=== PATIENT | female | born 1950 | race Caucasian/White ===

== ENCOUNTER 2020-06-09 10:42 | Outpatient (REF) | payer MEDICARE, SELFPAY | END 2020-06-09 10:43 | disposition home or self-care (01) | LOC: HO.HMGCLDS 10:42 | PROVIDERS: PCP Internal Medicine; Visit Provider Internal Medicine | DX: Z20.828 Contact with and (suspected) exposure to other viral communicable diseases (principal) | CPT/HCPCS: C9803; U0003 ==

== ENCOUNTER → 2020-06-14 08:58 | Outpatient (BNVA) | payer MEDICARE, SELFPAY | PROVIDERS: PCP Internal Medicine; Referring Provider Internal Medicine; Visit Provider Internal Medicine Endocrinology, Diabetes & Metabolism | DX: Z13.89 Encounter for screening for other disorder (principal) | CPT/HCPCS: Q3014 ==

== ENCOUNTER 2020-06-29 08:26 | Outpatient (REF) | payer MEDICARE, SELFPAY ==
[2020-06-29 10:37] LABS: Estimated Average Glucose 169 mg/dL; Hemoglobin A1c % 7.5 %
[2020-06-29 11:13] LABS: Alanine Aminotransferase 114 U/L (0-31); Alkaline Phosphatase 127 U/L (39-117); Anion Gap 14 (12-20); Aspartate Amino Transferase 146 U/L (5-31); Bilirubin Total 0.5 mg/dL (0.0-1.0); Blood Urea Nitrogen 18 mg/dL (9-16); Calcium 8.3 mg/dL (8.4-10.2); Carbon Dioxide 23 mmol/L (22-29); Chloride 112 mmol/L (96-108); Cholesterol 130 mg/dL; Estimated Glomerular Filt Rate 49; Free T4 (Free Thyroxine) 0.83 ng/dL (0.71-1.85); Glucose Fasting 73 mg/dL (60-99); HDL Cholesterol 48 mg/dL; LDL Cholesterol Calculated 58 mg/dl; Potassium 3.7 mmol/l (3.3-5.1); Sodium 145 mmol/L (135-145); Thyroid Stimulating Hormone 8.22 uIU/mL (0.32-4.0); Triglycerides 124 mg/dL
[2020-06-29 11:31] LABS: Vitamin B12 593 pg/mL (200-900)
[2020-06-29 11:39] LABS: Creatinine Urine 232.16 mg/dL; Microalbum/Creatinine Ratio Ur 94.7 ug/mg cr
[2020-06-30 13:47] LABS: LDL Cholesterol Direct 59 mg/dL (<100)
== END 2020-06-29 08:27 | disposition home or self-care (01) ==
LOC: HO.10HDL 08:26
PROVIDERS: Visit Provider Internal Medicine Endocrinology, Diabetes & Metabolism
DX: E11.641 Type 2 diabetes mellitus with hypoglycemia with coma (principal)
CPT/HCPCS: 80053; 80061; 82043; 82607; 83036; 83721; 84439; 84443

== ENCOUNTER 2020-07-09 08:44 | Outpatient (REF) | payer MEDICARE, SELFPAY ==
[2020-07-09 11:03] LABS: Alanine Aminotransferase 91 U/L (0-31); Albumin Level 3.9 g/dL (3.5-5.0); Alkaline Phosphatase 117 U/L (39-117); Anion Gap 12 (12-20); Aspartate Amino Transferase 126 U/L (5-31); Bilirubin Total 0.6 mg/dL (0.0-1.0); Blood Urea Nitrogen 16 mg/dL (9-16); Calcium 8.5 mg/dL (8.4-10.2); Carbon Dioxide 27 mmol/L (22-29); Chloride 107 mmol/L (96-108); Estimated Glomerular Filt Rate 45; Glucose Fasting 118 mg/dL (60-99); Potassium 4.6 mmol/l (3.3-5.1); Sodium 141 mmol/L (135-145); Total Protein 7.1 g/dL (6.5-8.0)
[2020-07-09 11:25] LABS: Free T4 (Free Thyroxine) 0.94 ng/dL (0.71-1.85); Vitamin D 25-OH Total 14.5 ng/mL (>30)
[2020-07-12 19:02] LABS: Calcium (PTHI) 8.7 mg/dL (8.6-10.4); PTHI 82 pg/mL (14-64)
== END 2020-07-09 08:45 | disposition home or self-care (01) ==
LOC: HO.10HDL 08:44
PROVIDERS: Visit Provider Internal Medicine Endocrinology, Diabetes & Metabolism
DX: E11.641 Type 2 diabetes mellitus with hypoglycemia with coma (principal); E03.8 Other specified hypothyroidism; E06.3 Autoimmune thyroiditis
CPT/HCPCS: 80053; 82306; 83970; 84439; 84443

== ENCOUNTER 2020-08-04 09:22 | Outpatient (REF) | payer MEDICARE, SELFPAY ==
--- NOTE | 2020-08-04 09:26 | MM_ITS ---
EXAMINATION: BONE DENSITOMETRY CLINICAL INDICATION: Other specified hypothyroidism. COMPARISON: Previous BD dated 07/18/2012 and baseline BD dated 09/21/2006. TECHNIQUE: Using a [employer] DXA System (software version: 13.1) manufactured by [employer], dual-energy x-ray absorptiometry was performed of the lumbar spine and left hip. The images are of good technical quality. Summary results are attached. FINDINGS: AP SPINE L1-L4: Current: BMD 1.386 g/cm2, Z-score 2.9, T-score 1.7, normal, 1.5% increase from previous, 12.3% increase from baseline (<5% change is not significant). Prior: BMD 1.365 g/cm2. Baseline: BMD 1.234 g/cm2. LEFT FEMUR, NECK: Current: BMD 1.068 g/cm2, Z-score 1.5, T-score 0.2, normal. Prior: BMD 1.098 g/cm2. Baseline: BMD 1.158 g/cm2. LEFT FEMUR, TOTAL: Current: BMD 1.219 g/cm2, Z-score 2.7, T-score 1.7, normal, 0.2% decrease from previous, 4.2% decrease from baseline (<5% change is not significant). Prior: BMD 1.221 g/cm2. Baseline: BMD 1.272 g/cm2. IDENTIFIED RISK FACTORS: Rheumatoid arthritis, recurrent falls, secondary osteoporosis, menopause. HISTORY OF FRACTURE: None listed. MEDICATIONS: Calcium supplements or multivitamin, vitamin D. MM/XR DEXA axial skeleton IMPRESSION: 1. DIAGNOSIS: Normal bone density based on the lowest T-score value of 0.2 in the femoral neck applying World Health Organization criteria. 2. 10-YEAR FRACTURE RISK PREDICTION, FRAX: Major osteoporotic fracture (clinical spine, forearm, hip or shoulder) 3.5%. Hip fracture 0.1%. 3. Treatment Recommendations: NOF guidelines recommend consideration for treatment in postmenopausal women and men age 50 and older presenting with the following: -A hip or vertebral (clinical or morphometric) fracture. -T-score less than or equal to -2.5 at the femoral neck or spine after appropriate evaluation to exclude secondary causes. -Low bone mass at the hip or spine and a 10-year fracture probability by FRAX of greater than or equal to 3% for hip fracture or greater than or equal to 20% for major osteoporotic fracture based on the [place] adapted WHO algorithm. 4. Other Recommendations: All treatment decisions require clinical judgment and consideration of individual patient factors, including patient preferences, comorbidities, previous drug use, risk factors not captured in the FRAX model (e.g. frailty, falls, vitamin D deficiency, increased bone turnover, interval significant decline in bone density) and possible under or overestimation of fracture risk by FRAX. FUTURE SCAN RECOMMENDATION: People with diagnosed cases of osteoporosis or at high risk for fracture should have regular bone mineral density tests. For patients eligible for Medicare, routine testing is allowed once every 2 years. The testing frequency can be increased to one year for patients who have rapidly progressing disease, those who are receiving or discontinuing medical therapy to restore bone mass, or have additional risk factors.
== END 2020-08-04 09:23 | disposition home or self-care (01) ==
LOC: HO.MAMMO 09:22
PROVIDERS: Visit Provider Internal Medicine
DX: Z13.820 Encounter for screening for osteoporosis (principal); Z78.0 Asymptomatic menopausal state; E06.3 Autoimmune thyroiditis; E03.8 Other specified hypothyroidism; M06.9 Rheumatoid arthritis, unspecified; R29.6 Repeated falls
CPT/HCPCS: 77080

== ENCOUNTER 2020-08-21 09:57 | Outpatient (REF) | payer MEDICARE, SELFPAY ==
[2020-08-21 11:21] LABS: Free T4 (Free Thyroxine) 1.02 ng/dL (0.71-1.85); Thyroid Stimulating Hormone 8.01 uIU/mL (0.32-4.0)
[2020-08-21 11:29] LABS: Alanine Aminotransferase 112 U/L (0-31); Albumin Level 4.1 g/dL (3.5-5.0); Alkaline Phosphatase 160 U/L (39-117); Aspartate Amino Transferase 180 U/L (5-31); Bilirubin Direct 0.2 mg/dL (0.0-0.5); Bilirubin Total 0.6 mg/dL (0.0-1.0); Total Protein 7.5 g/dL (6.5-8.0)
== END 2020-08-21 09:58 | disposition home or self-care (01) ==
LOC: HO.LAB 09:57
PROVIDERS: Absent Provider Internal Medicine; PCP Internal Medicine; Visit Provider Internal Medicine Endocrinology, Diabetes & Metabolism
DX: E03.8 Other specified hypothyroidism (principal); E06.3 Autoimmune thyroiditis
CPT/HCPCS: 36415; 80076; 84439; 84443

== ENCOUNTER → 2020-09-15 14:07 | Outpatient (BNVA) | payer MEDICARE, SELFPAY | PROVIDERS: PCP Internal Medicine; Visit Provider Internal Medicine ==

== ENCOUNTER → 2020-09-28 08:18 | Outpatient (BNVA) | payer MEDICARE, SELFPAY | PROVIDERS: PCP Internal Medicine; Visit Provider Psychiatry & Neurology Neurology | DX: Z13.89 Encounter for screening for other disorder (principal) | CPT/HCPCS: Q3014 ==

== ENCOUNTER → 2020-10-01 09:43 | Outpatient (BNVA) | payer MEDICARE, SELFPAY | PROVIDERS: PCP Internal Medicine; Visit Provider Internal Medicine Endocrinology, Diabetes & Metabolism | DX: E11.641 Type 2 diabetes mellitus with hypoglycemia with coma (principal); E11.21 Type 2 diabetes mellitus with diabetic nephropathy; Z79.4 Long term (current) use of insulin; E03.8 Other specified hypothyroidism; E06.3 Autoimmune thyroiditis; E78.5 Hyperlipidemia, unspecified; I10 Essential (primary) hypertension; E66.9 Obesity, unspecified | CPT/HCPCS: 82947; 99212 ==

== ENCOUNTER 2020-10-01 10:46 | Outpatient (REF) | payer MEDICARE, SELFPAY ==
[2020-10-01 14:43] LABS: Alanine Aminotransferase 58 U/L (0-31); Albumin Level 3.8 g/dL (3.5-5.0); Alkaline Phosphatase 133 U/L (39-117); Anion Gap 10 (12-20); Aspartate Amino Transferase 80 U/L (5-31); Bilirubin Total 0.5 mg/dL (0.0-1.0); Blood Urea Nitrogen 21 mg/dL (9-16); Calcium 8.7 mg/dL (8.4-10.2); Carbon Dioxide 28 mmol/L (22-29); Chloride 107 mmol/L (96-108); Estimated Glomerular Filt Rate 48; Glucose Fasting 150 mg/dL (60-99); Sodium 141 mmol/L (135-145); Total Protein 7.2 g/dL (6.5-8.0)
[2020-10-01 14:48] LABS: Vitamin B12 697 pg/mL (200-900)
[2020-10-01 15:12] LABS: Free T4 (Free Thyroxine) 0.86 ng/dL (0.71-1.85)
[2020-10-01 15:14] LABS: Thyroid Stimulating Hormone 7.71 uIU/mL (0.32-4.0)
[2020-10-02 06:12] LABS: LDL Cholesterol Direct 127 mg/dL (<100)
== END 2020-10-01 10:47 | disposition home or self-care (01) ==
LOC: HO.10HDL 10:46
PROVIDERS: Absent Provider Internal Medicine; Visit Provider Internal Medicine Endocrinology, Diabetes & Metabolism
DX: E11.641 Type 2 diabetes mellitus with hypoglycemia with coma (principal); E03.8 Other specified hypothyroidism; E06.3 Autoimmune thyroiditis
CPT/HCPCS: 36415; 80053; 82607; 83721; 84439; 84443

== ENCOUNTER 2020-10-04 08:57 | Outpatient (REF) | payer MEDICARE, SELFPAY ==
[2020-10-04 10:40] LABS: MANUAL DIFF FLAG NO
[2020-10-04 10:57] LABS: Basophils Absolute Auto 0.1 X10*3/uL (0.0-0.2); Basophils Percent Auto 0.8 % (0-2); Eosinophils Absolute Auto 0.1 X10*3/uL (0.0-0.4); Hematocrit 35.4 % (37-47); Hemoglobin 11.4 g/dl (12.0-16.0); Imm Gran Abs Auto 0.01 X10*3/uL (0.00-0.03); Imm Gran Pct Auto 0.2 % (0.0-0.4); Lymphocytes Absolute Auto 1.3 X10*3/uL (1.2-4.9); Mean Corpuscular HGB Conc 32.2 g/dl (31.0-35.0); Mean Corpuscular Hemoglobin 30.8 pg (27.0-33.0); Mean Corpuscular Volume 95.7 fL (80-98); Mean Platelet Volume 11.9 fL (9.4-12.3); Monocytes Absolute Auto 0.5 X10*3/uL (0.1-1.2); Monocytes Percent Auto 7.9 % (2-11); Neutrophils Absolute Auto 4.6 X10*3/uL (2.0-8.3); Neutrophils Percent Auto 69.1 % (45-73); Platelet Count 162 X10*3/uL (160-400); Red Cell Distribution Width 13.8 % (11.0-16.0); White Blood Count 6.6 X10*3/uL (4.8-10.8)
[2020-10-04 11:21] LABS: Creatinine Urine 200.38 mg/dL; Microalbum/Creatinine Ratio Ur 122.2 ug/mg cr
[2020-10-04 12:04] LABS: HBS Num1 1.41 mIU/mL (0-7.99); HBc Num1 0.04 S/CO (0.00-0.79); Hepatitis B Core Antibody Nonreactive (Nonreactive); ~Hepatitis B Surface Antibody NONREACTIVE (Nonreactive)
[2020-10-04 12:05] LABS: HBsAGNum1 0.12 S/CO (0.00-0.99); Hepatitis B Surface Antigen Negative (Negative); ~Hepatitis C Antibody Nonreactive (Nonreactive)
[2020-10-05 13:32] LABS: Mitochondrial Antibodies NEGATIVE (NEGATIVE)
[2020-10-05 14:17] LABS: Anti Nuclear Antibody Screen NEGATIVE (NEGATIVE)
[2020-10-06 07:27] LABS: Hepatitis A Antibody IgM 0.31 Index (0-0.79); ~Hepatitis A Antibody IgM Nonreactive (Nonreactive)
[2020-10-11 14:12] LABS: Smooth Muscle Antibody <20 U (<20)
== END 2020-10-04 08:58 | disposition home or self-care (01) ==
LOC: HO.LAB 08:57
PROVIDERS: Internal Medicine Endocrinology, Diabetes & Metabolism; PCP Internal Medicine; Visit Provider Physician Assistant
DX: R74.01 Elevation of levels of liver transaminase levels (principal); R94.5 Abnormal results of liver function studies; E11.641 Type 2 diabetes mellitus with hypoglycemia with coma; R74.8 Abnormal levels of other serum enzymes
CPT/HCPCS: 36415; 82043; 85025; 86038; 86039; 86255; 86256; 86704; 86706; 86709; 86803; 87340; Q3014

== ENCOUNTER → 2020-10-19 09:12 | Outpatient (BNVA) | payer MEDICARE, SELFPAY | PROVIDERS: PCP Internal Medicine; Visit Provider Internal Medicine Endocrinology, Diabetes & Metabolism | DX: E11.641 Type 2 diabetes mellitus with hypoglycemia with coma (principal); E11.21 Type 2 diabetes mellitus with diabetic nephropathy; Z79.4 Long term (current) use of insulin; E03.8 Other specified hypothyroidism; E06.3 Autoimmune thyroiditis; E78.5 Hyperlipidemia, unspecified; I10 Essential (primary) hypertension; E66.9 Obesity, unspecified | CPT/HCPCS: 82947; 99212 ==

== ENCOUNTER → 2020-10-20 08:48 | Outpatient (BNVA) | payer MEDICARE, SELFPAY | PROVIDERS: PCP Internal Medicine; Visit Provider Physician Assistant | DX: Z13.89 Encounter for screening for other disorder (principal) | CPT/HCPCS: Q3014 ==

== ENCOUNTER → 2020-11-01 19:36 | Outpatient (REF) | payer MEDICARE, SELFPAY | LOC: HO.SL 19:36 | PROVIDERS: PCP Internal Medicine; Visit Provider Psychiatry & Neurology Neurology | DX: G47.33 Obstructive sleep apnea (adult) (pediatric) (principal); E66.9 Obesity, unspecified | CPT/HCPCS: 95811 ==

== ENCOUNTER 2020-11-02 07:36 | Outpatient (REF) | payer MEDICARE, SELFPAY | END 2020-11-02 07:37 | disposition home or self-care (01) | LOC: HO.HOSX 07:36 | PROVIDERS: Visit Provider Orthopaedic Surgery | DX: Z13.89 Encounter for screening for other disorder (principal) ==

== ENCOUNTER → 2020-11-18 11:20 | Outpatient (BNVA) | payer MEDICARE, SELFPAY | PROVIDERS: Visit Provider Physician Assistant | DX: Z13.89 Encounter for screening for other disorder (principal) | CPT/HCPCS: Q3014 ==

== ENCOUNTER 2020-12-14 09:56 | Outpatient (REF) | payer MEDICARE, SELFPAY ==
--- NOTE | ~2020-12-14 | MM_ITS ---
EXAMINATION: MM SCREENING DIGITAL BREAST TOMOSYNTHESIS, BILATERAL CLINICAL INFORMATION: Screening. Asymptomatic. Patient notes bilateral nipple removal related to infections, surgery performed decades ago. The lifetime risk of breast cancer based on the Tyrer-Cuzick Model is 3%. COMPARISON: Mammography: 09/10/2019, 09/04/2018, 08/22/2017 TECHNIQUE: Digital breast tomosynthesis is performed in both the craniocaudal and mediolateral oblique views along with computer-aided detection (CAD). Synthesized 2D images are generated from the tomosynthesis. FINDINGS: There are scattered areas of fibroglandular density (ACR BI-RADS breast composition Category b). There are no significant masses, abnormal calcifications, or other abnormalities. There is dermal lesion again suggested overlying lower right breast similar to prior studies. MM/MM tomosynthesis screening BI IMPRESSION: No mammographic evidence of malignancy. ASSESSMENT: BI-RADS 2: Benign RECOMMENDATION: Routine annual mammography screening. This patient's information was entered into a reminder system with a target due date for their next mammogram.
== END 2020-12-14 09:57 | disposition home or self-care (01) ==
LOC: HO.MAMMO 09:56
PROVIDERS: Visit Provider Internal Medicine
DX: Z12.31 Encounter for screening mammogram for malignant neoplasm of breast (principal)
CPT/HCPCS: 77063; 77067

== ENCOUNTER → 2020-12-21 10:55 | Outpatient (BNVA) | payer MEDICARE, SELFPAY | PROVIDERS: PCP Internal Medicine; Visit Provider Psychiatry & Neurology Neurology | DX: G47.33 Obstructive sleep apnea (adult) (pediatric) (principal); E66.9 Obesity, unspecified | CPT/HCPCS: 99212 ==

== ENCOUNTER → 2020-12-28 11:00 | Outpatient (BNVA) | payer MEDICARE, SELFPAY | PROVIDERS: PCP Internal Medicine; Visit Provider Internal Medicine Gastroenterology | DX: R94.5 Abnormal results of liver function studies (principal) | CPT/HCPCS: Q3014 ==

== ENCOUNTER 2021-01-05 10:40 | Outpatient (REF) | payer MEDICARE, SELFPAY ==
[2021-01-05 13:01] LABS: Alanine Aminotransferase 37 U/L (0-31); Albumin Level 4.1 g/dL (3.5-5.0); Alkaline Phosphatase 140 U/L (39-117); Anion Gap 10 (12-20); Aspartate Amino Transferase 45 U/L (5-31); Bilirubin Total 0.5 mg/dL (0.0-1.0); Blood Urea Nitrogen 16 mg/dL (9-16); Calcium 9.3 mg/dL (8.4-10.2); Carbon Dioxide 27 mmol/L (22-29); Chloride 108 mmol/L (96-108); Cholesterol 234 mg/dL; Estimated Glomerular Filt Rate 53; Glucose Random 136 mg/dL (60-115); HDL Cholesterol 58 mg/dL; LDL Cholesterol Calculated 130 mg/dl; Potassium 3.3 mmol/L (3.3-5.1); Sodium 142 mmol/L (135-145); Total Protein 7.4 g/dL (6.5-8.0); Triglycerides 233 mg/dL
[2021-01-05 13:17] LABS: Free T4 (Free Thyroxine) 1.08 ng/dL (0.71-1.85)
[2021-01-05 13:24] LABS: Thyroid Stimulating Hormone 1.14 uIU/mL (0.32-4.0)
[2021-01-06 17:12] LABS: LDL Cholesterol Direct 133 mg/dL (<100)
== END 2021-01-05 10:41 | disposition home or self-care (01) ==
LOC: HO.LAB 10:40
PROVIDERS: PCP Internal Medicine; Visit Provider Internal Medicine Endocrinology, Diabetes & Metabolism
DX: E11.641 Type 2 diabetes mellitus with hypoglycemia with coma (principal); E11.21 Type 2 diabetes mellitus with diabetic nephropathy; E11.40 Type 2 diabetes mellitus with diabetic neuropathy, unspecified; E21.1 Secondary hyperparathyroidism, not elsewhere classified; E55.9 Vitamin D deficiency, unspecified; E03.8 Other specified hypothyroidism; E06.3 Autoimmune thyroiditis; E78.5 Hyperlipidemia, unspecified; I10 Essential (primary) hypertension; E66.9 Obesity, unspecified; Z68.32 Body mass index [BMI] 32.0-32.9, adult; Z79.4 Long term (current) use of insulin; Z79.899 Other long term (current) drug therapy
CPT/HCPCS: 36415; 80053; 80061; 82947; 83721; 84439; 84443; 99212

== ENCOUNTER 2021-01-06 09:50 | Outpatient (REF) | payer MEDICARE, SELFPAY ==
--- NOTE | ~2021-01-06 | US_ITS ---
EXAMINATION: US COMPLETE ABDOMEN WITH LIVER ELASTOGRAPHY CLINICAL INFORMATION: Normal liver function tests. COMPARISON: CT abdomen and pelvis 09/18/2016 TECHNIQUE: Real-time imaging of the abdominal viscera. Noninvasive ultrasound liver fibrosis assessment is performed using Armida ElastPQ point quantification shear wave elastography (pSWE) with a C5-2 MHz transducer. Multiple elastography samples are obtained. FINDINGS: PANCREAS: Normal. The visualized pancreatic head and body are normal in appearance. The remainder of the pancreas is obscured from visualization by the overlying bowel gas. ABDOMINAL AORTA: The proximal, middle, and distal aortic segments are normal in caliber. INFERIOR VENA CAVA: Visualized portions are normal. LIVER: Normal. The liver demonstrates normal size, contour and echogenicity. No focal lesion or intrahepatic biliary duct dilatation. The right lobe measures 15.1 cm in length. The left lobe measures 12.8 cm in length. Portal flow is hepatopedal. Shear wave liver elastography median stiffness is 2.18 m/s (reference: normal median stiffness is 1.3 m/s or less). IQR/median stiffness to assess sampling precision is 0.56 (reference: good quality data set is IQR/median stiffness of 0.15 or less). GALLBLADDER: Normal. The gallbladder is physiologically distended without evidence of stones, sludge, polyps, wall thickening or pericholecystic fluid. COMMON BILE DUCT: Normal in caliber measuring 0.8 cm in diameter. RIGHT KIDNEY: Normal. No hydronephrosis. No renal calculi or focal parenchymal lesions. The kidney measures 11.2 cm in maximum dimension. LEFT KIDNEY: Normal. No hydronephrosis. No renal calculi or focal parenchymal lesions. The kidney measures 11.4 cm in maximum dimension. SPLEEN: Normal. The spleen measures 10.2 cm in maximum dimension. FREE FLUID: None. US/US abdomen comp w elastography IMPRESSION: 1. Mild hepatic steatosis without focal lesion. 2. The rest of the abdominal ultrasound is unremarkable. 3. Liver elastography: Median stiffness 2.18, however, there is suboptimal sampling performed. The findings are suspicious for clinically significant portal hypertension. REFERENCE: Society of Radiologists in Ultrasound Liver Stiffness Thresholds (2020): LIVER STIFFNESS THRESHOLDS: *Liver Stiffness equal or less than 1.3 m/s: High probability of being normal. *Liver Stiffness less than 1.7 m/s: In the absence of other known clinical signs, rules out compensated advanced chronic liver disease. *Liver Stiffness 1.7-2.1 m/s: Suggestive of compensated advanced chronic liver disease but need further test for confirmation. *Liver Stiffness over 2.1 m/s: Rules in compensated advanced chronic liver disease. *Liver Stiffness over 2.4 m/s: Suggestive of clinically significant portal hypertension. QUALITY OF DATA SET: *IQR/Median value equal or less than 0.15 implies a quality data set. *IQR/Median value over 0.15 implies a poor quality data set. SIGNIFICANT CHANGE FROM PRIOR EXAM: Significant change if liver stiffness measurement is 10% or greater from prior exam. OTHER CONSIDERATIONS: The stage of liver fibrosis may be overestimated in the setting of acute hepatitis, liver inflammation, elevated liver function tests, hepatic vascular congestion, obstructive cholestasis, non-fasting state, and infiltrative diseases such as amyloidosis and lymphoma. In some patients with NAFLD, the liver stiffness thresholds for compensated advanced chronic liver disease may be lower. In causes other than viral hepatitis and NAFLD, liver stiffness thresholds are not well established.
== END 2021-01-06 09:51 | disposition home or self-care (01) ==
LOC: HO.US 09:50
PROVIDERS: Visit Provider Physician Assistant
DX: R94.5 Abnormal results of liver function studies (principal)
CPT/HCPCS: 76705; 76981

== ENCOUNTER → 2021-01-14 10:44 | Outpatient (BNVA) | payer MEDICARE, SELFPAY | PROVIDERS: PCP Internal Medicine; Visit Provider Nurse Practitioner Gerontology | DX: E11.65 Type 2 diabetes mellitus with hyperglycemia (principal); E78.5 Hyperlipidemia, unspecified; I10 Essential (primary) hypertension; E66.9 Obesity, unspecified; Z79.4 Long term (current) use of insulin | CPT/HCPCS: 82947; 99212 ==

== ENCOUNTER → 2021-04-07 12:41 | Outpatient (BNVA) | payer MEDICARE, SELFPAY | PROVIDERS: PCP Internal Medicine; Visit Provider Nurse Practitioner Gerontology | DX: E11.65 Type 2 diabetes mellitus with hyperglycemia (principal); E78.5 Hyperlipidemia, unspecified; E66.9 Obesity, unspecified; I10 Essential (primary) hypertension; Z79.4 Long term (current) use of insulin | CPT/HCPCS: 82947; 83036; 99212 ==

== ENCOUNTER → 2021-05-17 13:27 | Outpatient (BNVA) | payer MEDICARE, SELFPAY | PROVIDERS: PCP Internal Medicine; Visit Provider Internal Medicine Gastroenterology ==

== ENCOUNTER → 2021-07-05 09:51 | Outpatient (BNVA) | payer MEDICARE, SELFPAY | PROVIDERS: PCP Internal Medicine; Visit Provider Registered Nurse Diabetes Educator | DX: E11.21 Type 2 diabetes mellitus with diabetic nephropathy (principal) | CPT/HCPCS: 99211 ==

== ENCOUNTER → 2021-10-06 09:33 | Outpatient (BNVA) | payer MEDICARE, SELFPAY | PROVIDERS: PCP Internal Medicine; Visit Provider Registered Nurse Diabetes Educator | DX: E11.65 Type 2 diabetes mellitus with hyperglycemia (principal); Z79.4 Long term (current) use of insulin; Z96.41 Presence of insulin pump (external) (internal) | CPT/HCPCS: 99211 ==

== ENCOUNTER → 2021-10-07 15:28 | Outpatient (BNVA) | payer MEDICARE, SELFPAY | PROVIDERS: PCP Internal Medicine; Visit Provider Registered Nurse Diabetes Educator | DX: E11.65 Type 2 diabetes mellitus with hyperglycemia (principal) | CPT/HCPCS: 99211 ==

== ENCOUNTER → 2021-10-24 15:03 | Outpatient (BNVA) | payer OTHER, SELFPAY | PROVIDERS: PCP Internal Medicine; Visit Provider Registered Nurse Diabetes Educator | DX: E11.42 Type 2 diabetes mellitus with diabetic polyneuropathy (principal); E11.21 Type 2 diabetes mellitus with diabetic nephropathy; Z79.4 Long term (current) use of insulin | CPT/HCPCS: 99211 ==

== ENCOUNTER → 2021-10-26 08:26 | Outpatient (BNVA) | payer OTHER, SELFPAY | PROVIDERS: PCP Internal Medicine; Visit Provider Nurse Practitioner Gerontology | DX: E11.65 Type 2 diabetes mellitus with hyperglycemia (principal); E11.42 Type 2 diabetes mellitus with diabetic polyneuropathy; E66.9 Obesity, unspecified; E78.5 Hyperlipidemia, unspecified; I10 Essential (primary) hypertension; Z79.4 Long term (current) use of insulin; Z71.3 Dietary counseling and surveillance | CPT/HCPCS: 82947; 99212 ==

== ENCOUNTER 2021-12-20 08:44 | Outpatient (REF) | payer OTHER, SELFPAY ==
--- NOTE | ~2021-12-20 | MM_ITS ---
EXAMINATION: MM SCREENING DIGITAL BREAST TOMOSYNTHESIS, BILATERAL CLINICAL INFORMATION: Screening. Asymptomatic. The lifetime risk of breast cancer based on the Tyrer-Cuzick Model is 3%. COMPARISON: Mammography: 12/14/2020, 09/10/2019, 09/04/2018 TECHNIQUE: Digital breast tomosynthesis is performed in both the craniocaudal and mediolateral oblique views along with computer-aided detection (CAD). Synthesized 2D images are generated from the tomosynthesis. FINDINGS: There are scattered areas of fibroglandular density (ACR BI-RADS breast composition Category b). There are no significant masses, abnormal calcifications, or other abnormalities. There are dermal lesions again seen overlying the posterior medial breasts and inferior right breast. The axilla are unremarkable. No significant changes. MM/MM tomosynthesis screening BI IMPRESSION: No mammographic evidence of malignancy. ASSESSMENT: BI-RADS 2: Benign RECOMMENDATION: Routine annual mammography screening. This patient's information was entered into a reminder system with a target due date for their next mammogram.
== END 2021-12-20 08:45 | disposition home or self-care (01) ==
LOC: HO.MAMMO 08:44
PROVIDERS: PCP Internal Medicine; Visit Provider Internal Medicine
DX: Z12.31 Encounter for screening mammogram for malignant neoplasm of breast (principal); E11.42 Type 2 diabetes mellitus with diabetic polyneuropathy
CPT/HCPCS: 77063; 77067; 99211

== ENCOUNTER → 2021-12-28 09:38 | Outpatient (BNVA) | payer OTHER, SELFPAY | PROVIDERS: PCP Internal Medicine; Visit Provider Registered Nurse Diabetes Educator | DX: Z46.81 Encounter for fitting and adjustment of insulin pump (principal); E11.65 Type 2 diabetes mellitus with hyperglycemia | CPT/HCPCS: 99211 ==

== ENCOUNTER 2022-01-23 09:33 | Outpatient (REF) | payer OTHER, SELFPAY ==
[2022-01-23 09:51] LABS: MANUAL DIFF FLAG NO
[2022-01-23 11:07] LABS: Basophils Percent Auto 0.6 % (0-2); Eosinophils Absolute Auto 0.1 X10*3/uL (0.0-0.4); Eosinophils Percent Auto 1.4 % (0-4); Hematocrit 35.5 % (37.0-47.0); Hemoglobin 11.6 g/dl (12.0-16.0); Imm Gran Abs Auto 0.02 X10*3/uL (0.00-0.03); Imm Gran Pct Auto 0.3 % (0.0-0.4); Immature Retic Fraction 15.1 % (3.0-15.9); Lymphocytes Absolute Auto 1.3 X10*3/uL (1.2-4.9); Mean Corpuscular HGB Conc 32.7 g/dl (31.0-35.0); Mean Corpuscular Hemoglobin 30.1 pg (27.0-33.0); Mean Platelet Volume 11.1 fL (9.4-12.3); Monocytes Absolute Auto 0.5 X10*3/uL (0.1-1.2); Monocytes Percent Auto 7.3 % (2-11); Neutrophils Absolute Auto 4.5 x10*3/uL (2.0-8.3); Neutrophils Percent Auto 70.4 % (45-73); Platelet Count 180 X10*3/uL (160-400); Red Blood Count 3.86 X10*6/uL (4.20-5.50); Red Cell Distribution Width 13.4 % (11.0-16.0); Retic HGB Equivalent 34.9 pg (30.0-35.0); Reticulocytes Absolute 0.078 X10*6/uL (0.026-0.095); White Blood Count 6.3 X10*3/uL (4.8-10.8)
[2022-01-23 11:46] LABS: Appearance Urine CLEAR; Color Urine YELLOW; Glucose Urine UA NEG (NEG); Leukocyte Esterase Urine NEG (NEG); Nitrite Urine NEG (NEG); Specific Gravity - Urine 1.025 (1.005-1.025); Urine Blood NEG (NEG); Urine Ketones 5 MG/DL (NEG); Urine Protein 2+ MG/DL (NEG-TRACE)
[2022-01-23 12:03] LABS: Folate 19.4 ng/mL (> or = 4.0); Vitamin B12 363 pg/mL (200-900)
[2022-01-23 12:04] LABS: RBC Urine 0 /HPF (0); Squamous Epithelial Cell Urine 2+ /LPF
[2022-01-23 12:07] LABS: Alanine Aminotransferase 25 U/L (0-31); Albumin Level 4.1 g/dL (3.5-5.0); Alkaline Phosphatase 127 U/L (39-117); Anion Gap 14 (12-20); Aspartate Amino Transferase 30 U/L (5-31); Bilirubin Direct 0.2 mg/dL (0.0-0.5); Bilirubin Total 0.5 mg/dL (0.0-1.0); Blood Urea Nitrogen 17 mg/dL (9-16); Calcium 9.1 mg/dL (8.4-10.2); Carbon Dioxide 25 mmol/L (22-29); Chloride 108 mmol/L (96-108); Estimated Glomerular Filt Rate 47; Ferritin 25 ng/mL (10-250); Free T4 (Free Thyroxine) 0.91 ng/dL (0.71-1.85); Glucose Random 145 mg/dL (60-115); Iron 69 mcg/dL (30-160); Percent Iron Saturation 17 % (15-50); Potassium 4.1 mmol/L (3.3-5.1); Sodium 143 mmol/L (135-145); Thyroid Stimulating Hormone 1.82 uIU/mL (0.32-4.0); Total Iron Binding Capacity 397 mcg/dL (228-428); Total Protein 7.5 g/dL (6.5-8.0); Unsaturated Iron Binding 328 ug/dL
[2022-01-23 12:46] LABS: Vitamin D 25-OH Total 15.7 ng/mL (>30)
[2022-01-23 13:13] LABS: Creatinine Urine 205.96 mg/dL
== END 2022-01-23 09:34 | disposition home or self-care (01) ==
LOC: HO.LAB 09:33
PROVIDERS: PCP Internal Medicine; Visit Provider Internal Medicine
DX: E03.8 Other specified hypothyroidism (principal); E06.3 Autoimmune thyroiditis; E11.65 Type 2 diabetes mellitus with hyperglycemia; E78.5 Hyperlipidemia, unspecified; R79.89 Other specified abnormal findings of blood chemistry; I10 Essential (primary) hypertension; I25.10 Atherosclerotic heart disease of native coronary artery without angina pectoris
CPT/HCPCS: 36415; 80053; 81001; 82043; 82248; 82306; 82607; 82728; 82746; 83540; 84439; 84443; 85025; 85045

== ENCOUNTER → 2022-01-25 09:49 | Outpatient (BNVA) | payer OTHER, SELFPAY | PROVIDERS: PCP Internal Medicine; Visit Provider Nurse Practitioner Gerontology | DX: E11.65 Type 2 diabetes mellitus with hyperglycemia (principal); E55.9 Vitamin D deficiency, unspecified; E11.42 Type 2 diabetes mellitus with diabetic polyneuropathy; E78.5 Hyperlipidemia, unspecified; I10 Essential (primary) hypertension; E66.9 Obesity, unspecified; Z79.4 Long term (current) use of insulin; Z68.31 Body mass index [BMI] 31.0-31.9, adult | CPT/HCPCS: 82947; 99212 ==

== ENCOUNTER → 2022-02-09 10:58 | Outpatient (BNVA) | payer OTHER, SELFPAY | PROVIDERS: PCP Internal Medicine; Visit Provider Registered Nurse Diabetes Educator | DX: E11.42 Type 2 diabetes mellitus with diabetic polyneuropathy (principal); Z79.4 Long term (current) use of insulin | CPT/HCPCS: 99211 ==

== ENCOUNTER 2022-03-23 10:18 | Outpatient (REF) | payer OTHER, SELFPAY ==
[2022-03-23 10:49] LABS: MANUAL DIFF FLAG NO
[2022-03-23 11:31] LABS: Basophils Percent Auto 0.6 % (0-2); Eosinophils Absolute Auto 0.1 X10*3/uL (0.0-0.4); Eosinophils Percent Auto 1.4 % (0-4); Hematocrit 32.8 % (37.0-47.0); Hemoglobin 10.8 g/dl (12.0-16.0); Imm Gran Abs Auto 0.04 X10*3/uL (0.00-0.03); Imm Gran Pct Auto 0.6 % (0.0-0.4); Lymphocytes Absolute Auto 1.5 X10*3/uL (1.2-4.9); Lymphocytes Percent Auto 20.5 % (20-40); Mean Corpuscular HGB Conc 32.9 g/dl (31.0-35.0); Mean Corpuscular Hemoglobin 30.6 pg (27.0-33.0); Mean Corpuscular Volume 92.9 fL (80.0-98.0); Monocytes Absolute Auto 0.5 X10*3/uL (0.1-1.2); Monocytes Percent Auto 6.2 % (2-11); Neutrophils Absolute Auto 5.2 x10*3/uL (2.0-8.3); Neutrophils Percent Auto 70.7 % (45-73); Platelet Count 197 X10*3/uL (160-400); Red Blood Count 3.53 X10*6/uL (4.20-5.50); Red Cell Distribution Width 12.8 % (11.0-16.0); White Blood Count 7.3 X10*3/uL (4.8-10.8)
[2022-03-23 12:08] LABS: Alanine Aminotransferase 18 U/L (0-31); Albumin Level 3.9 g/dL (3.5-5.0); Alkaline Phosphatase 106 U/L (39-117); Anion Gap 13 (12-20); Aspartate Amino Transferase 26 U/L (5-31); Bilirubin Total 0.5 mg/dL (0.0-1.0); Blood Urea Nitrogen 21 mg/dL (9-16); Calcium 9.1 mg/dL (8.4-10.2); Carbon Dioxide 24 mmol/L (22-29); Chloride 107 mmol/L (96-108); Cholesterol 252 mg/dL; Estimated Glomerular Filt Rate 48; Glucose Random 122 mg/dL (60-115); HDL Cholesterol 54 mg/dL; LDL Cholesterol Calculated 144 mg/dl; Potassium 4.4 mmol/L (3.3-5.1); Sodium 140 mmol/L (135-145); Total Protein 7.2 g/dL (6.5-8.0); Triglycerides 272 mg/dL
[2022-03-23 12:18] LABS: Free T4 (Free Thyroxine) 1.17 ng/dL (0.71-1.85); Thyroid Stimulating Hormone 2.05 uIU/mL (0.32-4.0); Vitamin D 25-OH Total 26.6 ng/mL (>30)
[2022-03-23 12:24] LABS: Folate 18.3 ng/mL (> or = 4.0); Vitamin B12 331 pg/mL (200-900)
[2022-03-23 12:26] LABS: Creatinine Urine 221.37 mg/dL; Microalbum/Creatinine Ratio Ur 93.5 ug/mg cr
== END 2022-03-23 10:19 | disposition home or self-care (01) ==
LOC: HO.LAB 10:18
PROVIDERS: PCP Internal Medicine; Visit Provider Internal Medicine
DX: E11.65 Type 2 diabetes mellitus with hyperglycemia (principal); E78.00 Pure hypercholesterolemia, unspecified
CPT/HCPCS: 36415; 80053; 80061; 82043; 82306; 82607; 82746; 84439; 84443; 85025

== ENCOUNTER → 2022-04-10 09:02 | Outpatient (BNVA) | payer OTHER, SELFPAY | PROVIDERS: PCP Internal Medicine; Visit Provider Registered Nurse Diabetes Educator | DX: E11.42 Type 2 diabetes mellitus with diabetic polyneuropathy (principal); Z96.41 Presence of insulin pump (external) (internal) | CPT/HCPCS: 99211 ==

== ENCOUNTER 2022-04-22 12:58 | Emergency (ER) | payer OTHER, SELFPAY ==
[2022-04-22 13:41] VITALS: BP 192/70; PULSE 100; RESP 18; TEMP 36.1; O2SAT 98; BMI 31.1
--- NOTE | 2022-04-22 14:32 | ED_ITS ---
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 She reports her pain is across her lower back, worse on the left side and radiates down the back of her left leg. It is worse with movement, walking. She has seen her doctor for this several times who keeps telling her it is just arthritis. She has been taking Tylenol with minimal improvement in her pain. She denies any urinary incontinence, bowel incontinence, saddle paresthesias, lower extremity weakness, numbness or tingling. MD elicited complaint: back pain Pertinent past history: prior back pain Onset (ago): month(s) (6) Timing: constant and progressively worsening Severity: severe Similar Symptoms Previously: Yes Quality: sharp and aching Location: right lower back and left lower back Radiation: buttocks and left upper leg Exacerbating factors: movement and walking Relieving factors: none Context: unknown Associated symptoms: denies other symptoms Treatments prior to arrival: acetaminophen Work related injury: No Related Data Home Medications Medication Instructions Recorded Confirmed bupropion HCl 100 mg tablet,12 hr 100 mg PO QAM 06/14/20 03/23/22 sustained-release cyclobenzaprine 10 mg tablet 10 mg PO Q8H PRN muscle spasm 06/14/20 03/23/22 isosorbide mononitrate 120 mg 120 mg PO QAM 06/14/20 03/23/22 tablet,extended release 24 hr trazodone 50 mg tablet 50 mg PO BEDTIME PRN insomnia 06/14/20 03/23/22 buspirone 7.5 mg tablet 7.5 mg PO BID 09/28/20 03/23/22 sertraline 100 mg tablet 100 mg PO DAILY 10/01/20 03/23/22 nitroglycerin 0.4 mg sublingual 0.4 mg sublingual Q5M PRN 11/18/20 03/23/22 tablet melatonin 1 mg tablet 1 mg PO BEDTIME 05/17/21 03/23/22 Previous Rx's Medication Instructions Recorded oxycodone 5 mg capsule 5 mg PO DAILY PRN pain #14 caps 10/18/20 pentoxifylline 400 mg 400 mg PO TID #90 tabs 12/28/20 tablet,extended release BD Insulin Syringe Ultra-Fine 0.3 #100 ea 01/05/21 mL 31 gauge x 5/16 (insulin syringe-needle U-100) levothyroxine 125 mcg tablet 125 mcg PO DAILY #90 tabs 06/16/21 metoprolol succinate 200 mg 200 mg PO DAILY #90 caps 10/05/21 tablet,extended release 24 hr omeprazole 20 mg capsule,delayed 20 mg PO DAILY #90 caps 10/05/21 release blood-glucose meter (FreeStyle #1 ea 10/06/21 Lite Meter kit) lancets 28 gauge (FreeStyle 28 gauge topical QID 90 days #400 10/06/21 Lancets) ea dulaglutide 3 mg/0.5 mL 3 mg (0.5 mL) subcut QWEEK 84 days 10/26/21 subcutaneous pen injector #6 mL (Trulicity) CPAP #1 ea 12/07/21 alirocumab 75 mg/mL subcutaneous 75 mg subcut Q2W 30 days #3 mL 12/07/21 pen injector (Praluent Pen) meloxicam 7.5 mg tablet 7.5 mg PO DAILY 30 days #30 tabs 01/03/22 cholecalciferol (vitamin D3) 125 125 mcg PO DAILY 30 days #30 caps 01/25/22 mcg (5,000 unit) capsule lisinopril 30 mg tablet 30 mg PO DAILY #90 tabs 01/31/22 V-GO 30 (sub-q insulin device, 30 #30 ea 02/09/22 unit) Fiasp U-100 Insulin 100 unit/mL 100 unit subcut DAILY 30 days #30 02/23/22 subcutaneous solution (insulin mL aspart (niacinamide)) FreeStyle Lite Strips (blood sugar 1 strip miscellaneous QID for 04/04/22 diagnostic) diabetes mellitus 90 days #400 ea cefuroxime axetil 250 mg tablet 250 mg PO BID 7 days #14 tabs 04/22/22 cyclobenzaprine 5 mg tablet 5 mg PO TID PRN muscle spasm #14 04/22/22 tabs lidocaine 5 % topical patch 1 patch topical DAILY #15 ea 04/22/22 Allergies Allergy/AdvReac Type Severity Reaction Status Date / Time ibuprofen [From MOTRIN] Allergy Mild STOMACH Verified 03/23/22 09:23 UPSET, gastritis Review of Systems Review of Systems: Constitutional: No Fever, No Chills Cardiovascular: No Chest Pain, No SOB, No Orthopnea, No Edema Respiratory: No Cough, No Sputum, No Wheezing, No dyspnea Gastrointestinal: No Nausea, No Vomiting, No Diarrhea, No abdominal Pain Genitourinary: No Dysuria, No Urinary Frequency, No Hematuria, No urinary incontinence Musculoskeletal: No joint pain, No Myalgias Skin: No Skin Lesions, No rash Neuro: No Weakness, No Numbness, No Dizziness, No Headache Psych: + Anxiety/Panic, No Depression Heme/Lymph: No Bruising, No Lymphadenopathy Endocrine: No Polyuria, No Polydipsia [facility], [facility] Past Medical History Medical History (Updated 04/22/22 @ 15:38 by ERINN Bowen) Abnormal liver function test Anemia Carpal tunnel syndrome Coronary artery disease Diabetes type 2, uncontrolled Diabetic nephropathy associated with type 2 diabetes mellitus Dyslipidemia GERD (gastroesophageal reflux disease) Hypertension Hypothyroidism Knee osteoarthritis custodial (current) use of insulin Lumbar degenerative disc disease Obesity (BMI 30-39.9) Obstructive sleep apnea Ovarian cyst Tear of meniscus of left knee Type 2 diabetes mellitus with diabetic polyneuropathy Surgical History History of esophagogastroduodenoscopy (EGD) History of surgical removal of nipple Hx of cholecystectomy Hx of colonoscopy Hx of right coronary artery stent placement Hx of tubal ligation Family History Family History Father Diabetes mellitus Mother Diabetes mellitus Maternal Uncle Colon cancer Gastric cancer Daughter Diabetes mellitus Social History Social History Household Members: None Housing: Apartment Alcohol intake: never Patient Tobacco Use Status: Former Tobacco user e-Cigarette/Vaping Use: Never Used Second Hand Smoke Exposure: No Advance Directives: No Advance Directives Information Provided: No service: No Current occupational status: disabled Current occupational exposures/hazards: No Cognitive needs: No Hearing needs: No Vision needs: Yes Physical Exam Vital Signs: Vital Signs: Last Vital Signs Temp 97 F 04/22/22 13:41 Pulse 100 04/22/22 13:41 Resp 18 04/22/22 13:41 BP 192/70 H 04/22/22 13:41 Pulse Ox 98 04/22/22 13:41 O2 Del Method 04/22/22 13:41 BMI result Body Mass Index 31.1 Appearance: Alert. Oriented X3. No acute distress. Eyes: Pupils equal, round and reactive to light. ENT: Pharynx normal. Neck: Normal inspection. Neck supple. CVS: Normal heart rate and rhythm. Pulses normal. Respiratory: No respiratory distress. Breath sounds normal. Abdomen: Soft and nontender. +BS x4 Back: Tenderness of the soft tissues of the left lower lumbar area, tenderness of the left SI joint. Positive straight leg raise test. Limited range of motion of the spine due to pain. No midline tenderness. Skin: Skin warm and dry. Normal skin color. Normal skin turgor. No rashes. Extremities: No lower extremity edema. Neuro: Oriented X 3. No motor deficit. Normal DTRs. No sensory deficit. Ambulates with steady gait. Course Course Course Narrative: 8-year-old female with history of DM, HTN, CAD, GERD, lumbar degenerative disc disease with chronic back pain who presents to the ER for acute on chronic low back pain that radiates down her left lower extremity. There is no recent trauma or injury. No red flag symptoms of LBP. She only has been taking Tylenol. Her clinical presentation is consistent with sciatica. Will medicate and reassess her pain. Will also check urinalysis Reevaluation(s) Reevaluation #1: Urinalysis consistent with possible urinary tract infection. Will empirically treat. Her pain is slightly improved with the medications. Will send her home with Lidoderm patches and Flexeril. Will send her home with referral for pain management. She will follow-up with Dr. Beckham. She is stable for discharge home. She is steady on her feet. staff scientist used to discuss plan and recommendations. MDM - Back Pain/Injury Lab Data Labs: Lab Results 04/22/22 Range/Units 14:40 Urine Color Yellow Urine Appearance Clear Urine pH 5.5 (5.0-9.0) Ur Specific [place] 1.025 (1.005-1.025) Urine Protein 100 (2+) H (Neg-Trace) mg/dL Urine Glucose (UA) 100 H (Negative) mg/dL Urine Ketones Trace (Negative) mg/dL Urine Blood Negative (Negative) Urine Nitrite Negative (Negative) Ur Leukocyte Esterase Moderate (2+) H (Negative) Urine RBC 0-2 (0-2) /HPF Urine WBC 11-20 (0-5) /HPF Ur Squamous Epith Cells 6-10 (0-2) /HPF Urine Bacteria 1+ (None Seen) Hyaline Casts 3-5 (0-2) /LPF Discharge Plan Discharge Clinical Impression: Sciatica, Acute UTI Patient Disposition: Home, Self-Care Instructions: Sciatica (ED), Urinary Tract Infection in Older Adults (ED) Additional Instructions: Take the prescribed antibiotic for urinary tract infection, complete the entire course. Make sure drinking plenty of water. Take the prescribed muscle relaxer as needed for back pain. Also recommend continuing Tylenol 975 mg every 6 hours as needed for pain. Recommend following with her primary care doctor as well as the pain management doctor, name and number listed below. If you develop new or worsening symptoms call 911 or come back to the ER for further evaluation. [place] el antibi?derek recetado para la infecci?n del tracto urinario, complete todo el curso. Aseg?rate de beber lyly agua. [place] el relajante muscular recetado seg?n sea necesario para el dolor de espalda. Tambi?n recomiende continuar con Tylenol 975 mg cada 6 horas seg?n sea necesario para el dolor. Recomendar seguir con wells m?dico de atenci?n primaria, as? hanh el m?dico de control del dolor, nombre y n?tyson que figuran a continuaci?n. Si desarrolla s?ntomas nuevos o que empeoran, llame al 911 o regrese a la edin de emergencias para stacy evaluaci?n adicional. Prescriptions: New cefuroxime axetil 250 mg tablet 250 mg PO BID 7 Days Qty: 14 0RF lidocaine 5 % adhesive patch,medicated 1 patch topical DAILY Qty: 15 0RF Rx Instructions: leave on most painful area for up to 12 hrs cyclobenzaprine 5 mg tablet 5 mg PO TID PRN (Reason: muscle spasm) Qty: 14 0RF No Action levothyroxine 125 mcg tablet 125 mcg PO DAILY Qty: 90 2RF metoprolol succinate 200 mg tablet extended release 24 hr 200 mg PO DAILY Qty: 90 2RF omeprazole 20 mg capsule,delayed release(DR/EC) 20 mg PO DAILY Qty: 90 2RF lancets [FreeStyle Lancets] 28 gauge misc 28 gauge topical QID 90 Days Qty: 400 4RF (DME) blood-glucose meter [FreeStyle Lite Meter] Kit See Rx Instructions .ROUTE .MEDSUPPLY Qty: 1 0RF Rx Instructions: As directed 4x/day meloxicam 7.5 mg tablet 7.5 mg PO DAILY 30 Days Qty: 30 2RF lisinopril 30 mg tablet 30 mg PO DAILY Qty: 90 1RF (DME) V-GO 30 Device See Rx Instructions .ROUTE .MEDSUPPLY Qty: 30 6RF Rx Instructions: Once a day Fiasp U-100 Insulin 100 unit/mL solution 100 unit subcut DAILY 30 Days Qty: 30 6RF FreeStyle Lite Strips Strip 1 strip miscellaneous QID 90 Days Qty: 400 1RF oxycodone 5 mg capsule 5 mg PO DAILY PRN (Reason: pain) Qty: 14 0RF (DME) CPAP See Rx Instructions .Route .MEDSUPPLY Qty: 1 0RF Rx Instructions: As directed Praluent Pen 75 mg/mL pen injector 75 mg subcut Q2W 30 Days Qty: 3 11RF Rx Instructions: inject into abdomen, thigh, or upper arm (deltoid muscle); rotate sites isosorbide mononitrate 120 mg tablet extended release 24 hr 120 mg PO QAM bupropion HCl 100 mg tablet sustained-release 12 hr 100 mg PO QAM cyclobenzaprine 10 mg tablet 10 mg PO Q8H PRN (Reason: muscle spasm) trazodone 50 mg tablet 50 mg PO BEDTIME PRN (Reason: insomnia) sertraline 100 mg tablet 100 mg PO DAILY (DME) insulin syringe-needle U-100 [BD Insulin Syringe Ultra-Fine] 0.3 mL 31 gauge x 5/16 syringe See Rx Instructions .ROUTE .MEDSUPPLY Qty: 100 4RF Rx Instructions: 4 times a day nitroglycerin 0.4 mg tablet, sublingual 0.4 mg sublingual Q5M PRN Rx Instructions: do not exceed 3 doses per episode pentoxifylline 400 mg tablet extended release 400 mg PO TID Qty: 90 3RF Rx Instructions: must administer with a meal/food Trulicity 3 mg/0.5 mL pen injector 3 mg subcut QWEEK 84 Days Qty: 6 2RF buspirone 7.5 mg tablet 7.5 mg PO BID melatonin 1 mg tablet 1 mg PO BEDTIME cholecalciferol (vitamin D3) 125 mcg (5,000 unit) capsule 125 mcg PO DAILY 30 Days Qty: 30 11RF Referrals: [facility] [place] [facility] [Provider Group] (acute on chronic low back pain) Po,Georgina Willis MD [Primary Care Provider] - (acute on chronic low back pain, ?PT referral, ?pain management) Interventions: ED Discharge Assessment Last Done: 04/22/22 15:51 Discharge Date/Time: 04/22/22 15:52
[2022-04-22 14:47] LABS: Appearance Urine Clear; Color Urine Yellow; Glucose Urine UA 100 mg/dL (Negative); Leukocyte Esterase Urine Moderate (2+) (Negative); Nitrite Urine Negative (Negative); PH 5.5 (5.0-9.0); Specific Gravity - Urine 1.025 (1.005-1.025); UMIC TRIGGER UACC YES; Urine Blood Negative (Negative); Urine Ketones Trace mg/dL (Negative); Urine Protein 100 (2+) mg/dL (Neg-Trace)
[2022-04-22 15:01] LABS: Bacteria Urine 1+ (None Seen); RBC Urine 0-2 /HPF (0-2); UACC Culture Trigger YES
[2022-04-22] MEDS: Ketorolac Tromethamine 30 MG/ML VIAL IM (15:04)
[2022-04-22] MEDS: oxyCODONE HCl Immed Release 5 MG TABLET PO (15:06)
[2022-04-22] MEDS: Lidocaine 4 % Patch ADH..PATCH 1 PATCH TRANSDERMA (15:08)
== END 2022-04-22 15:52 | disposition home or self-care (01) ==
PROVIDERS: Physician Assistant; Emergency Provider Emergency Medicine; PCP Internal Medicine
DX: M54.42 Lumbago with sciatica, left side (principal); N39.0 Urinary tract infection, site not specified; M51.36 Other intervertebral disc degeneration, lumbar region; E11.9 Type 2 diabetes mellitus without complications; I10 Essential (primary) hypertension; Z79.899 Other long term (current) drug therapy
CPT/HCPCS: 81001; 87086; 96372; 99283; 99284; J1885

== ENCOUNTER → 2022-04-27 09:41 | Outpatient (BNVA) | payer OTHER, SELFPAY | PROVIDERS: PCP Internal Medicine; Visit Provider Internal Medicine Endocrinology, Diabetes & Metabolism | DX: E11.65 Type 2 diabetes mellitus with hyperglycemia (principal); E78.5 Hyperlipidemia, unspecified | CPT/HCPCS: 82947; 99212 ==

== ENCOUNTER 2022-05-03 08:30 | Outpatient (REF) | payer OTHER, SELFPAY ==
[2022-05-03 09:32] LABS: Anion Gap 16 (12-20); Blood Urea Nitrogen 21 mg/dL (9-16); Calcium 8.9 mg/dL (8.4-10.2); Carbon Dioxide 19 mmol/L (22-29); Chloride 110 mmol/L (96-108); Cholesterol 223 mg/dL; Estimated Glomerular Filt Rate 43; Glucose Random 135 mg/dL (60-115); HDL Cholesterol 47 mg/dL; LDL Cholesterol Calculated 116 mg/dl; Potassium 4.3 mmol/L (3.3-5.1); Sodium 141 mmol/L (135-145); Triglycerides 303 mg/dL
== END 2022-05-03 08:31 | disposition home or self-care (01) ==
LOC: HO.LAB 08:30
PROVIDERS: PCP Internal Medicine; Visit Provider Internal Medicine Endocrinology, Diabetes & Metabolism
DX: E78.5 Hyperlipidemia, unspecified (principal); E11.65 Type 2 diabetes mellitus with hyperglycemia
CPT/HCPCS: 36415; 80048; 80061

== ENCOUNTER → 2022-05-31 11:58 | Outpatient (BNVA) | payer OTHER, SELFPAY | PROVIDERS: PCP Internal Medicine; Visit Provider Registered Nurse Diabetes Educator | DX: E11.42 Type 2 diabetes mellitus with diabetic polyneuropathy (principal); Z96.41 Presence of insulin pump (external) (internal); Z79.4 Long term (current) use of insulin | CPT/HCPCS: 99211 ==

== ENCOUNTER → 2022-07-28 09:14 | Outpatient (BNVA) | payer OTHER, SELFPAY | PROVIDERS: PCP Internal Medicine; Visit Provider Internal Medicine Endocrinology, Diabetes & Metabolism | DX: E11.65 Type 2 diabetes mellitus with hyperglycemia (principal); E78.5 Hyperlipidemia, unspecified; Z96.41 Presence of insulin pump (external) (internal); Z79.4 Long term (current) use of insulin | CPT/HCPCS: 82947; 83036; 99212 ==

== ENCOUNTER 2022-08-03 12:31 | Emergency (ER) | payer OTHER, SELFPAY ==
[2022-08-03 15:04] VITALS: BP 156/42; PULSE 82; RESP 18; TEMP 36.1; O2SAT 99; BMI 31.2
--- NOTE | 2022-08-03 15:05 | ED.GENADULT ---
HPI - General Adult General Stated complaint: lower abd around to back pain Related Data Home Medications Medication Instructions Recorded Confirmed bupropion HCl 100 mg tablet,12 hr 100 mg PO QAM 06/14/20 07/28/22 sustained-release isosorbide mononitrate 120 mg 120 mg PO QAM 06/14/20 07/28/22 tablet,extended release 24 hr trazodone 50 mg tablet 50 mg PO BEDTIME PRN insomnia 06/14/20 07/28/22 buspirone 7.5 mg tablet 7.5 mg PO BID 09/28/20 07/28/22 sertraline 100 mg tablet 100 mg PO DAILY 10/01/20 07/28/22 nitroglycerin 0.4 mg sublingual 0.4 mg sublingual Q5M PRN 11/18/20 07/28/22 tablet melatonin 1 mg tablet 1 mg PO BEDTIME 05/17/21 07/28/22 pentoxifylline 400 mg 400 mg PO TID 04/27/22 07/28/22 tablet,extended release insulin pump cart,cont inf,BT #5 ea 07/28/22 07/28/22 (Omnipod Dash Pods (Gen 4) subcutaneous cartridge) Previous Rx's Medication Instructions Recorded oxycodone 5 mg capsule 5 mg PO DAILY PRN pain #14 caps 10/18/20 BD Insulin Syringe Ultra-Fine 0.3 #100 ea 01/05/21 mL 31 gauge x 5/16 (insulin syringe-needle U-100) blood-glucose meter (FreeStyle #1 ea 10/06/21 Lite Meter kit) lancets 28 gauge (FreeStyle 28 gauge topical QID 90 days #400 10/06/21 Lancets) ea CPAP #1 ea 12/07/21 cholecalciferol (vitamin D3) 125 125 mcg PO DAILY 30 days #30 caps 01/25/22 mcg (5,000 unit) capsule V-GO 30 (sub-q insulin device, 30 #30 ea 02/09/22 unit) Fiasp U-100 Insulin 100 unit/mL 100 unit subcut DAILY 30 days #30 02/23/22 subcutaneous solution (insulin mL aspart (niacinamide)) FreeStyle Lite Strips (blood sugar 1 strip miscellaneous QID for 04/04/22 diagnostic) diabetes mellitus 90 days #400 ea cefuroxime axetil 250 mg tablet 250 mg PO BID 7 days #14 tabs 04/22/22 lidocaine 5 % topical patch 1 patch topical DAILY #15 ea 04/22/22 dapagliflozin 5 mg tablet (Farxiga) 5 mg PO DAILY #30 tabs 04/27/22 levothyroxine 125 mcg tablet 125 mcg PO DAILY #90 tabs 05/31/22 cyclobenzaprine 5 mg tablet 5 mg PO TID PRN muscle spasm #14 06/09/22 tabs metoprolol succinate 200 mg 200 mg PO DAILY #90 caps 07/01/22 tablet,extended release 24 hr omeprazole 20 mg capsule,delayed 20 mg PO DAILY #90 caps 07/01/22 release alirocumab 150 mg/mL subcutaneous 150 mg subcut Q14D #2 mL 07/28/22 pen injector (Praluent Pen) dulaglutide 3 mg/0.5 mL 3 mg (0.5 mL) subcut QWEEK 84 days 07/28/22 subcutaneous pen injector #6 mL (Trulicity) lisinopril 30 mg tablet 30 mg PO DAILY #90 tabs 07/28/22 meloxicam 7.5 mg tablet 7.5 mg PO DAILY 30 days #30 tabs 08/01/22 Allergies Allergy/AdvReac Type Severity Reaction Status Date / Time ibuprofen [From MOTRIN] Allergy Mild STOMACH Verified 06/09/22 12:58 UPSET, gastritis PMFSH Past Medical History Medical History (Updated 06/09/22 @ 13:08 by Georgina Fish MD) Abnormal liver function test Anemia Carpal tunnel syndrome Coronary artery disease Diabetes type 2, uncontrolled Diabetic nephropathy associated with type 2 diabetes mellitus Dyslipidemia GERD (gastroesophageal reflux disease) Hypertension Hypothyroidism Knee osteoarthritis [employer] (current) use of insulin Lumbar degenerative disc disease Obesity (BMI 30-39.9) Obstructive sleep apnea Ovarian cyst Tear of meniscus of left knee Type 2 diabetes mellitus with diabetic polyneuropathy Surgical History History of esophagogastroduodenoscopy (EGD) History of surgical removal of nipple Hx of cholecystectomy Hx of colonoscopy Hx of right coronary artery stent placement Hx of tubal ligation Family History Family History Father Diabetes mellitus Mother Diabetes mellitus Maternal Uncle Colon cancer Gastric cancer Daughter Diabetes mellitus Social History Social History Household Members: None Housing: Apartment Alcohol intake: never Patient Tobacco Use Status: Former Tobacco user e-Cigarette/Vaping Use: Never Used Second Hand Smoke Exposure: No service: No Current occupational status: disabled Current occupational exposures/hazards: No Cognitive needs: No Hearing needs: No Vision needs: Yes Course Course Course Narrative: RME: [age] old female with past medical history of CAD, type 2 diabetes, lumbar degenerative disc disease, GERD, POLLO, obesity, hypertension, dyslipidemia, GERD is here today for complaining of left lower quadrant pain radiating to her left flank. Patient reports that this started about 3 move weeks ago and is getting worse. Patient also reports that she is having trouble urinating. Patient reports that she has incomplete urination. When she pees she does not feel like she finishes. Patient reports that she had constipation couple days ago. However now she feels like she is moving her bowels better. Patient denies any nausea or vomiting. Denies any melena, hematochezia, unintentional weight loss or ribbon like stools. Patient has a history of colonoscopy in 2006 no colonoscopy sense. Discharge Plan Discharge Prescriptions: No Action lancets [FreeStyle Lancets] 28 gauge misc 28 gauge topical QID 90 Days Qty: 400 4RF (DME) blood-glucose meter [FreeStyle Lite Meter] Kit See Rx Instructions .ROUTE .MEDSUPPLY Qty: 1 0RF Rx Instructions: As directed 4x/day (DME) V-GO 30 Device See Rx Instructions .ROUTE .MEDSUPPLY Qty: 30 6RF Rx Instructions: Once a day Fiasp U-100 Insulin 100 unit/mL solution 100 unit subcut DAILY 30 Days Qty: 30 6RF FreeStyle Lite Strips Strip 1 strip miscellaneous QID 90 Days Qty: 400 1RF levothyroxine 125 mcg tablet 125 mcg PO DAILY Qty: 90 2RF metoprolol succinate 200 mg tablet extended release 24 hr 200 mg PO DAILY Qty: 90 2RF omeprazole 20 mg capsule,delayed release(DR/EC) 20 mg PO DAILY Qty: 90 2RF lisinopril 30 mg tablet 30 mg PO DAILY Qty: 90 1RF meloxicam 7.5 mg tablet 7.5 mg PO DAILY 30 Days Qty: 30 1RF cefuroxime axetil 250 mg tablet 250 mg PO BID 7 Days Qty: 14 0RF lidocaine 5 % adhesive patch,medicated 1 patch topical DAILY Qty: 15 0RF Rx Instructions: leave on most painful area for up to 12 hrs oxycodone 5 mg capsule 5 mg PO DAILY PRN (Reason: pain) Qty: 14 0RF (DME) CPAP See Rx Instructions .Route .MEDSUPPLY Qty: 1 0RF Rx Instructions: As directed cyclobenzaprine 5 mg tablet 5 mg PO TID PRN (Reason: muscle spasm) Qty: 14 0RF isosorbide mononitrate 120 mg tablet extended release 24 hr 120 mg PO QAM bupropion HCl 100 mg tablet sustained-release 12 hr 100 mg PO QAM trazodone 50 mg tablet 50 mg PO BEDTIME PRN (Reason: insomnia) sertraline 100 mg tablet 100 mg PO DAILY (DME) insulin syringe-needle U-100 [BD Insulin Syringe Ultra-Fine] 0.3 mL 31 gauge x 5/16 syringe See Rx Instructions .ROUTE .MEDSUPPLY Qty: 100 4RF Rx Instructions: 4 times a day nitroglycerin 0.4 mg tablet, sublingual 0.4 mg sublingual Q5M PRN Rx Instructions: do not exceed 3 doses per episode buspirone 7.5 mg tablet 7.5 mg PO BID melatonin 1 mg tablet 1 mg PO BEDTIME cholecalciferol (vitamin D3) 125 mcg (5,000 unit) capsule 125 mcg PO DAILY 30 Days Qty: 30 11RF pentoxifylline 400 mg tablet extended release 400 mg PO TID Rx Instructions: must administer with a meal/food Farxiga 5 mg tablet 5 mg PO DAILY Qty: 30 5RF (DME) Omnipod Dash Pods (Gen 4) Cartridge See Rx Instructions subcut .MEDSUPPLY Qty: 5 Rx Instructions: As directed Praluent Pen 150 mg/mL pen injector 150 mg subcut Q14D Qty: 2 5RF Trulicity 3 mg/0.5 mL pen injector 3 mg subcut QWEEK 84 Days Qty: 6 2RF
--- NOTE | 2022-08-03 17:15 | ED_ITS ---
HPI - Abdominal Pain General Chief Complaint: Abdominal Pain Stated Complaint: lower abd around to back pain Time Seen by Provider: 08/03/22 17:06 Source: patient Mode of arrival: ambulatory Limitations: no limitations History of Present Illness HPI narrative: Patient comes to the emergency room complaining of left-sided flank pain and left lower quadrant pain. Patient states that the discomfort has been constant there for several weeks, almost a month. But over the last 3 weeks, gradually the pain has been becoming more severe. Patient denies hematuria or dysuria. However, patient states that she has been having urinary frequency and low quantity. Patient denies fever chills. Related Data Home Medications Medication Instructions Recorded Confirmed bupropion HCl 100 mg tablet,12 hr 100 mg PO QAM 06/14/20 07/28/22 sustained-release isosorbide mononitrate 120 mg 120 mg PO QAM 06/14/20 07/28/22 tablet,extended release 24 hr trazodone 50 mg tablet 50 mg PO BEDTIME PRN insomnia 06/14/20 07/28/22 buspirone 7.5 mg tablet 7.5 mg PO BID 09/28/20 07/28/22 sertraline 100 mg tablet 100 mg PO DAILY 10/01/20 07/28/22 nitroglycerin 0.4 mg sublingual 0.4 mg sublingual Q5M PRN 11/18/20 07/28/22 tablet melatonin 1 mg tablet 1 mg PO BEDTIME 05/17/21 07/28/22 pentoxifylline 400 mg 400 mg PO TID 04/27/22 07/28/22 tablet,extended release insulin pump cart,cont inf,BT #5 ea 07/28/22 07/28/22 (Omnipod Dash Pods (Gen 4) subcutaneous cartridge) Previous Rx's Medication Instructions Recorded oxycodone 5 mg capsule 5 mg PO DAILY PRN pain #14 caps 10/18/20 BD Insulin Syringe Ultra-Fine 0.3 #100 ea 01/05/21 mL 31 gauge x 5/16 (insulin syringe-needle U-100) blood-glucose meter (FreeStyle #1 ea 10/06/21 Lite Meter kit) lancets 28 gauge (FreeStyle 28 gauge topical QID 90 days #400 10/06/21 Lancets) ea CPAP #1 ea 12/07/21 cholecalciferol (vitamin D3) 125 125 mcg PO DAILY 30 days #30 caps 01/25/22 mcg (5,000 unit) capsule V-GO 30 (sub-q insulin device, 30 #30 ea 02/09/22 unit) Fiasp U-100 Insulin 100 unit/mL 100 unit subcut DAILY 30 days #30 02/23/22 subcutaneous solution (insulin mL aspart (niacinamide)) FreeStyle Lite Strips (blood sugar 1 strip miscellaneous QID for 04/04/22 diagnostic) diabetes mellitus 90 days #400 ea cefuroxime axetil 250 mg tablet 250 mg PO BID 7 days #14 tabs 04/22/22 lidocaine 5 % topical patch 1 patch topical DAILY #15 ea 04/22/22 dapagliflozin 5 mg tablet (Farxiga) 5 mg PO DAILY #30 tabs 04/27/22 levothyroxine 125 mcg tablet 125 mcg PO DAILY #90 tabs 05/31/22 cyclobenzaprine 5 mg tablet 5 mg PO TID PRN muscle spasm #14 06/09/22 tabs metoprolol succinate 200 mg 200 mg PO DAILY #90 caps 07/01/22 tablet,extended release 24 hr omeprazole 20 mg capsule,delayed 20 mg PO DAILY #90 caps 07/01/22 release alirocumab 150 mg/mL subcutaneous 150 mg subcut Q14D #2 mL 07/28/22 pen injector (Praluent Pen) dulaglutide 3 mg/0.5 mL 3 mg (0.5 mL) subcut QWEEK 84 days 07/28/22 subcutaneous pen injector #6 mL (Trulicity) lisinopril 30 mg tablet 30 mg PO DAILY #90 tabs 07/28/22 meloxicam 7.5 mg tablet 7.5 mg PO DAILY 30 days #30 tabs 08/01/22 levofloxacin 500 mg tablet 500 mg PO DAILY #6 tabs 08/03/22 tramadol 50 mg tablet 50 mg PO BID PRN pain #7 tabs 08/03/22 Allergies Allergy/AdvReac Type Severity Reaction Status Date / Time ibuprofen [From MOTRIN] Allergy Mild STOMACH Verified 06/09/22 12:58 UPSET, gastritis Review of Systems Review of Systems Constitutional : No Weight loss, No Fever, No Chills, No Night Sweats, No Fatigue, No Malaise ENT/Mouth : No Hearing loss, No Ear Pain, No Nasal Congestion, No Sinus Pain, No Hoarseness, No sore throat, No Rhinorrhea, No Swallowing Difficulty Eyes: No Eye Pain, No Swelling, No Redness, No Foreign Body, No Discharge, No Vision Changes Cardiovascular : No Chest Pain, No SOB, No Dyspnea on Exertion, No Orthopnea, No Edema, No Palpitations Respiratory : No Cough, No Sputum, No Wheezing, No Smoke Exposure, No Dyspnea Gastrointestinal : No Nausea, No Vomiting, No Diarrhea, No Constipation, No abdominal Pain, No Hematochezia, No Melena Genitourinary : no irregular bleeding, No Dysuria, complaining of Urinary Frequency, No Hematuria, No Urinary Incontinence, No Urgency, complaining of left-sided Flank Pain, No Urinary Flow Changes, No Hesitancy Musculoskeletal : No joint pain, No Myalgias, No Joint Swelling Skin : No Skin Lesions, No rash Neuro : No Weakness, No Numbness, No Paresthesias, No Loss of Consciousness, No Dizziness, No Headache Psych : No Anxiety/Panic, No Depression, No SI/HI/AH/VH, No Social Issues, Heme/Lymph: No Bruising, No Bleeding,No Lymphadenopathy Endocrine : No Polyuria, No Polydipsia, No Temperature Intolerance PMFSH Past Medical History Medical History Abnormal liver function test Anemia Carpal tunnel syndrome Coronary artery disease Diabetes type 2, uncontrolled Diabetic nephropathy associated with type 2 diabetes mellitus Dyslipidemia GERD (gastroesophageal reflux disease) Hypertension Hypothyroidism Knee osteoarthritis alf (current) use of insulin Lumbar degenerative disc disease Obesity (BMI 30-39.9) Obstructive sleep apnea Ovarian cyst Tear of meniscus of left knee Type 2 diabetes mellitus with diabetic polyneuropathy Surgical History History of esophagogastroduodenoscopy (EGD) History of surgical removal of nipple Hx of cholecystectomy Hx of colonoscopy Hx of right coronary artery stent placement Hx of tubal ligation Family History Family History Father Diabetes mellitus Mother Diabetes mellitus Maternal Uncle Colon cancer Gastric cancer Daughter Diabetes mellitus Social History Social History Household Members: None Housing: Apartment Alcohol intake: never Patient Tobacco Use Status: Former Tobacco user e-Cigarette/Vaping Use: Never Used Second Hand Smoke Exposure: No Advance Directives: No Advance Directives Information Provided: No service: No Current occupational status: disabled Current occupational exposures/hazards: No Cognitive needs: No Hearing needs: No Vision needs: Yes Physical Exam ED Vital Signs: Vital Signs - 24 hr 08/03/22 15:04 Temperature 97.0 F Pulse Rate 82 Respiratory Rate 18 Blood Pressure 156/42 H Pulse Oximetry 99 Oxygen Delivery Method Room Air BMI result Body Mass Index 31.2 Const Other: Appearance: Alert. Oriented X3. No acute distress. Eyes: Pupils equal, round and reactive to light. ENT: Pharynx normal. Neck: Normal inspection. Neck supple. No lymph nodes noted. No crepitus CVS: Normal heart rate and rhythm. Pulses normal. Normal S1 and S2 Respiratory: No respiratory distress. Breath sounds normal. No Wheezing. No rales Abdomen: Soft and nontender. No rigidity. No distention. Mild left-sided flank pain, mild left lower quadrant pain Skin: Skin warm and dry. Normal skin color. Normal skin turgor. Extremities: No lower extremity edema. No Lacerations. No Rash Neuro: Oriented X 3. No motor deficit. No sensory deficit. Moving all extremities. No slurred speech. CN 2 through 12 grossly intact Psych: calm, cooperative, normal affect Course Course Course Narrative: I discussed with the patient she has a UTI. Medical Decision Making Medical Decision Making [facility] Narrative: Patient does have UTI, white blood cell count at baseline, no blood in the urine. Discomfort is constant rather than intermittent. Kidney stone is not suspected, imaging not recommended at this time. Clinically, patient has pyelonephritis. Patient does not have a fever, normal blood pressure. Patient will be treated with antibiotics, sepsis not suspected. Patient can be discharged home with clear instructions when to return to the emergency room. Discussed with patient. Differential Diagnosis Differential Diagnoses: The differential diagnosis associated with the presentation includes (UTI, pyelonephritis) Lab Data [facility] Lab Attestation statement: I reviewed the patient's lab results. 08/03/22 18:00 08/03/22 18:00 Labs: Lab Results 08/03/22 08/03/22 08/03/22 Range/Units 18:00 18:00 18:00 WBC 4.7 L (4.8-10.8) X10*3/uL RBC 3.88 L (4.20-5.50) X10*6/uL Hgb 11.4 L (12.0-16.0) g/dl Hct 34.8 L (37.0-47.0) % MCV 89.7 (80.0-98.0) fL MCH 29.4 (27.0-33.0) pg MCHC 32.8 (31.0-35.0) g/dl RDW 12.8 (11.0-16.0) % Plt Count 171 (160-400) X10*3/uL MPV 10.7 (9.4-12.3) fL Immature Gran % (Auto) 0.2 (0.0-0.4) % Neut % (Auto) 48.0 (45-73) % Lymph % (Auto) 39.8 (20-40) % [place] % (Auto) 9.5 (2-11) % Eos % (Auto) 1.9 (0-4) % Baso % (Auto) 0.6 (0-2) % Lymph # (Auto) 1.9 (1.2-4.9) X10*3/uL [place] # (Auto) 0.5 (0.1-1.2) X10*3/uL Eos # (Auto) 0.1 (0.0-0.4) X10*3/uL Baso # (Auto) 0.0 (0.0-0.2) X10*3/uL Abs Immat Gran (auto) 0.01 (0.00-0.03) X10*3/uL Absolute Neuts (auto) 2.3 (2.0-8.3) x10*3/uL Absolute Nucleated RBC 0.000 (0.0-0.012) X10*3/uL Nucleated RBC % (auto) 0.0 (0.0-0.2) /100WBC Sodium 145 (135-145) mmol/L Potassium 3.6 (3.3-5.1) mmol/L Chloride 111 H (96-108) mmol/L Carbon Dioxide 23 (22-29) mmol/L Anion Gap 15 (12-20) BUN 13 (9-16) mg/dL Creatinine 0.96 (0.5-1.4) mg/dL Estim Creat Clear Calc 52.5 Estimated GFR 57 Random Glucose 92 (60-115) mg/dL Lactic Acid 1.0 (0.5-2.0) mmol/L Calcium 9.5 D (8.4-10.2) mg/dL Total Bilirubin 0.4 (0.0-1.0) mg/dL Direct Bilirubin < 0.2 (0.0-0.5) mg/dL AST 22 (5-31) U/L ALT 16 (0-31) U/L Alkaline Phosphatase 110 (39-117) U/L Total Protein 7.6 (6.5-8.0) g/dL Albumin 4.1 (3.5-5.0) g/dL Urine Color Urine Appearance Urine pH (5.0-9.0) Ur Specific [place] (1.005-1.025) Urine Protein (Neg-Trace) mg/dL Urine Glucose (UA) (Negative) mg/dL Urine Ketones (Negative) mg/dL Urine Blood (Negative) Urine Nitrite (Negative) Ur Leukocyte Esterase (Negative) Urine RBC (0-2) /HPF Urine WBC (0-5) /HPF Ur Squamous Epith Cells (0-2) /HPF Urine Bacteria (None Seen) Hyaline Casts (0-2) /LPF 08/03/22 Range/Units 18:00 WBC (4.8-10.8) X10*3/uL RBC (4.20-5.50) X10*6/uL Hgb (12.0-16.0) g/dl Hct (37.0-47.0) % MCV (80.0-98.0) fL MCH (27.0-33.0) pg MCHC (31.0-35.0) g/dl RDW (11.0-16.0) % Plt Count (160-400) X10*3/uL MPV (9.4-12.3) fL Immature Gran % (Auto) (0.0-0.4) % Neut % (Auto) (45-73) % Lymph % (Auto) (20-40) % [place] % (Auto) (2-11) % Eos % (Auto) (0-4) % Baso % (Auto) (0-2) % Lymph # (Auto) (1.2-4.9) X10*3/uL [place] # (Auto) (0.1-1.2) X10*3/uL Eos # (Auto) (0.0-0.4) X10*3/uL Baso # (Auto) (0.0-0.2) X10*3/uL Abs Immat Gran (auto) (0.00-0.03) X10*3/uL Absolute Neuts (auto) (2.0-8.3) x10*3/uL Absolute Nucleated RBC (0.0-0.012) X10*3/uL Nucleated RBC % (auto) (0.0-0.2) /100WBC Sodium (135-145) mmol/L Potassium (3.3-5.1) mmol/L Chloride (96-108) mmol/L Carbon Dioxide (22-29) mmol/L Anion Gap (12-20) BUN (9-16) mg/dL Creatinine (0.5-1.4) mg/dL Estim Creat Clear Calc Estimated GFR Random Glucose (60-115) mg/dL Lactic Acid (0.5-2.0) mmol/L Calcium (8.4-10.2) mg/dL Total Bilirubin (0.0-1.0) mg/dL Direct Bilirubin (0.0-0.5) mg/dL AST (5-31) U/L ALT (0-31) U/L Alkaline Phosphatase (39-117) U/L Total Protein (6.5-8.0) g/dL Albumin (3.5-5.0) g/dL Urine Color Yellow Urine Appearance Clear Urine pH 5.5 (5.0-9.0) Ur Specific [place] 1.025 (1.005-1.025) Urine Protein 100 (2+) H (Neg-Trace) mg/dL Urine Glucose (UA) Negative (Negative) mg/dL Urine Ketones Trace (Negative) mg/dL Urine Blood Negative (Negative) Urine Nitrite Negative (Negative) Ur Leukocyte Esterase Small (1+) H (Negative) Urine RBC 0-2 (0-2) /HPF Urine WBC 11-20 H (0-5) /HPF Ur Squamous Epith Cells 3-5 (0-2) /HPF Urine Bacteria None Seen (None Seen) Hyaline Casts 0-2 (0-2) /LPF Tests considered The following testing was considered but not selected: CT scan was considered. However, patient has no blood in the urine. The pattern of pain is constant rather than intermittent. This has been going on for approximately 3 weeks, unlikely to be a kidney stone. Prescription Management I considered prescription management with: Pain Medication (Toradol was considered. However, patient has history of gastritis. Per patient, Acetaminophen does not help much for the pain. Patient will be given narcotics) Discharge Plan Discharge Clinical Impression: Acute pyelonephritis Patient Disposition: Home, Self-Care Instructions: Kidney Infection (ED) Additional Instructions: Please follow-up with your primary care physician tomorrow. If you have any worsening or new symptoms, please return to the emergency room or call 911 Prescriptions: New levofloxacin 500 mg tablet 500 mg PO DAILY Qty: 6 0RF tramadol 50 mg tablet 50 mg PO BID PRN (Reason: pain) Qty: 7 0RF No Action lancets [FreeStyle Lancets] 28 gauge misc 28 gauge topical QID 90 Days Qty: 400 4RF (DME) blood-glucose meter [FreeStyle Lite Meter] Kit See Rx Instructions .ROUTE .MEDSUPPLY Qty: 1 0RF Rx Instructions: As directed 4x/day (DME) V-GO 30 Device See Rx Instructions .ROUTE .MEDSUPPLY Qty: 30 6RF Rx Instructions: Once a day Fiasp U-100 Insulin 100 unit/mL solution 100 unit subcut DAILY 30 Days Qty: 30 6RF FreeStyle Lite Strips Strip 1 strip miscellaneous QID 90 Days Qty: 400 1RF levothyroxine 125 mcg tablet 125 mcg PO DAILY Qty: 90 2RF metoprolol succinate 200 mg tablet extended release 24 hr 200 mg PO DAILY Qty: 90 2RF omeprazole 20 mg capsule,delayed release(DR/EC) 20 mg PO DAILY Qty: 90 2RF lisinopril 30 mg tablet 30 mg PO DAILY Qty: 90 1RF meloxicam 7.5 mg tablet 7.5 mg PO DAILY 30 Days Qty: 30 1RF cefuroxime axetil 250 mg tablet 250 mg PO BID 7 Days Qty: 14 0RF lidocaine 5 % adhesive patch,medicated 1 patch topical DAILY Qty: 15 0RF Rx Instructions: leave on most painful area for up to 12 hrs oxycodone 5 mg capsule 5 mg PO DAILY PRN (Reason: pain) Qty: 14 0RF (DME) CPAP See Rx Instructions .Route .MEDSUPPLY Qty: 1 0RF Rx Instructions: As directed cyclobenzaprine 5 mg tablet 5 mg PO TID PRN (Reason: muscle spasm) Qty: 14 0RF isosorbide mononitrate 120 mg tablet extended release 24 hr 120 mg PO QAM bupropion HCl 100 mg tablet sustained-release 12 hr 100 mg PO QAM trazodone 50 mg tablet 50 mg PO BEDTIME PRN (Reason: insomnia) sertraline 100 mg tablet 100 mg PO DAILY (DME) insulin syringe-needle U-100 [BD Insulin Syringe Ultra-Fine] 0.3 mL 31 gauge x 5/16 syringe See Rx Instructions .ROUTE .MEDSUPPLY Qty: 100 4RF Rx Instructions: 4 times a day nitroglycerin 0.4 mg tablet, sublingual 0.4 mg sublingual Q5M PRN Rx Instructions: do not exceed 3 doses per episode buspirone 7.5 mg tablet 7.5 mg PO BID melatonin 1 mg tablet 1 mg PO BEDTIME cholecalciferol (vitamin D3) 125 mcg (5,000 unit) capsule 125 mcg PO DAILY 30 Days Qty: 30 11RF pentoxifylline 400 mg tablet extended release 400 mg PO TID Rx Instructions: must administer with a meal/food Farxiga 5 mg tablet 5 mg PO DAILY Qty: 30 5RF (DME) Omnipod Dash Pods (Gen 4) Cartridge See Rx Instructions subcut .MEDSUPPLY Qty: 5 Rx Instructions: As directed Praluent Pen 150 mg/mL pen injector 150 mg subcut Q14D Qty: 2 5RF Trulicity 3 mg/0.5 mL pen injector 3 mg subcut QWEEK 84 Days Qty: 6 2RF
[2022-08-03 18:06] LABS: MANUAL DIFF FLAG NO
[2022-08-03 18:08] LABS: Basophils Percent Auto 0.6 % (0-2); Eosinophils Absolute Auto 0.1 X10*3/uL (0.0-0.4); Eosinophils Percent Auto 1.9 % (0-4); Hematocrit 34.8 % (37.0-47.0); Hemoglobin 11.4 g/dl (12.0-16.0); Imm Gran Abs Auto 0.01 X10*3/uL (0.00-0.03); Imm Gran Pct Auto 0.2 % (0.0-0.4); Lymphocytes Absolute Auto 1.9 X10*3/uL (1.2-4.9); Lymphocytes Percent Auto 39.8 % (20-40); Mean Corpuscular HGB Conc 32.8 g/dl (31.0-35.0); Mean Corpuscular Hemoglobin 29.4 pg (27.0-33.0); Mean Corpuscular Volume 89.7 fL (80.0-98.0); Mean Platelet Volume 10.7 fL (9.4-12.3); Monocytes Absolute Auto 0.5 X10*3/uL (0.1-1.2); Monocytes Percent Auto 9.5 % (2-11); Neutrophils Absolute Auto 2.3 x10*3/uL (2.0-8.3); Platelet Count 171 X10*3/uL (160-400); Red Blood Count 3.88 X10*6/uL (4.20-5.50); Red Cell Distribution Width 12.8 % (11.0-16.0); White Blood Count 4.7 X10*3/uL (4.8-10.8)
[2022-08-03 18:09] LABS: Appearance Urine Clear; Color Urine Yellow; Glucose Urine UA Negative (Negative); Leukocyte Esterase Urine Small (1+) (Negative); Nitrite Urine Negative (Negative); PH 5.5 (5.0-9.0); Specific Gravity - Urine 1.025 (1.005-1.025); UMIC TRIGGER UACC YES; Urine Blood Negative (Negative); Urine Ketones Trace mg/dL (Negative); Urine Protein 100 (2+) mg/dL (Neg-Trace)
[2022-08-03 18:14] LABS: Bacteria Urine None Seen (None Seen); Hyaline Casts Urine 0-2 /LPF (0-2); RBC Urine 0-2 /HPF (0-2); UACC Culture Trigger YES
[2022-08-03 18:25] LABS: Alanine Aminotransferase 16 U/L (0-31); Albumin Level 4.1 g/dL (3.5-5.0); Alkaline Phosphatase 110 U/L (39-117); Anion Gap 15 (12-20); Aspartate Amino Transferase 22 U/L (5-31); Bilirubin Direct < 0.2 mg/dL (0.0-0.5); Bilirubin Total 0.4 mg/dL (0.0-1.0); Blood Urea Nitrogen 13 mg/dL (9-16); Calcium 9.5 mg/dL (8.4-10.2); Carbon Dioxide 23 mmol/L (22-29); Chloride 111 mmol/L (96-108); Creatinine Clr Calc Pharmacy 52.5; Estimated Glomerular Filt Rate 57; Glucose Random 92 mg/dL (60-115); Potassium 3.6 mmol/L (3.3-5.1); Sodium 145 mmol/L (135-145); Total Protein 7.6 g/dL (6.5-8.0)
[2022-08-03] MEDS: traMADoL HCL 50 MG TABLET PO (19:22)
[2022-08-03] MEDS: levoFLOXacin 500 MG TABLET PO (19:22)
== END 2022-08-03 19:27 | disposition home or self-care (01) ==
PROVIDERS: Emergency Provider Emergency Medicine; PCP Internal Medicine
DX: N12 Tubulo-interstitial nephritis, not specified as acute or chronic (principal); R10.32 Left lower quadrant pain; Z79.899 Other long term (current) drug therapy; Z87.891 Personal history of nicotine dependence
CPT/HCPCS: 36415; 80048; 80076; 81001; 83605; 85025; 87040; 87086; 99283

== ENCOUNTER → 2022-08-11 08:35 | Outpatient (BNVA) | payer OTHER, SELFPAY | PROVIDERS: PCP Internal Medicine; Visit Provider Registered Nurse Diabetes Educator | DX: E11.42 Type 2 diabetes mellitus with diabetic polyneuropathy (principal) | CPT/HCPCS: 99211 ==

== ENCOUNTER 2022-10-11 08:48 | Outpatient (REF) | payer OTHER, SELFPAY ==
[2022-10-11 09:50] LABS: Estimated Average Glucose 180 mg/dL; Hemoglobin A1c % 7.9 %
[2022-10-11 10:20] LABS: Alanine Aminotransferase 16 U/L (0-31); Albumin Level 4.2 g/dL (3.5-5.0); Alkaline Phosphatase 123 U/L (39-117); Anion Gap 13 (12-20); Aspartate Amino Transferase 23 U/L (5-31); Bilirubin Total 0.6 mg/dL (0.0-1.0); Blood Urea Nitrogen 15 mg/dL (9-16); Calcium 9.4 mg/dL (8.4-10.2); Carbon Dioxide 25 mmol/L (22-29); Chloride 110 mmol/L (96-108); Cholesterol 291 mg/dL; Estimated Glomerular Filt Rate 59; Glucose Random 121 mg/dL (60-115); HDL Cholesterol 45 mg/dL; LDL Cholesterol Calculated 192 mg/dl; Sodium 144 mmol/L (135-145); Total Protein 7.7 g/dL (6.5-8.0); Triglycerides 271 mg/dL
[2022-10-11 10:23] LABS: Cholesterol 287 mg/dL; HDL Cholesterol 45 mg/dL; LDL Cholesterol Calculated 189 mg/dl; Triglycerides 268 mg/dL
== END 2022-10-11 08:49 | disposition home or self-care (01) ==
LOC: HO.LAB 08:48
PROVIDERS: Internal Medicine Endocrinology, Diabetes & Metabolism; Absent Provider Internal Medicine; PCP Internal Medicine; Visit Provider Nurse Practitioner Family
DX: E78.5 Hyperlipidemia, unspecified (principal); E78.00 Pure hypercholesterolemia, unspecified; E11.65 Type 2 diabetes mellitus with hyperglycemia; Z13.1 Encounter for screening for diabetes mellitus
CPT/HCPCS: 36415; 80053; 80061; 83036

== ENCOUNTER 2022-10-13 16:15 | Emergency (ER) | payer OTHER, SELFPAY ==
--- NOTE | ~2022-10-13 | CT_ITS ---
EXAMINATION: CT ABDOMEN AND PELVIS WITHOUT CONTRAST CLINICAL INFORMATION: Flank pain COMPARISON: CT abdomen 09/18/2016 TECHNIQUE: Multidetector volumetric imaging was performed from the superior aspect of the liver through the pubic symphysis. Sagittal and coronal reformatted images were obtained on the technologist's workstation. This CT examination was performed using dose optimization techniques as appropriate, variously including the following: *Automated exposure control *Adjustment of mA and/or kV according to patient size (this includes techniques or standardized protocols for targeted exams where dose is matched to indication/reason for exam; i.e. extremities or head) *Use of iterative reconstruction technique DLP: 583 mGy-cm FINDINGS: Respiratory motion artifact limiting evaluation. LUNG BASES: Linear left basilar atelectasis. Small pericardial effusion. Coronary artery calcification. LIVER, GALLBLADDER, AND BILIARY TREE: No focal liver lesion. No intrahepatic biliary duct dilatation. Density along the lateral aspect of the lower margin of the right lobe of the liver, suspected to be related to motion artifact. Status postcholecystectomy. No dilated CBD seen. PANCREAS: Unremarkable. SPLEEN: Unremarkable. ADRENAL GLANDS: Unremarkable. KIDNEYS AND URETERS: Respiratory motion artifact limits evaluation. Bilateral perinephric stranding. No definite renal calculi seen. No suspicious renal lesion seen. No ureteral calculi or hydronephrosis. BLADDER: Minimally distended, limiting evaluation. No radiodense calculi are seen within the bladder. GASTROINTESTINAL TRACT: Stomach is partially distended, limiting evaluation. No dilated small bowel loops. Nonobstructive bowel gas pattern. Small-moderate stool in the large colon. The large colon is nondistended. No acute colonic inflammatory changes seen. No free air. No significant free fluid. Appendix appears unremarkable. ABDOMINAL WALL: No significant hernia is appreciated. LYMPH NODES: No pathologically enlarged lymph nodes are seen. VASCULAR: No aortic aneurysmal dilatation. Extensive atherosclerotic vascular calcification. PELVIC VISCERA: Left adnexal cyst measures 3.5 cm, decreased from the previous measurement of 5 cm. This is suboptimally evaluated by CT . Prior ultrasound 12/07/2016 demonstrated complex cystic mass in the left ovary. Small calcification in the region of the left adnexa, stable. OSSEOUS STRUCTURES: Multilevel degenerative changes in the spine. Severe L4-5, L5-S1 disc degeneration. CT/CT abdomen pelvis wo IV con IMPRESSION: *Prominent bilateral perinephric stranding. No renal or ureteral calculi. No hydronephrosis is seen. This could represent (in the appropriate clinical circumstance. Clinically correlate, Correlate with urinalysis. *Left adnexal cyst measuring 2.5 cm. Previous ultrasound 12/07/2016 demonstrated a complex cystic mass. The adnexa are suboptimally evaluated on CT. Further characterization with pelvic ultrasound can be considered. *: Additional findings and details as above.
[2022-10-13 16:47] VITALS: BP 177/69; PULSE 84; RESP 16; TEMP 36.1; O2SAT 96; BMI 31.2
--- NOTE | 2022-10-13 16:48 | ED.GENADULT ---
HPI - General Adult General Chief complaint: Abdominal Pain <ERINN Ambrose - Last Filed: 10/13/22 16:51> Stated complaint: Lower back pain <ERINN Ambrose - Last Filed: 10/13/22 16:51> Time Seen by Provider: 10/13/22 18:13 <ERINN Ambrose - Last Filed: 10/13/22 16:51> Source: patient, RN notes reviewed and staff interpreter <Harshil Varela - Last Filed: 10/13/22 19:10> Mode of arrival: ambulatory <Harshil Varela - Last Filed: 10/13/22 19:10> Limitations: language barrier <Harshil Varela - Last Filed: 10/13/22 19:10> History of Present Illness HPI narrative: 71-year-old female with past medical history significant for type 2 diabetes, history of diverticulitis, GERD, obesity, obstructive sleep apnea, hypertension, hyperlipidemia, hypothyroidism who presents for evaluation of abdominal pain. Patient reports that she has had left-sided abdominal pain and she indicates her left flank to her left groin for several months now She reports that she has been constipated for the last month but feels that that is not related to her discomfort Patient states her pain is currently 8 in 10, stabbing. She denies any nausea, vomiting, diarrhea your next denies any burning with urination, urinary frequency or blood in the urine Denies any fevers or chills She was seen here in July of this year was diagnosed with pyelonephritis. She reports taking her antibiotics. <Harshil Varela - Last Filed: 10/13/22 19:10> Related Data Home medications: Home Medications Medication Instructions Recorded Confirmed bupropion HCl 100 mg tablet,12 hr 100 mg PO QAM 06/14/20 08/24/22 sustained-release isosorbide mononitrate 120 mg 120 mg PO QAM 06/14/20 08/24/22 tablet,extended release 24 hr trazodone 50 mg tablet 50 mg PO BEDTIME PRN insomnia 06/14/20 08/24/22 buspirone 7.5 mg tablet 7.5 mg PO BID 09/28/20 08/24/22 sertraline 100 mg tablet 100 mg PO DAILY 10/01/20 08/24/22 nitroglycerin 0.4 mg sublingual 0.4 mg sublingual Q5M PRN 11/18/20 08/24/22 tablet melatonin 1 mg tablet 1 mg PO BEDTIME 05/17/21 08/24/22 pentoxifylline 400 mg 400 mg PO TID 04/27/22 08/24/22 tablet,extended release insulin pump cart,cont inf,BT #5 ea 07/28/22 08/24/22 (Omnipod Dash Pods (Gen 4) subcutaneous cartridge) Previous Rx's Medication Instructions Recorded oxycodone 5 mg capsule 5 mg PO DAILY PRN pain #14 caps 10/18/20 BD Insulin Syringe Ultra-Fine 0.3 #100 ea 01/05/21 mL 31 gauge x 5/16 (insulin syringe-needle U-100) blood-glucose meter (FreeStyle #1 ea 10/06/21 Lite Meter kit) lancets 28 gauge (FreeStyle 28 gauge topical QID 90 days #400 10/06/21 Lancets) ea CPAP #1 ea 12/07/21 cholecalciferol (vitamin D3) 125 125 mcg PO DAILY 30 days #30 caps 01/25/22 mcg (5,000 unit) capsule V-GO 30 (sub-q insulin device, 30 #30 ea 02/09/22 unit) cefuroxime axetil 250 mg tablet 250 mg PO BID 7 days #14 tabs 04/22/22 lidocaine 5 % topical patch 1 patch topical DAILY #15 ea 04/22/22 dapagliflozin 5 mg tablet (Farxiga) 5 mg PO DAILY #30 tabs 04/27/22 levothyroxine 125 mcg tablet 125 mcg PO DAILY #90 tabs 05/31/22 cyclobenzaprine 5 mg tablet 5 mg PO TID PRN muscle spasm #14 06/09/22 tabs metoprolol succinate 200 mg 200 mg PO DAILY #90 caps 07/01/22 tablet,extended release 24 hr omeprazole 20 mg capsule,delayed 20 mg PO DAILY #90 caps 07/01/22 release alirocumab 150 mg/mL subcutaneous 150 mg subcut Q14D #2 mL 07/28/22 pen injector (Praluent Pen) lisinopril 30 mg tablet 30 mg PO DAILY #90 tabs 07/28/22 levofloxacin 500 mg tablet 500 mg PO DAILY #6 tabs 08/03/22 tramadol 50 mg tablet 50 mg PO BID PRN pain #7 tabs 08/03/22 levofloxacin 750 mg tablet 750 mg PO DAILY 7 days #7 tabs 08/24/22 metronidazole 500 mg tablet 500 mg PO Q8H 7 days #21 tabs 08/24/22 Fiasp U-100 Insulin 100 unit/mL 100 unit subcut DAILY #30 mL 09/11/22 subcutaneous solution (insulin aspart (niacinamide)) dulaglutide 3 mg/0.5 mL 3 mg (0.5 mL) subcut QWEEK 84 days 09/13/22 subcutaneous pen injector #6 [facility] ([facility] meloxicam 7.5 mg tablet 7.5 mg PO DAILY 30 days #30 tabs 10/01/22 FreeStyle Lite Strips (blood sugar 1 strip miscellaneous QID for 10/11/22 diagnostic) diabetes mellitus 90 days #400 ea tramadol 50 mg tablet 50 mg PO TID PRN pain #10 tabs 10/13/22 <ERINN Ambrose - Last Filed: 10/13/22 16:51> Allergies/adverse reactions: Allergies Allergy/AdvReac Type Severity Reaction Status Date / Time ibuprofen [From MOTRIN] Allergy Mild STOMACH Verified 10/13/22 16:47 UPSET, gastritis <ERINN Ambrose - Last Filed: 10/13/22 16:51> Review of Systems Constitutional: Constitutional: Reports as per HPI, Denies chills, Denies fatigue, Denies fever(s) and Denies headache(s) <Harshil Varela - Last Filed: 10/13/22 19:10> ENT: Denies headache(s) <Harshil Varela - Last Filed: 10/13/22 19:10> Cardiovascular: Cardiovascular: Denies chest pain and Denies dyspnea <Harshil Varela - Last Filed: 10/13/22 19:10> Respiratory: Respiratory: Denies cough and Denies dyspnea <Harshil Varela - Last Filed: 10/13/22 19:10> Gastrointestinal: Gastrointestinal: Reports abdominal pain, Reports constipation, Denies nausea and Denies vomiting <Harshil Varela - Last Filed: 10/13/22 19:10> Genitourinary: Genitourinary: Denies dysuria <Harshil Varela - Last Filed: 10/13/22 19:10> Neurologic: Denies headache(s) and Denies focal weakness <Harshil Varela - Last Filed: 10/13/22 19:10> Endocrine: Endocrine: Denies fatigue <Harshil Varela - Last Filed: 10/13/22 19:10> ON LICENSE OF [facility] Past Medical History Medical History: Medical History Abnormal liver function test Anemia Carpal tunnel syndrome Coronary artery disease Diabetes type 2, uncontrolled Diabetic nephropathy associated with type 2 diabetes mellitus Dyslipidemia GERD (gastroesophageal reflux disease) Hypertension Hypothyroidism 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 osteoarthritis 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 Lumbar degenerative disc disease Obesity (BMI 30-39.9) Obstructive sleep apnea Ovarian cyst Tear of meniscus of left knee Type 2 diabetes mellitus with diabetic polyneuropathy <ERINN Ambrose - Last Filed: 10/13/22 16:51> Surgical History: Surgical History History of esophagogastroduodenoscopy (EGD) History of surgical removal of nipple Hx of cholecystectomy Hx of colonoscopy Hx of right coronary artery stent placement Hx of tubal ligation <ERINN Ambrose - Last Filed: 10/13/22 16:51> Family History Family History: Family History Father Diabetes mellitus Mother Diabetes mellitus Maternal Uncle Colon cancer Gastric cancer Daughter Diabetes mellitus <ERINN Ambrose - Last Filed: 10/13/22 16:51> Social History Social History: Social History Household Members: None Housing: Apartment Alcohol intake: unknown Patient Tobacco Use Status: Former Tobacco user Smoked in Last 30 Days: No e-Cigarette/Vaping Use: Never Used Second Hand Smoke Exposure: No Use of substances other than those prescribed or required for medical reasons: Unknown Advance Directives: No Advance Directives Information Provided: No service: No Current occupational status: disabled Current occupational exposures/hazards: No Cognitive needs: No Hearing needs: No Vision needs: Yes <ERINN Ambrose - Last Filed: 10/13/22 16:51> Physical Exam ED Vital Signs: Vital Signs - 24 hr 10/13/22 16:47 10/13/22 17:42 Temperature 97 F 98.2 F Pulse Rate 84 86 Respiratory Rate 16 16 Blood Pressure 177/69 H 154/67 H Pulse Oximetry 96 99 Oxygen Delivery Method Room Air Room Air BMI result Body Mass Index 31.2 <ERINN Ambrose - Last Filed: 10/13/22 16:51> Vital Signs - 24 hr 10/13/22 16:47 10/13/22 17:42 Temperature 97 F 98.2 F Pulse Rate 84 86 Respiratory Rate 16 16 Blood Pressure 177/69 H 154/67 H Pulse Oximetry 96 99 Oxygen Delivery Method Room Air Room Air BMI result Body Mass Index 31.2 <Harshil - Last Filed: 10/13/22 19:10> Const General: healthy appearing, comfortable, no acute distress, alert and awake <Harshil - Last Filed: 10/13/22 19:10> Nutritional Appearance: well nourished < - Last Filed: 10/13/22 19:10> Orientation/consciousness: patient oriented x3 <Harshil - Last Filed: 10/13/22 19:10> HENMT Head: Yes normocephalic and Yes atraumatic < - Last Filed: 10/13/22 19:10> Throat: Yes posterior oropharynx normal < - Last Filed: 10/13/22 19:10> Eyes Eyelids: Yes eyelids normal < - Last Filed: 10/13/22 19:10> Conjunctivae: conjunctivae normal < - Last Filed: 10/13/22 19:10> Sclerae: sclerae normal < - Last Filed: 10/13/22 19:10> Corneas: corneas normal < - Last Filed: 10/13/22 19:10> Pupils: Equal, round and reactive pupils present <Harshil - Last Filed: 10/13/22 19:10> EOM: EOMs intact bilaterally <Harshil Alba'Devang - Last Filed: 10/13/22 19:10> Neck Neck: Yes full ROM < Last Filed: 10/13/22 19:10> Resp Effort & Inspection: normal respiratory effort, able to speak in complete sentences, no audible wheezes and not labored < Last Filed: 10/13/22 19:10> Auscultation: clear to auscultation bilaterally < Last Filed: 10/13/22 19:10> Cardio Rate: regular rate < Last Filed: 10/13/22 19:10> Rhythm: regular rhythm < Last Filed: 10/13/22 19:10> GI Inspection: No distended and Yes obesity < Last Filed: 10/13/22 19:10> Palpation (GI): Soft to palpation, not firm, Tenderness to palpation present (GI) in the LLQ and suprapubicly, no guarding and not rigid < Last Filed: 10/13/22 19:10> Auscultation: normoactive bowel sounds < Last Filed: 10/13/22 19:10> Skin General skin exam: no rashes or lesions noted and elasticity normal < Last Filed: 10/13/22 19:10> Neuro General: patient oriented x3 < Last Filed: 10/13/22 19:10> Cranial nerves: Yes CN's II-XII intact bilaterally, Yes Equal, round and reactive pupils present and Yes Bilaterally intact EOM present < Last Filed: 10/13/22 19:10> Cognition (Neuro): normal cognition < Last Filed: 10/13/22 19:10> Extrem Other: Moving all extremities well without any obvious deformities < Last Filed: 10/13/22 19:10> Course Course Course Narrative: RME performed by Caprice Rocha PA-C. Patient is a 71 year old female presenting to the emergency department with low back pain. Patient states that the patient radiates into her abdomen. Labs and imaging ordered. Patient placed back in the waiting room pending results and room availability. <ERINN Ambrose - Last Filed: 10/13/22 16:51> Reevaluation(s) Reevaluation #1: Discussed patient's CT scan results with her. Though she has perinephric fat stranding, she has no symptoms of UTI currently, her urine does not appear to show infection. She does have a large ovarian cyst on the left. This is likely cause of her pain today. This was discussed with the patient using a staff interpreter. The she is requesting associate programmer analyst follow-up and she will be referred to Dr Manriquez <Harshil Varela - Last Filed: 10/13/22 19:10> Time: 19:07 <Harshil Varela - Last Filed: 10/13/22 19:10> Medications Administered Discontinued Medications Generic Name Dose Route Start Last Admin Trade Name Freq PRN Reason Stop Dose Admin Morphine Sulfate 4 mg 10/13/22 18:23 10/13/22 18:40 Morphine Sulfate 4 Mg/Ml Cartridge IVPUSH 10/13/22 18:24 4 mg ONCE ONE Administration Protocol Ondansetron HCl 4 mg 10/13/22 18:23 10/13/22 18:40 Ondansetron Hcl 4 Mg/2 Ml Vial IVPUSH 10/13/22 18:24 4 mg ONCE ONE Administration <ERINN Ambrose - Last Filed: 10/13/22 16:51> Medications Administered Discontinued Medications Generic Name Dose Route Start Last Admin Trade Name Freq PRN Reason Stop Dose Admin Morphine Sulfate 4 mg 10/13/22 18:23 10/13/22 18:40 Morphine Sulfate 4 Mg/Ml Cartridge IVPUSH 10/13/22 18:24 4 mg ONCE ONE Administration Protocol Ondansetron HCl 4 mg 10/13/22 18:23 10/13/22 18:40 Ondansetron Hcl 4 Mg/2 Ml Vial IVPUSH 10/13/22 18:24 4 mg ONCE ONE Administration <Harshil Varela - Last Filed: 10/13/22 19:10> Medical Decision Making Medical Decision Making MDM Narrative: Patient presents for evaluation of left lower abdominal pannus been going on for at least a few months. Patient's urine does not appear to show acute infection. Her CBC does not show any abnormalities whatsoever, she had no leukocytosis. Chemistries are significant for a slightly elevated blood glucose to 156 and the patient is a known diabetic. Otherwise no significant worrisome abnormalities. A CT scan of the abdomen pelvis is pending. At this time I feel the patient's most likely diagnosis constipation <Harshil Varela - Last Filed: 10/13/22 19:10> Differential Diagnosis Abdominal pain UTI Obstructive uropathy Pyelonephritis Diverticulitis Constipation <Harshil Varela - Last Filed: 10/13/22 19:10> Lab Data Result Diagrams: 10/13/22 17:04 10/13/22 17:04 <ERINN Ambrose - Last Filed: 10/13/22 16:51> Labs: Lab Results 10/13/22 10/13/22 10/13/22 Range/Units 17:03 17:04 17:04 WBC 7.4 (4.8-10.8) X10*3/uL RBC 4.36 (4.20-5.50) X10*6/uL Hgb 12.8 (12.0-16.0) g/dl Hct 38.4 (37.0-47.0) % MCV 88.1 (80.0-98.0) fL MCH 29.4 (27.0-33.0) pg MCHC 33.3 (31.0-35.0) g/dl RDW 12.5 (11.0-16.0) % Plt Count 218 D (160-400) X10*3/uL MPV 10.3 (9.4-12.3) fL Immature Gran % (Auto) 0.3 (0.0-0.4) % Neut % (Auto) 59.0 (45-73) % Lymph % (Auto) 31.5 (20-40) % [place] % (Auto) 7.1 (2-11) % Eos % (Auto) 1.6 (0-4) % Baso % (Auto) 0.5 (0-2) % Lymph # (Auto) 2.3 (1.2-4.9) X10*3/uL [place] # (Auto) 0.5 (0.1-1.2) X10*3/uL Eos # (Auto) 0.1 (0.0-0.4) X10*3/uL Baso # (Auto) 0.0 (0.0-0.2) X10*3/uL Abs Immat Gran (auto) 0.02 (0.00-0.03) X10*3/uL Absolute Neuts (auto) 4.4 (2.0-8.3) x10*3/uL Absolute Nucleated RBC 0.000 (0.0-0.012) X10*3/uL Nucleated RBC % (auto) 0.0 (0.0-0.2) /100WBC Sodium 139 (135-145) mmol/L Potassium 3.8 (3.3-5.1) mmol/L Chloride 103 (96-108) mmol/L Carbon Dioxide 25 (22-29) mmol/L Anion Gap 15 (12-20) BUN 13 (9-16) mg/dL Creatinine 0.99 (0.5-1.4) mg/dL Estim Creat Clear Calc 50.9 Estimated GFR 55 Random Glucose 156 H (60-115) mg/dL Calcium 9.9 (8.4-10.2) mg/dL Magnesium 2.2 (1.6-2.6) mg/dL Total Bilirubin 0.6 (0.0-1.0) mg/dL AST 16 (5-31) U/L ALT 15 (0-31) U/L Alkaline Phosphatase 132 H (39-117) U/L Total Protein 7.9 (6.5-8.0) g/dL Albumin 4.4 (3.5-5.0) g/dL Urine Color Yellow Urine Appearance Clear Urine pH 5.5 (5.0-9.0) Ur Specific Cameron 1.020 (1.005-1.025) Urine Protein 100 (2+) H (Neg-Trace) mg/dL Urine Glucose (UA) 250 H (Negative) mg/dL Urine Ketones Negative (Negative) mg/dL Urine Blood Negative (Negative) Urine Nitrite Negative (Negative) Ur Leukocyte Esterase Negative (Negative) Urine RBC 0-2 (0-2) /HPF Urine WBC 0-5 (0-5) /HPF Ur Squamous Epith Cells 0-2 (0-2) /HPF Urine Bacteria None Seen (None Seen) Hyaline Casts 0-2 (0-2) /LPF <ERINN Ambrose - Last Filed: 10/13/22 16:51> Lab Results 10/13/22 10/13/22 10/13/22 Range/Units 17:03 17:04 17:04 WBC 7.4 (4.8-10.8) X10*3/uL RBC 4.36 (4.20-5.50) X10*6/uL Hgb 12.8 (12.0-16.0) g/dl Hct 38.4 (37.0-47.0) % MCV 88.1 (80.0-98.0) fL MCH 29.4 (27.0-33.0) pg MCHC 33.3 (31.0-35.0) g/dl RDW 12.5 (11.0-16.0) % Plt Count 218 D (160-400) X10*3/uL MPV 10.3 (9.4-12.3) fL Immature Gran % (Auto) 0.3 (0.0-0.4) % Neut % (Auto) 59.0 (45-73) % Lymph % (Auto) 31.5 (20-40) % [place] % (Auto) 7.1 (2-11) % Eos % (Auto) 1.6 (0-4) % Baso % (Auto) 0.5 (0-2) % Lymph # (Auto) 2.3 (1.2-4.9) X10*3/uL [place] # (Auto) 0.5 (0.1-1.2) X10*3/uL Eos # (Auto) 0.1 (0.0-0.4) X10*3/uL Baso # (Auto) 0.0 (0.0-0.2) X10*3/uL Abs Immat Gran (auto) 0.02 (0.00-0.03) X10*3/uL Absolute Neuts (auto) 4.4 (2.0-8.3) x10*3/uL Absolute Nucleated RBC 0.000 (0.0-0.012) X10*3/uL Nucleated RBC % (auto) 0.0 (0.0-0.2) /100WBC Sodium 139 (135-145) mmol/L Potassium 3.8 (3.3-5.1) mmol/L Chloride 103 (96-108) mmol/L Carbon Dioxide 25 (22-29) mmol/L Anion Gap 15 (12-20) BUN 13 (9-16) mg/dL Creatinine 0.99 (0.5-1.4) mg/dL Estim Creat Clear Calc 50.9 Estimated GFR 55 Random Glucose 156 H (60-115) mg/dL Calcium 9.9 (8.4-10.2) mg/dL Magnesium 2.2 (1.6-2.6) mg/dL Total Bilirubin 0.6 (0.0-1.0) mg/dL AST 16 (5-31) U/L ALT 15 (0-31) U/L Alkaline Phosphatase 132 H (39-117) U/L Total Protein 7.9 (6.5-8.0) g/dL Albumin 4.4 (3.5-5.0) g/dL Urine Color Yellow Urine Appearance Clear Urine pH 5.5 (5.0-9.0) Ur Specific Cameron 1.020 (1.005-1.025) Urine Protein 100 (2+) H (Neg-Trace) mg/dL Urine Glucose (UA) 250 H (Negative) mg/dL Urine Ketones Negative (Negative) mg/dL Urine Blood Negative (Negative) Urine Nitrite Negative (Negative) Ur Leukocyte Esterase Negative (Negative) Urine RBC 0-2 (0-2) /HPF Urine WBC 0-5 (0-5) /HPF Ur Squamous Epith Cells 0-2 (0-2) /HPF Urine Bacteria None Seen (None Seen) Hyaline Casts 0-2 (0-2) /LPF <Harshil Varela - Last Filed: 10/13/22 19:10> Radiology Impression Discussion of test interpretation with radiology: I have reviewed the radiologist's reading. <Harshil Varela - Last Filed: 10/13/22 19:10> Radiologist Impression: Left ovarian cystic structure <Harshil Varela - Last Filed: 10/13/22 19:10> Discharge Plan Discharge Clinical Impression: Left ovarian cyst <ERINN Ambrose - Last Filed: 10/13/22 16:51> Patient Disposition: Home, Self-Care <ERINN Ambrose - Last Filed: 10/13/22 16:51> Instructions: Ovarian Cyst (ED) <ERINN Ambrose - Last Filed: 10/13/22 16:51> Additional Instructions: Take Tylenol for your pain. You may use tramadol for more severe, breakthrough pain. This may make you sleepy, did not drink alcohol or drive after taking it Follow-up with Dr. Manriquez, associate programmer analyst about your left ovarian cyst <ERINN Ambrose - Last Filed: 10/13/22 16:51> Prescriptions: New tramadol 50 mg tablet 50 mg PO TID PRN (Reason: pain) Qty: 10 0RF No Action lancets [FreeStyle Lancets] 28 gauge misc 28 gauge topical QID 90 Days Qty: 400 4RF (DME) blood-glucose meter [FreeStyle Lite Meter] Kit See Rx Instructions .ROUTE .MEDSUPPLY Qty: 1 0RF Rx Instructions: As directed 4x/day (DME) V-GO 30 Device See Rx Instructions .ROUTE .MEDSUPPLY Qty: 30 6RF Rx Instructions: Once a day levothyroxine 125 mcg tablet 125 mcg PO DAILY Qty: 90 2RF metoprolol succinate 200 mg tablet extended release 24 hr 200 mg PO DAILY Qty: 90 2RF omeprazole 20 mg capsule,delayed release(DR/EC) 20 mg PO DAILY Qty: 90 2RF lisinopril 30 mg tablet 30 mg PO DAILY Qty: 90 1RF Fiasp U-100 Insulin 100 unit/mL solution 100 unit subcut DAILY Qty: 30 6RF Trulicity 3 mg/0.5 mL pen injector 3 mg subcut QWEEK 84 Days Qty: 6 2RF meloxicam 7.5 mg tablet 7.5 mg PO DAILY 30 Days Qty: 30 1RF FreeStyle Lite Strips Strip 1 strip miscellaneous QID 90 Days Qty: 400 1RF cefuroxime axetil 250 mg tablet 250 mg PO BID 7 Days Qty: 14 0RF lidocaine 5 % adhesive patch,medicated 1 patch topical DAILY Qty: 15 0RF Rx Instructions: leave on most painful area for up to 12 hrs levofloxacin 500 mg tablet 500 mg PO DAILY Qty: 6 0RF tramadol 50 mg tablet 50 mg PO BID PRN (Reason: pain) Qty: 7 0RF oxycodone 5 mg capsule 5 mg PO DAILY PRN (Reason: pain) Qty: 14 0RF (DME) CPAP See Rx Instructions .Route .MEDSUPPLY Qty: 1 0RF Rx Instructions: As directed levofloxacin 750 mg tablet 750 mg PO DAILY 7 Days Qty: 7 0RF metronidazole 500 mg tablet 500 mg PO Q8H 7 Days Qty: 21 0RF cyclobenzaprine 5 mg tablet 5 mg PO TID PRN (Reason: muscle spasm) Qty: 14 0RF isosorbide mononitrate 120 mg tablet extended release 24 hr 120 mg PO QAM bupropion HCl 100 mg tablet sustained-release 12 hr 100 mg PO QAM trazodone 50 mg tablet 50 mg PO BEDTIME PRN (Reason: insomnia) sertraline 100 mg tablet 100 mg PO DAILY (DME) insulin syringe-needle U-100 [BD Insulin Syringe Ultra-Fine] 0.3 mL 31 gauge x 5/16 syringe See Rx Instructions .ROUTE .MEDSUPPLY Qty: 100 4RF Rx Instructions: 4 times a day nitroglycerin 0.4 mg tablet, sublingual 0.4 mg sublingual Q5M PRN Rx Instructions: do not exceed 3 doses per episode buspirone 7.5 mg tablet 7.5 mg PO BID melatonin 1 mg tablet 1 mg PO BEDTIME cholecalciferol (vitamin D3) 125 mcg (5,000 unit) capsule 125 mcg PO DAILY 30 Days Qty: 30 11RF pentoxifylline 400 mg tablet extended release 400 mg PO TID Rx Instructions: must administer with a meal/food Farxiga 5 mg tablet 5 mg PO DAILY Qty: 30 5RF (DME) Omnipod Dash Pods (Gen 4) Cartridge See Rx Instructions subcut .MEDSUPPLY Qty: 5 Rx Instructions: As directed Praluent Pen 150 mg/mL pen injector 150 mg subcut Q14D Qty: 2 5RF <ERINN Ambrose - Last Filed: 10/13/22 16:51>
[2022-10-13 17:12] LABS: MANUAL DIFF FLAG NO
[2022-10-13 17:14] LABS: Basophils Percent Auto 0.5 % (0-2); Eosinophils Absolute Auto 0.1 X10*3/uL (0.0-0.4); Eosinophils Percent Auto 1.6 % (0-4); Hematocrit 38.4 % (37.0-47.0); Hemoglobin 12.8 g/dl (12.0-16.0); Imm Gran Abs Auto 0.02 X10*3/uL (0.00-0.03); Imm Gran Pct Auto 0.3 % (0.0-0.4); Lymphocytes Absolute Auto 2.3 X10*3/uL (1.2-4.9); Lymphocytes Percent Auto 31.5 % (20-40); Mean Corpuscular HGB Conc 33.3 g/dl (31.0-35.0); Mean Corpuscular Hemoglobin 29.4 pg (27.0-33.0); Mean Corpuscular Volume 88.1 fL (80.0-98.0); Mean Platelet Volume 10.3 fL (9.4-12.3); Monocytes Absolute Auto 0.5 X10*3/uL (0.1-1.2); Monocytes Percent Auto 7.1 % (2-11); Neutrophils Absolute Auto 4.4 x10*3/uL (2.0-8.3); Platelet Count 218 X10*3/uL (160-400); Red Blood Count 4.36 X10*6/uL (4.20-5.50); Red Cell Distribution Width 12.5 % (11.0-16.0); White Blood Count 7.4 X10*3/uL (4.8-10.8)
[2022-10-13 17:16] LABS: Appearance Urine Clear; Color Urine Yellow; Glucose Urine UA 250 mg/dL (Negative); Leukocyte Esterase Urine Negative (Negative); Nitrite Urine Negative (Negative); PH 5.5 (5.0-9.0); UMIC TRIGGER UACC YES; Urine Blood Negative (Negative); Urine Ketones Negative (Negative); Urine Protein 100 (2+) mg/dL (Neg-Trace)
[2022-10-13 17:18] LABS: Bacteria Urine None Seen (None Seen); Hyaline Casts Urine 0-2 /LPF (0-2); RBC Urine 0-2 /HPF (0-2); Squamous Epithelial Cell Urine 0-2 /HPF (0-2); WBC Urine 0-5 /HPF (0-5)
--- NOTE | 2022-10-13 17:18 | PC.NURSE ---
Patient primarily Belarusian speaking reports back pain left side radiating to stomach no distress noted LALA with purpose will CTM
[2022-10-13 17:29] LABS: Alanine Aminotransferase 15 U/L (0-31); Albumin Level 4.4 g/dL (3.5-5.0); Alkaline Phosphatase 132 U/L (39-117); Anion Gap 15 (12-20); Aspartate Amino Transferase 16 U/L (5-31); Bilirubin Total 0.6 mg/dL (0.0-1.0); Blood Urea Nitrogen 13 mg/dL (9-16); Calcium 9.9 mg/dL (8.4-10.2); Carbon Dioxide 25 mmol/L (22-29); Chloride 103 mmol/L (96-108); Creatinine Clr Calc Pharmacy 50.9; Estimated Glomerular Filt Rate 55; Glucose Random 156 mg/dL (60-115); Magnesium 2.2 mg/dL (1.6-2.6); Potassium 3.8 mmol/L (3.3-5.1); Sodium 139 mmol/L (135-145); Total Protein 7.9 g/dL (6.5-8.0)
[2022-10-13 17:42] VITALS: BP 154/67; PULSE 86; RESP 16; TEMP 36.8; O2SAT 99
[2022-10-13] MEDS: Morphine Sulfate 4 MG/ML CARTRIDGE IVPUSH (18:40)
[2022-10-13] MEDS: ondansetron HCL 4 MG/2 ML VIAL IVPUSH (18:40)
== END 2022-10-13 19:31 | disposition home or self-care (01) ==
PROVIDERS: Physician Assistant Medical; Emergency Provider Emergency Medicine; PCP Internal Medicine
DX: N83.202 Unspecified ovarian cyst, left side (principal); E11.9 Type 2 diabetes mellitus without complications; R10.32 Left lower quadrant pain; Z79.4 Long term (current) use of insulin; Z79.899 Other long term (current) drug therapy
CPT/HCPCS: 36415; 74176; 80053; 81001; 83735; 85025; 96374; 96375; 99284; J2270; J2405

== ENCOUNTER → 2022-11-14 09:54 | Outpatient (BNVA) | payer OTHER, SELFPAY | PROVIDERS: PCP Internal Medicine; Visit Provider Internal Medicine Endocrinology, Diabetes & Metabolism | DX: E11.65 Type 2 diabetes mellitus with hyperglycemia (principal); E78.5 Hyperlipidemia, unspecified; Z79.85 Long-term (current) use of injectable non-insulin antidiabetic drugs; Z79.84 Long term (current) use of oral hypoglycemic drugs | CPT/HCPCS: 82947; 99212 ==

== ENCOUNTER 2022-11-21 14:04 | Outpatient (REF) | payer OTHER, SELFPAY ==
--- NOTE | ~2022-11-21 | US_ITS ---
EXAMINATION: US PELVIS CLINICAL INFORMATION: Complex cyst left ovary. COMPARISON: Ultrasound 12/07/2016. TECHNIQUE: Ultrasound of the pelvis is performed using both transabdominal and transvaginal transducers along with Doppler. Transvaginal imaging is performed due to inadequate visualization transabdominally. FINDINGS: Uterus: The uterus is anteverted, anteflexed and measures 7.6 x 2.8 x 4.4 cm. The double wall endometrial thickness is 0.4 cm with fluid. The uterus is smooth in contour and has normal myometrial echogenicity. There is a hypoechoic lesion in the lower uterine segment, likely fibroid, measuring 1.6 x 1.0 x 1.5 cm. Previously it measured 1.3 x 1.1 x 1.4 cm. Smaller nabothian cysts are seen in the cervix. In addition, there is endocervical fluid in the cervix. Adnexa: Both ovaries are visualized. There is normal color flow to the adnexa. There is no ovarian torsion. There is no pelvic ascites or fluid collection. Right ovary measures 2.6 x 2.0 x 1.6 cm and volume 4.1 mL. It appears unremarkable. Previously right ovary measured 2.8 2.8 x 1.6 x 2.0 cm. Left ovary measures 4.3 x 3.5 x 3 0.5 mL and volume 32.90. There is a complex lobulated cyst measuring 3.5 x 3.3 x 3.1 cm. There is normal arterial and venous flow. US/US pelvic and transvaginal IMPRESSION: Complex cyst left ovary. Unremarkable right ovary. Several nabothian cysts with endocervical fluid.
== END 2022-11-21 14:05 | disposition home or self-care (01) ==
LOC: HO.US 14:04
PROVIDERS: PCP Internal Medicine; Visit Provider Obstetrics & Gynecology
DX: R10.2 Pelvic and perineal pain (principal); R10.32 Left lower quadrant pain
CPT/HCPCS: 76830; 76856

== ENCOUNTER → 2022-12-12 09:48 | Outpatient (BNVA) | payer OTHER, SELFPAY | PROVIDERS: PCP Internal Medicine; Visit Provider Registered Nurse Diabetes Educator | DX: E11.65 Type 2 diabetes mellitus with hyperglycemia (principal); E11.21 Type 2 diabetes mellitus with diabetic nephropathy; E11.42 Type 2 diabetes mellitus with diabetic polyneuropathy; Z79.4 Long term (current) use of insulin; Z96.41 Presence of insulin pump (external) (internal); Z46.81 Encounter for fitting and adjustment of insulin pump | CPT/HCPCS: 99211 ==

== ENCOUNTER 2022-12-26 09:11 | Outpatient (REF) | payer OTHER, SELFPAY ==
[2022-12-28 10:09] LABS: CA-125 45 U/mL (<35)
== END 2022-12-26 09:12 | disposition home or self-care (01) ==
LOC: HO.LAB 09:11
PROVIDERS: PCP Internal Medicine; Visit Provider Obstetrics & Gynecology
DX: N83.202 Unspecified ovarian cyst, left side (principal); R97.0 Elevated carcinoembryonic antigen [CEA]; R97.1 Elevated cancer antigen 125 [CA 125]
CPT/HCPCS: 36415; 82378; 86304

== ENCOUNTER → 2023-01-01 13:53 | Outpatient (REF) | payer OTHER, SELFPAY | LOC: HO.SL 13:53 | PROVIDERS: PCP Internal Medicine; Visit Provider Internal Medicine | DX: G47.33 Obstructive sleep apnea (adult) (pediatric) (principal) | CPT/HCPCS: 95806 ==

== ENCOUNTER → 2023-01-26 07:37 | Outpatient (BNVA) | payer OTHER, SELFPAY | PROVIDERS: PCP Internal Medicine; Visit Provider Registered Nurse Diabetes Educator | DX: E11.65 Type 2 diabetes mellitus with hyperglycemia (principal); E11.21 Type 2 diabetes mellitus with diabetic nephropathy; E11.42 Type 2 diabetes mellitus with diabetic polyneuropathy; E03.9 Hypothyroidism, unspecified; Z79.4 Long term (current) use of insulin; Z46.81 Encounter for fitting and adjustment of insulin pump | CPT/HCPCS: 99211 ==

== ENCOUNTER 2023-02-27 09:07 | Outpatient (REF) | payer OTHER, SELFPAY ==
--- NOTE | ~2023-02-27 | MM_ITS ---
EXAMINATION: MM SCREENING DIGITAL BREAST TOMOSYNTHESIS, BILATERAL CLINICAL INFORMATION: Screening. Asymptomatic. The lifetime risk of breast cancer based on the Tyrer-Cuzick Model is 3%. COMPARISON: Mammography: This study is compared with prior exams dating back to 2019. TECHNIQUE: Digital breast tomosynthesis is performed in both the craniocaudal and mediolateral oblique views along with computer-aided detection (CAD). Synthesized 2D images are generated from the tomosynthesis. FINDINGS: There are scattered areas of fibroglandular density (ACR BI-RADS breast composition Category b). There are no significant masses, abnormal calcifications, or other abnormalities. MM/MM tomosynthesis screening BI IMPRESSION: No mammographic evidence of malignancy. ASSESSMENT: BI-RADS BI-RADS 1 - Negative RECOMMENDATION: Routine annual mammography screening. 1 year F/U This examination should not preclude the clinical evaluation of a suspicious palpable abnormality. This patient's information was entered into a reminder system with a target due date for their next mammogram.
== END 2023-02-27 09:08 | disposition home or self-care (01) ==
LOC: HO.MAMMO 09:07
PROVIDERS: PCP Internal Medicine; Visit Provider Internal Medicine
DX: Z12.31 Encounter for screening mammogram for malignant neoplasm of breast (principal)
CPT/HCPCS: 77063; 77067

== ENCOUNTER → 2023-02-27 09:45 | Outpatient (BNV) | payer OTHER, SELFPAY | PROVIDERS: PCP Internal Medicine; Visit Provider Radiology Diagnostic Radiology | DX: Z12.31 Encounter for screening mammogram for malignant neoplasm of breast (principal) | CPT/HCPCS: 77063; 77067 ==

== ENCOUNTER 2023-03-12 10:29 | Outpatient (AMB) | payer OTHER, SELFPAY ==
--- NOTE | 2023-03-12 10:38 | A.OFFPC_ITS ---
Vital Signs 03/12/23 11:01 Height 5 ft 2 in Weight 175 lb BMI 32.0 BP 130/68 Blood Pressure Location Rt brachial Position Sitting Pulse 69 Pulse Source Pulse Oximeter Temp Source Skin Pulse Oximetry (%) 96 Oxygen Delivery Method Room Air Intake Visit Reasons: F/U Scales Inspector Required: Yes Allergies ibuprofen [From MOTRIN] Allergy (Mild, Verified 03/12/23 11:06) STOMACH UPSET, gastritis Medication List - Last Reconciled 03/12/23 by Georgina Fish MD atorvastatin 40 mg PO DAILY BD Insulin Syringe Ultra-Fine (insulin syringe-needle U-100) 4 times a day NS blood-glucose meter (FreeStyle Lite Meter kit) As directed 4x/day bupropion HCl 100 mg PO QAM buspirone 7.5 mg PO BID cholecalciferol (vitamin D3) 125 mcg PO DAILY 30 days cyclobenzaprine 5 mg PO TID PRN dapagliflozin propanediol (Farxiga) 5 mg PO DAILY diclofenac sodium 1% (Voltaren Arthritis Pain) 4 grams topical QID dulaglutide (Trulicity) 3 mg (0.5 mL) subcut QWEEK 84 days Fiasp U-100 Insulin 100 unit/mL (insulin aspart (niacinamide)) 100 units subcut DAILY NS flash glucose sensor (FreeStyle Ron 2 Sensor kit) As directed change every 14 days FreeStyle Lite Strips (blood sugar diagnostic) USE 1 STRIP DIRECTED FOUR TIMES A DAY FOR DIABETES NS insulin pump cart,cont inf,BT (Omnipod Dash Pods (Gen 4) subcutaneous cartridge) As directed change every 48 hrs isosorbide mononitrate ER 120 mg PO QAM lancets (FreeStyle Lancets) 28 gauge topical QID 90 days levothyroxine 125 mcg PO DAILY lidocaine 5% 1 patch topical DAILY lisinopril 30 mg PO DAILY melatonin 1 mg PO BEDTIME metoprolol succinate ER 200 mg PO DAILY nitroglycerin 0.4 mg sublingual Q5M PRN omeprazole 20 mg PO DAILY oxycodone 5 mg PO DAILY PRN pentoxifylline ER 400 mg PO TID sertraline 100 mg PO DAILY tramadol 50 mg PO TID PRN trazodone 50 mg PO BEDTIME PRN Tobacco use date assessed: 03/12/23 Fall risk assessment: 1 Fall in past year Last assessed Fall Risk: 03/12/23 Dental Screening Dental Screen Date: 03/12/23 Did you have a dental visit in the last 12 months?: Yes Did you have a dental problem in the last 6 months where you did not have access to dental care?: No HPI F/U HPI Details 72-year-old obese female with diabetes mellitus coronary artery disease GERD hypertension hypercholesterolemia and hypothyroidism last seen in May 2022. Patient is here for follow-up. Review of the notes patient had fallopian tube and cell thing go for rectum E January 2023 and over ovary with cyst adeno fibroma under Dr. Hyman. Patient also follows up with endocrinology for the diabetes. Patient also follows up with Cardiology recent hospitalization and angiography added amlodipine 2.5 mg once a day advise sleep study testing CO SI RA to study. Sleep study done December 2022 showing very mild borderline sleep apnea. Patient has seen the nurse practitioner in October 2019 Real [id number] interpret. surgical scar negative. endo requested cholesterol. 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 Lumbar degenerative disc disease Obesity (BMI 30-39.9) Obstructive sleep apnea Ovarian cyst Tear of meniscus of left knee Type 2 diabetes mellitus with diabetic polyneuropathy Surgical History History of esophagogastroduodenoscopy (EGD) History of surgical removal of nipple Hx of cholecystectomy Hx of colonoscopy Hx of right coronary artery stent placement Hx of tubal ligation Family History Father Diabetes mellitus Mother Diabetes mellitus Maternal Uncle Colon cancer Gastric cancer Daughter Diabetes mellitus Social History Household Members: None Housing: Apartment Alcohol intake: unknown Patient Tobacco Use Status: Former Tobacco user Tobacco use type: Cigarette e-Cigarette/Vaping Use: Never Used Second Hand Smoke Exposure: No service: No Current occupational status: disabled Current occupational exposures/hazards: No Cognitive needs: No Hearing needs: No Vision needs: Yes Questionnaire Thrive Questionnaire Date Thrive assessed: 09/07/22 AUDIT C Alcohol Use Questionnaire (AUDIT-C) 1. How often do you have a drink containing alcohol?: Never 2. How many drinks containing alcohol do you have on a typical day when you are drinking?: 1 or 2 3. How often do you have six or more drinks on one occasion?: Never Total Score: 0 JASS-7 AMB Questionnaire JASS-7 Date JASS - 7 assessed: 09/07/22 Source: Developed by Drs. David Arroyo, Latha Luz, Buzz Cain and colleagues, with an educational gertrude from [employer]. Physical exam (Primary Care) Vital Signs: Last Vital Signs Pulse 69 03/12/23 11:01 BP 130/68 03/12/23 11:01 Pulse Ox 96 03/12/23 11:01 Oxygen Delivery Method Room Air 03/12/23 11:01 BMI result Body Mass Index 32.0 Tobacco/Smoking Status: Tobacco use Status Tobacco use date assessed 03/12/23 03/12/23 11:05 Patient Tobacco Use Status Former Tobacco user 03/12/23 10:38 Tobacco use type Cigarette 03/12/23 10:38 e-Cigarette/Vaping Use Never Used 03/12/23 10:38 Thrive Assessment: Date of Thrive Assessment Date Thrive assessed 09/07/22 03/12/23 10:38 Const General: alert; No acute distress Eyes Conjunctivae: conjunctivae normal Resp Auscultation: clear to auscultation bilaterally Cardio Rate: regular rate Rhythm: regular rhythm GI Inspection: Yes normal to inspection Extrem General: Yes normal to inspection and No edema Results AMB Hemoglobin A1c AMB Hemoglobin A1c 6.2 % Last Edit by REJI Au on 03/12/23 11:13 Results Reviewed Results Reviewed: Laboratory Last Values Hgb A1c (Clinic) 6.2 % (4.0-6.0) H 03/12/23 10:39 Assessment and Plan Assessment & Plan (1) Left ovarian cyst: Comment: January 2023 status post tubal and bilateral salpingo-oophorectomy Dr. Hyman Code(s): N83.202 - Unspecified ovarian cyst, left side Plan: Surgery biopsy negative (2) Colon cancer screening: Code(s): Z12.11 - Encounter for screening for malignant neoplasm of colon Plan: Reminded patient (3) Coronary artery disease: Comment: [place] September 2010 with stent placement restenoses November 2012 [facility] January 2017 catheterization done occluded distal RCA new catheterization May 2017 the same, catheterization September 2017 Code(s): I25.10 - Atherosclerotic heart disease of campo coronary artery without angina pectoris Plan: Control the cholesterol, weight, blood pressure, diabetes (4) Type 2 diabetes mellitus with hyperglycemia: Comment: [place] Code(s): E11.65 - Type 2 diabetes mellitus with hyperglycemia Plan: Decrease the amount of carbohydrate intake, pasta, bread, rice and potatoes are all sugar and that is aside from all the sweet stuff, remember that fruits are good but they are Sweet also. Hemoglobin A1c goal of less than 7.0 (5) GERD (gastroesophageal reflux disease): Code(s): K21.9 - Gastro-esophageal reflux disease without esophagitis Qualifiers: Esophagitis presence: without esophagitis Qualified Code(s): K21.9 - Gastro-esophageal reflux disease without esophagitis Plan: Avoid the foods that causes that usually spicy foods, tomato products, juices, coffee, soda and foods that your sensitive to. After eating do not lie down, allow 3-4 hours before in lie down. And keep the head of bed above 30 degrees to avoid the acid from going up. (6) Obesity (BMI 30-39.9): Code(s): E66.9 - Obesity, unspecified Plan: Diet and exercise (7) Hypertension: Code(s): I10 - Essential (primary) hypertension Qualifiers: Hypertension type: essential hypertension Qualified Code(s): I10 - Essential (primary) hypertension Plan: Continue with blood pressure medication. Decrease salt intake and exercise (8) Dyslipidemia: Code(s): E78.5 - Hyperlipidemia, unspecified Plan: Avoid fried foods, chicken skin, eggs, butter margarine, pastries and meat. 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 Qualified Code(s): E03.8 - Other specified hypothyroidism; E06.3 - Autoimmune thyroiditis Plan: Continue with thyroid medication (10) Bilateral hand numbness: Code(s): R20.0 - Anesthesia of skin Orders: Orders AMB Hemoglobin A1c Today E11.21 - Type 2 diabetes mellitus with diabetic nephropathy NE electromyogram (EMG) Today R20.0 - Anesthesia of skin NE nerve conduction velocity Today R20.0 - Anesthesia of skin Medications: New diclofenac sodium 1% (Voltaren Arthritis Pain) apply to single knee, ankle, foot; for foot includes sole/toes/top of foot 4 grams topical QID 100 grams 3RF Discontinued tramadol Discontinued Reason: Duplicate 50 mg PO BID PRN 7 tabs 0RF pain meloxicam Discontinued Reason: None 7.5 mg PO DAILY 30 days 90 tabs 1RF M51.36 - Other intervertebral disc degeneration, lumbar region [CPAP] Discontinued Reason: Doctor's Order As directed 1 ea 0RF G47.33 - Obstructive sleep apnea (adult) (pediatric) Coding Level of Care Code Est Pt Level 4 (43194) Diagnoses Left ovarian cyst N83.202 Colon cancer screening Z12.11 Coronary artery disease I25.10 Type 2 diabetes mellitus with hyperglycemia E11.65 GERD (gastroesophageal reflux disease) K21.9 Esophagitis presence: without esophagitis Obesity (BMI 30-39.9) E66.9 Hypertension I10 Hypertension type: essential hypertension Dyslipidemia E78.5 Hypothyroidism E03.8; E06.3 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
[2023-03-12 11:01] VITALS: BP 130/68; PULSE 69; O2SAT 96; BMI 32.0
== END 2023-03-12 12:02 | disposition home or self-care (01) ==
PROVIDERS: Visit Provider Internal Medicine
DX: E11.65 Type 2 diabetes mellitus with hyperglycemia (principal); K21.9 Gastro-esophageal reflux disease without esophagitis; I10 Essential (primary) hypertension; E11.21 Type 2 diabetes mellitus with diabetic nephropathy; E03.8 Other specified hypothyroidism; E06.3 Autoimmune thyroiditis; N83.202 Unspecified ovarian cyst, left side; Z12.11 Encounter for screening for malignant neoplasm of colon; I25.10 Atherosclerotic heart disease of native coronary artery without angina pectoris; E66.9 Obesity, unspecified; E78.5 Hyperlipidemia, unspecified; R20.0 Anesthesia of skin
CPT/HCPCS: 83036; 99214

== ENCOUNTER 2023-03-22 12:13 | Outpatient (REF) | payer OTHER, SELFPAY ==
--- NOTE | 2023-03-22 12:16 | EMG_ITS ---
Chief complaint: Right Carpal Tunnel Syndrome surgery 5 years ago, started having numbness on 1st and 2nd digits bilateral 3 months ago. History of diabetes. Reason for referral: Evaluate for Carpal Tunnel Syndrome Referred by: Dr. Fish Procedure done: Bilateral upper extremities NCS/EMG Precautions and/or limitations: None The limb temperature was monitored continuously and remained between 32-36 degrees C during the performance of the NCS. Nerve Conduction Studies Anti Sensory Summary Table ?Stim Site NR Onset (ms) Norm Onset (ms) Peak (ms) Norm Peak (ms) O-P Amp (?V) Norm O-P Amp Site1 Site2 Delta-0 (ms) Dist (cm) Rinku (m/s) Norm Rinku (m/s) Left Median Anti Sensory (2nd Digit) Wrist NR <3.6 >10 Wrist 2nd Digit 14.0 Right Median Anti Sensory (2nd Digit) Wrist ? 3.7 4.5 <3.6 4.3 >10 Wrist 2nd Digit 3.7 14.0 38 Left Radial Anti Sensory (Thumb) Forearm ? 3.2 3.1 <3.1 3.3 Forearm Thumb 3.2 0.0 Right Radial Anti Sensory (Thumb) Forearm ? 1.4 2.1 <3.1 5.4 Forearm Thumb 1.4 0.0 Left Ulnar Anti Sensory (5th Digit) Wrist ? 2.8 3.5 <3.7 0.6 >15.0 Wrist 5th Digit 2.8 14.0 50 Right Ulnar Anti Sensory (5th Digit) Wrist NR <3.7 >15.0 Wrist 5th Digit 14.0 Motor Summary Table ?Stim Site NR Onset (ms) Norm Onset (ms) O-P Amp (mV) Norm O-P Amp iAmp (mV) Amp (1st) (%) Site1 Site2 Delta-0 (ms) Dist (cm) Rinku (m/s) Norm Rinku (m/s) Left Median Motor (Abd Poll Brev) Wrist NR <3.9 >4.5 Elbow Wrist 0.0 >45 Elbow NR Right Median Motor (Abd Poll Brev) Wrist ? 4.6 <3.9 4.9 >4.5 6.5 100.0 Elbow Wrist 4.0 18.5 46 >45 Elbow ? 8.6 5.1 6.7 104.1 Left Ulnar Motor (Abd Dig Minimi) Wrist ? 2.7 <3.0 5.6 >5 6.9 100.0 B Elbow Wrist 3.3 16.5 50 >45 B Elbow ? 6.0 5.2 6.7 92.9 A Elbow B Elbow 1.7 10.0 59 >45 A Elbow ? 7.7 5.0 6.3 89.3 Right Ulnar Motor (Abd Dig Minimi) Wrist ? 3.2 <3.0 5.0 >5 5.8 100.0 B Elbow Wrist 2.8 18.0 64 >45 B Elbow ? 6.0 4.5 5.6 90.0 A Elbow B Elbow 2.3 10.0 43 >45 A Elbow ? 8.3 4.3 5.4 86.0 EMG ?Side Muscle Nerve Root Ins Act Fibs Psw Amp Dur Poly Recrt Int Pat Comment Left Abd Poll Brev Median C8-T1 Incr 1+ 1+ Nml Nml 0 Nml Complete Right 1stDorInt Ulnar C8-T1 Incr 1+ 1+ Nml Nml 0 Nml Complete Right Biceps Musculocut C5-6 Nml Nml Nml Nml Nml 0 Nml Complete Right FlexCarRad Median C6-7 Nml Nml Nml Nml Nml 0 Nml Complete Right Deltoid Axillary C5-6 Nml Nml Nml Nml Nml 0 Nml Complete Right Triceps Radial C6-7-8 Nml Nml Nml Nml Nml 0 Nml Complete Left FlexCarRad Median C6-7 Nml Nml Nml Nml Nml 0 Nml Complete Left Biceps Musculocut C5-6 Nml Nml Nml Nml Nml 0 Nml Complete Left Triceps Radial C6-7-8 Nml Nml Nml Nml Nml 0 Nml Complete Left Deltoid Axillary C5-6 Nml Nml Nml Nml Nml 0 Nml Complete Left 1stDorInt Ulnar C8-T1 Nml Nml Nml Nml Nml 0 Nml Complete Paraspinal EMG ?Side Muscle Nerve Root Ins Act Fibs Psw Comment Right Cervical Upper Rami Nml Nml Nml Right Cervical Mid Rami Nml Nml Nml Right Cervical Lower Rami Nml Nml Nml Left Cervical Upper Rami Nml Nml Nml Left Cervical Mid Rami Nml Nml Nml Left Cervical Lower Rami Nml Nml Nml FINDINGS: Right median motor nerve showed prolonged distal latency, normal amplitude and normal conduction velocity. Right ulnar motor nerve showed prolonged distal latency, normal amplitude and slow conduction velocity across the elbow. Left median motor nerve showed absent response. Right median sensory nerve showed prolonged peak latency. Right ulnar sensory nerve showed absent response. Left median sensory nerve showed absent response. Left ulnar sensory and bilateral radial sensory nerves showed normal peak latencies but small amplitudes.. All other nerves tested were within normal. Concentric needle EMG was performed in selected muscles of the bilateral upper extremities and cervical paraspinals. Study revealed Signs of electric abnormalities as shown in the table below. Right FDI showed increased insertional activity, fibrillations and PSWs. Left APB showed increased insertional activity, fibrillations and PSWs. IMPRESSION: 1. This is an abnormal study. 2. There is electrodiagnostic evidence for left severe and right moderate-severe median neuropathy at the wrist, consistent with carpal tunnel syndrome. 3. There is electrodiagnostic evidence for right ulnar neuropathy at elbow. 4. There is no electrodiagnostic evidence for brachial plexopathy, or cervical radiculopathy. CLINICAL COMMENT: Given small amplitudes on sensory nerves, possible polyneuropathy related to diabetes. Consider NCS/EMG bilateral lower extremity to make full diagnosis.. Further clinical correlation recommended. Thank you for your kind referral. Marlee Wagner MD, JAMES Board Certified, [place] Board of Physical Medicine and Rehabilitation (ABPMR) Board Certified, [place] Board of Electrodiagnostic Medicine (ABEM) [facility]
== END 2023-03-22 12:14 | disposition home or self-care (01) ==
LOC: HO.NEURO 12:13
PROVIDERS: PCP Internal Medicine; Visit Provider Internal Medicine
DX: R20.0 Anesthesia of skin (principal)
CPT/HCPCS: 95886; 95911

== ENCOUNTER 2023-03-28 09:46 | Outpatient (AMB) | payer OTHER, SELFPAY ==
--- NOTE | 2023-03-28 10:35 | MHC.AMDMED ---
Intake Intake Visit Reasons: dm/CONFIRM Risk Control Representative Required: Yes Risk Control Representative Language: Flexo Press Operator Name: Chelo [facility] [place] Information Interpreted: non-clinical & clinical Accompanied by: Self / Same As Patient Allergies ibuprofen [From MOTRIN] Allergy (Mild, Verified 03/12/23 11:06) STOMACH UPSET, gastritis HPI Comprehensive Diabetes Asmnt Most Recent Diabetes Results: No Data to Display [facility] Medical History (Updated 03/23/23 @ 16:55 by Georgina Fish MD) Abnormal liver function test Anemia Bilateral hand numbness Carpal tunnel syndrome Coronary artery disease Diabetes type 2, uncontrolled Diabetic nephropathy associated with type 2 diabetes mellitus Dyslipidemia GERD (gastroesophageal reflux disease) Hypertension Hypothyroidism Knee osteoarthritis Left ovarian cyst [facility] (current) use of insulin Lumbar degenerative disc disease Obesity (BMI 30-39.9) Obstructive sleep apnea Ovarian cyst Tear of meniscus of left knee Type 2 diabetes mellitus with diabetic polyneuropathy Surgical History History of esophagogastroduodenoscopy (EGD) History of surgical removal of nipple Hx of cholecystectomy Hx of colonoscopy Hx of right coronary artery stent placement Hx of tubal ligation Family History Father Diabetes mellitus Mother Diabetes mellitus Maternal Uncle Colon cancer Gastric cancer Daughter Diabetes mellitus Social History Household Members: None Housing: Apartment Alcohol intake: unknown Patient Tobacco Use Status: Former Tobacco user Tobacco use type: Cigarette e-Cigarette/Vaping Use: Never Used Second Hand Smoke Exposure: No service: No Current occupational status: disabled Current occupational exposures/hazards: No Cognitive needs: No Hearing needs: No Vision needs: Yes Assessment & Plan Assessment & Plan (1) Type 2 diabetes mellitus with diabetic polyneuropathy: Code(s): E11.42 - Type 2 diabetes mellitus with diabetic polyneuropathy Plan: Patient presents for pump training for Omnipod dash with freestyle Ron 2 The following topics were reviewed today: - When to change set or Pod - temporary basal rate - how to treat hypoglycemia - Sensor setting (if applicable) ? ? High Alert: 240 mg/dl ? ? Low Alert: 70 mg/dl Patient above target 34% Patient at target 66% Patient below target 0% Average glucose for the past 2 weeks 165 mg/dL Overall patient's glucose control is stable, reviewed how to treat episodes of hypoglycemia with rule of 15s Patient reports she treats hypoglycemia with orange juice Patient reports her last sensor was damaged, and she currently does not have any more sensors until she receives them from [employer]. Patient given sample Ron 2 sensor, sensor inserted on patient's upper right arm. Patient left visit with sensor in warmup Instructed patient that she should keep the box, and foil cap on sensors that she is using in case of sensor failure she can call [facility] for replacement sensor. Patient understands the basic concepts of pump therapy, how to give insulin for meals and snacks, how to troubleshoot for hyper and hypoglycemia. Setting verified by [facility]ES Basal rate(s) (units/hour) : ?12 AM to 12AM? 1.50 units / hr Bolus setting Fixed Meal Doses Breakfast: 7 units Lunch: 7 units ?Supper: 8 units Snacks: 3 units Correction Factor / Sensitivity Factor None Active Insulin Time:? 4 hrs Coding Level of Care Code Est Pt Level 1 (57872) Diagnoses Type 2 diabetes mellitus with diabetic polyneuropathy E11.42
== END 2023-03-28 10:40 | disposition home or self-care (01) ==
PROVIDERS: PCP Internal Medicine; Visit Provider Registered Nurse Diabetes Educator
DX: E11.42 Type 2 diabetes mellitus with diabetic polyneuropathy (principal)

== ENCOUNTER → 2023-03-28 09:46 | Outpatient (BNVA) | payer OTHER, SELFPAY | PROVIDERS: PCP Internal Medicine; Visit Provider Registered Nurse Diabetes Educator | DX: Z46.81 Encounter for fitting and adjustment of insulin pump (principal); E11.42 Type 2 diabetes mellitus with diabetic polyneuropathy | CPT/HCPCS: 99211 ==

== ENCOUNTER 2023-05-16 10:19 | Outpatient (AMB) | payer OTHER, SELFPAY ==
[2023-05-16 10:25] VITALS: BMI 32.0
--- NOTE | 2023-05-16 10:25 | A.OFFVIS_ITS ---
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 States left is worse than her right. Also is having pain and stiffness in pinky. She says that she is not able to make a full close fist. Denies locking or recent injury. EMG done. Allergies ibuprofen [From MOTRIN] Allergy (Mild, Verified 05/16/23 10:38) STOMACH UPSET, gastritis HPI TEST SKEIN WINDER- B/L hand CTS HPI Details Ellen is a 72 year old right hand dominant Occitan speaking woman who presents for a NCS review of her bilateral hand numbness. She complains of numbness in the median nerve distribution of her bilateral hands, L>R, which has been present for ~3 years. Her symptoms are constant in her left hand. She denies any left small finger numbness. She reports having a right carpal tunnel release more than 5 years ago. She says her sensation improved slightly following surgery but she continued to have numbness, which has not worsened in the last few years. Regarding the right small finger, she says she gets occasional numbness and tingling. She also complains of swelling & stiffness in her bilateral small finger, and says she struggles to make a fully closed fist She denies any falls or recent injury. [facility] Medical History (Updated 05/16/23 @ 10:40 by Jomar Dalton) Bilateral hand numbness Left ovarian cyst Type 2 diabetes mellitus with diabetic polyneuropathy Abnormal liver function test Tear of meniscus of left knee Lumbar degenerative disc disease Knee osteoarthritis GERD (gastroesophageal reflux disease) Ovarian cyst Carpal tunnel syndrome Obstructive sleep apnea Coronary artery disease Anemia Obesity (BMI 30-39.9) Hypertension Dyslipidemia Hypothyroidism Diabetic nephropathy associated with type 2 diabetes mellitus snf (current) use of insulin Diabetes type 2, uncontrolled Surgical History (Updated 05/16/23 @ 10:52 by Jomar Dalton) History of esophagogastroduodenoscopy (EGD) Hx of colonoscopy Hx of right coronary artery stent placement History of surgical removal of nipple Hx of tubal ligation Hx of cholecystectomy Family History Father Diabetes mellitus Mother Diabetes mellitus Maternal Uncle Colon cancer Gastric cancer Daughter Diabetes mellitus Social History Household Members: None Housing: Apartment Alcohol intake: unknown Patient Tobacco Use Status: Former Tobacco user Tobacco use type: Cigarette e-Cigarette/Vaping Use: Never Used Second Hand Smoke Exposure: No service: No Current occupational status: disabled Current occupational exposures/hazards: No Cognitive needs: No Hearing needs: No Vision needs: Yes Review of Systems Const All systems reviewed & are unremarkable except as noted in HPI and below Physical Exam Vital Signs: BMI result Body Mass Index 32.0 Const General: cooperative, healthy appearing and no acute distress Orientation/consciousness: patient oriented x3 HEENT Head: Yes normocephalic and Yes atraumatic Eyes EOM: EOMs intact bilaterally Resp Effort & Inspection: normal respiratory effort and able to speak in complete sentences Cardio Jugular venous distension: no JVD Skin General skin exam: turgor normal Rashes: no rashes Neuro General: patient oriented x3 Extrem Other: Evaluation of Bilateral Upper Extremity: The patient is alert, oriented, and in no acute distress Neuro: Dense numbness in the median nerve distribution of the right hand. Dense numbness in the median nerve distribution of the left hand. No numbness in the ulnar nerve distribution No thenar or intrinsic wasting Good APB muscle belly firing and good finger cross Vascular: Cap refill brisk ROM: She can make a fist and extend all her digits. Initially she held her small fingers in extension and was hesitant to make a fist, but she was able to before leaving clinic No locking or catching Skin: No lacerations or abrasions. General: No Ecchymosis. No Erythema or evidence of infection. Nerve Conduction study: IMPRESSION: 1. This is an abnormal study. 2. There is electrodiagnostic evidence for left severe and right moderate-severe median neuropathy at the wrist, consistent with carpal tunnel syndrome. 3. There is electrodiagnostic evidence for right ulnar neuropathy at elbow. 4. There is no electrodiagnostic evidence for brachial plexopathy, or cervical radiculopathy. CLINICAL COMMENT: Given small amplitudes on sensory nerves, possible polyneuropathy related to diabetes. Consider NCS/EMG bilateral lower extremity to make full diagnosis.. Further clinical correlation recommended. Thank you for your kind referral. Marlee Wagner MD, JAMES 03/22/23 Psych Appearance: grossly normal Affect: normal affect Attitude: cooperative Assessment & Plan Assessment & Plan (1) Severe carpal tunnel syndrome of both wrists: Code(s): G56.03 - Carpal tunnel syndrome, bilateral upper limbs (2) Cubital tunnel syndrome on right: Code(s): G56.21 - Lesion of ulnar nerve, right upper limb (3) Coronary artery disease: Comment: [place] September 2010 with stent placement restenoses November 2012 [facility] January 2017 catheterization done occluded distal RCA new catheterization May 2017 the same, catheterization September 2017 Code(s): I25.10 - Atherosclerotic heart disease of [place] coronary artery without angina pectoris (4) Type 2 diabetes mellitus with diabetic polyneuropathy: Code(s): E11.42 - Type 2 diabetes mellitus with diabetic polyneuropathy (5) History of carpal tunnel surgery of right wrist: Code(s): Z98.890 - Other specified postprocedural states Plan Assessment & Plan: 1. Left carpal tunnel syndrome, severe With dense numbness I educated her about this condition I discussed operative and non-operative treatment options The patient would like to proceed with surgery I explained that her sensation may not return to normal following surgery, but it is important to preserve muscle function and may improve over ~9 months following surgery The risks and benefits of operative treatment were discussed with the patient and the patient wishes to proceed with surgery. These risks include, but are not limited to risk of damage to blood vessels, nerves, tendons, infection, recurrence, incomplete relief of preoperative symptoms, persistent pain, possible need for further surgery and the risks associated with regional blocks and anesthesia. The plan is to take the patient to the operating room sometime in the next few weeks for the following procedures: 1. Left Carpal tunnel release, under local All of the preoperative paperwork including the consent was filled out today. All the patient's questions were answered. The patient understands that they will be contacted by our adjuster piano action soon to schedule this procedure She denies blood thinners, asthma, lung, kidney issues She is a Diabetic, her most recent HgA1c was 6.2% on 03/12/23 She is taking Pentoxifylline, which is a vasodilator, due to her CAD and PAD. She has a hx of a cardiac stent and multiple catheterizations. 2. Right cubital tunnel syndrome, based on NCS Symptoms are occasional right now I educated her about this. If this persists or worsens she may require surgery at a later date 3. Right Carpal tunnel syndrome, S/P release DOS: prior to 2018 With dense numbness following surgery, unchanged. She says this has stayed the same since surgery and has not worsened No treatment indicated at this time. Scribed for Charley Rooney MD by Jomar Dalton, medical management trainer, on 05/16/23 at 10:45 AM, EST. Coding Level of Care Code New Pt Level 4 (99447) Diagnoses Severe carpal tunnel syndrome of both wrists G56.03 Cubital tunnel syndrome on right G56.21 Coronary artery disease I25.10 Type 2 diabetes mellitus with diabetic polyneuropathy E11.42 History of carpal tunnel surgery of right wrist Z98.890
== END 2023-05-16 11:02 | disposition home or self-care (01) ==
PROVIDERS: PCP Internal Medicine; Visit Provider Orthopaedic Surgery
DX: G56.03 Carpal tunnel syndrome, bilateral upper limbs (principal); G56.21 Lesion of ulnar nerve, right upper limb
CPT/HCPCS: 99204

== ENCOUNTER → 2023-05-16 10:19 | Outpatient (BNVA) | payer OTHER, SELFPAY | PROVIDERS: PCP Internal Medicine; Visit Provider Orthopaedic Surgery ==

== ENCOUNTER 2023-06-05 09:23 | Outpatient (AMB) | payer OTHER, SELFPAY ==
--- NOTE | 2023-06-05 09:40 | A.OFFVIS_ITS ---
Intake Vital Signs 06/05/23 09:46 Height 5 ft 2 in Weight 220 lb BMI 40.2 BP 138/64 Blood Pressure Location Lt brachial Position Sitting Pulse 72 Pulse Source Pulse Oximeter Pulse Oximetry (%) 97 Oxygen Delivery Method Room Air Intake Visit Reasons: I-OPTICAL EFFECTS LAYOUT PERSON: POLLO - LVM Intake Note: NPV for Pollo Naturopathic Oncology Provider Required: Yes Naturopathic Oncology Provider Name: [place] daughter Allergies ibuprofen [From MOTRIN] Allergy (Mild, Verified 06/05/23 09:42) STOMACH UPSET, gastritis HPI HPI Comments History of Present Illness Details 72 y/o female patient with HTN, T2DM and hx of POLLO presents for new in- person visit to manage sleep apnea. Pt was diagnosed with POLLO more than 10 years ago, and treated with CPAP. However, Pt's CPAP was broken and has not replaced it. Pt states that she has difficulty sleeping without CPAP. She snores and gasping and having dyspnea, wakes up frequently. She reports non refreshing sleep with excessive daytime sleepiness. She had home sleep study but it was inconclusive. Sleep questionnaire: Have you ever been diagnosed with a sleep disorder? POLLO, more than 10 years ago. Have you ever had a sleep study in the past? Yes, home sleep study recently but it was inconclusive. Have you ever been treated for a sleep disorder? Yes, CPAP. Do you take medications for a sleep disorder? melatonin. Do you snore? Yes. Do you wake up gasping at night? Yes. Do you have episodes of apneas? Yes. If yes, are they witnessed? Yes. Do you have episodes of nocturnal chest pain or dyspnea? Yes. Do you have difficulty initiating sleep? Yes. Do you have difficulty maintaining sleep? Yes. Do you wake up tired? Yes. Do you have headaches upon awakening? Yes. Do you wake up with dry mouth or throat? Yes. Do you have GERD? No. Do you have nocturia? Yes. Do you have nocturnal leg cramps? Yes. Do you have symptoms of restless legs? Yes. Do you act out your dreams? No. Sleep hygiene questionnaire: What is your usual sleep routine? Usual bedtime is at 2-3 am; Usual wake up time is at 11am to 1pm. Do you take naps? Yes, every day. Is your sleep environment cool, dark, and quiet? Yes. Do you exercise? No. Do you take caffeine or other stimulants? Soda with meals. Do you use electronics in bed? Yes. What is your work schedule? N/A. Hypersomnolence questionnaire: Do you have daytime tiredness or fatigue? Yes. Do you easily fall asleep when inactive? Yes. Have you ever had episodes of sudden weakness? No. Have you ever had episodes of sudden weakness associated with strong emotions? No. 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 Diabetes type 2, uncontrolled Surgical History (Updated 05/16/23 @ 10:52 by Jomar Dalton) History of esophagogastroduodenoscopy (EGD) Hx of colonoscopy Hx of right coronary artery stent placement History of surgical removal of nipple Hx of tubal ligation Hx of cholecystectomy Family History Father Diabetes mellitus Mother Diabetes mellitus Maternal Uncle Colon cancer Gastric cancer Daughter Diabetes mellitus Social History (Updated 06/05/23 @ 09:46 by Cassandra Douglas [facility]) Household Members: None Housing: Apartment Alcohol intake: never Patient Tobacco Use Status: Former Tobacco user Tobacco use type: Cigarette e-Cigarette/Vaping Use: Never Used Second Hand Smoke Exposure: No service: No Current occupational status: disabled Current occupational exposures/hazards: No Cognitive needs: No Hearing needs: No Vision needs: Yes Review of Systems Const All systems reviewed & are unremarkable except as noted in HPI and below ENT Reports Normal hearing present Neuro Reports Normal hearing present Physical Exam Vital Signs: Last Vital Signs Pulse 72 06/05/23 09:46 BP 138/64 06/05/23 09:46 Pulse Ox 97 06/05/23 09:46 Oxygen Delivery Method Room Air 06/05/23 09:46 BMI result Body Mass Index 40.2 Const General: cooperative and tired appearing Nutritional Appearance: obese Orientation/consciousness: patient oriented x3 Limitations: language barrier Neck Neck: Yes full ROM and Yes supple Resp Effort & Inspection: normal respiratory effort and able to speak in complete sentences Neuro General: patient oriented x3 Cranial nerves: Yes Bilaterally intact EOM present, Yes Normal facial strength present, Yes Midline tongue present, Yes Symmetric palate elevation present, Yes Normal hearing present, Yes Ability to bilaterally rotate head present and Yes Ability to bilaterally elevate shoulders present Cognition (Neuro): normal cognition Gait exam (Neuro): Normal gait present Motor exam (neuro): 5/5 motor strength present throughout and Pronator motor function not present Psych Appearance: grossly normal Mental Status: mental status grossly normal Speech and movement: Normal speech and movement present Affect: normal affect Attitude: cooperative Assessment & Plan Assessment & Plan (1) Obesity, Class III, BMI 40-49.9 (morbid obesity): Code(s): E66.01 - Morbid (severe) obesity due to excess calories (2) Obstructive sleep apnea: Code(s): G47.33 - Obstructive sleep apnea (adult) (pediatric) Plan Pt is advised to undergo in lab sleep study to assess for sleep apnea. Will f/u with pt after study to discuss results and appropriate treatment options. Sleep hygiene education provided and wt reduction advised. Pt to call with any worsening concerns or questions. Orders: Orders RT PSG in-lab sleep study Today E11.42 - Type 2 diabetes mellitus with diabetic polyneuropathy, E66.01 - Morbid (severe) obesity due to excess calories, G47.33 - Obstructive sleep apnea (adult) (pediatric), I25.10 - Atherosclerotic heart disease of [place] coronary artery without angina pectoris, R40.0 - Somnolence Coding Level of Care Code New Pt Level 3 (44562) Diagnoses Obesity, Class III, BMI 40-49.9 (morbid obesity) E66.01 Obstructive sleep apnea G47.33
[2023-06-05 09:46] VITALS: BP 138/64; PULSE 72; O2SAT 97; BMI 40.2
== END 2023-06-05 10:16 | disposition home or self-care (01) ==
PROVIDERS: PCP Internal Medicine; Visit Provider Nurse Practitioner Family
DX: E66.01 Morbid (severe) obesity due to excess calories (principal); G47.33 Obstructive sleep apnea (adult) (pediatric)
CPT/HCPCS: 99203

== ENCOUNTER → 2023-06-05 09:23 | Outpatient (BNVA) | payer OTHER, SELFPAY | PROVIDERS: PCP Internal Medicine; Visit Provider Nurse Practitioner Family | DX: G47.33 Obstructive sleep apnea (adult) (pediatric) (principal); E66.01 Morbid (severe) obesity due to excess calories; Z68.41 Body mass index [BMI] 40.0-44.9, adult | CPT/HCPCS: 99202 ==

== ENCOUNTER 2023-07-10 09:32 | Outpatient (AMB) | payer OTHER, SELFPAY ==
--- NOTE | 2023-07-10 09:53 | MHC.AMDMED ---
Intake Intake Visit Reasons: T2DM Blade Bender Furnace Tender Required: Yes Blade Bender Furnace Tender Language: Death Claim Clerk Name: Oralia Allergies ibuprofen [From MOTRIN] Allergy (Mild, Verified 06/05/23 09:42) STOMACH UPSET, gastritis HPI Comprehensive Diabetes Asmnt Most Recent Diabetes Results: Microalb/Creat Ratio 93.5 ug/mg cr 03/23/22 Cholesterol 287 mg/dL 10/11/22 HDL Cholesterol 45 mg/dL 10/11/22 Triglycerides 268 mg/dL 10/11/22 Creatinine 0.99 mg/dL (0.5-1.4) 10/13/22 Blood Urea Nitrogen 13 mg/dL (9-16) 10/13/22 Sodium 139 mmol/L (135-145) 10/13/22 Potassium 3.8 mmol/L (3.3-5.1) 10/13/22 Chloride 103 mmol/L (96-108) 10/13/22 Carbon Dioxide 25 mmol/L (22-29) 10/13/22 Calcium 9.9 mg/dL (8.4-10.2) 10/13/22 AST 16 U/L (5-31) 10/13/22 ALT 15 U/L (0-31) 10/13/22 Total Protein 7.9 g/dL (6.5-8.0) 10/13/22 Albumin 4.4 g/dL (3.5-5.0) 10/13/22 [facility] Medical History (Updated 06/05/23 @ 10:03 by Sylvester El CNP) Bilateral hand numbness Left ovarian cyst Type 2 diabetes mellitus with diabetic polyneuropathy Abnormal liver function test Tear of meniscus of left knee Lumbar degenerative disc disease Knee osteoarthritis GERD (gastroesophageal reflux disease) Ovarian cyst Carpal tunnel syndrome Obstructive sleep apnea Coronary artery disease Anemia Obesity (BMI 30-39.9) Hypertension Dyslipidemia Hypothyroidism Diabetic 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 associated with type 2 diabetes 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 Diabetes type 2, uncontrolled Surgical History (Updated 05/16/23 @ 10:52 by Jomar Dalton) History of esophagogastroduodenoscopy (EGD) Hx of colonoscopy Hx of right coronary artery stent placement History of surgical removal of nipple Hx of tubal ligation Hx of cholecystectomy Family History Father Diabetes mellitus Mother Diabetes mellitus Maternal Uncle Colon cancer Gastric cancer Daughter Diabetes mellitus Social History (Updated 06/05/23 @ 09:46 by Cassandra Douglas [facility]) Household Members: None Housing: Apartment Alcohol intake: never Patient Tobacco Use Status: Former Tobacco user Tobacco use type: Cigarette e-Cigarette/Vaping Use: Never Used Second Hand Smoke Exposure: No service: No Current occupational status: disabled Current occupational exposures/hazards: No Cognitive needs: No Hearing needs: No Vision needs: Yes Assessment & Plan Assessment & Plan (1) Type 2 diabetes mellitus with hyperglycemia: Comment: [place] Code(s): E11.65 - Type 2 diabetes mellitus with hyperglycemia Plan: Patient presents for pump training for Omnipod dash with [employer] Ron 2 The following topics were reviewed today: - When to change set or Pod - temporary basal rate - how to treat hypoglycemia - Sensor setting (if applicable) ? ? High Alert: 240 mg/dl ? ? Low Alert: 70 mg/dl Patient does not have working sensor at this time, patient using freestyle Lite meter to test glucose level, patient is testing 2-3 times daily. in the past 2 weeks patient has to hypoglycemic events post meal reviewed with patient the importance of eating 30-45 gms carbohydrates before taking insulin through insulin pump. reviewed with patient how to treat hypoglycemia with rule of 15s instructed patient if hypoglycemia persists post meal to contact natural resources extension educator patient does not see Dr. Santizo until September 2023 Setting verified by [facility] Basal rate(s) (units/hour) : ?12 AM to 12AM? 1.50 units / hr Bolus setting Fixed Meal Doses Breakfast: 7 units Lunch: 7 units ?Supper: 8 units Snacks: 3 units Correction Factor / Sensitivity Factor None Active Insulin Time:? 4 hrs Patient Instructions: patient will follow-up with natural resources extension educator in 1 month Coding Level of Care Code Est Pt Level 1 (53308) Diagnoses Type 2 diabetes mellitus with hyperglycemia E11.65
== END 2023-07-10 10:13 | disposition home or self-care (01) ==
PROVIDERS: PCP Internal Medicine; Visit Provider Registered Nurse Diabetes Educator
DX: E11.65 Type 2 diabetes mellitus with hyperglycemia (principal)

== ENCOUNTER → 2023-07-10 09:32 | Outpatient (BNVA) | payer OTHER, SELFPAY | PROVIDERS: PCP Internal Medicine; Visit Provider Registered Nurse Diabetes Educator | DX: E11.65 Type 2 diabetes mellitus with hyperglycemia (principal) | CPT/HCPCS: 99211 ==

== ENCOUNTER 2023-07-24 20:04 | Emergency (ER) | payer OTHER, SELFPAY ==
--- NOTE | ~2023-07-24 | XR_ITS ---
EXAMINATION: XR CHEST CLINICAL INFORMATION: Chest pain. COMPARISON: 12/30/2019. TECHNIQUE: Frontal view of the chest was obtained. FINDINGS: No significant abnormality is noted involving the heart, lungs, mediastinum, bony thorax or soft tissues. XR/XR chest 1V IMPRESSION: Unremarkable examination.
--- NOTE | 2023-07-24 20:20 | ECG_ITS ---
Test Reason : CHEST PAIN Blood Pressure : / mmHG Vent. Rate : 069 BPM Atrial Rate : 069 BPM P-R Int : 160 ms QRS Dur : 078 ms QT Int : 384 ms P-R-T Axes : 041 035 -22 degrees QTc Int : 411 ms Normal sinus rhythm T wave abnormality, consider inferior ischemia Abnormal ECG When compared with ECG of 30-DEC-2019 10:22, No significant change was found Referred By: Generic ED Physician Electronically Signed By:YUE ERNST
[2023-07-24 20:31] LABS: MANUAL DIFF FLAG NO
[2023-07-24 20:34] LABS: Basophils Percent Auto 0.6 % (0-2); Eosinophils Absolute Auto 0.1 X10*3/uL (0.0-0.4); Eosinophils Percent Auto 2.2 % (0-4); Hemoglobin 12.4 g/dl (12.0-16.0); Imm Gran Abs Auto 0.02 X10*3/uL (0.00-0.03); Imm Gran Pct Auto 0.3 % (0.0-0.4); Lymphocytes Absolute Auto 1.7 X10*3/uL (1.2-4.9); Lymphocytes Percent Auto 26.3 % (20-40); Mean Corpuscular HGB Conc 33.5 g/dl (31.0-35.0); Mean Corpuscular Hemoglobin 30.5 pg (27.0-33.0); Mean Corpuscular Volume 90.9 fL (80.0-98.0); Mean Platelet Volume 10.7 fL (9.4-12.3); Monocytes Absolute Auto 0.5 X10*3/uL (0.1-1.2); Monocytes Percent Auto 7.7 % (2-11); Neutrophils Percent Auto 62.9 % (45-73); Platelet Count 166 X10*3/uL (160-400); Red Blood Count 4.07 X10*6/uL (4.20-5.50); White Blood Count 6.3 X10*3/uL (4.8-10.8)
[2023-07-24 20:35] VITALS: BP 147/74; PULSE 74; RESP 18; TEMP 36.4; O2SAT 97; BMI 32.3
--- NOTE | 2023-07-24 20:36 | ED.GENADULT ---
HPI - General Adult General Chief complaint: Chest Pain Stated complaint: chest pain Time Seen by Provider: 07/24/23 20:58 Source: patient and net developer consultant Mode of arrival: ambulatory Limitations: no limitations History of Present Illness HPI narrative: 72-year-old female speaking came in for evaluation of left-sided chest pain patient stated that the chest pain started 2 days ago in triage however patient is telling me that the chest pain started today at 17:00 while she was watching TV describes the pain as mid chest, pain has been constant since 17:00 o'clock pain is severe and constant, patient declined radiation of the chest pain patient took 1 nitro sublingual at home with temporally relieved the pain. patient is crying during the interview because of the severe chest pain nevertheless, when patient is distracted there is no chest pain or tenderness. No clear aggravating or relieving factors, no shortness of breath association no fever, no chills. Related Data Home Medications Medication Instructions Recorded Confirmed bupropion HCl 100 mg tablet,12 hr 100 mg PO QAM 06/14/20 03/12/23 sustained-release isosorbide mononitrate 120 mg 120 mg PO QAM 06/14/20 03/12/23 tablet,extended release 24 hr trazodone 50 mg tablet 50 mg PO BEDTIME PRN insomnia 06/14/20 03/12/23 buspirone 7.5 mg tablet 7.5 mg PO BID 09/28/20 03/12/23 sertraline 100 mg tablet 100 mg PO DAILY 10/01/20 03/12/23 nitroglycerin 0.4 mg sublingual 0.4 mg sublingual Q5M PRN 11/18/20 03/12/23 tablet melatonin 1 mg tablet 1 mg PO BEDTIME 05/17/21 03/12/23 pentoxifylline 400 mg 400 mg PO TID 04/27/22 03/12/23 tablet,extended release buspirone 15 mg tablet 15 mg PO BID 06/05/23 Previous Rx's Medication Instructions Recorded oxycodone 5 mg capsule 5 mg PO DAILY PRN pain #14 caps 10/18/20 BD Insulin Syringe Ultra-Fine 0.3 #100 ea 01/05/21 mL 31 gauge x 5/16 (insulin syringe-needle U-100) blood-glucose meter (FreeStyle #1 ea 10/06/21 Lite Meter kit) lancets 28 gauge (FreeStyle 28 gauge topical QID 90 days #400 10/06/21 Lancets) ea cholecalciferol (vitamin D3) 125 125 mcg PO DAILY 30 days #30 caps 01/25/22 mcg (5,000 unit) capsule lidocaine 5 % topical patch 1 patch topical DAILY #15 ea 04/22/22 cyclobenzaprine 5 mg tablet 5 mg PO TID PRN muscle spasm #14 06/09/22 tabs metoprolol succinate 200 mg 200 mg PO DAILY #90 caps 07/01/22 tablet,extended release 24 hr omeprazole 20 mg capsule,delayed 20 mg PO DAILY #90 caps 07/01/22 release Fiasp U-100 Insulin 100 unit/mL 100 unit subcut DAILY #30 mL 09/11/22 subcutaneous solution (insulin aspart (niacinamide)) dulaglutide 3 mg/0.5 mL 3 mg (0.5 mL) subcut QWEEK 84 days 09/13/22 subcutaneous [facility] injector #6 [facility] tramadol 50 mg tablet 50 mg PO TID PRN pain #10 tabs 10/13/22 FreeStyle Lite Strips (blood sugar ##400 10/16/22 diagnostic) dapagliflozin propanediol 5 mg 5 mg PO DAILY #30 tabs 11/14/22 tablet (Farxiga) insulin pump cart,cont inf,BT #10 ea 12/06/22 (Omnipod Dash Pods (Gen 4) subcutaneous cartridge) atorvastatin 40 mg tablet 40 mg PO DAILY #30 tabs 02/26/23 diclofenac sodium 1 % topical gel 4 g topical QID #100 grams 03/12/23 (Voltaren Arthritis Pain) levothyroxine 125 mcg tablet 125 mcg PO DAILY #90 tabs 03/30/23 alirocumab 150 mg/mL subcutaneous 150 mg subcut Q14D #2 mL 04/27/23 pen injector (Praluent Pen) flash glucose sensor (FreeStyle #2 ea 04/27/23 Ron 2 Sensor kit) lisinopril 30 mg tablet 30 mg PO DAILY #90 tabs 05/21/23 Allergies Allergy/AdvReac Type Severity Reaction Status Date / Time ibuprofen [From MOTRIN] Allergy Mild STOMACH Verified 06/05/23 09:42 UPSET, gastritis Review of Systems Review of Systems: All other systems are reviewed and are negative Constitutional: Reports as per HPI and Reports no additional constitutional complaints Eyes: Reports as per HPI and Reports no additional eye complaints Reports system reviewed and no additional complaints, except as documented Cardiovascular: Reports as per HPI and Reports no additional cardiovascular complaints Respiratory: Reports as per HPI and Reports no additional respiratory complaints Gastrointestinal: Reports as per HPI and Reports no additional gastrointestinal complaints Genitourinary: Reports no additional female genitourinary complaints Musculoskeletal: Reports no additional musculoskeletal complaints Skin/Breast: Reports system reviewed and no additional complaints, except as docu Psychiatric: Reports no additional psychiatric complaints Endocrine: Reports no additional endocrine complaints Hematologic/Lymphatic: Reports no additional hematologic/lymphatic complaints Allergic/Immunologic: Reports no additional allergic/immunologic complaints Reports system reviewed and no additional complaints, except as documented and Reports Abnormal speech present [facility] Past Medical History Medical History Bilateral hand numbness Left ovarian cyst Type 2 diabetes mellitus with diabetic polyneuropathy Abnormal liver function test Tear of meniscus of left knee Lumbar degenerative disc disease Knee osteoarthritis GERD (gastroesophageal reflux disease) Ovarian cyst Carpal tunnel syndrome Obstructive sleep apnea Coronary artery disease Anemia Obesity (BMI 30-39.9) Hypertension Dyslipidemia Hypothyroidism Diabetic nephropathy associated with type 2 diabetes mellitus [facility] (current) use of insulin Diabetes type 2, uncontrolled Surgical History History of esophagogastroduodenoscopy (EGD) Hx of colonoscopy Hx of right coronary artery stent placement History of surgical removal of nipple Hx of tubal ligation Hx of cholecystectomy Family History Family History Father Diabetes mellitus Mother Diabetes mellitus Maternal Uncle Colon cancer Gastric cancer Daughter Diabetes mellitus Social History Social History Household Members: None Housing: Apartment Alcohol intake: never Patient Tobacco Use Status: Former Tobacco user Tobacco use type: Cigarette Smoked in Last 30 Days: No e-Cigarette/Vaping Use: Never Used Second Hand Smoke Exposure: No Use of substances other than those prescribed or required for medical reasons: No Advance Directives: No Advance Directives Information Provided: No service: No Current occupational status: disabled Current occupational exposures/hazards: No Cognitive needs: No Hearing needs: No Vision needs: Yes Physical Exam ED Vital Signs: Vital Signs - 24 hr 07/24/23 20:35 07/24/23 22:00 07/24/23 22:33 Temperature 97.5 F 98.0 F 98.0 F Pulse Rate 74 72 73 Respiratory Rate 18 18 18 Blood Pressure 147/74 H 148/61 H 157/63 H Pulse Oximetry 97 96 99 Oxygen Delivery Method Room Air Room Air Room Air BMI result Body Mass Index 32.3 Vital signs have been reviewed and appear to be correct. Blood pressure elevated. Heart rate normal. Respiratory rate normal. Temperature normal. Oxygen saturation normal. Appearance: Alert. Oriented X3. No acute distress. Head: Normal external exam. Normocephalic. Atraumatic. No Varma signs noted. No raccoon eyes noted Eyes: PERRLA. EOMI. Conjunctiva and sclera normal. Eyelids normal. ENT: TM's Normal. Pharynx normal. Uvula midline. Moist mucous membranes. No trismus noted. No drooling noted. No muffled voice noted. Neck: Normal inspection. Neck supple. FROM. No adenopathy. Thyroid Normal. No meningeal signs. No neck mass noted. CVS: Normal heart rate and rhythm. Heart sound normal. No murmurs noted. Pulses normal throughout. Respiratory: No respiratory distress. Painless inspiration. Breath sounds normal. No wheezes/rales/rhonchi noted. reproducible tenderness over the midsternum with no step-off or deformity, No accessory muscle usage noted or decreased air movement noted. Abdomen: Soft and nontender. Bowel sounds normal in all 4 quadrants. No distention noted. No organomegaly noted. No visible injury noted. Back: No CVA tenderness. Full range of motion noted. Skin: Skin warm and dry. Normal skin color. Normal skin turgor. No rashes/lesions/lacerations noted. Extremities: No lower extremity edema. Extremities exhibit normal range of motion. Extremities nontender. Neuro: Oriented X 3. Cranial nerve exam: II-XII are grossly intact No motor deficit. No sensory deficit. Reflexes normal. Course Course Course Narrative: RME:?72 yo female hx 3 cardiac stents s/p CT 2 yrs ago, here w/ left sided chest pain radiating to left arm x2 days, worsening today. intermittent. +nausea, no vomiting. Took sublingual nitro at home which improved pain temporarily. 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 denies fever, sob, palpitations Plan for ekg, labs Full HPI, ROS and PE to be performed by the primary ED provider. Reevaluation(s) Reevaluation #1: 72-year-old female came in for evaluation of chest pain, physical exam revealed reproducible tenderness over the midsternum, patient had troponin negative x2, negative D-dimer as well. Time: 22:41 Medications Administered Discontinued Medications Generic Name Dose Route Start Last Admin Trade Name Freq PRN Reason Stop Dose Admin Oxycodone HCl 5 mg 07/24/23 21:34 07/24/23 21:58 Oxycodone Hcl Immed Release 5 Mg Tablet PO 07/24/23 21:35 5 mg ONCE ONE Administration Medical Decision Making Differential Diagnosis Differential Diagnoses: The differential diagnosis associated with the presentation includes ( ACS, pulmonary embolism, pleural effusion, pneumonia, electrolyte abnormality, severe anemia.) Admission/Observation Consideration of admission/observation: Escalation of care including admission/observation considered Lab Data MDM Lab Attestation statement: I reviewed the patient's lab results. 07/24/23 20:27 07/24/23 20:27 Labs: Lab Results 07/24/23 07/24/23 Range/Units 20:27 21:48 WBC 6.3 (4.8-10.8) X10*3/uL RBC 4.07 L (4.20-5.50) X10*6/uL Hgb 12.4 (12.0-16.0) g/dl Hct 37.0 (37.0-47.0) % MCV 90.9 (80.0-98.0) fL MCH 30.5 (27.0-33.0) pg MCHC 33.5 (31.0-35.0) g/dl RDW 13.0 (11.0-16.0) % Plt Count 166 (160-400) X10*3/uL MPV 10.7 (9.4-12.3) fL Immature Gran % (Auto) 0.3 (0.0-0.4) % Neut % (Auto) 62.9 (45-73) % Lymph % (Auto) 26.3 (20-40) % [place] % (Auto) 7.7 (2-11) % Eos % (Auto) 2.2 (0-4) % Baso % (Auto) 0.6 (0-2) % Lymph # (Auto) 1.7 (1.2-4.9) X10*3/uL [place] # (Auto) 0.5 (0.1-1.2) X10*3/uL Eos # (Auto) 0.1 (0.0-0.4) X10*3/uL Baso # (Auto) 0.0 (0.0-0.2) X10*3/uL Abs Immat Gran (auto) 0.02 (0.00-0.03) X10*3/uL Absolute Neuts (auto) 4.0 (2.0-8.3) x10*3/uL Absolute Nucleated RBC 0.000 (0.0-0.012) X10*3/uL Nucleated RBC % (auto) 0.0 (0.0-0.2) /100WBC D-Dimer High Sensitivty 202 NG/ML Sodium 144 (135-145) mmol/L Potassium 3.7 (3.3-5.1) mmol/L Chloride 112 H (96-108) mmol/L Carbon Dioxide 22 (22-29) mmol/L Anion Gap 14 (12-20) BUN 22 H (9-16) mg/dL Creatinine 1.05 (0.5-1.4) mg/dL Estim Creat Clear Calc 48.2 Estimated GFR 52 Random Glucose 144 H (60-115) mg/dL Calcium 9.3 D (8.4-10.2) mg/dL Total Bilirubin 0.3 (0.0-1.0) mg/dL AST 18 (5-31) U/L ALT 15 (0-31) U/L Alkaline Phosphatase 139 H (39-117) U/L Troponin I High Sens < 2.7 < 2.7 (<3.5-17.0) ng/L Total Protein 7.7 (6.5-8.0) g/dL Albumin 4.1 (3.5-5.0) g/dL Independent Interpretation I performed an independent interpretation of an: EKG ( Normal sinus rhythm at 69 beats per minute, T-wave inversion in leadIII, AVF. no change from previous EKG.) and Plain X-Ray ( Chest: No acute intrathoracic pathology.) Radiology Impression Discussion of test interpretation with radiology: I have reviewed the radiologist's reading. Chronic Conditions Patient?s care impacted by: Other ( CAD.) Discharge Plan Discharge Clinical Impression: Anterior chest wall pain Patient Disposition: Home, Self-Care Instructions: Chest Wall Pain (ED) Prescriptions: No Action lancets [FreeStyle Lancets] 28 gauge misc 28 gauge topical QID 90 Days Qty: 400 4RF (DME) blood-glucose meter [FreeStyle Lite Meter] Kit See Rx Instructions .ROUTE .MEDSUPPLY Qty: 1 0RF Rx Instructions: As directed 4x/day metoprolol succinate 200 mg tablet extended release 24 hr 200 mg PO DAILY Qty: 90 2RF omeprazole 20 mg capsule,delayed release(DR/EC) 20 mg PO DAILY Qty: 90 2RF Fiasp U-100 Insulin 100 unit/mL solution 100 unit subcut DAILY Qty: 30 6RF Trulicity 3 mg/0.5 mL pen injector 3 mg subcut QWEEK 84 Days Qty: 6 2RF (DME) FreeStyle Lite Strips Strip See Rx Instructions .ROUTE .COMPLEX Qty: 400 1RF Dose Instruction: USE 1 STRIP DIRECTED FOUR TIMES A DAY FOR DIABETES Rx Instructions: USE 1 STRIP DIRECTED FOUR TIMES A DAY FOR DIABETES (DME) Omnipod Dash Pods (Gen 4) Cartridge See Rx Instructions subcut .MEDSUPPLY Qty: 10 5RF Rx Instructions: As directed change every 48 hrs atorvastatin 40 mg tablet 40 mg PO DAILY Qty: 30 5RF levothyroxine 125 mcg tablet 125 mcg PO DAILY Qty: 90 2RF (DME) FreeStyle Ron 2 Sensor Kit See Rx Instructions .Route Qty: 2 6RF Rx Instructions: As directed change every 14 days Praluent Pen 150 mg/mL pen injector 150 mg subcut Q14D Qty: 2 5RF lisinopril 30 mg tablet 30 mg PO DAILY Qty: 90 1RF lidocaine 5 % adhesive patch,medicated 1 patch topical DAILY Qty: 15 0RF Rx Instructions: leave on most painful area for up to 12 hrs tramadol 50 mg tablet 50 mg PO TID PRN (Reason: pain) Qty: 10 0RF oxycodone 5 mg capsule 5 mg PO DAILY PRN (Reason: pain) Qty: 14 0RF cyclobenzaprine 5 mg tablet 5 mg PO TID PRN (Reason: muscle spasm) Qty: 14 0RF diclofenac sodium [Voltaren Arthritis Pain] 1 % gel 4 g topical QID Qty: 100 3RF Rx Instructions: apply to single knee, ankle, foot; for foot includes sole/toes/top of foot isosorbide mononitrate 120 mg tablet extended release 24 hr 120 mg PO QAM bupropion HCl 100 mg tablet sustained-release 12 hr 100 mg PO QAM trazodone 50 mg tablet 50 mg PO BEDTIME PRN (Reason: insomnia) sertraline 100 mg tablet 100 mg PO DAILY (DME) insulin syringe-needle U-100 [BD Insulin Syringe Ultra-Fine] 0.3 mL 31 gauge x 5/16 syringe See Rx Instructions .ROUTE .MEDSUPPLY Qty: 100 4RF Rx Instructions: 4 times a day nitroglycerin 0.4 mg tablet, sublingual 0.4 mg sublingual Q5M PRN Rx Instructions: do not exceed 3 doses per episode buspirone 7.5 mg tablet 7.5 mg PO BID melatonin 1 mg tablet 1 mg PO BEDTIME cholecalciferol (vitamin D3) 125 mcg (5,000 unit) capsule 125 mcg PO DAILY 30 Days Qty: 30 11RF pentoxifylline 400 mg tablet extended release 400 mg PO TID Rx Instructions: must administer with a meal/food Farxiga 5 mg tablet 5 mg PO DAILY Qty: 30 5RF buspirone 15 mg tablet 15 mg PO BID Referrals: Po,Georgina Willis MD [Primary Care Provider] -
[2023-07-24 20:50] LABS: Alanine Aminotransferase 15 U/L (0-31); Albumin Level 4.1 g/dL (3.5-5.0); Alkaline Phosphatase 139 U/L (39-117); Anion Gap 14 (12-20); Aspartate Amino Transferase 18 U/L (5-31); Bilirubin Total 0.3 mg/dL (0.0-1.0); Blood Urea Nitrogen 22 mg/dL (9-16); Calcium 9.3 mg/dL (8.4-10.2); Carbon Dioxide 22 mmol/L (22-29); Chloride 112 mmol/L (96-108); Creatinine Clr Calc Pharmacy 48.2; Estimated Glomerular Filt Rate 52; Glucose Random 144 mg/dL (60-115); Potassium 3.7 mmol/L (3.3-5.1); Sodium 144 mmol/L (135-145); Total Protein 7.7 g/dL (6.5-8.0)
[2023-07-24 20:59] LABS: Troponin-I High Sensitivity < 2.7 ng/L (<3.5-17.0)
[2023-07-24] MEDS: oxyCODONE HCl Immed Release 5 MG TABLET PO (21:58)
[2023-07-24 22:00] VITALS: BP 148/61; PULSE 72; RESP 18; TEMP 36.7; O2SAT 96
[2023-07-24 22:01] LABS: D Dimer High Sensitivity 202 NG/ML
[2023-07-24 22:14] LABS: Troponin-I High Sensitivity < 2.7 ng/L (<3.5-17.0)
[2023-07-24 22:33] VITALS: BP 157/63; PULSE 73; RESP 18; TEMP 36.7; O2SAT 99
--- NOTE | 2023-07-24 23:20 | PC.NURSE ---
pt experiencing reproducible chest pain. given oxycodone for pain. pain came down to 7/10. pt then crying and yelling out in pain later on. this RN showed her the diagnostic cardiac sonographer and told her her heart was okay, pt calmed down. aware. will given tylenol for pain
[2023-07-24] MEDS: Acetaminophen 325 MG TABLET 650 MG PO (23:26)
[2023-07-24 23:50] VITALS: BP 125/56; PULSE 73; RESP 14; TEMP 37.1; O2SAT 97
[2023-07-25 00:53] VITALS: BP 168/64; PULSE 70; RESP 13; TEMP 36.4; O2SAT 98
== END 2023-07-25 01:19 | disposition home or self-care (01) ==
PROVIDERS: Emergency Provider Emergency Medicine; PCP Internal Medicine
DX: R07.89 Other chest pain (principal); Z87.891 Personal history of nicotine dependence; Z79.899 Other long term (current) drug therapy
CPT/HCPCS: 36415; 71045; 80053; 84484; 85025; 85379; 93005; 99283; 99285

== ENCOUNTER → 2023-07-24 20:20 | Outpatient (BNV) | payer OTHER, SELFPAY | PROVIDERS: Emergency Provider Emergency Medicine; PCP Internal Medicine; Visit Provider Internal Medicine | DX: R07.9 Chest pain, unspecified (principal) | CPT/HCPCS: 93010 ==

== ENCOUNTER → 2023-07-31 19:30 | Outpatient (REF) | payer OTHER, SELFPAY | LOC: HO.SL 19:30 | PROVIDERS: PCP Internal Medicine; Visit Provider Nurse Practitioner Family | DX: G47.33 Obstructive sleep apnea (adult) (pediatric) (principal); I25.10 Atherosclerotic heart disease of native coronary artery without angina pectoris; E11.42 Type 2 diabetes mellitus with diabetic polyneuropathy | CPT/HCPCS: 95810 ==

== ENCOUNTER → 2023-07-31 23:29 | Outpatient (BNV) | payer OTHER, SELFPAY | PROVIDERS: PCP Internal Medicine; Visit Provider Psychiatry & Neurology Neurology | DX: G47.33 Obstructive sleep apnea (adult) (pediatric) (principal) | CPT/HCPCS: 95810 ==

== ENCOUNTER 2023-08-09 10:02 | Day surgery (SDC) | payer OTHER, SELFPAY ==
[2023-08-09 10:56] VITALS: BP 140/60; PULSE 80; RESP 16; TEMP 36.4; O2SAT 96
--- NOTE | 2023-08-09 12:00 | MHC.SHP ---
Pre-Procedural Eval Section A Date of Service: 08/09/23 The patient is an INPATIENT: No Changes since office visit: No Cold of Flu in the past 2 weeks, No New Medical Problems, No Changes in Medication and No Patient answered all questions The History & Physical has been completed within 30 days and I have reviewed it.: Yes Section B Chief Complaint: Carpal tunnel syndrome, left upper limb Allergies: Allergies Allergy/AdvReac Type Severity Reaction Status Date / Time ibuprofen [From MOTRIN] Allergy Mild STOMACH Verified 08/09/23 10:59 UPSET, gastritis Plan I have reviewed the history and physical and performed a pertinent physical examination on my patient. No changes have occurred unless specified. Time Spent With Patient Time: Total time managing care of this patient today ____ minutes.
--- NOTE | 2023-08-09 12:00 | W.PM.OPN ---
Operative Note Operative Note Date of Service: 08/09/23 Narrative: Preop diagnosis: 1. Left Carpal tunnel syndrome Postop diagnosis: same Procedure: 1. Left Carpal tunnel release Surgeon: Charley Rooney MD Anesthesia: local block using 1% lidocaine with epinephrine Findings: Thickened transverse carpal ligament. EBL: Less than 5 mL Specimens: None Complications: None Disposition: Brought to recovery room in stable condition Plan: Follow-up for 10-14 days for wound check and suture removal Indications: The patient is 72 years old, with left carpal tunnel syndrome that has been unresponsive to nonoperative management. The risks and benefits of operative treatment including but not limited to risk of damage to blood vessels, nerves, tendons, infection, persistent pain, persistent symptoms, or possible need for additional surgery were discussed with the patient and the patient wishes to proceed with surgery. Procedure: Once consent was obtained a local block was performed using a combination of 1% lidocaine with epinephrine. The patient was then brought back to the operating suite and placed on the operative table in supine position. The left upper extremity was prepped and draped in a standard surgical fashion. Once assured that we had a good block, a 2.0 cm longitudinal incision was made centered over the carpal tunnel. The incision was made through the skin to the subcutaneous tissues using a #15 blade. Dissection was made down to the level of the transverse carpal ligament with care being taken to protect the palmar cutaneous nerve. Once the transverse carpal ligament was clearly visualized, a longitudinal incision was made in the transverse carpal ligament 1st using a #15 blade, then using tenotomy scissors under direct visualization. Care was taken to look for and protect the motor branch of the median nerve when seen in this area. Once satisfied with our carpal tunnel release the wound was copiously irrigated with normal saline and hemostasis was obtained with a brief period of local pressure. The skin edges were reapproximated with some 5.0 nylon suture material and a sterile dressing was applied. The patient appears to have tolerated the procedure well and with no complications. All digits were well vascularized at the conclusion of the case.
[2023-08-09 13:50] VITALS: BMI 32.0
[2023-08-09 13:58] VITALS: BP 149/57; PULSE 76; RESP 16; O2SAT 99
== END 2023-08-09 14:00 | disposition home or self-care (01) ==
PROVIDERS: PCP Internal Medicine; Visit Provider Orthopaedic Surgery
PROC: (CPT 64721; principal; 2023-08-09 12:40)
DX: G56.02 Carpal tunnel syndrome, left upper limb (principal); R20.0 Anesthesia of skin; R20.2 Paresthesia of skin; I10 Essential (primary) hypertension; I25.10 Atherosclerotic heart disease of native coronary artery without angina pectoris; Z95.5 Presence of coronary angioplasty implant and graft; E78.5 Hyperlipidemia, unspecified; D64.9 Anemia, unspecified; E11.21 Type 2 diabetes mellitus with diabetic nephropathy; E11.42 Type 2 diabetes mellitus with diabetic polyneuropathy; Z79.4 Long term (current) use of insulin; Z79.899 Other long term (current) drug therapy; Z88.8 Allergy status to other drugs, medicaments and biological substances; Z90.49 Acquired absence of other specified parts of digestive tract; Z98.890 Other specified postprocedural states; Z87.891 Personal history of nicotine dependence
CPT/HCPCS: 64721; J0171

== ENCOUNTER → 2023-08-09 10:02 | Outpatient (BNV) | payer OTHER, SELFPAY | PROVIDERS: PCP Internal Medicine; Visit Provider Orthopaedic Surgery | DX: G56.02 Carpal tunnel syndrome, left upper limb (principal) | CPT/HCPCS: 64721 ==

== ENCOUNTER 2023-08-22 12:39 | Outpatient (AMB) | payer OTHER, SELFPAY ==
[2023-08-22 12:43] VITALS: BMI 32.0
--- NOTE | 2023-08-22 12:43 | A.OFFVIS_ITS ---
Intake Vital Signs 08/22/23 12:43 Height 5 ft 2 in Weight 175 lb BMI 32.0 Intake Visit Reasons: PO-Lt CTR 08/09/23 Intake Note: Ellen a 72 year old female presents today for a post operative left CTR on 08/09/23 [place]. Patient reports she had a little pus drainage a few days ago with little discomfort. Sutures are all intact. 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 Rooney. She reports she has mild pus drainage in her wrist a few days ago as well as mild discomfort. She also states she has improvement in her numbness and she denies any pain. She is doing well otherwise and has no other concerns today. 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 Diabetes type 2, uncontrolled Surgical History (Updated 08/09/23 @ 11:00 by Ronel Enriquez) H/O bilateral oophorectomy History of esophagogastroduodenoscopy (EGD) Hx of colonoscopy Hx of right coronary artery stent placement History of surgical removal of nipple Hx of tubal ligation Hx of cholecystectomy Family History Father Diabetes mellitus Mother Diabetes mellitus Maternal Uncle Colon cancer Gastric cancer Daughter Diabetes mellitus Social History Household Members: None Housing: Apartment Alcohol intake: never Comment: counts correct Patient Tobacco Use Status: Former Tobacco user Tobacco use type: Cigarette e-Cigarette/Vaping Use: Never Used Second Hand Smoke Exposure: No service: No Current occupational status: disabled Current occupational exposures/hazards: No Cognitive needs: No Hearing needs: No Vision needs: Yes Review of Systems Const All systems reviewed & are unremarkable except as noted in HPI and below Physical Exam Vital Signs: BMI result Body Mass Index 32.0 Extrem Other: Left wrist: Incision clean, dry and intact. No erythema or drainage. She has some scant numbness throughout the ring and middle finger which has been improved since the surgery. Assessment & Plan Assessment & Plan (1) Carpal tunnel syndrome on left: Code(s): G56.02 - Carpal tunnel syndrome, left upper limb Plan Sutures removed today, steri strips applied. 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 I did offer her occupational therapy which she deferred at this time. If symptoms persist or worsens, patient will contact the office, otherwise follow-up as needed. Patient Instructions: Scribed for Enoch Fan PA-C, by Skip Quiñonez director of medical education, on 08/22/2023 at 1:00 PM EST. Enoch Ontiveros PA-C, have personally reviewed and agree with the information entered by the scribe. Coding Level of Care Code Global (42725) Diagnoses Carpal tunnel syndrome on left G56.02
== END 2023-08-22 13:10 | disposition home or self-care (01) ==
PROVIDERS: PCP Internal Medicine; Visit Provider Physician Assistant
DX: G56.02 Carpal tunnel syndrome, left upper limb (principal)
CPT/HCPCS: 99024

== ENCOUNTER → 2023-08-22 12:39 | Outpatient (BNVA) | payer OTHER, SELFPAY | PROVIDERS: PCP Internal Medicine; Visit Provider Orthopaedic Surgery | DX: Z47.89 Encounter for other orthopedic aftercare (principal); Z98.890 Other specified postprocedural states | CPT/HCPCS: 99212 ==

== ENCOUNTER → 2023-08-27 16:09 | Outpatient (BNVA) | payer OTHER, SELFPAY | PROVIDERS: PCP Internal Medicine; Visit Provider Internal Medicine Endocrinology, Diabetes & Metabolism ==

== ENCOUNTER 2023-08-29 10:14 | Outpatient (AMB) | payer OTHER, SELFPAY ==
--- NOTE | 2023-08-29 10:21 | A.OFFVIS_ITS ---
Intake Intake Visit Reasons: DM 30 min/LVM Pediatric Critical Care Nurse Required: Yes Pediatric Critical Care Nurse Language: Hardware Technician Name: Oralia [facility] [place] Accompanied by: Self / Same As Patient Allergies ibuprofen [From MOTRIN] Allergy (Mild, Verified 08/22/23 12:47) STOMACH UPSET, gastritis HPI Comprehensive Diabetes Asmnt Most Recent Diabetes Results: Microalb/Creat Ratio 93.5 ug/mg cr 03/23/22 Cholesterol 287 mg/dL 10/11/22 HDL Cholesterol 45 mg/dL 10/11/22 Triglycerides 268 mg/dL 10/11/22 Creatinine 1.05 mg/dL (0.5-1.4) 07/24/23 Blood Urea Nitrogen 22 mg/dL (9-16) H 07/24/23 Sodium 144 mmol/L (135-145) 07/24/23 Potassium 3.7 mmol/L (3.3-5.1) 07/24/23 Chloride 112 mmol/L (96-108) H 07/24/23 Carbon Dioxide 22 mmol/L (22-29) 07/24/23 Calcium 9.3 mg/dL (8.4-10.2) 07/24/23 AST 18 U/L (5-31) 07/24/23 ALT 15 U/L (0-31) 07/24/23 Total Protein 7.7 g/dL (6.5-8.0) 07/24/23 Albumin 4.1 g/dL (3.5-5.0) 07/24/23 PFSH Medical History (Updated 08/22/23 @ 13:19 by Enoch Fan PA-C) Bilateral hand numbness Left ovarian cyst Type 2 diabetes mellitus with diabetic polyneuropathy Abnormal liver function test Tear of meniscus of left knee Lumbar degenerative disc disease Knee osteoarthritis GERD (gastroesophageal reflux disease) Ovarian cyst Carpal tunnel syndrome Obstructive sleep apnea Coronary artery disease Anemia Obesity (BMI 30-39.9) Hypertension Dyslipidemia Hypothyroidism Diabetic nephropathy associated with type 2 diabetes mellitus nursing home (current) use of insulin Diabetes type 2, uncontrolled Surgical History (Updated 08/09/23 @ 11:00 by Ronel Enriquez) H/O bilateral oophorectomy History of esophagogastroduodenoscopy (EGD) Hx of colonoscopy Hx of right coronary artery stent placement History of surgical removal of nipple Hx of tubal ligation Hx of cholecystectomy Family History Father Diabetes mellitus Mother Diabetes mellitus Maternal Uncle Colon cancer Gastric cancer Daughter Diabetes mellitus Social History Household Members: None Housing: Apartment Alcohol intake: never Comment: counts correct Patient Tobacco Use Status: Former Tobacco user Tobacco use type: Cigarette e-Cigarette/Vaping Use: Never Used Second Hand Smoke Exposure: No service: No Current occupational status: disabled Current occupational exposures/hazards: No Cognitive needs: No Hearing needs: No Vision needs: Yes Assessment & Plan Assessment & Plan (1) Type 2 diabetes mellitus with hyperglycemia: Comment: [place] Code(s): E11.65 - Type 2 diabetes mellitus with hyperglycemia Plan: Patient presents for pump training for Omnipod dash with blood glucose meter Patient is still not able to receive Ron 2 sensors until her next visit after 10/01/[address] Santizo The following topics were reviewed today: - When to change set or Pod - how to treat hypoglycemia - Sensor setting (if applicable) ? ? High Alert: 240 mg/dl ? ? Low Alert: 70 mg/dl Patient does not have working sensor at this time, patient using freestyle Lite meter to test glucose level, patient is testing 2-3 times daily. There are no episodes of hypoglycemia on patient's current meter download reviewed with patient the importance of eating 30-45 gms carbohydrates before taking insulin through insulin pump. reviewed with patient how to treat hypoglycemia with rule of 15s Patient's average glucose on meter 155 mg/dL Setting verified by [facility] Basal rate(s) (units/hour) : ?12 AM to 12AM? 1.50 units / hr Bolus setting Fixed Meal Doses Breakfast: 7 units Lunch: 7 units ?Supper: 8 units Snacks: 3 units Correction Factor / Sensitivity Factor None Active Insulin Time:? 4 hrs Patient Instructions: patient will follow-up with wind commissioning technician in 3 month Coding Level of Care Code Est Pt Level 1 (60068) Diagnoses Type 2 diabetes mellitus with hyperglycemia E11.65
== END 2023-08-29 10:36 | disposition home or self-care (01) ==
PROVIDERS: PCP Internal Medicine; Visit Provider Registered Nurse Diabetes Educator
DX: E11.65 Type 2 diabetes mellitus with hyperglycemia (principal)

== ENCOUNTER → 2023-08-29 10:14 | Outpatient (BNVA) | payer OTHER, SELFPAY | PROVIDERS: PCP Internal Medicine; Visit Provider Registered Nurse Diabetes Educator | DX: Z46.81 Encounter for fitting and adjustment of insulin pump (principal); E11.65 Type 2 diabetes mellitus with hyperglycemia | CPT/HCPCS: 99211 ==

== ENCOUNTER 2023-10-01 11:01 | Outpatient (AMB) | payer OTHER, SELFPAY ==
--- NOTE | 2023-10-01 11:16 | MHC.OFFVIS ---
Intake Vital Signs 10/01/23 11:18 Height 5 ft 2 in Weight 179 lb 14.355 oz BMI 32.9 BP 128/54 L Blood Pressure Location Lt brachial Position Sitting Pulse 80 Pulse Source Pulse Oximeter Intake Visit Reasons: dm-confirmed Intake Note: Patient present today to follow up on Type 2 Diabetes Mellitus. Last Diabetic Eye exam: 02/12/2023 [facility] Last Podiatry Visit: Doesn't have one. Random Glucose: 286 mg/dl HgA1C: 6.7% Material Loader Required: Yes Material Loader Language: Road Contractor Name: Flory medical staff Information Interpreted: non-clinical & clinical Accompanied by: Daughter Allergies ibuprofen [From MOTRIN] Allergy (Mild, Verified 10/01/23 11:22) STOMACH UPSET, gastritis HPI HPI Comments History of Present Illness Details Patient is a 72-year-old female with DM type 2 diagnosed at the age of 26 who presents for diabetes management. She is on Omnipod Dash Past medical history includes : Diabetes type 2, hypertension, hyperlipidemia, hypothyroidism, Micro and macrovascular complications: Nephropathy, neuropathy, coronary artery disease Diabetes medications: Trulicity 4.5 mg, farxiga 5 mg QD not been taking Omnipod Dash with basal settings of 1.25 units/hour from 00:00 to 02:00, 1.5 units/hour from 02:00 to 00:00 she boluses 7 units fixed dose before meals. She does not know how to carbohydrate count Total daily insulin use is 62.7 units with 57% basal and 43% bolus. . She is using fingersticks and is not using a sensor. She is checking her point of cares 2 to 3 times a day which average glucose of 156 range 84-295. 74% range with 26% hyperglycemia and no hypoglycemia Symptoms: + numbness, tingling and cramping in legs and fingers Hypoglycemia: Rare Hyperglycemia: +polyuria, +nocturia, +polydypsia DSME - nutrition: in past Podiatry: no Dental: edentulous Ophthalmology: January 2023 Has been taking Praulent Laboratory Tests 01/05/21 01/05/21 12/07/21 12:05 12:05 09:44 Creatinine Estimated GFR Hgb A1c (Clinic) 8.7 H Triglycerides 233 Cholesterol 234 D LDL Cholesterol Di rect 133 H LDL Cholesterol, C alc 130 HDL Cholesterol 58 D Vitamin B12 25-OH Vitamin D To elysia TSH Free T4 Microalb/Creat Rat io 01/23/22 01/23/22 01/23/22 09:43 09:48 09:48 Creatinine 1.15 Estimated GFR 47 Hgb A1c (Clinic) Triglycerides Cholesterol LDL Cholesterol Di rect LDL Cholesterol, C alc HDL Cholesterol Vitamin B12 363 25-OH Vitamin D To elysia 15.7 TSH 1.82 Free T4 0.91 Microalb/Creat Rat io 268.0 PFSH Medical History (Updated 08/22/23 @ 13:19 by Enoch Fan PA-C) Bilateral hand numbness Left ovarian cyst Type 2 diabetes mellitus with diabetic polyneuropathy Abnormal liver function test Tear of meniscus of left knee Lumbar degenerative disc disease Knee osteoarthritis GERD (gastroesophageal reflux disease) Ovarian cyst Carpal tunnel syndrome Obstructive sleep apnea Coronary artery disease Anemia Obesity (BMI 30-39.9) Hypertension Dyslipidemia Hypothyroidism Diabetic nephropathy associated with type 2 diabetes mellitus 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 Diabetes type 2, uncontrolled Surgical History (Updated 10/01/23 @ 11:23 by REJI Goldberg) History of carpal tunnel surgery of left wrist H/O bilateral oophorectomy History of esophagogastroduodenoscopy (EGD) Hx of colonoscopy Hx of right coronary artery stent placement History of surgical removal of nipple Hx of tubal ligation Hx of cholecystectomy Family History Father Diabetes mellitus Mother Diabetes mellitus Maternal Uncle Colon cancer Gastric cancer Daughter Diabetes mellitus Social History Household Members: None Housing: Apartment Alcohol intake: never Comment: counts correct Patient Tobacco Use Status: Former Tobacco user Tobacco use type: Cigarette e-Cigarette/Vaping Use: Never Used Second Hand Smoke Exposure: No service: No Current occupational status: disabled Current occupational exposures/hazards: No Cognitive needs: No Hearing needs: No Vision needs: Yes Physical Exam Vital Signs: Last Vital Signs Pulse 80 10/01/23 11:18 BP 128/54 L 10/01/23 11:18 BMI result Body Mass Index 32.9 Results AMB Hemoglobin A1c AMB Hemoglobin A1c 6.7 % Last Edit by REJI Goldberg on 10/01/23 11:39 Results Reviewed Results Reviewed: Laboratory Last Values Glucose (Clinic) 286 mg/dL (60-115) H 10/01/23 11:24 Assessment & Plan Assessment & Plan (1) Diabetes type 2, uncontrolled: Code(s): E11.65 - Type 2 diabetes mellitus with hyperglycemia Qualifiers: Glycemic state: with hyperglycemia Qualified Code(s): E11.65 - Type 2 diabetes mellitus with hyperglycemia Plan: This is a 71-year-old female with history of type 2 diabetes being treated with Trulicity as well as Omnipod pump with excellent improved glycemic control and known microvascular macrovascular complications namely neuropathy CKD and CAD. Plan is to continue the current regimen. Patient will follow up with health promotion educator. (2) Dyslipidemia: Code(s): E78.5 - Hyperlipidemia, unspecified Plan: Recheck lipid profile ion Praulent Orders: Orders AMB Hemoglobin A1c Today E11.65 - Type 2 diabetes mellitus with hyperglycemia, Z13.9 - Encounter for screening, unspecified Coding Level of Care Code Est Pt Level 4 (22665) Diagnoses Uncontrolled type 2 diabetes mellitus with hyperglycemia E11.65 Glycemic state: with hyperglycemia Dyslipidemia E78.5
[2023-10-01 11:18] VITALS: BP 128/54; PULSE 80; BMI 32.9
[2023-10-01 11:29] LABS: Glucose, Whole Blood 286 mg/dL (60-115)
== END 2023-10-01 11:41 | disposition home or self-care (01) ==
PROVIDERS: PCP Internal Medicine; Visit Provider Internal Medicine Endocrinology, Diabetes & Metabolism
DX: E11.65 Type 2 diabetes mellitus with hyperglycemia (principal); E78.5 Hyperlipidemia, unspecified
CPT/HCPCS: 99214

== ENCOUNTER → 2023-10-01 11:01 | Outpatient (BNVA) | payer OTHER, SELFPAY | PROVIDERS: PCP Internal Medicine; Visit Provider Internal Medicine Endocrinology, Diabetes & Metabolism | DX: E11.65 Type 2 diabetes mellitus with hyperglycemia (principal); E78.5 Hyperlipidemia, unspecified | CPT/HCPCS: 82947; 83036; 99212 ==

== ENCOUNTER 2023-11-28 08:41 | Outpatient (AMB) | payer OTHER, SELFPAY ==
--- NOTE | 2023-11-28 09:12 | A.OFFVIS_ITS ---
Intake Intake Visit Reasons: dm Draw Bench Operator Required: Yes Draw Bench Operator Language: Fur Tanner Name: Dorys [facility] [place] Information Interpreted: non-clinical & clinical Accompanied by: Self / Same As Patient Allergies ibuprofen [From MOTRIN] Allergy (Mild, Verified 10/01/23 11:22) STOMACH UPSET, gastritis HPI Comprehensive Diabetes Asmnt Most Recent Diabetes Results: Microalb/Creat Ratio 93.5 ug/mg cr 03/23/22 Cholesterol 287 mg/dL 10/11/22 HDL Cholesterol 45 mg/dL 10/11/22 Triglycerides 268 mg/dL 10/11/22 Creatinine 1.05 mg/dL (0.5-1.4) 07/24/23 Blood Urea Nitrogen 22 mg/dL (9-16) H 07/24/23 Sodium 144 mmol/L (135-145) 07/24/23 Potassium 3.7 mmol/L (3.3-5.1) 07/24/23 Chloride 112 mmol/L (96-108) H 07/24/23 Carbon Dioxide 22 mmol/L (22-29) 07/24/23 Calcium 9.3 mg/dL (8.4-10.2) 07/24/23 AST 18 U/L (5-31) 07/24/23 ALT 15 U/L (0-31) 07/24/23 Total Protein 7.7 g/dL (6.5-8.0) 07/24/23 Albumin 4.1 g/dL (3.5-5.0) 07/24/23 [facility] Medical History (Updated 08/22/23 @ 13:19 by Enoch Fan PA-C) Bilateral hand numbness Left ovarian cyst Type 2 diabetes mellitus with diabetic polyneuropathy Abnormal liver function test Tear of meniscus of left knee Lumbar degenerative disc disease Knee osteoarthritis GERD (gastroesophageal reflux disease) Ovarian cyst Carpal tunnel syndrome Obstructive sleep apnea Coronary artery disease Anemia Obesity (BMI 30-39.9) Hypertension Dyslipidemia Hypothyroidism Diabetic nephropathy associated with type 2 diabetes mellitus [facility] (current) use of insulin Diabetes type 2, uncontrolled Surgical History History of carpal tunnel surgery of left wrist H/O bilateral oophorectomy History of esophagogastroduodenoscopy (EGD) Hx of colonoscopy Hx of right coronary artery stent placement History of surgical removal of nipple Hx of tubal ligation Hx of cholecystectomy Family History Father Diabetes mellitus Mother Diabetes mellitus Maternal Uncle Colon cancer Gastric cancer Daughter Diabetes mellitus Social History Household Members: None Housing: Apartment Alcohol intake: never Comment: counts correct Patient Tobacco Use Status: Former Tobacco user Tobacco use type: Cigarette e-Cigarette/Vaping Use: Never Used Second Hand Smoke Exposure: No service: No Current occupational status: disabled Current occupational exposures/hazards: No Cognitive needs: No Hearing needs: No Vision needs: Yes Assessment & Plan Assessment & Plan (1) Type 2 diabetes mellitus with hyperglycemia: Comment: [place] Code(s): E11.65 - Type 2 diabetes mellitus with hyperglycemia Plan: Patient presents for pump training for Omnipod dash with blood glucose meter Patient is still not able to receive Ron 2 sensors until her next visit after 10/01/[address] Santizo The following topics were reviewed today: - When to change set or Pod - how to treat hypoglycemia - Sensor setting (if applicable) ? ? High Alert: 240 mg/dl ? ? Low Alert: 70 mg/dl Low Alert: 80 mg/dL Patient's average glucose the past 7 days 138 mg/dL Patient above target 17% Patient at target 77% Patient below target 6% Patient last A1c on 10/01/2023 6.7% Patient is having some overnight and evening hypoglycemia, she is bolusing appropriately for meals she does report eating 4 meals daily. Reviewed with patient how to treat hypoglycemia with rule of 15s, patient treats hypoglycemia with orange juice See changes to insulin pump below, we also increased low alert to 80 mg/dL Setting verified by [facility] Basal rate(s) (units/hour) : ?12 AM to 12AM? 1.50 units / hr New 12 AM to 2 AM 1 unit /hr 2 AM to 12 AM 1.25 units /hr Bolus setting Fixed Meal Doses Breakfast: 7 units Lunch: 7 units ?Supper: 8 units New Supper 7 Snacks: 3 units Correction Factor / Sensitivity Factor None Active Insulin Time:? 4 hrs Patient Instructions: patient will follow-up with family life educator in 2 weeks Coding Level of Care Code Est Pt Level 1 (76617) Diagnoses Type 2 diabetes mellitus with hyperglycemia E11.65
== END 2023-11-28 09:14 | disposition home or self-care (01) ==
PROVIDERS: PCP Internal Medicine; Visit Provider Registered Nurse Diabetes Educator
DX: E11.65 Type 2 diabetes mellitus with hyperglycemia (principal)

== ENCOUNTER → 2023-11-28 08:41 | Outpatient (BNVA) | payer OTHER, SELFPAY | PROVIDERS: PCP Internal Medicine; Visit Provider Registered Nurse Diabetes Educator | DX: E11.65 Type 2 diabetes mellitus with hyperglycemia (principal); E11.42 Type 2 diabetes mellitus with diabetic polyneuropathy; Z79.4 Long term (current) use of insulin; Z46.81 Encounter for fitting and adjustment of insulin pump | CPT/HCPCS: 99211 ==

== ENCOUNTER 2023-12-03 13:59 | Outpatient (AMB) | payer OTHER, SELFPAY ==
[2023-12-03 14:00] VITALS: BP 116/54; PULSE 68; O2SAT 96; BMI 32.2
--- NOTE | 2023-12-03 14:00 | MHC.PC.OV ---
Vital Signs 12/03/23 14:00 Height 5 ft 2 in Weight 176 lb BMI 32.2 BP 116/54 L Blood Pressure Location Lt brachial Position Sitting Pulse 68 Pulse Source Pulse Oximeter Pulse Oximetry (%) 96 Oxygen Delivery Method Room Air Intake Visit Reasons: Overdue follow up Senior Product Designer Required: Yes Senior Product Designer Language: Hungarian Allergies ibuprofen [From MOTRIN] Allergy (Mild, Verified 12/03/23 14:00) STOMACH UPSET, gastritis Tobacco use date assessed: 12/03/23 Fall risk assessment: No Falls in past year Last assessed Fall Risk: 12/03/23 Dental Screening Dental Screen Date: 12/03/23 Did you have a dental visit in the last 12 months?: No Did you have a dental problem in the last 6 months where you did not have access to dental care?: No HPI Overdue follow up HPI Details 72-year-old obese female with diabetes mellitus coronary artery disease GERD hypertension hypercholesterolemia hypothyroidism coming in for follow-up. Last seen in February 2023. Patient declined colonoscopy mammogram is up-to-date. ER visit in November 19 due to substernal chest pain and STEMI admitted. Patient was seen by Cardiology October for coronary angiography May 2023 diffuse nature requiring multiple stents advised sleep apnea testing also. Placed on ranolazine 500 mg 2 times a day patient also had left carpal tunnel release in July [address] Rooney sleep study was done in July 2023 mild degree of sleep apnea with increased severity in REM sleep AHI of 10 per hour trial of auto PAP 5/20 cm of water cardiac catheterization done May 2023 showing total occlusion of the right coronary artery, total occlusion of the OM 2 coronary artery, normal LV end-diastolic pressure advising secondary risk modification aspirin/ [id number] ([id number]) PAtient was told to ff up a RUL lung marking ff up chest xray. cath done 10/2023 veins blocked- mesh placed new [facility] Medical History (Updated 12/03/23 @ 15:27 by Georgina Fish MD) Bilateral hand numbness Left ovarian cyst Type 2 diabetes mellitus with diabetic polyneuropathy Abnormal liver function test Tear of meniscus of left knee Lumbar degenerative disc disease Knee osteoarthritis GERD (gastroesophageal reflux disease) Ovarian cyst Carpal tunnel syndrome Obstructive sleep apnea Coronary artery disease Anemia Obesity (BMI 30-39.9) Hypertension Dyslipidemia Hypothyroidism Diabetic nephropathy associated with type 2 diabetes mellitus terminal carman (current) use of insulin Diabetes type 2, uncontrolled Surgical History History of carpal tunnel surgery of left wrist H/O bilateral oophorectomy History of esophagogastroduodenoscopy (EGD) Hx of colonoscopy Hx of right coronary artery stent placement History of surgical removal of nipple Hx of tubal ligation Hx of cholecystectomy Family History Father Diabetes mellitus Mother Diabetes mellitus Maternal Uncle Colon cancer Gastric cancer Daughter Diabetes mellitus Social History Household Members: None Housing: Apartment Alcohol intake: never Comment: counts correct Patient Tobacco Use Status: Former Tobacco user Tobacco use type: Cigarette e-Cigarette/Vaping Use: Never Used Second Hand Smoke Exposure: No service: No Current occupational status: disabled Current occupational exposures/hazards: No Cognitive needs: No Hearing needs: No Vision needs: Yes Questionnaire Thrive Questionnaire Date Thrive assessed: 12/03/23 I am a: Patient What is your living situation today?: I have a steady place to live Within the past 12 months, did the food you bought not last and you didn't have the money to get more?: Never true Within the past 12 months, did you worry whether your food would run out before you got money to buy more?: Never true Do you have trouble paying for medicines?: No Do you have trouble getting transportation to medical appointments?: No Do you have trouble paying your heating and electricity bill?: No Do you have trouble taking care of your child, family member or friend?: No Do you have trouble with day-to-day activities such as bathing, preparing meals, shopping, managing finances, etc.?: No Are you currently unemployed and looking for a job?: No Are you interested in more education?: No Please select the resources that you would like help with: None Currently or been in a relationship where the following occur: no concerns reported THRIVE Score: 0 AUDIT C Alcohol Use Questionnaire (AUDIT-C) 1. How often do you have a drink containing alcohol?: Never 2. How many drinks containing alcohol do you have on a typical day when you are drinking?: 1 or 2 3. How often do you have six or more drinks on one occasion?: Never Total Score: 0 JASS-7 AMB Questionnaire JASS-7 Date JASS - 7 assessed: 12/03/23 Feeling nervous, anxious, or on edge: 0 = Not at all Not being able to stop or control worryin = Not at all Worrying too much about different things: 0 = Not at all Trouble relaxin = Not at all Being so restless that it is hard to sit still: 0 = Not at all Becoming easily annoyed or irritable: 0 = Not at all Feeling afraid as if something awful might happen: 0 = Not at all Total JASS-7 score (0-4 normal; 5-9 mild; 10-14 moderate; 15-21 severe): 0 Source: Developed by Drs. David Arroyo, Latha Luz, Buzz Cain and colleagues, with an educational gertrude from [employer]. JASS-7 Assessment Billing JASS-7 Assessment Tool: JASS-7 Assessment 41970 Physical exam (Primary Care) Vital Signs: Last Vital Signs Pulse 68 12/03/23 14:00 BP 116/54 L 12/03/23 14:00 Pulse Ox 96 12/03/23 14:00 Oxygen Delivery Method Room Air 12/03/23 14:00 BMI result Body Mass Index 32.2 Tobacco/Smoking Status: Tobacco use Status Tobacco use date assessed 12/03/23 12/03/23 14:01 Patient Tobacco Use Status Former Tobacco user 12/03/23 14:01 Tobacco use type Cigarette 12/03/23 14:01 e-Cigarette/Vaping Use Never Used 12/03/23 14:01 Thrive Assessment: Date of Thrive Assessment Date Thrive assessed 12/03/23 12/03/23 14:01 Currently or been in a relationship where the following occur: no concerns reported Const General: alert; No acute distress Eyes Conjunctivae: conjunctivae normal Resp Auscultation: clear to auscultation bilaterally Cardio Rate: regular rate Rhythm: regular rhythm GI Inspection: Yes normal to inspection Extrem General: Yes normal to inspection and No edema Assessment and Plan Assessment & Plan (1) Severe carpal tunnel syndrome of both wrists: Comment: Repair of the carpal tunnel bilateral Code(s): G56.03 - Carpal tunnel syndrome, bilateral upper limbs Plan: Patient had left carpal tunnel release already under Orthopedics. but has the surgery bilateral (2) Type 2 diabetes mellitus with hyperglycemia: Comment: [place] Code(s): E11.65 - Type 2 diabetes mellitus with hyperglycemia Plan: Decrease the amount of carbohydrate intake, pasta, bread, rice and potatoes are all sugar and that is aside from all the sweet stuff, remember that fruits are good but they are Sweet also. Hemoglobin A1c goal of less than 7.0 taking insulin pump Farxiga 5 mg once a day Trulicity 4.5 mg every week and Fiasp (3) GERD (gastroesophageal reflux disease): Code(s): K21.9 - Gastro-esophageal reflux disease without esophagitis Qualifiers: Esophagitis presence: without esophagitis Qualified Code(s): K21.9 - Gastro-esophageal reflux disease without esophagitis Plan: Avoid the foods that causes that usually spicy foods, tomato products, juices, coffee, soda and foods that your sensitive to. After eating do not lie down, allow 3-4 hours before in lie down. And keep the head of bed above 30 degrees to avoid the acid from going up. (4) Obstructive sleep apnea: Code(s): G47.33 - Obstructive sleep apnea (adult) (pediatric) Plan: Patient is followed up by Neurology on placed on auto PAP uses more than 4 hour a day and benefits from this. (5) Hypertension: Code(s): I10 - Essential (primary) hypertension Qualifiers: Hypertension type: essential hypertension Qualified Code(s): I10 - Essential (primary) hypertension Plan: Continue with blood pressure medication. 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 Be it pork or beef they have a lot of cholesterol patient has been placed on Praluent and atorvastatin 40 mg once a day (8) Coronary artery disease: Comment: [place] September 2010 with stent placement restenoses November 2012 [facility] Cardiology January 2017 catheterization done occluded distal RCA new catheterization May 2017 the same, catheterization September 2017 Code(s): I25.10 - Atherosclerotic heart disease of [place] coronary artery without angina pectoris Plan: Control the cholesterol, weight, blood pressure, diabetes patient has been placed on pentoxifylline. (9) Colonoscopy refused: Code(s): Z53.20 - Procedure and treatment not carried out because of patient's decision for unspecified reasons Orders: Orders Complete Blood Count Auto Diff 3 Months E11.65 - Type 2 diabetes mellitus with hyperglycemia Free T4 (Free Thyroxine) 3 Months E11.65 - Type 2 diabetes mellitus with hyperglycemia Vitamin D 25-OH Total 3 Months E11.65 - Type 2 diabetes mellitus with hyperglycemia Lipid Panel 3 Months E11.65 - Type 2 diabetes mellitus with hyperglycemia, E78.00 - Pure hypercholesterolemia, unspecified Creatinine Urine 3 Months E11.65 - Type 2 diabetes mellitus with hyperglycemia XR DEXA axial skeleton Today E03.8 - Other specified hypothyroidism, E06.3 - Autoimmune thyroiditis, M81.0 - Age-related osteoporosis without current pathological fracture XR chest 2V Today I25.10 - Atherosclerotic heart disease of [place] coronary artery without angina pectoris Comprehensive Met. Panel 3 Months E11.65 - Type 2 diabetes mellitus with hyperglycemia Thyroid Stimulating Hormone 3 Months E11.65 - Type 2 diabetes mellitus with hyperglycemia Vitamin B12 and Folate 3 Months E11.65 - Type 2 diabetes mellitus with hyperglycemia Microalbumin, Random (w Creat) 3 Months E11.65 - Type 2 diabetes mellitus with hyperglycemia Hemoglobin A1c 3 Months E11.65 - Type 2 diabetes mellitus with hyperglycemia Medications: New aspirin 81 mg PO DAILY 30 tabs 0RF I25.10 - Atherosclerotic heart disease of [place] coronary artery without angina pectoris Coding Level of Care Code Est Pt Level 4 (72786) Diagnoses Severe carpal tunnel syndrome of both wrists G56.03 Type 2 diabetes mellitus with hyperglycemia E11.65 Gastroesophageal reflux disease without esophagitis K21.9 Esophagitis presence: without esophagitis Obstructive sleep apnea G47.33 Essential hypertension I10 Hypertension type: essential hypertension 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
== END 2023-12-03 15:31 | disposition home or self-care (01) ==
PROVIDERS: PCP Internal Medicine; Visit Provider Internal Medicine
DX: G56.03 Carpal tunnel syndrome, bilateral upper limbs (principal); E11.65 Type 2 diabetes mellitus with hyperglycemia; K21.9 Gastro-esophageal reflux disease without esophagitis; G47.33 Obstructive sleep apnea (adult) (pediatric); I10 Essential (primary) hypertension; E03.8 Other specified hypothyroidism; E06.3 Autoimmune thyroiditis; E78.5 Hyperlipidemia, unspecified; I25.10 Atherosclerotic heart disease of native coronary artery without angina pectoris; Z53.20 Procedure and treatment not carried out because of patient's decision for unspecified reasons
CPT/HCPCS: 99214

== ENCOUNTER 2023-12-25 08:48 | Outpatient (RCR) | payer OTHER, SELFPAY | END 2024-01-29 06:05 | disposition home or self-care (01) | LOC: HO.CR 08:48 | PROVIDERS: PCP Internal Medicine; Visit Provider Internal Medicine Cardiovascular Disease | DX: I21.4 Non-ST elevation (NSTEMI) myocardial infarction (principal) | CPT/HCPCS: 93798 ==

== ENCOUNTER 2023-12-25 10:27 | Outpatient (REF) | payer OTHER, SELFPAY ==
[2023-12-25 11:34] LABS: Creatinine Urine 94.79 mg/dL; Microalbum/Creatinine Ratio Ur 30.5 ug/mg cr (<30)
[2023-12-25 11:43] LABS: Alanine Aminotransferase 16 U/L (0-31); Albumin Level 4.1 g/dL (3.5-5.0); Alkaline Phosphatase 121 U/L (39-117); Aspartate Amino Transferase 16 U/L (5-31); Bilirubin Direct 0.2 mg/dL (0.0-0.5); Bilirubin Total 0.4 mg/dL (0.0-1.0); Cholesterol 89 mg/dL (<200); HDL Cholesterol 42 mg/dL (>40); LDL Cholesterol Calculated 16 mg/dL (<100); Total Protein 7.5 g/dL (6.5-8.0); Triglycerides 155 mg/dL (<150)
== END 2023-12-25 10:28 | disposition home or self-care (01) ==
LOC: HO.LAB 10:27
PROVIDERS: PCP Internal Medicine; Visit Provider Internal Medicine Endocrinology, Diabetes & Metabolism
DX: E11.65 Type 2 diabetes mellitus with hyperglycemia (principal); E78.5 Hyperlipidemia, unspecified
CPT/HCPCS: 36415; 80061; 80076; 82043; 82570

== ENCOUNTER 2024-01-02 10:49 | Outpatient (AMB) | payer OTHER, SELFPAY ==
--- NOTE | 2024-01-02 10:50 | A.OFFVIS_ITS ---
Vital Signs 01/02/24 10:51 Height 5 ft 2 in Weight 173 lb 15.115 oz BMI 31.8 BP 110/50 L Blood Pressure Location Lt brachial Position Sitting Pulse 54 Pulse Source Pulse Oximeter Intake Visit Reasons: f/u Type 2 DM and hyperlipidemia-confirmed Intake Note: Patient presents today to follow up on D2MT. Last Diabetic Eye exam: January 2023 Last Podiatry Visit:Doesn't have one Random Glucose:118 mg/dl HgA1c: 6.6% Lawn Service Manager Required: Yes Lawn Service Manager Language: [place] Information Interpreted: non-clinical & clinical Accompanied by: Daughter Allergies ibuprofen [From MOTRIN] Allergy (Mild, Verified 01/02/24 10:57) STOMACH UPSET, gastritis HPI Comments Details: Patient is a 72-year-old female with DM type 2 diagnosed at the age of 26 who presents for diabetes management. She is on Omnipod Dash Past medical history includes : Diabetes type 2, hypertension, hyperlipidemia, hypothyroidism, Micro and macrovascular complications: Nephropathy, neuropathy, coronary artery disease Diabetes medications: Trulicity 4.5 mg, farxiga 5 mg QD not been taking Omnipod Dash- not able to download her pump Basal rate(s) (units/hour) : New 12 AM to 2 AM 1 unit /hr 2 AM to 12 AM 1.25 units /hr Bolus setting Fixed Meal Doses Breakfast: 7 units Lunch: 7 units ?Supper: 8 units New Supper 7 Snacks: 3 units Correction Factor / Sensitivity Factor None Active Insulin Time:? 4 hrs Ron download shows she has using the sensor 71% of the time. Average glucose is 137 with G mi of 6.6% variability 29.9%. 86% range with 12% hyperglycemia and 2% hypoglycemia. Most of the hypoglycemia is occurring overnight . Symptoms: + numbness, tingling and cramping in legs and fingers Hypoglycemia: overnight frequently Hyperglycemia: +polyuria, +nocturia, +polydypsia DSME - nutrition: in past Podiatry: no Dental: edentulous Ophthalmology: saw 01/2023- needs to make appt this yr Laboratory Tests 01/05/21 01/05/21 12/07/21 12:05 12:05 09:44 Creatinine Estimated GFR Hgb A1c (Clinic) 8.7 H Triglycerides 233 Cholesterol 234 D LDL Cholesterol Direct 133 H LDL Cholesterol, Calc 130 HDL Cholesterol 58 D Vitamin B12 25-OH Vitamin D Total TSH Free T4 Microalb/Creat Ratio 01/23/22 01/23/22 01/23/22 09:43 09:48 09:48 Creatinine 1.15 Estimated GFR 47 Hgb A1c (Clinic) Triglycerides Cholesterol LDL Cholesterol Direct LDL Cholesterol, Calc HDL Cholesterol Vitamin B12 363 25-OH Vitamin D Total 15.7 TSH 1.82 Free T4 0.91 Microalb/Creat Ratio 268.0 PFSH Medical History (Updated 12/03/23 @ 15:27 by Georgina Fish MD) Bilateral hand numbness Left ovarian cyst Type 2 diabetes mellitus with diabetic polyneuropathy Abnormal liver function test Tear of meniscus of left knee Lumbar degenerative disc disease Knee osteoarthritis GERD (gastroesophageal reflux disease) Ovarian cyst Carpal tunnel syndrome Obstructive sleep apnea Coronary artery disease Anemia Obesity (BMI 30-39.9) Hypertension Dyslipidemia Hypothyroidism Diabetic nephropathy associated with type 2 diabetes mellitus shelter (current) use of insulin Diabetes type 2, uncontrolled Surgical History History of carpal tunnel surgery of left wrist H/O bilateral oophorectomy History of esophagogastroduodenoscopy (EGD) Hx of colonoscopy Hx of right coronary artery stent placement History of surgical removal of nipple Hx of tubal ligation Hx of cholecystectomy Family History Father Diabetes mellitus Mother Diabetes mellitus Maternal Uncle Colon cancer Gastric cancer Daughter Diabetes mellitus Social History Household Members: None Housing: Apartment Alcohol intake: never Comment: counts correct Patient Tobacco Use Status: Former Tobacco user Tobacco use type: Cigarette e-Cigarette/Vaping Use: Never Used Second Hand Smoke Exposure: No service: No Current occupational status: disabled Current occupational exposures/hazards: No Cognitive needs: No Hearing needs: No Vision needs: Yes Physical Exam Vital Signs: Last Vital Signs Pulse 54 01/02/24 10:51 BP 110/50 L 01/02/24 10:51 BMI result Body Mass Index 31.8 Absence of Cushingoid features. Absence of acromegalic features. Neck exam reveals nl size thyroid about 15 gms. No thyroid nodules palpable. No carotid bruits present. Lungs CTA. Heart S1 S2, Reg R/R. No M/R/ G. Skin exam reveals absence of vitiligo or acanthosis nigricans. Abdominal exam reveals Soft NT/ND with NA BS. No organomegaly present. Neck Other: . Extrem Other: Visual exam of foot performed. No ulcerations or open lesions. No onchomycosis, no callouses.Pulses 2 + distally Sensation intact to monofilament exam. Vibratory sensation sensed is decreased with 128 Hz tuning fork Results AMB Hemoglobin A1c AMB Hemoglobin A1c 6.6 % Last Edit by REJI Goldberg on 01/02/24 11:22 Results Reviewed Results Reviewed: Laboratory Last Values Glucose (Clinic) 118 mg/dL (60-115) H 01/02/24 10:59 Assessment & Plan Assessment & Plan (1) Diabetes type 2, uncontrolled: Code(s): E11.65 - Type 2 diabetes mellitus with hyperglycemia Category: Medical Qualifiers: Glycemic state: with hyperglycemia Qualified Code(s): E11.65 - Type 2 diabetes mellitus with hyperglycemia Plan: This is a 71-year-old female with history of type 2 diabetes being treated with Trulicity as well as Omnipod pump with excellent improved glycemic control and known microvascular macrovascular complications namely neuropathy CKD and CAD. She does have overnight hypoglycemia Plan is to decrease the basal from 00:00 to 02:00 to 0.8. Patient will follow up with conservation educator . We may need to adjust the bolus before dinner as well if there is continued hypoglycemia when she meets with the educator (2) Dyslipidemia: Code(s): E78.5 - Hyperlipidemia, unspecified Category: Medical Plan: Recheck lipid profile ion [place] Orders: Orders AMB Hemoglobin A1c Today E11.42 - Type 2 diabetes mellitus with diabetic polyneuropathy, Z13.9 - Encounter for screening, unspecified Coding Level of Care Code Est Pt Level 4 (60645) Diagnoses Uncontrolled type 2 diabetes mellitus with hyperglycemia E11.65 Glycemic state: with hyperglycemia Dyslipidemia E78.5
[2024-01-02 10:51] VITALS: BP 110/50; PULSE 54; BMI 31.8
[2024-01-02 11:04] LABS: Glucose, Whole Blood 118 mg/dL (60-115)
== END 2024-01-02 11:29 | disposition home or self-care (01) ==
PROVIDERS: PCP Internal Medicine; Visit Provider Internal Medicine Endocrinology, Diabetes & Metabolism
DX: E11.65 Type 2 diabetes mellitus with hyperglycemia (principal); E78.5 Hyperlipidemia, unspecified; Z13.9 Encounter for screening, unspecified; E11.42 Type 2 diabetes mellitus with diabetic polyneuropathy
CPT/HCPCS: 99214

== ENCOUNTER → 2024-01-02 10:49 | Outpatient (BNVA) | payer OTHER, SELFPAY | PROVIDERS: PCP Internal Medicine; Visit Provider Internal Medicine Endocrinology, Diabetes & Metabolism | DX: E11.65 Type 2 diabetes mellitus with hyperglycemia (principal); E78.5 Hyperlipidemia, unspecified | CPT/HCPCS: 82947; 83036; 99212 ==

== ENCOUNTER 2024-02-25 12:14 | Outpatient (AMB) | payer OTHER, SELFPAY ==
--- NOTE | 2024-02-25 12:49 | MHC.AMDMED ---
Intake Intake Visit Reasons: T2DM Solar Energy Advisor Required: Yes Solar Energy Advisor Language: Automobile Accessories Salesperson Name: Sarah [facility] [place] Accompanied by: Self / Same As Patient Allergies ibuprofen [From MOTRIN] Allergy (Mild, Verified 01/02/24 10:57) STOMACH UPSET, gastritis HPI Comprehensive Diabetes Asmnt Most Recent Diabetes Results: Microalb/Creat Ratio 30.5 ug/mg cr (<30) H 12/25/23 Cholesterol 89 mg/dL (<200) 12/25/23 HDL Cholesterol 42 mg/dL (>40) 12/25/23 Triglycerides 155 mg/dL (<150) H 12/25/23 Creatinine 1.05 mg/dL (0.5-1.4) 07/24/23 Blood Urea Nitrogen 22 mg/dL (9-16) H 07/24/23 Sodium 144 mmol/L (135-145) 07/24/23 Potassium 3.7 mmol/L (3.3-5.1) 07/24/23 Chloride 112 mmol/L (96-108) H 07/24/23 Carbon Dioxide 22 mmol/L (22-29) 07/24/23 Calcium 9.3 mg/dL (8.4-10.2) 07/24/23 AST 16 U/L (5-31) 12/25/23 ALT 16 U/L (0-31) 12/25/23 Total Protein 7.5 g/dL (6.5-8.0) 12/25/23 Albumin 4.1 g/dL (3.5-5.0) 12/25/23 [facility] Medical History (Updated 12/03/23 @ 15:27 by Georgina Fish MD) Bilateral hand numbness Left ovarian cyst Type 2 diabetes mellitus with diabetic polyneuropathy Abnormal liver function test Tear of meniscus of left knee Lumbar degenerative disc disease Knee osteoarthritis GERD (gastroesophageal reflux disease) Ovarian cyst Carpal tunnel syndrome Obstructive sleep apnea Coronary artery disease Anemia Obesity (BMI 30-39.9) Hypertension Dyslipidemia Hypothyroidism Diabetic nephropathy associated with type 2 diabetes mellitus 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 (current) use of insulin Diabetes type 2, uncontrolled Surgical History History of carpal tunnel surgery of left wrist H/O bilateral oophorectomy History of esophagogastroduodenoscopy (EGD) Hx of colonoscopy Hx of right coronary artery stent placement History of surgical removal of nipple Hx of tubal ligation Hx of cholecystectomy Family History Father Diabetes mellitus Mother Diabetes mellitus Maternal Uncle Colon cancer Gastric cancer Daughter Diabetes mellitus Social History Household Members: None Housing: Apartment Alcohol intake: never Comment: counts correct Patient Tobacco Use Status: Former Tobacco user Tobacco use type: Cigarette e-Cigarette/Vaping Use: Never Used Second Hand Smoke Exposure: No service: No Current occupational status: disabled Current occupational exposures/hazards: No Cognitive needs: No Hearing needs: No Vision needs: Yes Assessment & Plan Assessment & Plan (1) Type 2 diabetes mellitus with hyperglycemia: Comment: [place] Code(s): E11.65 - Type 2 diabetes mellitus with hyperglycemia Plan: Patient presents for pump training for Omnipod dash with blood glucose meter Patient is still not able to receive Ron 2 sensors until her next visit after 10/01/[address] Santizo The following topics were reviewed today: - When to change set or Pod - how to treat hypoglycemia - Sensor setting (if applicable) ?High Alert: 240 mg/dl Alert: 80 mg/dL Patient's average glucose the past 7 days 172 mg/dL Patient above target 41% Patient at target 59% Patient below target 0% Patient last A1c on 01/02/2024 6.6% Patient is bolusing appropriately for meals, she does report eating 4 meals daily. Patient also has some postprandial hyperglycemia after breakfast, see changes to insulin pump below Patient reports she has been 6 for approximately 5 days, she is negative for COVID. Suggested to patient if she is still sick in 3 days she should contact PCP Explained to patient I increased breakfast bolus, if she begins to have more hypoglycemia especially after breakfast she is to contact health educator Reviewed with patient how to treat hypoglycemia with rule of 15s Setting verified by CDCES Basal rate(s) (units/hour) : ?12 AM to 2? 0.8 units / hr 2 AM to 9 AM 1.25 unit /hr 9 AM to 12 AM 1.5 units /hr Bolus setting Fixed Meal Doses Breakfast: 7 units New Breakfast 8 units Lunch: 7 units Supper: 8 units Snacks: 3 units Correction Factor / Sensitivity Factor None Active Insulin Time:? 4 hrs Patient Instructions: patient will follow-up with health educator in 2 months Patient Instructions: Patient will follow-up with health educator in 2 months Coding Level of Care Code Est Pt Level 1 (09827) Diagnoses Type 2 diabetes mellitus with hyperglycemia E11.65
== END 2024-02-25 12:55 | disposition home or self-care (01) ==
PROVIDERS: PCP Internal Medicine; Visit Provider Registered Nurse Diabetes Educator
DX: E11.65 Type 2 diabetes mellitus with hyperglycemia (principal)

== ENCOUNTER → 2024-02-25 12:14 | Outpatient (BNVA) | payer OTHER, SELFPAY | PROVIDERS: PCP Internal Medicine; Visit Provider Registered Nurse Diabetes Educator | DX: E11.65 Type 2 diabetes mellitus with hyperglycemia (principal); Z71.3 Dietary counseling and surveillance | CPT/HCPCS: 99211 ==

== ENCOUNTER → 2024-03-11 09:15 | Outpatient (BNV) | payer OTHER, SELFPAY | PROVIDERS: PCP Internal Medicine; Visit Provider Radiology Diagnostic Radiology | DX: Z12.31 Encounter for screening mammogram for malignant neoplasm of breast (principal) | CPT/HCPCS: 77063; 77067 ==

== ENCOUNTER 2024-03-11 10:02 | Outpatient (REF) | payer OTHER, SELFPAY ==
--- NOTE | ~2024-03-11 | MM_ITS ---
EXAMINATION: MM SCREENING DIGITAL BREAST TOMOSYNTHESIS, BILATERAL CLINICAL INFORMATION: Screening. Asymptomatic. The patient is status post bilateral areolar resection secondary to infection. COMPARISON: Mammography: This study is compared with prior exams dating back to 2019. TECHNIQUE: Digital breast tomosynthesis is performed in both the craniocaudal and mediolateral oblique views along with computer-aided detection (CAD). Synthesized 2D images are generated from the tomosynthesis. FINDINGS: There are scattered areas of fibroglandular density (ACR BI-RADS breast composition Category b). There is bilateral surgical absence of the areolas. There are few, unchanged secretory calcifications in the left breast. There are no significant masses, abnormal calcifications, or other abnormalities. MM/MM tomosynthesis screening BI IMPRESSION: No mammographic evidence of malignancy. ASSESSMENT: BI-RADS BI-RADS 2 - Benign Findings RECOMMENDATION: Routine annual mammography screening. 1 year F/U This examination should not preclude the clinical evaluation of a suspicious palpable abnormality. This patient's information was entered into a reminder system with a target due date for their next mammogram. Electronically signed by: Silvia Robles MD 04/03/2024 04:08 PM EDT
--- NOTE | ~2024-03-11 | MM_ITS ---
EXAMINATION: BONE DENSITOMETRY CLINICAL INDICATION: Age-related osteoporosis without recurrent pathological fracture. COMPARISON: Previous BD dated 08/04/2020 and baseline BD dated 09/21/2006. TECHNIQUE: Using a [employer] DXA System (software version: 13.1) manufactured by [employer], dual-energy x-ray absorptiometry was performed of the lumbar spine and left hip. The images are of good technical quality. Summary results are attached. FINDINGS: LEFT FEMUR, NECK: Current: BMD 1.056 g/cm2, Z-score 1.6, T-score 0.1, normal. Prior: BMD 1.068 g/cm2. Baseline: BMD 1.158 g/cm2. LEFT FEMUR, TOTAL: Current: BMD 1.141 g/cm2, Z-score 2.3, T-score 1.1, normal, 6.4% decrease from previous, 10.3% decrease from baseline (<5% change is not significant). Prior: BMD 1.219 g/cm2. Baseline: BMD 1.272 g/cm2. AP SPINE L1-L4: Current: BMD 1.394 g/cm2, Z-score 3.0, T-score 1.8, normal, 0.6% increase from previous, 13.0% increase from baseline (<5% change is not significant). Prior: BMD 1.386 g/cm2. Baseline: BMD 1.234 g/cm2. IDENTIFIED RISK FACTORS: Menopause, bilateral oophorectomy. HISTORY OF FRACTURE: None listed. MEDICATIONS: None listed. MM/XR DEXA axial skeleton IMPRESSION: 1. DIAGNOSIS: Normal bone density based on the lowest T-score value of 0.1 in the femoral neck applying World Health Organization criteria. 2. 10-YEAR FRACTURE RISK PREDICTION, FRAX: According to the guidelines, FRAX calculation should only be performed on patients in the osteopenia bone density category. Therefore, FRAX was not performed on this patient. 3. Treatment Recommendations: NOF guidelines recommend consideration for treatment in postmenopausal women and men age 50 and older presenting with the following: -A hip or vertebral (clinical or morphometric) fracture. -T-score less than or equal to -2.5 at the femoral neck or spine after appropriate evaluation to exclude secondary causes. -Low bone mass at the hip or spine and a 10-year fracture probability by FRAX of greater than or equal to 3% for hip fracture or greater than or equal to 20% for major osteoporotic fracture based on the [place] adapted WHO algorithm. 4. Other Recommendations: All treatment decisions require clinical judgment and consideration of individual patient factors, including patient preferences, comorbidities, previous drug use, risk factors not captured in the FRAX model (e.g. frailty, falls, vitamin D deficiency, increased bone turnover, interval significant decline in bone density) and possible under or overestimation of fracture risk by FRAX. FUTURE SCAN RECOMMENDATION: People with diagnosed cases of osteoporosis or at high risk for fracture should have regular bone mineral density tests. For patients eligible for Medicare, routine testing is allowed once every 2 years. The testing frequency can be increased to one year for patients who have rapidly progressing disease, those who are receiving or discontinuing medical therapy to restore bone mass, or have additional risk factors.
== END 2024-03-11 10:03 | disposition home or self-care (01) ==
LOC: HO.MAMMO 10:02
PROVIDERS: PCP Internal Medicine; Visit Provider Internal Medicine
DX: Z12.31 Encounter for screening mammogram for malignant neoplasm of breast (principal); M81.0 Age-related osteoporosis without current pathological fracture; E03.8 Other specified hypothyroidism; E06.3 Autoimmune thyroiditis
CPT/HCPCS: 77063; 77067; 77080

== ENCOUNTER 2024-04-03 11:16 | Outpatient (AMB) | payer OTHER, SELFPAY ==
--- NOTE | 2024-04-03 11:20 | A.OFFVIS_ITS ---
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 Accompanied by her daughter who translates due to patient preference Past medical history includes : Diabetes type 2, hypertension, hyperlipidemia, hypothyroidism, Micro and macrovascular complications: Nephropathy, neuropathy, coronary artery disease Diabetes medications: Trulicity 4.5mg-Lost 10 pounds farxiga 5 mg QD not been taking Ron CGM downloaded TGT 86%, High 1%, Low 11% Very Low 2%. GMI 5.9% Omnipod Dash-downloaded Current 12 AM to 2 AM 0.8unit /hr changed today to 12 AM to 2am 0.5 units/hr Current 2 AM to 9 AM 1.25 units /hr changed today 2 AM to 12am 0.8 units/hr Current 9 AM to 12am 1.5 units/hr changed today Bolus setting Fixed Meal Doses Breakfast: 7 units changed today 5 units Lunch: 7 units changed today 5 units Supper: 7 units changed today 5 units Snacks: 3 units Symptoms: + numbness, tingling and cramping in legs and fingers Hypoglycemia: overnight frequently, sweaty Hyperglycemia: +polyuria, +nocturia, +polydypsia (none of these recently) DSME - nutrition: in past Podiatry: no Dental: edentulous Ophthalmology: utd ROS CONSTITUTIONAL: Denies weight loss, fever and chills. HEENT: Denies changes in vision and hearing. RESPIRATORY: Denies SOB and cough. CV: Denies palpitations and CP GI: Denies abdominal pain, nausea, vomiting and diarrhea. : Denies dysuria and urinary frequency. MSK: Denies new myalgia and joint pain. SKIN: Denies rash and pruritus. NEUROLOGICAL: Denies headache PSYCHIATRIC: Denies recent changes in mood. PHYSICAL EXAM: GENERAL: Alert and oriented x 3. NAD EYES: EOMI. Anicteric. HENT: Moist mucous membranes. No scleral icterus. No cervical lymphadenopathy. LUNGS: Clear to auscultation bilaterally. CARDIOVASCULAR: Regular rate and rhythm. No murmur. No JVD. ABDOMEN: Soft, non-tender +bs EXTREMITIES: No edema. Non-tender. SKIN: No rashes or lesions. Warm. NEUROLOGIC: No focal neurological deficits. CN II-XII grossly intact PSYCHIATRIC: Cooperative. 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 Diabetes type 2, uncontrolled Surgical History History of carpal tunnel surgery of left wrist H/O bilateral oophorectomy History of esophagogastroduodenoscopy (EGD) Hx of colonoscopy Hx of right coronary artery stent placement History of surgical removal of nipple Hx of tubal ligation Hx of cholecystectomy Family History Father Diabetes mellitus Mother Diabetes mellitus Maternal Uncle Colon cancer Gastric cancer Daughter Diabetes mellitus Social History Household Members: None Housing: Apartment Alcohol intake: never Comment: counts correct Patient Tobacco Use Status: Former Tobacco user Tobacco use type: Cigarette e-Cigarette/Vaping Use: Never Used Second Hand Smoke Exposure: No service: No Current occupational status: disabled Current occupational exposures/hazards: No Cognitive needs: No Hearing needs: No Vision needs: Yes Physical Exam Vital Signs: Last Vital Signs Pulse 75 04/03/24 11:23 BP 112/68 04/03/24 11:23 BMI result Body Mass Index 31.9 Results AMB Hemoglobin A1c AMB Hemoglobin A1c 7.5 % Last Edit by REJI Sofia on 04/03/24 12:01 Results Reviewed Results Reviewed: Laboratory Last Values Glucose (Clinic) 93 mg/dL (60-115) 04/03/24 11:29 Hgb A1c (Clinic) 7.5 % (4.0-6.0) H 04/03/24 11:59 Assessment & Plan Assessment & Plan (1) Type 2 diabetes mellitus with diabetic polyneuropathy: Code(s): E11.42 - Type 2 diabetes mellitus with diabetic polyneuropathy Category: Medical Qualifiers: Diabetes mellitus penitentiary insulin use: with penitentiary use Qualified Code(s): E11.42 - Type 2 diabetes mellitus with diabetic polyneuropathy; Z79.4 - half-way (current) use of insulin Plan: Excessive hypoglycemia. Ron CGM reviewed. Omnipod dowloaded and reviewed. Discussed changes with diabetic RN, Vikki Delacruz who adjusted the pump to the above settings (see HPI) (2) half-way (current) use of insulin: Code(s): Z79.4 - termite helper (current) use of insulin Category: Medical Plan: see above (3) Insulin pump in place: Code(s): Z96.41 - Presence of insulin pump (external) (internal) Category: Medical Plan: see above. f/up vikki Orders: Orders AMB Hemoglobin A1c 04/03/24 E11.21 - Type 2 diabetes mellitus with diabetic nephropathy Coding Level of Care Code Est Pt Level 5 (70365) Diagnoses Type 2 diabetes mellitus with diabetic polyneuropathy, with long-term current use of insulin E11.42; Z79.4 Diabetes mellitus penitentiary insulin use: with intermediate accountant use half-way (current) use of insulin Z79.[address] Z96.41 Time Spent (min) 47
[2024-04-03 11:23] VITALS: BP 112/68; PULSE 75; BMI 31.9
[2024-04-03 11:35] LABS: Glucose, Whole Blood 93 mg/dL (60-115)
== END 2024-04-03 12:17 | disposition home or self-care (01) ==
PROVIDERS: PCP Internal Medicine; Visit Provider Internal Medicine
DX: E11.42 Type 2 diabetes mellitus with diabetic polyneuropathy (principal); Z79.4 Long term (current) use of insulin; Z96.41 Presence of insulin pump (external) (internal)
CPT/HCPCS: 99215

== ENCOUNTER → 2024-04-03 11:16 | Outpatient (BNVA) | payer OTHER, SELFPAY | PROVIDERS: PCP Internal Medicine; Visit Provider Internal Medicine | DX: E11.21 Type 2 diabetes mellitus with diabetic nephropathy (principal); E11.65 Type 2 diabetes mellitus with hyperglycemia; Z96.41 Presence of insulin pump (external) (internal); Z79.4 Long term (current) use of insulin | CPT/HCPCS: 82947; 83036; 99212 ==

== ENCOUNTER 2024-04-23 12:08 | Outpatient (AMB) | payer OTHER, SELFPAY ==
--- NOTE | 2024-04-23 12:11 | A.OFFPC_ITS ---
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 Required: No Accompanied by: Daughter Allergies ibuprofen [From MOTRIN] Allergy (Mild, Verified 04/23/24 12:17) STOMACH UPSET, gastritis Medication List - Last Reconciled 04/23/24 by Georgina Fish MD alirocumab (Praluent Pen) 150 mg subcut Q2W aspirin 81 mg PO DAILY atorvastatin 40 mg PO DAILY 90 days BD Insulin Syringe Ultra-Fine (insulin syringe-needle U-100) 4 times a day NS blood-glucose meter (FreeStyle Lite Meter kit) As directed 4x/day bupropion HCl SR 100 mg PO QAM buspirone 15 mg PO BID dapagliflozin propanediol (Farxiga) 5 mg PO DAILY Fiasp U-100 Insulin 100 unit/mL (insulin aspart (niacinamide)) 100 units subcut DAILY NS flash glucose sensor (FreeStyle Ron 2 Sensor kit) USE DIRECTED; CHANGE EVERY 14 DAYS. FreeStyle Lite Strips (blood sugar diagnostic) USE 1 STRIP DIRECTED FOUR TIMES A DAY FOR DIABETES NS insulin pump cart,cont inf,BT (Omnipod Dash Pods (Gen 4) subcutaneous cartridge) As directed change every 48 hrs isosorbide mononitrate ER 120 mg PO QAM 90 days lancets (FreeStyle Lancets) 28 gauge topical QID 90 days levothyroxine 125 mcg PO DAILY melatonin 1 mg PO BEDTIME metoprolol succinate ER 200 mg PO DAILY nitroglycerin 0.4 mg sublingual Q5M PRN omeprazole 20 mg PO DAILY oxycodone 5 mg PO DAILY PRN pentoxifylline ER 400 mg PO TID sertraline 100 mg PO DAILY tirzepatide (Mounjaro) 2.5 mg (0.5 mL) subcut QWEEK trazodone 50 mg PO BEDTIME PRN 30 days Tobacco use date assessed: 12/03/23 Fall risk assessment: 1 Fall in past year Last assessed Fall Risk: 04/23/24 Dental Screening Dental Screen Date: 04/23/24 Did you have a dental visit in the last 12 months?: No Did you have a dental problem in the last 6 months where you did not have access to dental care?: No Was dental information given to patient?: Patient has dentist HPI PE HPI Details 73-year-old obese female with uncontroll ed diabetes mellitus hypothyroidism hypercholesterolemia hypertension obstructive sleep apnea GERD coronary artery disease lumbar degenerative disc disease severe carpal tunnel syndrome on both wrist status post release right coming in for physical exam last seen in 12/17/2023. Patient has declined colonoscopy up-to-date with mammogram and bone density. declined cardiac rehab. falls a lot due to weakness states recurrent falls and asking for Neurology [facility] Medical History (Updated 04/23/24 @ 12:54 by Georgina Fish MD) Bilateral hand numbness Left ovarian cyst Type 2 diabetes mellitus with diabetic polyneuropathy Abnormal liver function test Tear of meniscus of left knee Lumbar degenerative disc disease Knee osteoarthritis GERD (gastroesophageal reflux disease) Ovarian cyst Carpal tunnel syndrome Obstructive sleep apnea Coronary artery disease Anemia Obesity (BMI 30-39.9) Hypertension Dyslipidemia Hypothyroidism Diabetic nephropathy associated with type 2 diabetes mellitus 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 Diabetes type 2, uncontrolled Surgical History History of carpal tunnel surgery of left wrist H/O bilateral oophorectomy History of esophagogastroduodenoscopy (EGD) Hx of colonoscopy Hx of right coronary artery stent placement History of surgical removal of nipple Hx of tubal ligation Hx of cholecystectomy Family History Father Diabetes mellitus Mother Diabetes mellitus Maternal Uncle Colon cancer Gastric cancer Daughter Diabetes mellitus Social History (Updated 04/23/24 @ 12:38 by Georgina Fish MD) Household Members: None Housing: Apartment Alcohol intake: never Comment: counts correct Patient Tobacco Use Status: Former Tobacco user Tobacco use type: Cigarette Years Smoked: quit smoking 2017 e-Cigarette/Vaping Use: Never Used Second Hand Smoke Exposure: No service: No Current occupational status: disabled Current occupational exposures/hazards: No Cognitive needs: No Hearing needs: No Vision needs: Yes Questionnaire PHQ-9 Over the last 2 weeks, how often have you been bothered by any of the following problems? 1. Little interest or pleasure in doing things: not at all 2. Feeling down, depressed, or hopeless: not at all 3. Trouble falling or staying asleep, or sleeping too much: not at all 4. Feeling tired or having little energy: not at all 5. Poor appetite or overeating: not at all 6. Feeling bad about yourself - or that you are a failure or have let yourself or your family down: not at all 7. Trouble concentrating on things, such as reading the newspaper or watching television: not at all 8. Moving or speaking so slowly that other people could have noticed. Or the opposite - being so fidgety or restless that you have been moving around a lot more than usual: not at all 9. Thoughts that you would be better off or of hurting yourself in some way: not at all Total score: 0 Depression Screening Interpretation: Negative Depression Screening Done: Yes Source: Developed by Drs. David Arroyo, Latha Luz, Buzz Cain and colleagues, with an educational gertrude from [employer]. Thrive Questionnaire Date Thrive assessed: 04/23/24 I am a: Patient What is your living situation today?: I have a steady place to live Within the past 12 months, did the food you bought not last and you didn't have the money to get more?: Never true Within the past 12 months, did you worry whether your food would run out before you got money to buy more?: Never true Do you have trouble paying for medicines?: No Do you have trouble getting transportation to medical appointments?: No Do you have trouble paying your heating and electricity bill?: No Do you have trouble taking care of your child, family member or friend?: No Do you have trouble with day-to-day activities such as bathing, preparing meals, shopping, managing finances, etc.?: No Are you currently unemployed and looking for a job?: No Are you interested in more education?: No Please select the resources that you would like help with: None Currently or been in a relationship where the following occur: No concerns reported THRIVE Score: 0 AUDIT C Alcohol Use Questionnaire (AUDIT-C) 1. How often do you have a drink containing alcohol?: Never Total Score: 0 JASS-7 AMB Questionnaire JASS-7 Date JASS - 7 assessed: 04/23/24 Feeling nervous, anxious, or on edge: 0 = Not at all Not being able to stop or control worryin = Not at all Worrying too much about different things: 0 = Not at all Trouble relaxin = Not at all Being so restless that it is hard to sit still: 0 = Not at all Becoming easily annoyed or irritable: 0 = Not at all Feeling afraid as if something awful might happen: 0 = Not at all Total JASS-7 score (0-4 normal; 5-9 mild; 10-14 moderate; 15-21 severe): 0 Source: Developed by Drs. David Arroyo, Latha Luz, Buzz Cain and colleagues, with an educational gertrude from [employer]. Review of Systems Const Denies poor appetite and Denies weakness Eyes Denies no additional complaints ENT Reports Normal hearing present, Denies dizziness, Denies nasal congestion, Denies tinnitus and Denies sore throat Card Denies chest pain, Denies syncope, Denies rapid heart rate and Denies dyspnea Resp Denies cough and Denies dyspnea GI Denies change in stool character, Reports constipation, Denies diarrhea, Denies nausea and Denies vomiting Denies urinary frequency, Denies difficulty voiding and Denies dysuria Neuro Reports Normal hearing present, Denies confusion, Denies dizziness, Denies syncope and Denies weakness Psych Denies confusion Physical exam (Primary Care) Vital Signs: Last Vital Signs BP 132/64 04/23/24 12:15 BMI result Body Mass Index 31.5 Tobacco/Smoking Status: Tobacco use Status Tobacco use date assessed 12/03/23 04/23/24 12:12 Patient Tobacco Use Status Former Tobacco user 04/23/24 12:38 Tobacco use type Cigarette 04/23/24 12:38 e-Cigarette/Vaping Use Never Used 04/23/24 12:38 PHQ-9: PHQ-9 Score PHQ-9: Total score 0 04/23/24 12:28 Depression Screening Interpretation: Negative Thrive Assessment: Date of Thrive Assessment Date Thrive assessed 04/23/24 04/23/24 12:15 Currently or been in a relationship where the following occur: No concerns reported Const General: No confusion Orientation/consciousness: No confusion HENMT Head: Yes normocephalic Ears: external ears normal and TM's normal bilaterally Face and sinus: Yes normal facial exam Mouth: moist mucous membranes Throat: Yes tonsils normal Eyes Conjunctivae: conjunctivae normal Pupils: Equal, round and reactive pupils present and Pupil accommodation reflex normal Direct Ophthalmoscopy: normal light reflex Neck Neck: No lymphadenopathy Thyroid: Thyroid normal Chest Chest palpation & inspection: normal inspection of the chest Resp Effort & Inspection: normal respiratory effort and no audible wheezes Auscultation: clear to auscultation bilaterally, no crackles, no wheezes and lung sounds not diminished Cardio Rate: regular rate Rhythm: regular rhythm Peripheral pulses: radial pulses present and dorsalis pedis present GI Palpation (GI): no masses Auscultation: normal bowel sounds and normoactive bowel sounds Rectal Exam - Female: deferred Skin General skin exam: no rashes or lesions noted Rashes: no rashes Neuro General: No confusion Cranial nerves: Yes Equal, round and reactive pupils present and Yes Normal hearing present Cognition (Neuro): normal cognition Gait exam (Neuro): Normal gait present Motor exam (neuro): 5/5 motor strength present throughout Deep tendon reflexes (DTR's): Right brachioradialis reflex intensity grade: 2+, Left brachioradialis reflex intensity grade: 2+, Right patellar reflex intensity grade: 2+ and Left patellar reflex intensity grade: 2+ Extrem General: No edema Immunizations tetanus-diphtheria toxoids-Td 2 Lf unit-2 Lf unit/0.5 mL IM suspension Performing Provider: Georgina Fish MD [place] [facility] [place] [facility] [place] [facility] Administered by: REJI Pereira on 04/23/24 13:10 Dose Route Admin Location Dispensed Lot Number Expiration Date NDC [id number] Administrator 0.5 mL IM Right Deltoid 0.5 mL [id number] 09/08/24 [address]-1 [employer] VIS Given Date VIS Provided VIS Publication Date 04/23/24 Single Vaccine 21 Eligibility Eligibility Date Funding Source Not [facility] Eligible 04/23/24 State funds Assessment and Plan Assessment & Plan (1) Annual physical exam: Code(s): Z00.00 - Encounter for general adult medical examination without abnormal f indings Plan: Patient is advised to eat healthy, keep well hydrated, keep active and have adequate sleep. (2) Type 2 diabetes mellitus with hyperglycemia: Comment: Gina 04/2024 Code(s): E11.65 - Type 2 diabetes mellitus with hyperglycemia Plan: Decrease the amount of carbohydrate intake, pasta, bread, rice and potatoes are all sugar and that is aside from all the sweet stuff, remember that fruits are good but they are Sweet also. Patient has been followed up by Endocrinology and has been placed on insulin pump and Farxiga (3) Coronary artery disease: Comment: [place] September 2010 with stent placement restenoses November 2012 [facility] January 2017 catheterization done occluded distal RCA new catheterization May 2017 the same, catheterization September 2017 Code(s): I25.10 - Atherosclerotic heart disease of cheesh-na coronary artery without angina pectoris Plan: Control the cholesterol, weight, blood pressure, diabetes continue with aspirin (4) GERD (gastroesophageal reflux disease): Code(s): K21.9 - Gastro-esophageal reflux disease without esophagitis Qualifiers: Esophagitis presence: without esophagitis Qualified Code(s): K21.9 - Gastro-esophageal reflux disease without esophagitis Plan: Avoid the foods that causes that usually spicy foods, tomato products, juices, coffee, soda and foods that your sensitive to. After eating do not lie down, allow 3-4 hours before in lie down. And keep the head of bed above 30 degrees to avoid the acid from going up. (5) Obesity (BMI 30-39.9): Code(s): E66.9 - Obesity, unspecified Plan: Diet and exercise (6) Hypertension: Code(s): I10 - Essential (primary) hypertension Qualifiers: Hypertension type: essential hypertension Qualified Code(s): I10 - Essential (primary) hypertension Plan: Continue with blood pressure medication. Decrease salt intake and exercise patient is taking metoprolol 200 mg once a day lisinopril 30 mg once a day isosorbide mononitrate. (7) Dyslipidemia: Code(s): E78.5 - Hyperlipidemia, unspecified Plan: Avoid fried foods, chicken skin, eggs, butter margarine, pastries and meat. 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 Qualified Code(s): E03.8 - Other specified hypothyroidism; E06.3 - Autoimmune thyroiditis Plan: Continue with thyroid medication (9) History of nicotine dependence: Code(s): Z87.891 - Personal history of nicotine dependence (10) Dysphagia: Code(s): R13.10 - Dysphagia, unspecified (11) Recurrent falls: Code(s): R29.6 - Repeated falls (12) Numbness in feet: Code(s): R20.0 - Anesthesia of skin Orders: Orders [place] upper GI series Today R13.10 - Dysphagia, unspecified CT head/brain wo IV con Today R29.6 - Repeated falls [place] barium swallow Today R13.10 - Dysphagia, unspecified NE electromyogram (EMG) Today R20.0 - Anesthesia of skin NE nerve conduction velocity Today R20.0 - Anesthesia of skin Td State Immunization Today Z23 - Encounter for immunization Referrals Lung Cancer Screening Referral Z87.891 - Personal history of nicotine dependence Medications: New psyllium husk (Fiber (psyllium husk)) 1.04 grams (2 x 0.52 gram) PO DAILY 60 caps 12RF R13.10 - Dysphagia, unspecified tetanus-diphtheria toxoids-Td 0.5 mL IM ONCE 0.5 mL 0RF Z23 - Encounter for immunization Refilled omeprazole 20 mg PO DAILY 90 caps 2RF Discontinued oxycodone Discontinued Reason: Doctor's Order 5 mg PO DAILY PRN 14 caps 0RF pain M70.50 - Other bursitis of knee, unspecified knee Coding Level of Care Code Est Pt Prev Care >65y(25823) Diagnoses Annual physical exam Z00.00 Type 2 diabetes mellitus with hyperglycemia E11.65 Coronary artery disease I25.10 Gastroesophageal reflux disease without esophagitis K21.9 Esophagitis presence: without esophagitis Obesity (BMI 30-39.9) E66.9 Essential hypertension I10 Hypertension type: essential hypertension Dyslipidemia E78.5 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
[2024-04-23 12:15] VITALS: BP 132/64; BMI 31.5
== END 2024-04-23 13:12 | disposition home or self-care (01) ==
PROVIDERS: PCP Internal Medicine; Visit Provider Internal Medicine
DX: Z00.00 Encounter for general adult medical examination without abnormal findings (principal); E11.65 Type 2 diabetes mellitus with hyperglycemia; I25.10 Atherosclerotic heart disease of native coronary artery without angina pectoris; K21.9 Gastro-esophageal reflux disease without esophagitis; E66.9 Obesity, unspecified; I10 Essential (primary) hypertension; E78.5 Hyperlipidemia, unspecified; E03.8 Other specified hypothyroidism; E06.3 Autoimmune thyroiditis; R13.10 Dysphagia, unspecified; R29.6 Repeated falls; Z23 Encounter for immunization

== ENCOUNTER → 2024-04-23 12:08 | Outpatient (BNVA) | payer OTHER, SELFPAY | PROVIDERS: PCP Internal Medicine; Visit Provider Internal Medicine | DX: Z00.01 Encounter for general adult medical examination with abnormal findings (principal); Z23 Encounter for immunization; E11.65 Type 2 diabetes mellitus with hyperglycemia; I25.10 Atherosclerotic heart disease of native coronary artery without angina pectoris; K21.9 Gastro-esophageal reflux disease without esophagitis; E66.9 Obesity, unspecified; I10 Essential (primary) hypertension; E78.5 Hyperlipidemia, unspecified; E03.8 Other specified hypothyroidism; E06.3 Autoimmune thyroiditis; R13.10 Dysphagia, unspecified; R29.6 Repeated falls; R20.0 Anesthesia of skin; Z87.891 Personal history of nicotine dependence | CPT/HCPCS: 90471; 90714; 99397 ==

== ENCOUNTER 2024-05-16 07:59 | Outpatient (REF) | payer OTHER, SELFPAY ==
--- NOTE | 2024-05-16 08:03 | EMG_ITS ---
Chief complaint: Chronic bilateral feet numbness, frequent falls EMG bilateral upper extremities 03/22/2023 IMPRESSION: 1. This is an abnormal study. 2. There is electrodiagnostic evidence for left severe and right moderate-severe median neuropathy at the wrist, consistent with carpal tunnel syndrome. 3. There is electrodiagnostic evidence for right ulnar neuropathy at elbow. 4. There is no electrodiagnostic evidence for brachial plexopathy, or cervical radiculopathy. CLINICAL COMMENT: Given small amplitudes on sensory nerves, possible polyneuropathy related to diabetes. Consider NCS/EMG bilateral lower extremity to make full diagnosis. Reason for referral: Evaluate for peripheral neuropathy Referred by: Dr. Fish Procedure done: Bilateral lower extremity NCS/EMG Precautions and/or limitations: None The limb temperature was monitored continuously and remained between 32-36 degrees C during the performance of the NCS. Nerve Conduction Studies Anti Sensory Summary Table ?Stim Site NR Onset (ms) Norm Onset (ms) Peak (ms) Norm Peak (ms) O-P Amp (?V) Norm O-P Amp Site1 Site2 Delta-0 (ms) Dist (cm) Rinku (m/s) Norm Rinku (m/s) Left Sural Anti Sensory (Lat Mall) Calf NR <4.0 >5.0 Calf Lat Mall 14.0 Right Sural Anti Sensory (Lat Mall) Calf NR <4.0 >5.0 Calf Lat Mall 14.0 Motor Summary Table ?Stim Site NR Onset (ms) Norm Onset (ms) O-P Amp (mV) Norm O-P Amp iAmp (mV) Amp (1st) (%) Site1 Site2 Delta-0 (ms) Dist (cm) Rinku (m/s) Norm Rinku (m/s) Right Peroneal Motor (Ext Dig Brev) Ankle ? 3.9 <4.0 4.2 >2.5 5.2 100.0 Ankle Ext Dig Brev 3.9 0.0 B Fib ? 10.3 3.3 4.2 78.6 B Fib Ankle 6.4 29.0 45 >40 Poplt ? 11.2 3.3 4.1 78.6 Poplt B Fib 0.9 4.0 44 >40 Left Tibial Motor (Abd Da Silva Brev) Ankle ? 4.1 <5 5.5 >2.5 7.3 100.0 Ankle Abd Da Silva Brev 4.1 0.0 Knee ? 12.1 5.6 7.5 101.8 Knee Ankle 8.0 36.0 45 >40 Right Tibial Motor (Abd Da Silva Brev) Ankle ? 3.8 <5 9.7 >2.5 13.6 100.0 Ankle Abd Da Silva Brev 3.8 0.0 Knee ? 11.3 3.9 5.9 40.2 Knee Ankle 7.5 38.0 51 >40 EMG ?Side Muscle Nerve Root Ins Act Fibs Psw Amp Dur Poly Recrt Int Pat Comment Right AbdHallucis MedPlantar S1-2 Incr 1+ 1+ Nml Nml 0 Nml Complete Right AntTibialis Dp Br Peron L4-5 Nml Nml Nml Nml Nml 0 Nml Complete Right PostTibialis Tibial L5, S1 Nml Nml Nml Nml Nml 0 Nml Complete Right MedGastroc Tibial S1-2 Nml Nml Nml Nml Nml 0 Nml Complete Right VastusMed Femoral L2-4 Nml Nml Nml Nml Nml 0 Nml Complete Left AbdHallucis MedPlantar S1-2 Nml Nml Nml Nml Nml 0 Nml Complete Left AntTibialis Dp Br Peron L4-5 Nml Nml Nml Nml Nml 0 Nml Complete Left PostTibialis Tibial L5, S1 Nml Nml Nml Nml Nml 0 Nml Complete Left MedGastroc Tibial S1-2 Nml Nml Nml Nml Nml 0 Nml Complete Left VastusMed Femoral L2-4 Nml Nml Nml Nml Nml 0 Nml Complete FINDINGS: Bilateral sural nerves showed no response. All other nerves tested were within normal. Concentric needle EMG was performed in selected muscles of the bilateral lower extremity. Study revealed signs of electric abnormalities as shown in the table above. Right AH showed increased insertional activity, PSWs and fibrillations. IMPRESSION: 1. This is an abnormal study. 2. There is electrodiagnostic evidence confirming sensorimotor peripheral neuropathy, axonal features. 3. There is no electrodiagnostic evidence for peroneal neuropathy, tibial neuropathy, lumbosacral plexopathy, or lumbar radiculopathy. Thank you for your kind referral. Marlee Wagner MD, JAMES Board Certified, [place] [employer] and [employer] (ABPMR) Board Certified, [place] Board of Electrodiagnostic [employer] (ABEM) CODIN 99662 x 2 CLAUDETTED
== END 2024-05-16 08:00 | disposition home or self-care (01) ==
LOC: HO.NEURO 07:59
PROVIDERS: PCP Internal Medicine; Visit Provider Internal Medicine
DX: R20.0 Anesthesia of skin (principal)
CPT/HCPCS: 95886; 95909

== ENCOUNTER → 2024-05-16 08:03 | Outpatient (BNV) | payer OTHER, SELFPAY | PROVIDERS: PCP Internal Medicine; Visit Provider Physical Medicine & Rehabilitation | DX: G62.89 Other specified polyneuropathies (principal) | CPT/HCPCS: 95886; 95909 ==

== ENCOUNTER 2024-07-09 08:48 | Outpatient (AMB) | payer OTHER, SELFPAY ==
[2024-07-09 09:27] VITALS: BP 118/64; PULSE 70; TEMP 36.2; O2SAT 96; BMI 30.4
--- NOTE | 2024-07-09 09:27 | AM.OFFWIN_ITS ---
Intake Vital Signs 07/09/24 09:27 Height 5 ft 2 in Weight 166 lb BMI 30.4 BP 118/64 Blood Pressure Location Lt brachial Position Sitting Pulse 70 Pulse Source Pulse Oximeter Temp 97.2 F Temp Source Temporal Artery Scan Pulse Oximetry (%) 96 Oxygen Delivery Method Room Air Intake Visit Reasons: EP lower back pain Intake Note: Pt presents to the office today for lower back pain after a fall in February and the pain has been getting worse. Pt denies any numbness or tingling down her legs. Patient Tobacco Use Status: Former Tobacco user Allergies ibuprofen [From MOTRIN] Allergy (Mild, Verified 07/09/24 09:28) STOMACH UPSET, gastritis HPI EP lower back pain HPI Details This note is constructed using voice recognition software. While every effort has been made to ensure accuracy, working supervisor errors may have been included. The patient is a 73 year old female who presents to the clinic today with right lower back pain since a fall in February. The patient was having multiple falls, and is pending referral to Neurology ordered by PCP. Her family member advised that she start using her walker in the home, which has since reduced falls. She denies any numbness and tingling in her legs, any loss of control of bowel or bladder. She has tried topical icy hot, which has helped some but not resolve the symptoms. [facility] Medical History (Updated 05/27/24 @ 16:01 by Kadi Davis PA-C) History of myocardial infarction History of nicotine dependence Bilateral hand numbness Left ovarian cyst Type 2 diabetes mellitus with diabetic polyneuropathy Abnormal liver function test Tear of meniscus of left knee Lumbar degenerative disc disease Knee osteoarthritis GERD (gastroesophageal reflux disease) Ovarian cyst Carpal tunnel syndrome Obstructive sleep apnea Coronary artery disease Anemia Obesity (BMI 30-39.9) Hypertension Dyslipidemia Hypothyroidism Diabetic nephropathy associated with type 2 diabetes mellitus 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 Diabetes type 2, uncontrolled Surgical History History of carpal tunnel surgery of left wrist H/O bilateral oophorectomy History of esophagogastroduodenoscopy (EGD) Hx of colonoscopy Hx of right coronary artery stent placement History of surgical removal of nipple Hx of tubal ligation Hx of cholecystectomy Family History Father Diabetes mellitus Mother Diabetes mellitus Maternal Uncle Colon cancer Gastric cancer Daughter Diabetes mellitus Social History (Updated 04/23/24 @ 12:38 by Georgian Fish MD) Household Members: None Housing: Apartment Alcohol intake: never Comment: counts correct Patient Tobacco Use Status: Former Tobacco user Tobacco use type: Cigarette Years Smoked: quit smoking 2016 e-Cigarette/Vaping Use: Never Used Second Hand Smoke Exposure: No service: No Current occupational status: disabled Current occupational exposures/hazards: No Cognitive needs: No Hearing needs: No Vision needs: Yes Review of Systems Const All systems reviewed & are unremarkable except as noted in HPI and below Physical Exam Vital Signs: Last Vital Signs Temp 97.2 F 07/09/24 09:27 Pulse 70 07/09/24 09:27 BP 118/64 07/09/24 09:27 Pulse Ox 96 07/09/24 09:27 Oxygen Delivery Method Room Air 07/09/24 09:27 BMI result Body Mass Index 30.4 Const General: cooperative, healthy appearing, comfortable, no acute distress and well developed Orientation/consciousness: patient oriented x3 Limitations: no limitations HEENT Head: Yes normal to inspection Ears: hearing grossly normal bilaterally General nose exam: Normal external nose present Face and sinus: Yes normal facial exam Eyes General: appearance normal, both eyes and all related structures Neck Neck: Yes normal visual inspection and Yes full ROM Resp Effort & Inspection: normal respiratory effort and able to speak in complete sentences Back/Spine/Pelvis Other: Right-sided SI tenderness. Lateral rotation of lower spine limited to pain, patient declines forward bend due to pain. Negative SLR, negative well SLR. Strength 5/5 and legs. Distal neurovascular exam intact. Skin General skin exam: no rashes or lesions noted Neuro General: patient oriented x3 Extrem General: Yes normal to inspection Assessment & Plan Assessment & Plan (1) Chronic SI joint pain: Code(s): M53.3 - Sacrococcygeal disorders, not elsewhere classified; G89.29 - Other chronic pain Plan: Supportive measures encouraged and reviewed, including heat/ice, topical treatments, oral or topical NSAIDs. Physical therapy recommended, but declined by patient. Advised patient to follow up with PCP as needed. Plan See above for full details and plan. Coding Level of Care Code Est Pt Level 3 (39240) Diagnoses Chronic SI joint pain M53.3; G89.29
--- OUTSIDE RECORDS SUMMARY | 2024-07-09 23:11 | XMS_ITS | Patient Health Record ---
Author Organization [facility] Address [address] [place] [address] Care Team Providers Care Speaker Wirer Name Role Phone Georgina Fish MD Primary Care Provider David Velasco [phone] ALLERGIES Allergen (clinical drug ingredient) Drug/Non Drug Allergy documented on EMR Reaction Allergy Type Onset Date Status ibuprofen Ibuprofen Unknown Drug Allergy Active REASON FOR REFERRAL No Information MEDICATIONS Medication SIG (Take, Route, Frequency, Duration) Notes Start Date End Date Status Lisinopril 30 MG Oral for 90 A ctive Melatonin 1 MG TOME NIMA TABLETA VIA ORAL AL ACOSTARSE BJ SEA NECESARIO FOR SLEEP. Oral for 30 Active Meloxicam 7.5 MG TOME NIMA TABLETA VIA ORAL CADA DAVID Oral for 30 Active Trulicity 3 MG/0.5ML INJECT 3 MG 0.5 ML) SUBCUTANEOUSLY EVERY WEEK. Subcutaneous for 28 Active levoFLOXacin 500 MG TOME NIMA TABLETA VIA ORAL CADA DAVID Oral for 6 Active Levothyroxine Sodium 125 MCG TOME NIMA TABLETA VIA ORAL CADA DAVID Oral for 90 Active traMADol HCl 50 MG TOME NIMA TABLETA VIA ORAL DOS VECES AL DAVID BJ SEA NECESARIO PARA EL DOLOR Oral for 3 Active Metoprolol Succinate ER 200 MG TAKE 1 TABLET BY MOUTH DAILY. Oral for 90 Not-Taking Cyclobenzaprine HCl 5 MG TOME NIMA TABLET A VIA ORAL MELCHOR VECES AL DAVID BJ SEA NECESARIO FOR MUSCLE SPASM. Oral for 5 Active Sertraline HCl 100 MG TOME DOS TABLETAS VIA ORAL CADA DAVID Oral for 30 Active busPIRone HCl 15 MG Oral for 15 Active Fiasp Active Nitroglycerin 0.[address] ONE TABLET UN MAYANK THE TONGUE EVERY 5 MINUTES FOR 3 DOSES/TIMES, NEEDED FOR CHEST PAIN; NOT TO EXCEED 3 DOSES IN 15 MINUTES. Sublingual for 5 Active Isosorbide Mononitrate ER 120 MG TOME NIMA TABLETA VIA ORAL CADA MANANA Oral for 90 Active Omeprazole 20 MG TAKE 1 CAPSULE BY [facility] DAILY. Oral for 90 Active IMMUNIZATIONS Vaccine Route Administration Date Status Comme nts Influenza Unknown 03/30/2022 Administered SOCIAL HISTORY Tobacco Use: Social History Observation Description Date Details (start date - stop date) Former Smoker NA - NA Sex Assigned At : Social History Observation Description Sex Assigned At Unknown Tobacco Use/Smoking Question Answer Notes Patient is a former smoker How long has it been since you last smoked? > 10 years Alcohol Screen Question Answer Notes Did you have a drink containing alcohol in the p ast year? No Points 0 Interpretation Negative PROBLEMS Problem Type ICD Code Onset Dates Problem Status W/U Status Risk SNOMED Code Notes Problem Colon cancer screening (Z12.11) Active confirmed 599327541 Problem Preprocedural examination (Z01.818) Active confirmed [id number] PLAN OF TREATMENT Future Test Test Name Order Date COLONOSCOPY 08/17/2022 Insurance Providers Payer Name Payer Address Payer Phone Subscriber Number Group Number Insured Name Patient Relationship to Insured Coverage Start Date Coverage End Date [facility] [address] [place] [address] [id number] DUNCAN PETE Self - patient is the insured MEDICAL (GENERAL) HISTORY Medical History History ICD Code Hypertension GERD Hypothyroidism sleep apnea-uses a CPAP hypercholesterolemia coronary artery disease with reported MS X 2 and 2 stents iin approx 2017--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 screening colonoscopy in 2006 other than hyperplastic polyps Denies CVA,Lung disease,renal disease Surgical History Surgery Date(Month/Year) breast bilaterallly for infections cholecystectomy tubal ligation carpal tunnel on the right
--- OUTSIDE RECORDS SUMMARY | 2024-07-09 23:11 | XMS_ITS | Continuity of Care Document ---
Author Organization [facility] Address [address] [place] [id number] Care Team Providers Care Warehouse Technician Name Role Phone Po Georgina SILVEIRA Primary Care Physician [place] [facility] [place] - 06/18/24 [facility] [address] [place] [address] Drive [address] [place], [place] [address] Encounter Type: Triage Allergies, Adverse Reactions, Alerts Substance Criticality Severity Reaction Reaction Severity Status ibuprofen Active Immunizations Given and Recorded Vaccine Date Status Refusal Reason pneumococcal 23-valent vaccine 01/05/13 Given Medications amLODIPine 5 mg oral tablet 1 tablet = 5 mg, By Mouth, 2 times a day, this is an increased dose - for angina, # 30 tablet, 5 Refills, Maintenance, 09/20/23 4:24:00 PM EST, Tablet, [facility], Partial fill upon patient request if the prescription is for a schedule II opioid drug., 154.9, cm, 09/20/23 15:58:00 EST, Height, 74.1, kg, 01/29/23 14:46:00 EDT, Dry Weight Start Date: 09/20/23 Status: Ordered Quantity: 30.0 Unit: tablet Repeat number: 6 aspirin 81 mg oral tablet 1 tablet, By Mouth, Daily, # 30 tablet, 0 Refills, Maintenance, 06/05/11 10:03:03 AM EST, Tablet Start Date: 06/05/11 Status: Ordered Quantity: 30.0 Unit: tablet Repeat number: 1 atorvastatin 20 mg oral tablet 1 tablet = 20 mg, By Mouth, Daily, # 30 tablet, 5 Refills, Maintenance, 11/30/23 4:00:00 PM EDT, Tablet, [facility], Partial fill upon patient request if the prescription is for a schedule II opioid drug., 158, cm, 11/22/23 16:08:00 EDT, Height, 80.9, kg, 11/21/23 9:28:00 EDT, Dry Weight Start Date: 11/30/23 Status: Ordered Quantity: 30.0 Unit: tablet Repeat number: 6 BD PEN NEEDL MIS [id number] BD PEN NEEDL MIS [id number], 0 Refills, Maintenance, 12/30/20 9:39:00 AM EDT Start Date: 12/30/20 Status: Ordered Repeat number: 1 Farxiga 5 mg oral tablet TOME NIMA TABLETA VIA ORAL CADA DAVID Start Date: 05/24/23 Status: Ordered Repeat number: 1 isosorbide mononitrate 30 mg oral tablet, extended release 90 mg, By Mouth, Daily in AM, # 90 tablet, Refills 0, Tot. Refills 0, Maintenance, 11/22/23 3:58:00 PM EDT, Route to Pharmacy Electronically, [facility], Partial fill upon patient request if the prescription is for a schedule II opioid drug., 158, cm, 11/22/23 12:13:00 EDT, Height, 80.9, kg, 11/21/23 9:28:00 EDT, Dry Weight Start Date: 11/22/23 Status: Ordered Quantity: 90.0 Unit: tablet Repeat number: 1 Lantus Solostar Pen 100 units/mL subcutaneous solution = 10 units, Subcutaneous Injection, Daily at bedtime, # 10 mL, 0 Refills, Maintenance, 12/30/20 9:39:00 AM EDT, Solution, Partial fill upon patient request if the prescription is for a schedule II opioid drug. Start Date: 12/30/20 Status: Ordered Quantity: 10.0 Unit: mL Repeat number: 1 levothyroxine 0.1 mg oral tablet 1 tablet = 100 mcg, By Mouth, Daily, # 60 tablet, 0 Refills, Maintenance, 11/22/23 4:19:00 PM EDT, Tablet, [facility], Partial fill upon patient request if the prescription is for a schedule II opioid drug., 158, cm, 11/22/23 16:08:00 EDT, Height, 80.9, kg, 11/21/23 9:28:00 EDT, Dry Weight Start Date: 11/22/23 Status: Ordered Quantity: 60.0 Unit: tablet Repeat number: 1 Melatonin 1 mg oral tablet TOME NIMA TABLETA VIA ORAL AL ACOSTARSE BJ SEA NECESARIO FOR SLEEP Start Date: 05/24/23 Status: Ordered Repeat number: 1 Metoprolol Succinate ER 100 mg oral tablet, extended release 2 tablet = 200 mg, By Mouth, Daily, 0 Refills, Maintenance, 12/23/15 10:12:14 AM EDT Start Date: 12/23/15 Status: Ordered Repeat number: 1 MiraLax oral powder for reconstitution = 17 Gm, By Mouth, Daily, dissolve in water before taking, # 255 Gm, 0 Refills, Maintenance, 01/31/2312:14:00 AM EDT, REC Powder, [facility], Partial fill upon patient request if the prescription is for a schedule II opioid drug., 17 Gm By Mouth Daily,Instr:dissolve in water before taking, 154.94, cm, 01/16/23 10:32:00 EDT, Height, 74.1, kg, 01/29/23 14:46:00 EDT, Dry Weight Start Date: 01/30/23 Status: Ordered Quantity: 255.0 Unit: g Repeat number: 1 nitroglycerin 0.4 mg sublingual tablet See Instructions, PLACE ONE TABLET UNDER THE TONGUE EVERY 5 MINUTES FOR 3 DOSES/TIMES, NEEDED FOR CHEST PAIN; NOT TO EXCEED 3 DOSES IN 15 MINUTES., # 25 tablet, 1 Refills, Maintenance, 08/15/23 9:25:00 AM EST, [facility], 154.9, cm, 08/15/23 8:45:00 EST, Height, 74.1, kg, 01/29/23 14:46:00 EDT, Dry Weight Start Date: 08/15/23 Status: Ordered Quantity: 25.0 Unit: tablet Repeat number: 2 Pen [place], 31 G x 5 mm BD Ultra Fine III See Instructions, # 100 each, Refills 5, Tot. Refills 5, Maintenance, use as directed for Type 1 Diabetes Mellitus, 09/11/11 9:20:21 AM EST Start Date: 09/11/11 Stop Date: 03/09/12 Status: Ordered Quantity: 100.0 Unit: each Repeat number: 6 pentoxifylline 400 mg oral tablet, extended release 400 mg, 1, tablet, By Mouth, Daily, # 30 tablet, Refills 0, Maintenance, 12/30/20 9:39:00 AM EDT, Partial fill upon patient request if the prescription is for a schedule II opioid drug. Start Date: 12/30/20 Status: Ordered Quantity: 30.0 Unit: tablet Repeat number: 1 Praluent Pen 75 mg/mL subcutaneous solution = 75 mg, Every 14 days, 0 Refills, Maintenance, 12/30/20 9:39:00 AM EDT, Partial fill upon patient request if the prescription is for a schedule II opioid drug. Start Date: 12/30/20 Status: Ordered Repeat number: 1 Prilosec 20 mg oral enteric coated capsule 1 capsule = 20 mg, By Mouth, Daily, # 30 capsule, 0 Refills, Maintenance, 06/16/15 9:17:36 AM EST, EC Capsule Start Date: 06/16/15 Status: Ordered Quantity: 30.0 Unit: capsule Repeat number: 1 ranolazine 500 mg oral tablet, extended release 1 tablet = 500 mg, By Mouth, 2 times a day, # 60 tablet, 6 Refills, Maintenance, 11/01/23 1:11:00 PM EDT, ER Tablet, [facility], Partial fill upon patient request if the prescription is for a schedule II opioid drug., 154.9, cm, 11/01/23 12:52:00 EDT, Height, 74.1, kg, 01/29/23 14:46:00 EDT, Dry Weight Start Date: 11/01/23 Status: Ordered Quantity: 60.0 Unit: tablet Repeat number: 7 sertraline 100 mg oral tablet 1 tablet = 100 mg, By Mouth, Daily, # 30 tablet, 0 Refills, Maintenance, 05/28/17 8:20:44 PM EDT, Tablet Start Date: 05/28/17 Status: Ordered Quantity: 30.0 Unit: tablet Repeat number: 1 ticagrelor 90 mg oral tablet 1 tablet = 90 mg, By Mouth, 2 times a day, # 60 tablet, 11 Refills, Maintenance, 11/22/23 3:59:00 PMEDT, Tablet, [facility], Partial fill upon patient request if the prescription is fora schedule II opioid drug., 158, cm, 11/22/23 12:13:00 EDT, Height, 80.9, kg, 11/21/23 9:28:00 EDT,Dry Weight Start Date: 11/22/23 Status: Ordered Quantity: 60.0 Unit: tablet Repeat number: 12 traZODone 50 mg oral tablet 50 mg, 1, tablet, By Mouth, Daily at bedtime, # 30 tablet, Refills 0, Maintenance, 12/30/20 9:41:00 AM EDT, Partial fill upon patient request if the prescription is for a schedule II opioid drug. Start Date: 12/30/20 Status: Ordered Quantity: 30.0 Unit: tablet Repeat number: 1 Trulicity Pen 0.75 mg/0.5 mL subcutaneous solution 0.5 mL = 0.75 mg, Subcutaneous Injection, Every week, 0 Refills, Maintenance, 12/30/20 9:40:00 AM EDT, Solution, Partial fill upon patient request if the prescription is for a schedule II opioid drug. Start Date: 12/30/20 Status: Ordered Repeat number: 1 Tylenol 325 mg oral tablet 650 mg, 2, tablet, By Mouth, Every 4 hours, PRN, # 40 tablet, Refills 0, Tot. Refills 0, Maintenance, for pain, 01/30/23 12:14:00 AM EDT, Route to Pharmacy Electronically, [facility], Partial fill upon patient request if the prescription is for a schedule II opioid drug., 154.94, cm,01/16/23 10:32:00 EDT, Height, 74.1, kg, 01/29/23 14:46:00 EDT, Dry Weight Start Date: 01/30/23 Status: Ordered Quantity: 40.0 Unit: tablet Repeat number: 1 valsartan 40 mg oral tablet 20 mg, 0.5, tablet, By Mouth, Daily, # 15 tablet, Refills 11, Tot. Refills 11, Maintenance, :39:00 PM EDT, Route to Pharmacy Electronically, [facility], Partial fill upon patient request if the prescription is for a schedule II opioid drug., 158, cm, 12/13/23 17:22:00 EDT,Height, 80.9, kg, 11/21/23 9:28:00 EDT, Dry Weight Start Date: 03/25/24 Stop Date: 03/20/25 Status: Ordered Quantity: 15.0 Unit: tablet Repeat number: 12 Problem List Condition Confirmation Course Effective Dates Status H ealth Status Informant Anxiety Confirmed Active CAD (coronary artery disease) Confirmed Active Diabetes mellitus Confirmed Active Stress incontinence Confirmed Active High cholesterol Confirmed Active Hypothyroidism Confirmed Active Heart attack Confirmed Active Diabetic neuropathy Confirmed Active Obese class I Confirmed Active Follow-up examination after gynecological surgery Confirmed Active Social History Social History Type Response Smoking Status Former smoker; Tobac co user in household: No; Other: quit smoking 2012; entered on: 06/16/15 Sex Sex Representation Female (finding) Patient Care team information Care Team Personnel Name: Beth Carter RN Position: [facility] SN RN Member Role: Primary Care Nurse Name: Monica Sigala RN Position: S RN Member Role: Primary Care Nurse Name: Jomar Pleitez RN Position: S RN Member Role: Primary Care Nurse Name: Jackie Wood RN Position: S RN Member Role: Primary Care Nurse Name: Ila Dalal RN Position: [facility] SN RN Member Role: Primary Care Nurse Name: Mona Heard RN Position: S RN Member Role: Primary Care Nurse Name: Tesha Henriquez RN Position: [facility] ED RN W/OE and Tasks Member Role: Primary Care Nurse Name: Georgina Fish MD Position: Reference Physician Member Role: PCP Address: [address] [place] [address] [id number] Telecom: Name: Chiquis Porter RN Position: [facility] OB RN Member Role: Primary Care Nurse Care Team Related Persons Name: MAIKEL KOEHLER Name: JOANIE KOEHLER Name: AIYANA KOEHLER Insurance Providers Guarantor name: [facility] Information #: 1 Payer: NA Member Number: NA Policy Number: NA Group Number: NA
== END 2024-07-09 09:57 | disposition home or self-care (01) ==
PROVIDERS: PCP Internal Medicine; Visit Provider Registered Nurse
DX: M53.3 Sacrococcygeal disorders, not elsewhere classified (principal); G89.29 Other chronic pain

== ENCOUNTER → 2024-07-09 08:48 | Outpatient (BNVA) | payer OTHER, SELFPAY | PROVIDERS: PCP Internal Medicine; Visit Provider Registered Nurse | DX: M53.3 Sacrococcygeal disorders, not elsewhere classified (principal); G89.29 Other chronic pain | CPT/HCPCS: 99212 ==

== ENCOUNTER 2024-07-18 09:03 | Outpatient (AMB) | payer OTHER, SELFPAY ==
--- NOTE | 2024-07-18 07:44 | MHC.OFFVIS ---
Intake Visit Reasons: Former Smoker Allergies ibuprofen [From MOTRIN] Allergy (Mild, Verified 07/09/24 09:28) STOMACH UPSET, gastritis HPI HPI Former Smoker: Details: Initial visit for this 73yo former smoker with a 27PYH. Patient started smoking at age 11 for 55 years at 1/2 ppd. She quit in 2017. . Denies marijuana use. Denies second hand smoke exposure. Denies exposure to chemicals or substances like asbestos. . Denies known family history of lung cancer. Denies personal history of cancers. Denies chest CT in last year. . Denies recent travel outside the [place]. Denies recent respiratory illness or recent hospitalization for respiratory issues. Denies testing positive for COVID. Admits receiving COVID Vaccine. . Denies fever, chills, new/worsening cough, hemoptysis, hoarseness or dysphagia. Denies significant chest pain, significant dyspnea or unintentional weight loss. Patient Lung Cancer Screening Questionnaire reviewed with patient by provider. . Shared Decision Making Completed. Patient meets criteria. Discussed in detail with patient, the risk vs benefit of LDCT screening. Patient consents to proceed with scan. Discussed and encouraged continued smoking cessation. Japanese Speaking - interpretive services utilized [facility] Medical History (Updated 07/18/24 @ 09:31 by Kadi Davis PA-C) Personal history of nicotine dependence History of myocardial infarction Bilateral hand numbness Left ovarian cyst Type 2 diabetes mellitus with diabetic polyneuropathy Abnormal liver function test Tear of meniscus of left knee Lumbar degenerative disc disease Knee osteoarthritis GERD (gastroesophageal reflux disease) Ovarian cyst Carpal tunnel syndrome Obstructive sleep apnea Coronary artery disease Anemia Obesity (BMI 30-39.9) Hypertension Dyslipidemia Hypothyroidism Diabetic nephropathy associated with type 2 diabetes mellitus retirement (current) use of insulin Diabetes type 2, uncontrolled Surgical History History of carpal tunnel surgery of left wrist H/O bilateral oophorectomy History of esophagogastroduodenoscopy (EGD) Hx of colonoscopy Hx of right coronary artery stent placement History of surgical removal of nipple Hx of tubal ligation Hx of cholecystectomy Family History Father Diabetes mellitus Mother Diabetes mellitus Maternal Uncle Colon cancer Gastric cancer Daughter Diabetes mellitus Social History (Updated 07/18/24 @ 09:31 by Kadi Davis PA-C) Household Members: None Housing: Apartment Alcohol intake: never Comment: counts correct Patient Tobacco Use Status: Former Tobacco user Tobacco use type: Cigarette Years Smoked: (onset 11yo, 1/2ppd x 55yrs,27pyh quit 2017) e-Cigarette/Vaping Use: Never Used Second Hand Smoke Exposure: No service: No Current occupational status: disabled Current occupational exposures/hazards: No Cognitive needs: No Hearing needs: No Vision needs: Yes Assessment & Plan Assessment & Plan (1) Personal history of nicotine dependence: Comment: (former smoker - onset 11yo, 1/2ppd x 55yrs,27pyh quit 2017) Code(s): Z87.891 - Personal history of nicotine dependence Category: Medical Plan: - SDM visit completed today in office. - Patient meets criteria for LDCT for lung cancer screening purposes and is asymptomatic. - Smoking cessation counseling offered. Patients can always call [phone]. - Will arrange for a LDCT scan of the chest for screening purposes at [facility]. - Risks, benefits, and alternatives were discussed in detail and the patient agrees to proceed. - Risks discussed include but are not limited to: radiation exposure, anxiety during testing and while awaiting results, false negatives, false positives and possibility of additional intervention such as further imaging or surgical procedures for benign disease. - Benefits are obviously detection of lung cancer at an early stage which can lead to improved outcomes. - Discussed the importance of screening program compliance with adherence to yearly LDCT scan as scheduled - or sooner interval scans for personalized screening regimen. - Discussed follow up plan. Our office will send a letter discussing results and if needed set up phone call and office visit based on CT findings. - Patient educated on results categorization and the management decisions for suspicious findings potentially found on the screening LDCT scan. Any patient with a Lung RADS score of 3 or 4 will be reviewed by a multidisciplinary team at [facility] to form a plan of action in regards to scan findings. - If further work up is warranted for a suspicious lung finding this will be followed by the Lung Cancer Screening program in conjunction with the Thoracic Surgery Department at [facility]. - A copy of the office note and LDCT will be sent to the patient's PCP - as well as documentation on any associated further plans of care. - Incidental findings on LDCT are the PCP's responsibility. These findings are indicated with an S finding on the LDCT Assessment. A note discussing the findings will be sent to the PCP who is then responsible for further management. - All questions answered.? Coding Level of Care Code Lung Cancer Screening G0296 Diagnoses Personal history of nicotine dependence Z87.891
--- OUTSIDE RECORDS SUMMARY | 2024-07-18 09:06 | XMS_ITS | Patient Health Record ---
Author Organization 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 Oral for 90 Active IMMUNIZATIONS Vaccine [...] Problem Colon cancer screening (Z12.11) Active confirmed [id number] Problem Preprocedural examination (Z01.818) Active confirmed [id number] PLAN OF TREATMENT Future Test Test Name Order Date COLONOSCOPY 08/17/2022 Insurance Providers Payer Name Payer Address Payer Phone Subscriber Number Group Number Insured Name Patient Relationship to Insured Coverage Start Date Coverage End Date [facility] [address] [place] [address] [id number] DUNCAN PETE Self - patient is the insured MEDICAL (GENERAL) HISTORY Medical History History ICD Code Hypertension GERD Hypothyroidism sleep apnea-uses a CPAP hypercholesterolemia coronary artery disease with reported NE X 2 and 2 stents iin approx 2017--Degreaser is Dr. Maria at [facility] IDDM with Insulin pump Neg. screening colonoscopy in 2006 other than hyperplastic polyps Denies CVA,Lung disease,renal disease Surgical History Surgery Date(Month/Year) breast bilaterallly for infections cholecystectomy tubal ligation carpal tunnel on the right
== END 2024-07-18 10:21 | disposition home or self-care (01) ==
PROVIDERS: PCP Internal Medicine; Visit Provider Physician Assistant Medical
DX: Z87.891 Personal history of nicotine dependence (principal)
CPT/HCPCS: G0296

== ENCOUNTER 2024-07-18 09:31 | Outpatient (REF) | payer OTHER, SELFPAY | END 2024-07-18 09:32 | disposition home or self-care (01) | LOC: HO.CT 09:31 | PROVIDERS: PCP Internal Medicine; Visit Provider Physician Assistant Medical | DX: Z12.2 Encounter for screening for malignant neoplasm of respiratory organs (principal); Z87.891 Personal history of nicotine dependence | CPT/HCPCS: 71271; G0296 ==

== ENCOUNTER → 2024-07-18 09:35 | Outpatient (BNV) | payer OTHER, SELFPAY | PROVIDERS: PCP Internal Medicine; Visit Provider Radiology Diagnostic Radiology | DX: Z12.2 Encounter for screening for malignant neoplasm of respiratory organs (principal); Z87.891 Personal history of nicotine dependence; R91.1 Solitary pulmonary nodule | CPT/HCPCS: 71271 ==

== ENCOUNTER 2024-08-14 09:24 | Outpatient (AMB) | payer OTHER, SELFPAY ==
--- NOTE | 2024-08-14 09:35 | A.OFFPC_ITS ---
Vital Signs 08/14/24 09:37 Height 5 ft 2 in Weight 152 lb BMI 27.8 BP 90/60 Blood Pressure Location Lt brachial Position Sitting Temp 97.1 F Temp Source Skin Intake Visit Reasons: [facility] 08/04 heart attack Intake Note: Patient is here for hospital discharge follow up. Patient was discharged from [facility] on 08/04/24. 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: Present Accompanied by: Daughter Allergies ibuprofen [From MOTRIN] Allergy (Mild, Verified 08/14/24 09:49) STOMACH UPSET, gastritis tirzepatide [From Mounjaro] Adverse Reaction (Intermediate, Verified 08/14/24 09:49) upset stomach Medication List - Last Reconciled 08/14/24 by Enedina Galloway PA-C alirocumab (Praluent Pen) 150 mg subcut Q2W aspirin 81 mg PO DAILY atorvastatin 40 mg PO DAILY 90 days BD Insulin Syringe Ultra-Fine (insulin syringe-needle U-100) 4 times a day NS blood-glucose meter (FreeStyle Lite Meter kit) As directed 4x/day bupropion HCl SR 100 mg PO QAM buspirone 15 mg PO BID dapagliflozin propanediol (Farxiga) 5 mg PO DAILY Fiasp U-100 Insulin 100 unit/mL (insulin aspart (niacinamide)) 100 units subcut DAILY NS flash glucose sensor (FreeStyle Ron 2 Sensor kit) USE DIRECTED; CHANGE EVERY 14 DAYS. FreeStyle Lite Strips (blood sugar diagnostic) USE 1 STRIP DIRECTED FOUR TIMES A DAY FOR DIABETES NS insulin pump cart,cont inf,BT (Omnipod Dash Pods (Gen 4) subcutaneous cartridge) As directed change every 48 hrs lancets (FreeStyle Lancets) 28 gauge topical QID 90 days levothyroxine 125 mcg PO DAILY melatonin 1 mg PO BEDTIME metoprolol succinate ER 200 mg PO DAILY ranolazine ER mg PO [Rollator Walker As directed] sertraline 100 mg PO DAILY spironolactone 25 mg PO DAILY ticagrelor (Brilinta) 90 mg PO BID torsemide 20 mg PO DAILY trazodone 50 mg PO BEDTIME PRN 30 days valsartan 20 mg PO DAILY Tobacco use date assessed: 08/14/24 Fall risk assessment: 2 + Falls in past year Last assessed Fall Risk: 08/14/24 Dental Screening Dental Screen Date: 08/14/24 Did you have a dental visit in the last 12 months?: No Did you have a dental problem in the last 6 months where you did not have access to dental care?: No Was dental information given to patient?: No (no teeth) HPI [facility] 08/04 heart attack HPI Details 73-year-old female with past medical his tory of uncontrolled diabetes mellitus, hypothyroidism, hypercholesterolemia, hypertension, obstructive sleep apnea, GERD, coronary artery disease, lumbar degenerative disc disease last seen by Dr. Fish 03/2024.? In review of the notes, patient was seen in [facility] 07/30/2024 for chest pain and shortness of breath, troponin and BNP elevated and concern for NSTEMI started on heparin drip patient was treated with IV ceftriaxone/doxycycline for leukocytosis and admitted for acute hypoxic respiratory failure secondary to acute exacerbation of heart failure and possible NSTEMI. Patient was continued on medications added torsemide, seen by Cardiology recommending a cath for possible NSTEMI. Patient was discharged home Patient presents today with her daughter who is the primary american indian studies professor for the duration of this visit. They declined formal translation. Patient follows with [facility] cardiology with Dr. Lee and Magen and we will have an appointment 09/05/2024. She was discontinued on her GERD medication and started on torsemide and spironolactone while in the hospital. Since discharge from the hospital she has been having visiting nurses and has been having low blood pressure at home. She is mildly symptomatic with the low blood pressure and has occasional lightheadedness but has not had recurrent chest pain or shortness of breath. 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 Diabetes type 2, uncontrolled Surgical History History of carpal tunnel surgery of left wrist H/O bilateral oophorectomy History of esophagogastroduodenoscopy (EGD) Hx of colonoscopy Hx of right coronary artery stent placement History of surgical removal of nipple Hx of tubal ligation Hx of cholecystectomy Family History Father Diabetes mellitus Mother Diabetes mellitus Maternal Uncle Colon cancer Gastric cancer Daughter Diabetes mellitus Social History Household Members: None Housing: Apartment Alcohol intake: never Comment: counts correct Patient Tobacco Use Status: Former Tobacco user Tobacco use type: Cigarette Years Smoked: (onset 11yo, 1/2ppd x 55yrs,27pyh quit 2016) e-Cigarette/Vaping Use: Never Used Second Hand Smoke Exposure: Yes service: No Current occupational status: disabled Current occupational exposures/hazards: No Cognitive needs: Yes (diann garcias) Hearing needs: No Vision needs: Yes Questionnaire PHQ-9 Over the last 2 weeks, how often have you been bothered by any of the following problems? 1. Little interest or pleasure in doing things: nearly every day 2. Feeling down, depressed, or hopeless: more than half the days 3. Trouble falling or staying asleep, or sleeping too much: nearly every day 4. Feeling tired or having little energy: not at all 5. Poor appetite or overeating: nearly every day 6. Feeling bad about yourself - or that you are a failure or have let yourself or your family down: several days 7. Trouble concentrating on things, such as reading the newspaper or watching television: not at all 8. Moving or speaking so slowly that other people could have noticed. Or the opposite - being so fidgety or restless that you have been moving around a lot more than usual: not at all 9. Thoughts that you would be better off or of hurting yourself in some way: not at all Total score: 12 Depression Screening Interpretation: Positive Depression Screening Done: Yes Source: Developed by Drs. David Arroyo, Latha Luz, Buzz Cain and colleagues, with an educational gertrude from [employer]. Thrive Questionnaire Date Thrive assessed: 08/14/24 AUDIT C Alcohol Use Questionnaire (AUDIT-C) 1. How often do you have a drink containing alcohol?: Never Total Score: 0 JASS-7 AMB Questionnaire JASS-7 Date JSAS - 7 assessed: 08/14/24 Feeling nervous, anxious, or on edge: 1 = Several days Not being able to stop or control worryin = Not at all Worrying too much about different things: 0 = Not at all Trouble relaxin = More than half the days Being so restless that it is hard to sit still: 1 = Several days Becoming easily annoyed or irritable: 0 = Not at all Feeling afraid as if something awful might happen: 3 = Nearly every day Total JASS-7 score (0-4 normal; 5-9 mild; 10-14 moderate; 15-21 severe): 7 Source: Developed by Drs. David Arroyo, Latha Luz, Buzz Cain and colleagues, with an educational gertrude from [employer]. Review of Systems Const Denies body aches, Denies chills, Denies fever(s), Denies headache(s) and Denies poor appetite Eyes Reports no additional complaints ENT Denies dysphagia, Denies dizziness, Denies headache(s) and Denies odynophagia Card Denies chest pain, Denies syncope, Denies edema, Denies irregular heart rhythm, Denies lightheadedness and Denies dyspnea Resp Denies cough and Denies dyspnea GI Denies abdominal pain, Denies constipation, Denies dysphagia, Denies diarrhea, Denies nausea, Denies odynophagia and Denies vomiting Reports no additional complaints Musc Reports no additional complaints and Denies abnormal gait Skin/Breast Reports system reviewed and no additional complaints, except as documented Neuro Denies abnormal gait, Denies dizziness, Denies syncope and Denies headache(s) Psych Reports no additional complaints Physical exam (Primary Care) Vital Signs: Last Vital Signs Temp 97.1 F 08/14/24 09:37 BP 90/60 08/14/24 09:37 BMI result Body Mass Index 27.8 Tobacco/Smoking Status: Tobacco use Status Tobacco use date assessed 08/14/24 08/14/24 09:41 Patient Tobacco Use Status Former Tobacco user 08/14/24 09:36 Tobacco use type Cigarette 08/14/24 09:36 e-Cigarette/Vaping Use Never Used 08/14/24 09:36 PHQ-9: PHQ-9 Score PHQ-9: Total score 12 08/14/24 14:47 Depression Screening Interpretation: Positive Thrive Assessment: Date of Thrive Assessment Date Thrive assessed 08/14/24 08/14/24 09:36 Const General: cooperative, healthy appearing, comfortable and no acute distress Orientation/consciousness: patient oriented x3 HENMT Head: Yes normocephalic Ears: hearing grossly normal bilaterally General nose exam: Normal external nose present Eyes General: appearance normal, both eyes and all related structures Conjunctivae: conjunctivae normal Neck Neck: Yes full ROM and Yes no lymphadenopathy Resp Effort & Inspection: normal respiratory effort Auscultation: clear to auscultation bilaterally, no crackles, no rales, no rhonchi and no wheezes Cardio Rate: regular rate Rhythm: regular rhythm Skin General skin exam: no rashes or lesions noted Neuro General: patient oriented x3 Gait exam (Neuro): Normal gait present Extrem General: Yes normal to inspection, Yes full ROM and No edema Psych Affect: normal affect Attitude: cooperative Insight: Good insight present (Psych) Judgement: Good judgement present (Psych) Coding Level of Care Code Est Pt Level 4 (77630) Diagnoses Type 2 diabetes mellitus with hyperglycemia E11.65 Obesity (BMI 30-39.9) E66.9 Essential hypertension I10 Hypertension type: essential hypertension NSTEMI (non-ST elevated myocardial infarction) I21.4 Dyslipidemia E78.5 Assessment & Plan Assessment & Plan (1) Type 2 diabetes mellitus with hyperglycemia: Comment: Gina 04/2024 Code(s): E11.65 - Type 2 diabetes mellitus with hyperglycemia Category: Medical Plan: Decrease the amount of carbohydrates such as pasta, bread, rice, and potatoes and limit the amount of sweets. Although fruits are generally healthy they should be eaten in moderation as they are still high in sugar. Hemoglobin A1c goal of less than 7%. Will repear A1c at next visit. (2) Obesity (BMI 30-39.9): Code(s): E66.9 - Obesity, unspecified Category: Medical Plan: Healthy diet and regular exercise is encouraged. (3) Hypertension: Code(s): I10 - Essential (primary) hypertension Category: Medical Qualifiers: Hypertension type: essential hypertension Qualified Code(s): I10 - Essential (primary) hypertension Plan: Continue on current blood pressure medication. Avoid salt intake and encourage healthy diet and regular exercise. Patient mildly hypotensive on exam today. Daughter reports patient has been hypo tensive at home with the visiting nurses and occasionally lightheaded. Will decrease Metoprolol to 100mg daily and have patient follow up with Cardiology later this month. Advised patient to keep close eye on blood pressure and reach out to the office for any values out of the normal range. (4) NSTEMI (non-ST elevated myocardial infarction): Comment: 07/2024 Code(s): I21.4 - Non-ST elevation (NSTEMI) myocardial infarction Category: Medical Plan: Patient thought to possibly have NSTEMI while admitted at [facility]. They recommended following up with Cardiology and possible catheterization outpatient. 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 (5) Dyslipidemia: Code(s): E78.5 - Hyperlipidemia, unspecified Category: Medical Plan: Avoid foods that are high in cholesterol such as red meat, fried foods, eggs and baked goods. Triglyceride goal of less than 150 and LDL goal of less than 70. Continue on Atorvastatin 40mg. Plan This note was constructed using voice recognition software. While every effort has been made to ensure accuracy and supervisor pipe joints, still areas may have been included sometimes these areas may affect the content or meeting of the given symptoms. Total time spent caring for the patient today was 30 minutes. This includes time spent before the visit reviewing the chart, time spent during the visit, and time spent after the visit and documentation. Medications: New triamcinolone acetonide 0.1% no longer than 14 days 1 appl topical DAILY 15 grams 0RF
[2024-08-14 09:37] VITALS: BP 90/60; TEMP 36.2; BMI 27.8
--- OUTSIDE RECORDS SUMMARY | 2024-08-14 10:26 | XMS_ITS | Continuity of Care Document ---
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 Name Role Phone Po Georgina SILVEIRA Primary Care Physician [id number] Date(s): 07/30/24 - 08/04/[address] [id number] Encounter Diagnosis Shortness of breath(Final) - 07/30/24 CHF exacerbation(Final) - 07/30/24 NSTEMI (non-ST elevated myocardial infarction)(Final) - 07/30/24 CAD (coronary artery disease)(Final) - 07/30/24 Discharge Disposition: A-D/C Home Attending Physician: Aquilino Lion DO Admitting Physician: Ricki Strong MD Referring Physician: Not on Staff, Referring MD Encounter Type: Disch IP Allergies, Adverse Reactions, Alerts Substance Criticality Severity Reaction Reaction Severity Status ibuprofen Active Immunizations Given and Recorded Vaccine Date Status Refusal Reason influenza virus vaccine, inactivated 07/31/24 Give n influenza virus vaccine, inactivated 05/17/23 Ventura rded influenza virus vaccine, inactivated 06/28/22 Ventura rded influenza virus vaccine, inactivated 06/14/21 Vent[place] rded influenza virus vaccine, inactivated 04/04/20 Vent[place] rded influenza virus vaccine, inactivated 05/05/19 Ventura rded influenza virus vaccine, inactivated 05/01/18 Ventura rded influenza virus vaccine, inactivated 02/27/18 Ventura rded influenza virus vaccine, inactivated 04/23/17 Ventura rded tetanus-diphtheria toxoids (Td) 04/23/24 Recorded [id number] 12y+ bivalent booster vax 06/20/22 Recorded zoster vaccine, inactivated 01/24/22 Recorded SARS-CoV-2 (COVID-19) mRNA BNT-162b2 vac 06/08/21 Recorded SARS-CoV-2 (COVID-19) Ad26 vaccine 10/20/20 Record ed pneumococcal 13-valent vaccine 08/06/18 Recorded pneumococcal 13-valent vaccine 09/17/17 Recorded hepatitis B adult vaccine 05/08/17 Recorded hepatitis B adult vaccine 12/22/16 Recorded hepatitis B adult vaccine 11/20/16 Recorded pneumococcal 23-valent vaccine 08/16/15 Recorded pneumococcal 23-valent vaccine 01/05/13 Given Medications aspirin 81 mg oral delayed release tablet 81 mg, By Mouth, Daily, # 30 tablet, Refills 0, Tot. Refills 0, Maintenance, 08/04/24 1:02:00 PM EST,Route to Pharmacy Electronically, [facility], Partial fill upon patient request ifthe prescription is for a schedule II opioid drug., 158, cm, 08/03/24 16:44:00 EST, Height, 73.5, kg, 07/30/24 7:37:00 EST, Dry Weight Start Date: 08/04/24 Status: Ordered Quantity: 30.0 Unit: tablet Repeat number: 1 atorvastatin 40 mg oral tablet 1 tablet = 40 mg, By Mouth, Daily, # 30 tablet, 5 Refills, Maintenance, 07/30/24 9:45:00 AM EST, Tablet, Partial fill upon patient request if the prescription is for a schedule II opioid drug. Start Date: 07/30/24 Status: Ordered Quantity: 30.0 Unit: tablet Repeat number: 1 Brilinta (ticagrelor) 90 mg oral tablet 1 tablet = 90 mg, By Mouth, 2 times a day, # 60 tablet, 0 Refills, Maintenance, 08/04/24 1:04:00 PM EST, Tablet, [facility], Partial fill upon patient request if the prescription is for a schedule II opioid drug., 158, cm, 08/03/24 16:44:00 EST, Height, 73.5, kg, 07/30/24 7:37:00 EST, Dry Weight Start Date: 08/04/24 Status: Ordered Quantity: 60.0 Unit: tablet Repeat number: 1 busPIRone 15 mg oral tablet 1 tablet = 15 mg, By Mouth, 2 times a day, # 90 tablet, 0 Refills, Maintenance, 07/30/24 9:42:00 AM EST, Tablet, Partial fill upon patient request if the prescription is for a schedule II opioid drug. Start Date: 07/30/24 Status: Ordered Quantity: 90.0 Unit: tablet Repeat number: 1 Farxiga 5 mg oral tablet 1 tablet = 5 mg, By Mouth, Daily, # 90 tablet, 0 Refills, Maintenance, 07/30/24 9:44:00 AM EST, Tablet, Partial fill upon patient request if the prescription is for a schedule II opioid drug. Start Date: 07/30/24 Status: Ordered Quantity: 90.0 Unit: tablet Repeat number: 1 Fiasp 100 units/mL injectable solution INJECT 100 UNITS SUBCUTANEOUSLY DIALY. Start Date: 07/30/24 Status: Ordered Repeat number: 1 FREESTY LIBR 2 SENSOR KIT FREESTY LIBR 2 SENSOR KIT, 0 Refills, Maintenance, 07/30/24 9:45:00 AM EST Start Date: 07/30/24 Status: Ordered Repeat number: 1 FREESTYLE RON 2 SENSOR MISC FREESTYLE RON 2 SENSOR MISC, USE DIRECTED. CHANGE EVERY 14 DAYS Start Date: 07/30/24 Status: Ordered Repeat number: 1 levothyroxine 125 mcg (0.125 mg) oral tablet 1 tablet = 125 mcg, By Mouth, Daily, # 90 tablet, 0 Refills, Maintenance, 07/30/24 9:45:00 AM EST, Tablet, Partial fill upon patient request if the prescription is for a schedule II opioid drug. Start Date: 07/30/24 Status: Ordered Quantity: 90.0 Unit: tablet Repeat number: 1 Melatonin 1 mg oral tablet 1 tablet = 1 mg, By Mouth, Daily at bedtime, PRN for insomnia, # 90 tablet, 0 Refills, Maintenance,07/30/24 9:42:00 AM EST, Tablet, Partial fill upon patient request if the prescription is for a schedule II opioid drug. Start Date: 07/30/24 Status: Ordered Quantity: 90.0 Unit: tablet Repeat number: 1 Metoprolol Succinate ER 100 mg oral tablet, extended release 200 mg, XL Tablet, By Mouth, 08/04/24 9:00:00 AM EST Start Date: 08/04/24 Stop Date: 08/04/24 Status: Completed Repeat number: 1 Metoprolol Succinate ER 200 mg oral tablet, extended release 1 tablet = 200 mg, By Mouth, Daily, # 90 tablet, 0 Refills, Maintenance, 07/30/24 9:46:00 AM EST, ER Tablet, Partial fill upon patient request if the prescription is for a schedule II opioid drug. Start Date: 07/30/24 Status: Ordered Quantity: 90.0 Unit: tablet Repeat number: 1 Mounjaro 2.5 mg/0.5 mL subcutaneous solution = 2.5 mg, Subcutaneous Injection, Every week, rotate injection sites, # 4 each, 0 Refills, Maintenance, 07/30/24 9:43:00 AM EST, Solution, Partial fill upon patient request if the prescription is for aschedule II opioid drug. Start Date: 07/30/24 Status: Ordered Quantity: 4.0 Unit: each Repeat number: 1 OMNIPOD DASH 5 PACK MIS OMNIPOD DASH 5 PACK MIS, 0 Refills, Maintenance, 07/30/24 9:45:00 AM EST Start Date: 07/30/24 Status: Ordered Repeat number: 1 OMNIPOD DASH MIS PODS OMNIPOD DASH MIS PODS, 0 Refills, Maintenance, 07/30/24 9:45:00 AM EST Start Date: 07/30/24 Status: Ordered Repeat number: 1 OMNIPOD DASH PODS (GEN 4) MISC OMNIPOD DASH PODS (GEN 4) MISC, USE DIRECTED. CHANGE EVERY 48 HOURS Start Date: 07/30/24 Status: Ordered Repeat number: 1 Praluent Pen 150 mg/mL subcutaneous solution INJECT 150 MG SUBCUTANEOUSLY EVERY 14 DAYS Start Date: 07/30/24 Status: Ordered Repeat number: 1 ranolazine 500 mg oral tablet, extended release 1 tablet = 500 mg, By Mouth, 2 times a day, # 60 tablet, 0 Refills, Maintenance, 07/30/24 9:43:00 AM EST, ER Tablet, Partial fill upon patient request if the prescription is for a schedule II opioid drug. Start Date: 07/30/24 Status: Ordered Quantity: 60.0 Unit: tablet Repeat number: 1 sertraline 100 mg oral tablet 2 tablet = 200 mg, By Mouth, Daily, # 90 tablet, 0 Refills, Maintenance, 07/30/24 9:42:00 AM EST, Tablet, Partial fill upon patient request if the prescription is for a schedule II opioid drug. Start Date: 07/30/24 Status: Ordered Quantity: 90.0 Unit: tablet Repeat number: 1 spironolactone 25 mg oral tablet 25 mg, By Mouth, Daily, # 30 tablet, Refills 0, Tot. Refills 0, Maintenance, 08/04/24 1:03:00 PM EST,Route to Pharmacy Electronically, [facility], Partial fill upon patient request ifthe prescription is for a schedule II opioid drug., 158, cm, 08/03/24 16:44:00 EST, Height, 73.5, kg, 07/30/24 7:37:00 EST, Dry Weight Start Date: 08/04/24 Status: Ordered Quantity: 30.0 Unit: tablet Repeat number: 1 torsemide 20 mg oral tablet 1 tablet = 20 mg, By Mouth, Daily, # 30 tablet, 0 Refills, Maintenance, 08/04/24 1:03:00 PM EST, Tablet, [facility], Partial fill upon patient request if the prescription is for a schedule II opioid drug., 158, cm, 08/03/24 16:44:00 EST, Height, 73.5, kg, 07/30/24 7:37:00 EST, Dry Weight Start Date: 08/04/24 Status: Ordered Quantity: 30.0 Unit: tablet Repeat number: 1 traZODone 50 mg oral tablet 50 mg, 1, tablet, By Mouth, Daily at bedtime, PRN, # 30 tablet, Refills 0, Maintenance, Insomnia, 07/30/24 9:44:00 AM EST, Partial fill upon patient request if the prescription is for a schedule II opioid drug. Start Date: 07/30/24 Status: Ordered Quantity: 30.0 Unit: tablet Repeat number: 1 valsartan 40 mg oral tablet TAKE 1/2 TABLET 20 MG) BY MOUTH EVERY DAY. Start Date: 07/30/24 Status: Ordered Repeat number: 1 Problem List Condition Confirmation Course Effective Dates Status H ealth Status Informant Anxiety Confirmed Active CAD (coronary artery disease) Confirmed Active Diabetes mellitus Confirmed Active Stress incontinence Confirmed Active High cholesterol Confirmed Active Hypothyroidism Confirmed Active Heart attack Confirmed Active Diabetic neuropathy Confirmed Active Follow-up examination after gynecological surgery Confirmed Active Results Radiology Reports * Exam Date Time Procedure Performing Provider Status 08/01/24 9:01 PM Chest Portable Alejandro Mercado; Auth ( Verified) Notes: (Chest Portable) Reason For Exam: CHF RESULT: Chest Portable Chest Portable Reason: CHF; Clinical Question(s): CHF COMPARISON: 07/30/2024 FINDINGS: LINES AND TUBES: None. LUNGS AND PLEURA: Pulmonary edema slightly improved compared to yesterday. No pleural effusion. No pneumothorax. HEART, MEDIASTINUM AND ESTRELLITA: Mild prominence of the cardiac silhouette. Normal mediastinal and hilar contour. BONES AND SOFT TISSUES: No acute abnormality. IMPRESSION: Pulmonary edema slightly improved compared to yesterday. WSN: [id number] Ordering Physician: Mildred Torres Dictated By: Celio Haley MD Dictated Date/Time: 08/01/24 9:33 pm Reviewed By: Celio Haley MD Signed By: Celio Haley MD Signed Date/Time: 08/01/24 9:33 pm Transcribed By: RICHIE Transcribed Date/Time: 08/01/24 9:33 pm * Exam Date Time Procedure Performing Provider Status 07/30/24 5:[address] Angio Chest Abbie Tillman; Auth (Verified) Notes: (CT Angio Chest) Reason For Exam: PE suspected, Intermediate prob, positive D-dimer,;Other: RESULT: CT Angio Chest EXAMINATION: CT Angio Chest INDICATION: Reason: Other:; PE suspected, Intermediate prob, positive D-dimer,; Clinical Question(s): Pulmonary Embolism; Order Comment: TECHNIQUE: Spiral CTA of the chest was performed after rapid IV contrast administration without cardiac gating, triggered by an YMUIKO on the main pulmonary artery. Images are formatted in multiple planes using 2-D multiplanar and 3-D maximum intensity projection. 50 cc of Isovue 300 was administered i ntravenously. Weight-based protocol using automatic tube modulation was used to optimize exposure parameters. CTDIvol Body: 5.52 mGy, DLP Body: 305 mGy*cm. COMPARISONS: None. ANGIOGRAPHIC FINDINGS: No pulmonary embolism to the subsegmental level. Normal caliber pulmonary arteries. No acute aortic abnormality seen on this study performed without cardiac gating. 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 Trachea and Airways: Patent without evidence of tracheal or endobronchial lesion. Lungs and Pleura: There are small bilateral layering pleural effusions with dependent atelectasis in the lower lobes. There is mild septal thickening and groundglass opacity at the lung bases suggesting pulmonary edema. No pneumothorax. Mediastinum and estrellita: No mass or hematoma. No mediastinal or hilar lymphadenopathy. No esophageal abnormality. Heart: Mild cardiomegaly. There is a moderate-sized pericardial effusion measuring up to 1.7 cm in thickness on coronal image 58. Chest Wall Soft Tissues: Unremarkable. Diaphragm and upper abdomen: No significant abnormality. Bones: No acute abnormality. IMPRESSION: No evidence of pulmonary embolism. Congestive heart failure with pulmonary edema, small bilateral pleural effusions, and a moderate pericardial effusion. An actionable message (Yellow) has been communicated via the Firebase system on 07/30/2024 5:40 PM, Message ID [id number]. WSN: [id number] Ordering Physician: Cristhian Oneil Dictated By: Celio Haley MD Dictated Date/Time: 07/30/24 5:40 pm Reviewed By: Celio Haley MD Signed By: Celio Haley MD Signed Date/Time: 07/30/24 5:40 pm Transcribed By: RICHIE Transcribed Date/Time: 07/30/24 5:36 pm * Exam Date Time Procedure Performing Provider Status 07/30/24 4:47 AM Chest Portable Nathalie Forbes; Auth ( Verified) Notes: (Chest Portable) Reason For Exam: Shortness of Breath RESULT: Chest Portable Chest Portable Hx of Present Illness: interp #[id number]: c o CP radiating to L shoulder abd pain SOB x1day, states herabd is bigger than usual, also endorses headache and hot flashes, has insulin pump, does not have monitor with her; Reason: Shortness of Breath; Clinical Question(s): CHF COMPARISON: 11/21/2023 FINDINGS: LINES AND TUBES: None. LUNGS AND PLEURA: Patchy density seen in the right lung field increased compared to previous examination. Probable increased density in the left lung also, moderate. No pneumothorax. HEART, MEDIASTINUM AND ESTRELLITA: Heart is normal in size. Normal mediastinal and hilar contour. BONES AND SOFT TISSUES: No acute abnormality. IMPRESSION: Bilateral opacities greater on the right. Differential includes asymmetric pulmonary edema and pneumonia. WSN: [id number] Ordering Physician: Kadi Castaneda Dictated By: Preston Angela MD Dictated Date/Time: 07/30/24 6:29 am Reviewed By: Preston Angela MD Signed By: Preston Angela MD Signed Date/Time: 07/30/24 6:29 am Transcribed By: RICHIE Transcribed Date/Time: 07/30/24 6:27 am Vital Signs Most recent to oldest [Reference Range]: 1 2 3 Height 158 cm (08/03/24 4:44 PM) 158 cm (08/03/24 8:03 AM) 158 cm (08/01/24 8:53 PM) Weight 71.3 kg (08/03/24 4:00 AM) 72.5 kg (08/02/24 4:00 AM) 71.8 kg (07/31/24 4:00 AM) Oxygen Saturation [94-100 %] 93 % *L* (08/04/24 12:01 PM) 94 % (08/04/24 10:01 AM) 95 % (08/04/24 8:08 AM) Pulse Rate [55-90 bpm] 64 bpm (08/04/24 12:01 PM) 70 bpm (08/04/24 9:42 AM) 71 bpm (08/04/24 8:08 AM) Body Mass Index [18.5-24.99 kg/m2] 29.44 kg/m2 *H* (07/30/24 7:37 AM) Blood Pressure [90-138/55-84 mm Hg] 107/65mm Hg (08/04/24 12:00 PM) 111/57mm Hg (08/04/24 10:00 AM) 116/58mm Hg (08/04/24 9:42 AM) Respiratory Rate [16-30 br/min] 22 br/min (08/04/24 12:01 PM) 24 br/min (08/04/24 12:00 PM) 19 br/min (08/04/24 10:01 AM) Temperature [96.8-100.4 DegF] 98.0 DegF (08/04/24 12:01 PM) 97.9 DegF (08/04/24 8:08 AM) 98.3 DegF (08/04/24 4:00 AM) Liters per Minute 2 L/min (08/04/24 6:01 AM) 2 L/min (08/04/24 4:00 AM) 2 L/min (08/04/24 2:00 AM) Mode of Delivery (Oxygen) Room air (08/04/24 12:01 PM) Room air (08/04/24 10:00 AM) Room air (08/04/24 8:08 AM) Blood pressure sites Arm, right (08/04/24 12:01 PM) Arm, right (08/04/24 10:00 AM) Arm, right (08/04/24 8:00 AM) Temperature Route Oral (08/04/24 12:01 PM) Oral (08/04/24 8:08 AM) Oral (08/04/24 4:00 AM) Dry Weight 73.5 kg (07/30/24 7:37 AM) 73.5 kg (07/30/24 7:00 AM) 80.9 kg (07/30/24 5:34 AM) Weight Obtained Via Standing scale (08/03/24 4:00 AM) Bed scale (08/02/24 4:00 AM) Bed scale (07/31/24 4:00 AM) Social History Social History Type Response Smoking Status Former smoker; Tobac co user in household: No; Other: quit smoking 2012; entered on: 06/16/15 Sex Sex Representation Female (finding) Note * Priya Huff: PERFORM, SIGN, VERIFY Event Display: Cardiac Rehab Note Authored Date: Patient: DUNCAN PETE Age: 73 years Sex: Female : 1950 Associated Diagnoses: None Author: Priya Huff Diagnosis Cardiac Rehab Diagnosis: s/p NSTEMI/ LAZARO to instent LAD. Pre-exercise Vitals Vital Signs Comment: Reviewed in [facility]. Pre-exercise Physical Examination Neurologic: alert & oriented. Activity Symptoms with Cardiac Rehab Symptoms: No exertional symptoms. Activity Transfers: independent. Ambulate: independent, Pt reports ambulating at baseline in room. Patient Education Education: Patient alone, Cloth Coverer present, Written material included, Stent card reviewed. Education topic Teachback comprehension 50% Topic: Pathophysiology, Role of exercise, Home activity guidelines/limits, Infarct recovery guidelines. Recommendation and Plan Ambulate: 4-6 times/day. Outpatient follow up recommended: Prashant Reece, Pt declined referral at this time. She has been and didn't like it. She plans to start a walking program with her daughter. Educated on safe home exercise . Cardiac Rehab: Will sign off at this time. * Ayesha Pacheco RN: PERFORM Event Display: Discharge/Transfer Note Hospital Authored Date: [id number] Nursing Discharge Note Entered On: 08/04/2024 15:13 EST Performed On: 08/04/2024 15:12 EST by Ayesha Pacheco RN Nursing Discharge Note 2 Discharge Time : 08/04/2024 15:12 EST Discharge Level of Care at Discharge : Home/Senior Living/Foster Care Patient Left Unit Via : Wheelchair Patient Accompanied Off Unit with : Responsible adult DC Instructions Provided & Signed by Pt : Yes Patient Understands D/C Instructions : Yes Patient Instructions Discharge Signed : Yes Discharge Comments : Pt educated with pit recorder and at bedside, all questions answered. Did Pt have Specialty Bed or Wound Vac : No Ayesha Pacheco RN - 08/04/2024 15:12 EST * Aquilino Lion DO: PERFORM, MODIFY Event Display: Discharge/Transfer Note Hospital Authored Date: [id number] Patient: ??DUNCAN PETE ? Age:??73 Years?Sex:??Female?:??1950?? Patient Information Discharge Location: Primary Care Physician: Georgina Fish MD Admit Date/Time: 07/30/2024 06:52 Discharge Disposition Discharge Disposition: Home with Home Health Discharge Diagnosis Chest pain ([id number]) Shortness of breath (R06.02) CHF exacerbation (I50.9) NSTEMI (non-ST elevated myocardial infarction) (I21.4) CAD (coronary artery disease) (I25.10) Acute hypoxemic respiratory failure (J96.01) Acute systolic CHF (congestive heart failure) (I50.21) Sepsis (A41.9) Bacterial pneumonia (J15.9) Type 2 diabetes mellitus (E11.9) _ Discharge Medications alirocumab (Praluent Pen 150 mg/mL subcutaneous solution)?INJECT 150 MG SUBCUTANEOUSLY EVERY 14 DAYS Aspirin (aspirin 81 mg oral delayed release tablet)?81?Milligram?By Mouth?Daily Atorvastatin (atorvastatin 40 mg oral tablet)?1?tab(s)?40?Milligram?By Mouth?Daily BusPIRone (busPIRone 15 mg oral tablet)?1?tab(s)?15?Milligram?By Mouth?2 times a day dapagliflozin (Farxiga 5 mg oral tablet)?1?tab(s)?5?Milligram?By Mouth?Daily Insulin Aspart (Fiasp 100 units/mL injectable solution)?INJECT 100 UNITS SUBCUTANEOUSLY DIALY. Levothyroxine (levothyroxine 125 mcg (0.125 mg) oral tablet)?1?tab(s)?125?Microgram?By Mouth?Daily Melatonin (Melatonin 1 mg oral tablet)?1?tab(s)?1?Milligram?By Mouth?Daily at bedtime?as needed?for insomnia Metoprolol (Metoprolol Succinate ER 200 mg oral tablet, extended release)?1?tab(s)?200?Milligram?By Mouth?Daily Miscellaneous Rx (FREESTYLE RON 2 SENSOR ??MISC)?USE DIRECTED. CHANGE EVERY 14 DAYS Miscellaneous Rx (OMNIPOD DASH PODS (GEN 4) ??MISC)?USE DIRECTED. CHANGE EVERY 48 HOURS ranolazine (ranolazine 500 mg oral tablet, extended release)?1?tab(s)?500?Milligram?By Mouth?2 times a day Sertraline (sertraline 100 mg oral tablet)?2?tab(s)?200?Milligram?By Mouth?Daily Spironolactone (spironolactone 25 mg oral tablet)?25?Milligram?By Mouth?Daily Ticagrelor (Brilinta (ticagrelor) 90 mg oral tablet)?1?tab(s)?90?Milligram?By Mouth?2 times a day tirzepatide (Mounjaro 2.5 mg/0.5 mL subcutaneous solution)?2.5?Milligram?Subcutaneous Injection?Every week?rotate injection sites torsemide (torsemide 20 mg oral tablet)?1?tab(s)?20?Milligram?By Mouth?Daily Trazodone (traZODone 50 mg oral tablet)?50?Milligram?1?tablet?By Mouth?Daily at bedtime?as needed?Insomnia Valsartan (valsartan 40 mg oral tablet)?TAKE 1/2 TABLET ??20 MG) BY MOUTH EVERY DAY. ? Quality Measures Chest Pain, AMI Quality Measures:?Aspirin Prescribed at Discharge:??Aspirin Prescribed ? Vaccinations and Immunoprophylaxis hepatitis B adult vaccine: 999 Unknown (05/08/17 08:00:00) hepatitis B adult vaccine: 999 Unknown (12/22/16 08:00:00) hepatitis B adult vaccine: 1 Unknown (11/20/16 08:00:00) influenza virus vaccine, inactivated: 0.5 mL (07/31/24 09:15:00) influenza virus vaccine, inactivated: 0.5 Unknown (05/17/23 08:00:00) influenza virus vaccine, inactivated: 0.7 Unknown (06/28/22 07:00:00) influenza virus vaccine, inactivated: 0.5 Unknown (06/14/21 07:00:00) influenza virus vaccine, inactivated: 0.7 Unknown (04/04/20 08:00:00) influenza virus vaccine, inactivated: 0.5 Unknown (05/05/19 08:00:00) influenza virus vaccine, inactivated: 0.5 Unknown (05/01/18 08:00:00) influenza virus vaccine, inactivated: 999 Unknown (02/27/18 08:00:00) influenza virus vaccine, inactivated: 0.5 Unknown (04/23/17 08:00:00) pneumococcal 13-valent vaccine: 0.5 Unknown (08/06/18 07:00:00) pneumococcal 13-valent vaccine: 0.5 Unknown (09/17/17 07:00:00) pneumococcal 23-valent vaccine: 0.5 Unknown (08/16/15 07:00:00) pneumococcal 23-valent vaccine: 0.5 mL (01/05/13 06:48:00) SARS-CoV-2 (COVID-19) Ad26 vaccine: 0.5 Unknown (10/20/20 08:00:00) SARS-CoV-2 (COVID-19) mRNA BNT-162b2 vac: 0.3 Unknown (06/08/21 07:00:00) [id number] 12y+ bivalent booster vax: 0.3 Unknown (06/20/22 07:00:00) tetanus-diphtheria toxoids (Td): 0.5 Unknown (04/23/24 08:00:00) zoster vaccine, inactivated: 0.5 Unknown (01/24/22 08:00:00) ?? Future Appointments Sunday 9:45 AM EST ?? With: Josh ELKINS, Aquilino Reyes Where: [address] [address]- Status: Pending Hospital Course DUNCAN PETE is a 71-year-old female with medical history significant for CAD with several PCI's (drug-eluting stents) complicated with several incidents of severe in-stent restenosis, frequently followed by cardiology, with additional history of type 2 diabetes on insulin hypertension dyslipidemia depression class I obesity was brought to the emergency department with shortness of breath and inthe emergency department patient was found to be having acute hypoxic respiratory failure suspectedto be secondary to acute exacerbation of chronic HFrEF; possible non-ST elevation ND; sepsis secondary to community-acquired bacterial pneumonia so patient was hospitalized for further evaluation and management. ? Acute hypoxemic respiratory failure (J96.01): Acute HFrEF (I50.21): AHA: C NYHA: III ??Last TTE 11/20: EF 25-30% ??-Goal BP 130/80 torr ??-PO Torsemide 20 mg daily w/o Sequential Nephron Blockade ??-Beta Pedro: Metoprolol 200 mg Daily -Continue dapa and thor -Entresto eval outpatient -Ivabradine: Not indicated -I/Os, Daily Weights, Telemetry, Cardiac 3g Na Diet ??-Cardiology Consulted: [facility] ? NSTEMI (non-ST elevated myocardial infarction) (I21.4): CAD (coronary artery disease) (I25.10): ??several PCI's (drug-eluting stents) complicated with several incidents of severe in-stent restenosis -- Heparin GTT ??-- Aspirin and Brilinta; statin and metoprolol, valsartan ??-- Cardiology recs a cath ? Sepsis (A41.9): Bacterial pneumonia (J15.9): leukocytosis tachycardia and tachypnea with possible bacterial pneumonia ??-- Blood cultures are pending; completed 5 days ceftriaxoneceftriaxone ? Type 2 diabetes mellitus (E11.9): ??-- Patient has insulin pump, restarted day of discharge ??-- Per protocol requested BIDS consult? FULL CODE ??LMWH DVT PPx ? Objective Measurements?? Height: 158 cm (08/03/24) Weight: 71.3 kg (08/03/24) Dry Weight: 73.5 kg (07/30/24) Body Mass Index:??29.44 kg/m2??High (07/30/24) ? Vital Signs?? Temperature: 98 DegF (08/04/24 12:01:00) Temperature Route: Oral (08/04/24 12:01:00) Pulse Rate: 64 bpm (08/04/24 12:01:00) Heart Rate Monitored: 73 bpm (08/04/24 10:01:05) Respiratory Rate: 22 br/min (08/04/24 12:01:02) Systolic Blood Pressure: 107 mm Hg (08/04/24 12:00:00) Diastolic Blood Pressure: 65 mm Hg (08/04/24 12:00:00) Blood pressure sites: Arm, right (08/04/24 12:01:00) Pulse Pressure: 42 mm Hg (08/04/24 12:00:00) Oxygen Saturation:??93 %??Low (08/04/24 12:01:02) Liters per Minute: 2 L/min (08/04/24 06:01:00) Mode of Delivery (Oxygen): Room air (08/04/24 12:01:00) Early Warning Score: 4 (08/04/24 12:35:11) ? . Physical Exam Gen:??Well nourished, A&O x4 Resp:Veritably vesicular, absent adventitial acoustic aberration CV:??Regular rhythm,??regular rate;??S1/S2 present GI: Soft, nontender, no??organomegaly palpated,??nondistended, + bowel sounds Skin: No lesions seen Psych: appropriate affect Consultants Cardiology Patient Education Titles WebMD Ignite Patient Education - Discharge Instructions for Cardiac Catheterization?? Follow-Up Appointments Added Follow Up ?Time Frame ?Comments Abe SILVEIRA , Georgina [facility] Georgina Fish MD ?? *Denotes mandatory flores ?? *I certify that this patient is under my care and that I or an allowed non- physician working with me had a face to face encounter with the patient on this date:??08/04/2024 15:39 ?? *The encounter with the patient was in whole, or in part, for the following medical condition, which is the primary diagnosis(es) for home health care:??Chest pain ([id number]) Shortness of breath (R06.02) CHF exacerbation (I50.9) NSTEMI (non-ST elevated myocardial infarction) (I21.4) CAD (coronary artery disease) (I25.10) Acute hypoxemic respiratory failure (J96.01) Acute systolic CHF (congestive heart failure) (I50.21) Sepsis (A41.9) Bacterial pneumonia (J15.9) Type 2 diabetes mellitus (E11.9) ?? *Select the indications for the discipline/s that are being arranged for this patient. Nursing (select all that apply): [_] None [x_] Medication management (reconciliation, teaching)?? [x_] Chronic disease management?? [_] Wound care and treatment?? [_] Home safety evaluation [_] Administer SQ/IM/IV medications?? [_] Cath care?? [_] Drain care?? [_] Trach or GT care?? Other _ Occupation Therapy (select all that apply): [_] None [_] ADL Management [_] Fall prevention training [_] Energy conservation [_] Cognitive training Other _ Physical Therapy (select all that apply): [_] None [x_] Functional mobility training [x_] Home exercise program to strengthen [x_] Increase ROM?? [x_] Falls prevention training [_] Home maintenance program for chronic disease Other _ Speech Therapy (select all that apply): [_] None [_] Swallow evaluation and training [_] Speech and language training [_] Cognitive training to process, organize, and/or recall information Other _ ? *Homebound due to (select all that apply): [_] Inability to leave home without assistance/supervision [_] Inability to ambulate without assistance [_] Pain [x_] Decreased strength and endurance [_] Unsteady gait [x_] Severe SOB and fatigue [_] Impaired transfers [_] Inability to negotiate stairs [_] Limited weight bearing [_] Mental status change? *Physician Signature:??Aquilino L. Amisha, D.O. ?? *By signing this, I certify that I have personally evaluated the patient and agree with the findings and recommendations as documented above. ? Results Discharge Labs BACTERIOLOGY Blood Culture Results Preliminary report ()?? 07/30/2024 05:34 Blood Culture Specimen Source BLOOD ()?? 07/30/2024 05:34 Blood Culture Isolate 1 Comment ()?? 07/30/2024 05:34 Blood Cult 2 Results Preliminary report ()?? 07/30/2024 05:34 Blood Culture 2 Specimen Source BLOOD ()?? 07/30/2024 05:34 Blood Culture 2 Isolate 1 Comment ()?? 07/30/2024 05:34 ?? BLOOD COUNT & DIFF WBC 7.8 k/mm3 ()?? 08/03/2024 06:47 RBC 3.56 m/mm3 (Low)?? 08/03/2024 06:47 Hgb 11.1 Gm/dL (Low)?? 08/03/2024 06:47 Hct 33.5 % (Low)?? 08/03/2024 06:47 MCV 94.1 femtoliters ()?? 08/03/2024 06:47 MCH 31.2 pg ()?? 08/03/2024 06:47 MCHC 33.1 Gm/dL ()?? 08/03/2024 06:47 Platelet Count 198 k/mm3 ()?? 08/03/2024 06:47 RDW-SD 43.7 femtoliters ()?? 08/03/2024 06:47 MPV 11.1 femtoliters ()?? 08/03/2024 06:47 Nucleated RBC (Automated) 0.0 #/100 WBC'S ()?? 08/03/2024 06:47 Abs. NRBC 0.0 k/mm3 ()?? 08/03/2024 06:47 Abs. Neut 5.5 k/mm3 ()?? 07/31/2024 09:18 Abs. Lymph 1.2 k/mm3 ()?? 07/31/2024 09:18 Abs. Baxter 0.5 k/mm3 ()?? 07/31/2024 09:18 Abs. Eo 0.1 k/mm3 ()?? 07/31/2024 09:18 Abs. Baso 0.0 k/mm3 ()?? 07/31/2024 09:18 Neut % 75.2 % ()?? 07/31/2024 09:18 Lymph % 15.8 % ()?? 07/31/2024 09:18 Baxter % 7.4 % ()?? 07/31/2024 09:18 Eos % 0.8 % ()?? 07/31/2024 09:18 Baso % 0.4 % ()?? 07/31/2024 09:18 Imm Gran 0.4 % ()?? 07/31/2024 09:18 Abs. Imm Gran 0.0 k/mm3 ()?? 07/31/2024 09:18 ?? BLOOD GAS pH 7.31 (Low)?? 08/02/2024 00:37 pCO2 34 mm Hg (Low)?? 08/02/2024 00:37 pO2 74 mm Hg ()?? 08/02/2024 00:37 Bicarbonate, Estimated 17 mmol/L (Low)?? 08/02/2024 00:37 Specimen Type - Blood Gas ARTERIAL ()?? 08/02/2024 00:37 Percent O2 (FIO2) 40 ()?? 08/02/2024 00:37 ?? CARDIAC Nt-Probnp 08677 pg/mL (High)?? 07/30/2024 03:32 High Sensitivity Troponin (HSTnT) 556 ng/L (Critical)?? 07/30/2024 05:34 ?? CHEM GENERAL Sodium 142 mmol/L ()?? 08/03/2024 06:47 Potassium 3.6 mmol/L ()?? 08/04/2024 11:05 Chloride 106 mmol/L ()?? 08/03/2024 06:47 Bicarbonate Level 21 mmol/L (Low)?? 08/03/2024 06:47 Anion Gap 15 ()?? 08/03/2024 06:47 Glucose Level 80 mg/dL ()?? 08/03/2024 06:47 Glucose, POC 143 mg/dL (High)?? 08/04/2024 12:07 Hemoglobin A1C (Monitoring) 6.6 % (High)?? 07/30/2024 13:23 BUN 33 mg/dL (High)?? 08/03/2024 06:47 Creatinine-Blood 1.29 mg/dL (High)?? 08/03/2024 06:47 Estimated GFR Creatinine 44 ML/MIN/1.73 M2 ()?? 08/03/2024 06:47 Calcium 9.0 mg/dL ()?? 08/03/2024 06:47 Magnesium 2.4 mg/dL (High)?? 08/03/2024 06:47 Lactate 1.5 mmol/L ()?? 07/30/2024 05:34 ?? COAG INR 1.0 ()?? 07/30/2024 04:44 Protime (PT) 10.6 seconds ()?? 07/30/2024 04:44 APTT 24.5 seconds ()?? 08/01/2024 21:06 D-Dimer 1.21 mg/L FEU (High)?? 07/30/2024 04:44 POC ACT-LR 339.0 seconds ()?? 08/01/2024 13:52 ? MISC. CHEMISTRY Hold Green Top SPECIMEN DISCARDED AFTER 1 WEEK ()?? 08/01/2024 21:06 ? URINE OTHER Est Creatinine Clearance 31.47 mL/min ()?? 08/03/2024 07:58 ? VIROLOGY Influenza A PCR NEGATIVE ()?? 07/30/2024 03:35 Influenza B PCR NEGATIVE ()?? 07/30/2024 03:35 RSV PCR NEGATIVE ()?? 07/30/2024 03:35 COVID-19 PCR Specimen Source NASAL ()?? 07/30/2024 03:35 COVID-19 PCR Result NEGATIVE ()?? 07/30/2024 03:35 ? 39??minutes spent on discharge * Junior CAMPOS , Ayesha: PERFORM Event Display: Patient Education/Instruction Authored Date: [id number] Inpatient Adult Discharge Instructions. [address] [address] Name: DUNCAN PETE : 1950?? Visit: 07/30/2024 06:52?? Current Date: 08/04/2024 13:17 ?? Account: [id number]?? Inpatient Adult Discharge Instructions We would like to thank you for allowing us to assist you with your healthcare needs. The following includes patient education materials and information regarding your injury/illness. Our entire staffstrives to provide an excellent experience for our patients and their families. PLEASE ENSURE YOU FOLLOW-UP PER THE INSTRUCTIONS BELOW! ?? YOUR OPINION IS IMPORTANT TO US! Please complete the survey you may receive by mail or email. Your feedback will be used to make improvements to the healthcare experiences of our patients and their families. Surveys are administered by [employer] ?? If further treatment with your primary care physician or another doctor is recommended, it is important for you to keep the appointment. Call your primary care physician or return to the Emergency Department immediately if your condition worsens, fails to improve, or new symptoms develop. If you need to find a doctor, you can call [facility] [employer] for a referral at [phone] or toll free at [phone] or log in to [email or web address].. ?? [facility], in keeping with [facility] guidance, no longer requires face masks for staff, patientsor visitors in most situations. Similiar to time spent indoors at other locations, there is the chance that you were exposed to repiratory viruses during your time with us (such as flu or COVID-19). If you develop symptoms concerning for a viral respiratory infection, please seek testing (and treatment if indicated) from your medical provider or home test kit. ?? You can view and manage your care through the patient portal or by using a health care vahid of your choosing. [employer] is a website that allows you to securely view your medical information including your hospital discharge summary, office visit summaries, medications and follow-up visits. You can also request appointments, renew medications, and request access to your medical information using a health care vahid of your choosing, or just ask a question. You can enroll at [email or web address] or register during your next office visit. You have been discharged from [facility], Patient Care Unit: M5??. If you have any questions regarding these instructions, including results of studies pending, afteryou leave, please call us and we will be happy to assist you 19/02. [facility] Your Care Team Attending Physician Aquilino Lion DO?? Consulting Providers Aquilino Lion DO?? Discharging Providers Aquilino Lion DO Reason for Your Visit Severe shortness of breath chest pressure?? Your Diagnosis Acute hypoxemic respiratory failure Acute systolic CHF (congestive heart failure) Bacterial pneumonia Chest pain Sepsis Type 2 diabetes mellitus Tests Performed Below is a partial list of the tests performed during your hospitalization. You may have had other tests and procedures not included in this list. Please discuss all test results with your provider. ABG B Type Natriuretic Peptide (NT-proBNP) Basic Metabolic Panel Blood Culture Blood Culture #2 Blood Culture 2 Results Blood Culture Result BUN CBC CBC w/ Differential COVID-19, RSV, and Flu A/B, Rapid PCR Creatinine D Dimer Electrolytes GLUCOSE POC Hemoglobin A1C (Monitoring) High??Sensitivity??Troponin T HOLD GREEN TUBE Lactate Level Magnesium Level POC Hemochron ACT-LR Potassium Level PROTIME PROFILE PTT CT Angio Chest CXR Portable XR Chest Portable Add On Lab Order?? B Type Natriuretic Peptide (NT-proBNP)?? BUN?? Basic Metabolic Panel?? Blood Culture?? Blood Culture #2?? Blood Culture 2 Results?? Blood Culture Result?? Blood Gas Arterial (ABG)?? CBC?? CBC w/ Differential?? COVID-19, RSV, and Flu A/B, Rapid PCR?? CT Angio Chest?? Creatinine?? D Dimer?? Electrolytes?? Glucose POC?? Hemoglobin A1C (Monitoring)?? High??Sensitivity??Troponin T?? Hold Green Top Tube (HOLD GREEN TUBE)?? INR (PROTIME PROFILE)?? Lactic Acid Level (Lactate Level)?? Magnesium Level?? POC ACT-LR (POC Hemochron ACT-LR)?? PTT?? Potassium Level?? Chest Portable (CXR Portable)?? Primary Care Provider Georgina Fish MD? Advance Directive Health Care Proxy on File Yes - Health Care Proxy Discharge Vitals Temperature: 98 DegF Height: 158 cm Pulse Rate: 64 bpm Weight: 71.3 kg Respiratory Rate: 22 br/min Body Mass Index:??29.44 kg/m2??High Systolic Blood Pressure: 107 mm Hg Body surface area: 1.8 Diastolic Blood Pressure: 65 mm Hg ?? Oxygen Saturation:??93 %??Low ?? Studies Pending All studies ordered during this hospital stay have been completed unless listed below. Please discuss all pending results with your provider listed above in these instructions. ?? Add On Lab Order?? What to do next Instructions From Your Doctor ?? Orders? 08/04/24 13:10:00 EST?? Scheduled Follow-Up Appointments Sunday 9:45 AM EST ?? With: Josh ELKINS, Aquilino Reyes Where: [facility] [address] [place] [phone]- Status: Pending You Need to Schedule the Following Appointments Follow Up with??Georgina Fish MD Where: [address] [place] [address]- Follow Up with??[facility] Where: [address] [place] [phone]- Follow Up with??[facility] Where: [address] [place] [address] [phone] Follow Up with??Georgina Fish MD When:??In 0 days Where: [address] [place] [address]- Business (1) Discharge Medications DUNCAN PETE :1950 Visit Date:07/30/2024 Medications: Please continue your medications until treatment is completed or stopped by your provider. Medications not listed below should be discontinued. Discuss any questions related to medications with your provider. What How Much When Instructions Next Dose New Spironolactone (spironolactone 25 mg oral tablet) 25 Milligram Oral Daily Pickup at [facility] 08/05/24 @ 9am New torsemide (torsemide 20 mg oral tablet) 1 tab(s) Oral Daily Pickup at [facility] 08/05/24 @ 9am Changed Aspirin (aspirin 81 mg oral delayed release tablet) 81 Milligram Oral Daily Pickup at [facility] 08/05/24 @ 9am Changed Atorvastatin (atorvastatin 40 mg oral tablet) 1 tab(s) Oral Daily 08/04/24 @ 9pm Changed Levothyroxine (levothyroxine 125 mcg (0.125 mg) oral tablet) 1 tab(s) Oral Daily 08/05/24 @ 7am Changed Melatonin (Melatonin 1 mg oral tablet) 1 tab(s) Oral Daily at Bedtime as needed for for insomnia As needed at bedtime Changed Metoprolol (Metoprolol Succinate ER 200 mg oral tablet, extended release) 1 tab(s) Oral Daily 08/05/24 @ 9am Changed Miscellaneous Rx (FREESTY LIBR 2 SENSOR KIT) Changed Miscellaneous Rx (FREESTYLE RON 2 SENSOR MISC) USE DIRECTED. CHANGE EVERY 14 DAYS ?? Changed Miscellaneous Rx (OMNIPOD DASH 5 PACK MIS) Changed Miscellaneous Rx (OMNIPOD DASH MIS PODS) Changed Miscellaneous Rx (OMNIPOD DASH PODS (GEN 4) MISC) USE DIRECTED. CHANGE EVERY 48 HOURS ?? Changed Sertraline (sertraline 100 mg oral tablet) 2 tab(s) Oral Daily 08/05/24 @ 9am Changed Ticagrelor (Brilinta (ticagrelor) 90 mg oral tablet) 1 tab(s) Oral Twice a day Pickup at [facility] tonight 08/04/24 @ 9pm Changed Trazodone (traZODone 50 mg oral tablet) 1 tab(s) Oral Daily at Bedtime as needed for Insomnia as needed tonight Changed Valsartan (valsartan 40 mg oral tablet) TAKE 1/ 2 TABLET ??20 MG) BY MOUTH EVERY DAY. ?? 08/05/24 @ 9am Changed alirocumab (Praluent Pen 150 mg/ mL subcutaneous solution) INJECT 150 MG SUBCUTANEOUSLY EVERY 14 DAYS ?? Changed dapagliflozin (Farxiga 5 mg oral tablet) 1 tab(s) Oral Daily 08/05/24 @ 9am Changed ranolazine (ranolazine 500 mg oral tablet, extended release) 1 tab(s) Oral Twice a day 08/04/24 @ 9pm Changed tirzepatide (Mounjaro 2.5 mg/ 0.5 mL subcutaneous solution) 2.5 Milligram Subcutaneous Injection Every week rotate injection sites ?? resume Unchanged BusPIRone (busPIRone 15 mg oral tablet) 1 tab(s) Oral Twice a day tonight 08/04/24 @ 9pm Unchanged Insulin Aspart (Fiasp 100 units/ mL injectable solution) INJECT 100 UNITS SUBCUTANEOUSLY DIALY. ?? resume Pharmacy Information [facility]: [address] [place], [place] [id number] [phone] ?? What How Much When Comments Stop Taking Acetaminophen (Tylenol 325 mg oral tablet) 2 tab(s) Oral Every 4 hours as needed for for pain Stop Taking Amlodipine (amLODIPine 5 mg oral tablet) TAKE ONE TABLET BY MOUTH TWICE A DAY. THIS IS AN INCREASED DOSE FOR ANGINA. ?? Stop Taking Amlodipine (amLODIPine 5 mg oral tablet) 1 tab(s) Oral Twice a day this is an increased dose - for angina ?? Stop Taking Durable Medical Equipment (Pen [place], 31 G x 5 mm BD Ultra Fine III) See instructions Duration: 30 Days use as directed for Type 1 Diabetes Mellitus ?? Stop Taking Insulin Glargine (Lantus Solostar Pen 100 units/ mL subcutaneous solution) 10 unit(s) Subcutaneous Injection Daily at Bedtime Stop Taking Isosorbide Mononitrate (isosorbide mononitrate 30 mg oral tablet, extended release) 90 Milligram Oral Daily in the morning Stop Taking Nitroglycerin (nitroglycerin 0.4 mg sublingual tablet) See instructions PLACE ONE TABLET UNDER THE TONGUE EVERY 5 MINUTES FOR 3 DOSES/ TIMES, NEEDED FOR CHEST PAIN; NOTTO EXCEED 3 DOSES IN 15 MINUTES. ?? Stop Taking Omeprazole (Prilosec 20 mg oral enteric coated capsule) 1 capsule Oral Daily Stop Taking Pentoxifylline (pentoxifylline 400 mg oral tablet, extended release) 1 tab(s) Oral Daily Stop Taking Polyethylene Glycol 3350 (MiraLax oral powder for reconstitution) 17 gram Oral Daily dissolve in water before taking ?? Prescription Given During Visit Aspirin (aspirin 81 mg oral delayed release tablet) - 81 mg, By Mouth, Daily, # 30 tablet, 0 Refills, [facility] [place] [address] [phone]?? Spironolactone (spironolactone 25 mg oral tablet) - 25 mg, By Mouth, Daily, # 30 tablet, 0 Refills,[facility] # [place] [address] [phone]?? Ticagrelor (Brilinta (ticagrelor) 90 mg oral tablet) - 1 tablet = 90 mg, By Mouth, 2 times a day, #60 tablet, 0 Refills, [facility] # [place] [address] [phone]?? torsemide (torsemide 20 mg oral tablet) - 1 tablet = 20 mg, By Mouth, Daily, # 30 tablet, 0 Refills, [facility] # [place] [address] [phone]?? Laboratory Results Below is a partial list of the most recent Laboratory test results done prior to this discharge. You may have had other tests and procedures not included in this list. Please discuss all test resultswith your provider. Est Creatinine Clearance - 31.47 mL/min (08/03/2024) ABG (08/02/2024) ???pH - 7.31???pCO2 - 34 mm Hg???pO2 - 74 mm Hg???Bicarbonate, Estimated - 17 mmol/L???Specimen Type - Blood Gas - ARTERIAL???Percent O2 (FIO2) - 40 B Type Natriuretic Peptide (NT-proBNP) (07/30/2024) ???Nt-Probnp - 94638 pg/mL Basic Metabolic Panel (08/03/2024) ???Sodium - 142 mmol/L???Potassium - 3.0 mmol/L???Chloride - 106 mmol/L???Bicarbonate Level - 21 mmol/L???Anion Gap - 15???Glucose Level - 80 mg/dL???BUN - 33 mg/dL???Creatinine-Blood - 1.29 mg/dL???Estimated GFR Creatinine - 44 ML/MIN/1.73 M2???Calcium - 9.0 mg/dL Blood Culture (07/30/2024) ???Blood Culture Results - Preliminary report???Blood Culture Specimen Source - BLOOD Blood Culture #2 (07/30/2024) ???Blood Cult 2 Results - Preliminary report???Blood Culture 2 Specimen Source - BLOOD Blood Culture 2 Results (07/30/2024) ???Blood Culture 2 Isolate 1 - Comment Blood Culture Result (07/30/2024) ???Blood Culture Isolate 1 - Comment BUN (07/31/2024) ???BUN - 24 mg/dL CBC (08/03/2024) ???WBC - 7.8 k/mm3???RBC - 3.56 m/mm3???Hgb - 11.1 Gm/dL???Hct - 33.5 %???MCV - 94.1 femtoliters???MCH - 31.2 pg???MCHC - 33.1 Gm/dL???Platelet Count - 198 k/mm3???RDW-SD - 43.7 femtoliters???MPV - 11.1 femtoliters???Nucleated RBC (Automated) - 0.0 #/100 WBC'S???Abs. NRBC - 0.0 k/mm3 CBC w/ Differential (07/31/2024) ???WBC - 7.3 k/mm3???RBC - 3.69 m/mm3???Hgb - 11.4 Gm/dL???Hct - 35.3 %???MCV - 95.7 femtoliters???MCH - 30.9 pg???MCHC - 32.3 Gm/dL???Platelet Count - 174 k/mm3???RDW-SD - 45.2 femtoliters???MPV - 11.2 femtoliters???Nucleated RBC (Automated) - 0.0 #/100 WBC'S???Abs. NRBC - 0.0 k/mm3???Abs. Neut - 5.5 k/mm3???Abs. Lymph - 1.2 k/mm3???Abs. Baxter - 0.5 k/mm3???Abs. Eo - 0.1 k/mm3???Abs. Baso - 0.0 k/mm3???Neut % - 75.2 %???Lymph % - 15.8 %???Baxter % - 7.4 %???Eos % - 0.8 %???Baso % - 0.4 %???Imm Gran - 0.4 %???Abs. Imm Gran - 0.0 k/mm3 COVID-19, RSV, and Flu A/B, Rapid PCR (07/30/2024) ???Influenza A PCR - NEGATIVE???Influenza B PCR - NEGATIVE???RSV PCR - NEGATIVE???COVID-19 PCR Specimen Source - NASAL???COVID-19 PCR Result - NEGATIVE Creatinine (07/31/2024) ???Creatinine-Blood - 1.25 mg/dL???Estimated GFR Creatinine - 46 ML/MIN/1.73 M2 D Dimer (07/30/2024) ???D-Dimer - 1.21 mg/L FEU Electrolytes (07/31/2024) ???Sodium - 138 mmol/L???Potassium - 3.9 mmol/L???Chloride - 104 mmol/L???Bicarbonate Level - 22 mmol/L???Anion Gap - 12 GLUCOSE POC (08/04/2024) ???Glucose, POC - 143 mg/dL Hemoglobin A1C (Monitoring) (07/30/2024) ???Hemoglobin A1C (Monitoring) - 6.6 % High??Sensitivity??Troponin T (07/30/2024) ???High Sensitivity Troponin (HSTnT) - 556 ng/L HOLD GREEN TUBE (08/01/2024) ???Hold Green Top - SPECIMEN DISCARDED AFTER 1 WEEK Lactate Level (07/30/2024) ???Lactate - 1.5 mmol/L Magnesium Level (08/03/2024) ???Magnesium - 2.4 mg/dL POC Hemochron ACT-LR (08/01/2024) ???POC ACT-LR - 339.0 seconds Potassium Level (08/04/2024) ???Potassium - 3.6 mmol/L PROTIME PROFILE (07/30/2024) ???INR - 1.0???Protime (PT) - 10.6 seconds PTT (08/01/2024) ???APTT - 24.5 seconds You will be contacted within 72 hours with your results. Immunizations This Visit Given Vaccine Date influenza virus vaccine, inactivated 07/31/2024 Allergies (NKA means No Known Allergies) ibuprofen Problems Active Problems??(10) Anxiety?? CAD (coronary artery disease)?? Diabetes mellitus?? Diabetic neuropathy?? Follow-up examination after gynecological surgery?? Heart attack?? High cholesterol?? Hypothyroidism?? Presence of implanted infusion pump?? Stress incontinence?? Education Materials Below is the list of Educational Leaflet Providered with your Discharge Instructions. Web[employer] Ignite Patient Education - Discharge Instructions for Heart Failure?? [employer] Ignite Patient Education - Diabetes and Heart Disease?? [employer] Ign[employer] Patient Education - Common Heart Medicines?? [employer] Ignite Patient Education - Bleeding or Hematoma After Cardiac Catheterization?? WebMD Ignite Patient Education - Discharge Instructions for Cardiac Catheterization?? Valuables and Belongings I fully understand and agree that [facility] accepts no responsibility for all my personal property including clothing, toilet articles, radios, jewelry, dentures, hearing aids, rings, money, or any other property that is in my possession or is brought to me after admission. I understand certain valuables may be placed in a hospital safe for a short period of time. I understand that the hospital is not liable for loss or damage due to accident, fire, or other natural occurrence while said property is in the safe. I accept full responsibility for any personal property that I keep with me, and will not hold the hospital responsible in case of loss or disappearance. I acknowledge that i have been encouraged to send valuables and belongings home. ?? Review of Valuable and Belonging List: With patient Date for Pt to Sign Valuables/Belongings: 08/01/24 02:26:00 ?? Other Discharge Information ? Pulmonary Rehab Status?? Pulmonary Rehab Discharge Status?? CPAP/BiPAP Mask Type: Full CPAP/BiPAP Mask Size: Small Respiratory Rate: 22 br/min ? Cardiac Rehab Assessment?? Cardiac Rehab Inpatient Assessment?? Comments-Education: s/p ND/PCI, home activity guidelines, risk factor reduction Comments-Exercise Activity: AMB ASHLEY Comments-Nutrition: per RD Comments-Lipids: PROFILE PENDING Comments-Other plan of care: PHASE 2 AT Common Emergency Awareness Tips IS IT A STROKE? Act FAST and Check for these signs: FACE Does the face look uneven? ARM Does one arm drift down? SPEECH Does their speech sound strange? TIME Call at any sign of stroke ?? Heart Attack Signs Chest discomfort: Most heart attacks involve discomfort in the center of the chest and lasts more than a few minutes, or goes away and comes back. It can feel like uncomfortable pressure, squeezing, fullness or pain. Discomfort in upper body: Symptoms can include pain or discomfort in one or both arms, back, neck, jaw or stomach. Shortness of breath: With or without discomfort. Other signs: Breaking out in a cold sweat, nausea, or lightheaded. Remember, MINUTES DO MATTER. If you experience any of these heart attack warning signs, call to get immediate medical attention! ?? Smoking can increase your chances of developing chronic health problems and can cause harmful effects to other family members in your house. If you smoke, you are strongly encouraged to quit. Please call [facility] [employer] at [phone] or [phone] or log in to [email or web address] for referrals to smoking cessation programs. ?? 916 Suicide & Crisis Lifeline is available 19/02 if you or someone you know needs to find a reason to keep living. By calling 229 you'll be connected to a skilled, trained counselor at a crisis center in your area. INPATIENT DISCHARGE INSTRUCTIONS SIGNATURE PAGE DUNCAN PETE Location:[facility] Registration Date and Time:07/30/2024 06:52 EST Primary Care Physician: Georgina Fish MD, Attending Physician: Aquilino Lion DO, I DUNCAN PETE, have received the above patient education materials/instructions and have verbalized understanding. If ambulance or transport services are being used I further acknowledge being given a choice of service. ?? If you need to contact me, please call me at this number: . Patient/Canned Food Reconditioning Inspector Name: Patient/Canned Food Reconditioning Inspector Signature: Relationship to Patient: Witness Name/Signature: Date: * Priya Huff: PERFORM, SIGN, VERIFY Event Display: Patient Education Handout Authored Date: [id number] * Ayesha Pacheco RN: PERFORM Event Display: Patient Education Leaflets Authored Date: [id number] Discharge Instructions for Heart Failure ?? 97949 Discharge Instructions for Heart Failure The heart is a muscle that pumps oxygen-rich blood to all parts of the body. When you have heart failure, the heart is not able to pump as well as it should. Blood and fluid may back up into the lungs. Some parts of the body don???t get enough oxygen-rich blood to work normally. These problems leadto the symptoms of heart failure. Heart failure can occur because of an injury to the heart or fromnatural processes.??You can control symptoms of heart failure with some lifestyle changes and by following your doctor's advice. Activity Ask your healthcare provider about an exercise program. Simple activities such as walking or gardening can help. Exercising most days of the week can make you feel better. Don't be discouraged if your progress is slow at first. Rest as needed. Stop activity if you get symptoms such as chest pain, lightheadedness, or shortness of breath. Find activities that you enjoy. Examples might be brisk walking, dancing, swimming, and gardening. These will help you stay active and strengthen your heart. Ask your healthcare provider about cardiac rehab. This is a program that helps you to exercise safely. ?? Diet Follow a heart healthy diet. And make sure to limit the salt (sodium) in your diet. Salt causes your body to hold water. This makes your heart work harder because there is more fluid for the heart topump. Limit your salt as directed by your healthcare provider by doing the following: ??? Limit canned, dried, packaged, and fast foods. ??? Don't add salt to your food. ??? Season foods with herbs instead of salt. ??? Watch how much liquids you drink. Drinking too much can make heart failure worse. Talk with your healthcare provider about how much you should drink each day. ??? Limit the amount of alcohol you drink. It may harm your heart. Women should have no more than 1 drink a day. Men should have no more than 2 a day. ??? Ask that your meals have no added salt when you eat out. ??? Talk with your healthcare provider before using salt substitutes. They often have potassium in them. Thismay not be good for your health. This will depend on how well your kidneys are working and what medicines you???re taking. Some people need extra potassium. Others don???t. ?? Tobacco It's important to quit if you smoke. Smoking increases your chances of having a heart attack by harming the blood vessels that provide oxygen to your heart. This makes heart failure worse. Quitting smoking is the number one thing you can do to improve your health. Enroll in a stop-smoking program to improve your chances of success. Talk with your healthcare provider??about medicines or nicotine replacement therapy. Also ask your healthcare provider about smoking cessation support groups. ?? Medicine Take your medicines exactly as prescribed. Learn the names and purpose of each of your medicines. Keep an accurate medicine list and current dosages with you at all times. Don't skip doses. If you miss a dose of your medicine, take it as soon as you remember. If you miss a dose and??it's almost time for your next dose, just wait and take your next dose at the normal time. Don't take a double dose. If you are unsure, call your doctor's office. Make sure not to mix up your medicines or forget what you've taken the same day. Refill your prescriptions before you run out of medicine. Talk with your healthcare provider if you have trouble with the cost of your medicines. ?? Weight monitoring Weigh yourself every day. A sudden weight gain can mean your heart failure is getting worse. Weigh yourself at the same time of day and in the same kind of clothes. Ideally, weigh yourself first thing in the morning after you empty your bladder, but before you eat breakfast. Your healthcare provider will show you how to track your weight. They will also tell you when you should call if you have asudden, unexpected increase in your weight. In general, your healthcare provider may ask you to report if your weight goes up by more than 2 pounds in 1 day,?? 5 pounds in 1 week, or whatever weight gain you were told by your doctor. This is asign that you are retaining more fluid than you should be. Clues to weight gain include checking your ankles for swelling, or noticing you are short of breath when you lie down. ?? Follow-up care Have a follow-up appointment as instructed. Depending on the type and severity of heart failure youhave, you may need follow-within 7 days from hospital discharge. Keep appointments for checkups andlab tests that are needed to check your medicines and condition. Recognize that your health and even survival depend on you following your provider's advice. ?? Symptoms Heart failure can cause a variety of symptoms. They include: ??? Shortness of breath ??? Trouble breathing at night, especially when you lie down ??? Swelling in the legs and feet or in the belly (abdomen) ??? Becoming easily tired ??? Irregular or rapid heartbeat ??? Weakness or lightheadedness ??? Swelling of the neck veins It's important to know what to do if symptoms get worse or if you develop signs of worsening heart failure. Keep track of how you feel each day. Report any changes to your healthcare provider. ?? When to call your healthcare provider Call your healthcare provider right away if you have any of these signs of worsening heart failure:??? Sudden weight gain. This means more than 2 pounds in 1 day or 5??pounds in 1 week, or whatever weight gain you were told to report by your doctor. ??? Trouble breathing not related to being active ??? New or increased swelling of your legs or ankles ??? Swelling or pain in your abdomen ??? Breathing trouble at night. This means waking up short of breath or needing more pillows to breathe. ???Frequent coughing that doesn't go away ??? Feeling much more tired than usual ?? Call 911 Call 911 right away if you have: ??? Severe shortness of breath, such that you can't catch your breath even while??resting ??? Severe chest pain that does not resolve with rest or nitroglycerin ??? Cricket, foamy mucus with cough and shortness of breath ??? An ongoing rapid or irregular heartbeat ??? Passing out or fainting ??? Stroke symptoms such as sudden numbness or weakness on one side of your face, arm, or leg or sudden confusion, trouble speaking or vision changes ?? Last Reviewed Date: 2021 ?? 6440-7473 [employer]. All rights reserved. This information is not intended as a substitute for professional medical care. Always follow your healthcare professional's instructions. ?? * Ayesha Pacheco RN: PERFORM Event Display: Patient Education Leaflets Authored Date: [id number] Diabetes and Heart Disease ?? 61634 Diabetes and Heart Disease If you have diabetes, you're??twice as likely to have heart disease or a stroke than someone without diabetes. You may also get heart disease at a younger age. This higher risk is because of diabetes. But it's also due to related risk factors for heart disease that happen with diabetes. The good news? You can reduce your risk for heart disease. This can happen with a healthy diet, exercise, and diabetes management. Your main risk factors The 3 major risk factors for heart disease are high blood sugar, high blood pressure, and high levels of fat in the blood (lipids). By controlling these things, you can help keep your heart and arteries healthy. This may reduce your risk of heart disease. ??? Blood sugar.??High blood sugar can makeartery davila tough and rough. Plaque is waxy material in the blood. It can then build up along the artery davila. This makes it harder for blood to flow through the arteries. High blood sugar also raises the chances of having high blood pressure and high cholesterol. ??? Blood pressure. When blood pressure is high all the time, it causes your heart to work harder to pump blood. Artery davila become damaged. This makes it more likely for plaque to build up. ??? Lipids.??Your body needs some blood fats (lipids) to stay healthy. But lipid levels that are too high can harm artery davila. Lipids include cholesterol and triglycerides. There are 2 kinds of cholesterol. LDL (bad) cholesterol can damage the arteries. But HDL (good) cholesterol helps clear LDL from the blood vessels. This helps keep the arteries healthy. When blood sugar is high, the level of triglycerides in the blood may also be high. This??can also cause plaque to form.? Other risk factors Certain lifestyle factors can raise levels of your blood sugar, blood pressure, and lipids. Higher levels raise your risk for heart disease: ??? Smoking. Smoking??damages the lining of your arteries.This allows plaque to build up in the artery davila. It also narrows the arteries. This can raise blood pressure and cause chest pain (angina). Smoking also raises your risk of getting type 2 diabetes. Also don't use e-cigarette, or vaping, products. ??? Not being active. Not being active??makes it harder for your heart to do its work. Inactivity is linked to many other problems, such as high blood pressure and high cholesterol levels. Inactivity also increases your risk of getting type 2 diabetes. ??? Being overweight. Being overweight??makes it harder for your body to use insulin. It also makes your heart work too hard. Being overweight is also 1 of the main risk factors leading to type 2 diabetes.? Changes you can make Take your medicines as directed each day, even if you feel fine. The simple steps below can help keep your risk factors under control. Work with your healthcare team to reach your goals. ??? Quit smoking. Quitting smoking??could save your life. Smoking harms the lining of the blood vessels. It raises blood pressure. It also affects how your body uses insulin. This makes it harder to keep blood sugar under control. If you smoke and need help quitting, talk withyour healthcare team.? Test your blood sugar. Checking your blood sugar is the only way to know if it's under control. Test your blood sugar yourself. Use a blood glucose meter or a continuous glucose monitor. Also get tested in the lab, as directed. ??? Check your blood pressure and lipids. Ke eping track of your blood pressure and lipid levels is maloney. This can help you stay at safe levels. Visit your healthcare team as scheduled. ??? Take medicines as directed. This can help control bloodsugar, blood pressure, blood clotting, and cholesterol levels. Several medicines for diabetes may also lower your risk for heart attacks and strokes. ??? Eat healthy. Eating??healthy foods can cut your risk factors and help you lose weight. Try to limit the amount of processed or refined carbohydrates you eat at one time. Cut back on your total calories. Eat foods low in saturated fat and cholesterol. Eat fiber, including vegetables and whole grains. And cut down on salt. A dietitian or nursing educator can help make a meal plan that works for you???even if you're on a limited budget.??Ask your dietitian about the Diabetes Plate Method. This method is recommended by the [place] [employer]. ??? Limit alcohol. Drinking alcohol even in low or moderate amounts can be harmful. It can increase your body's sensitivity to insulin. But it also places you at greater risk for low bloodsugar reactions. ??? Be active.??Physical exercise can help reduce your weight and strengthen your heart. It can also lower your lipid levels and blood pressure. Exercise and activity are good for your whole body. Talk to your healthcare team about increasing your activity safely over time. ??? Keep your appointments.??Regular visits with your healthcare provider help you stay healthy. Go in for checkups and lab tests as scheduled. ?? Last Reviewed Date: 2023 ?? [id number] [employer]. All rights reserved. This information is not intended as a substitute for professional medical care. Always follow your healthcare professional's instructions. ?? * Ayesha Pacheco RN: PERFORM Event Display: Patient Education Leaflets Authored Date: [id number] Common Heart Medicines ?? 58829 Common Heart Medicines Many different medicines can help treat heart disease. Learn what type of medicine you???re taking,what it treats, and how to take it safely. Ask your healthcare provider or pharmacist if you have questions about why you need a medicine or how it works. Medicines are prescribed in just the right doses for your heart condition. They work only if you take them exactly as directed. So your healthcare provider can prescribe the best medicine for you, but it???s up to you to take them correctly. Keep a list Keep a list of all your medicines. Include your dosage and the time or times you take them. Update your list if any changes to your medicine are made. And share this list with any new healthcare provider you visit. ?? Common types of medicine ??? OSITO (angiotensin converting enzyme) inhibitors treat high blood pressure and heart failure. ??? ARBs (angiotensen-receptor blockers) treat high blood pressure and heart failure. They may be used if you can't take an OSITO inhibitor. ??? Antiarrhythmics help slow and regulate a fast or irregular heartbeat (arrhythmia). ??? Anticoagulants help reduce the risk that a bloodclot will form and block the artery (thrombosis). ??? Antihypertensives help treat high blood pressure (hypertension). ??? Aspirin (taken regularly in the right dosage) helps reduce blood clots. ??? Beta- blockers and calcium channel blockers help treat high blood pressure. They may also help prevent chest pain (angina) and regulate an arrhythmia. Beta-blockers also slow heart rate. ??? Digitalis and digoxin??help treat heart failure and may help an irregular heartbeat. ??? Diuretics help treat high blood pressure, fluid balance, and heart failure. They are sometimes called water pills because they help your body get rid of extra water through urine. ??? Lipid-lowering medicines such as statin, help control your cholesterol and triglyceride levels. ??? Nitrates help prevent and treat angina. ??? Vasodilators help blood flow more easily through the arteries. Calcium channel blockers and nitrates are vasodilators. ?Tip Take heart medicines at the same time every day. This will keep the amount of medicine in your bloodstream at a steady level. Talk with your healthcare provider to see if you need to measure your blood pressure and heart rate before taking your medicine. Also talk with your provider if you have anyquestions about your medicines or develop any side effects. ?? Last Reviewed Date: 2021 ?? [id number] [employer]. All rights reserved. This information is not intended as a substitute for professional medical care. Always follow your healthcare professional's instructions. ?? * Mike Manuel RN: PERFORM, SIGN, VERIFY Event Display: Cardiac Rehab Note Authored Date: [id number] Patient: DUNCAN PETE Age: 73 years Sex: Female : 1950 Associated Diagnoses: None Author: Mike Manuel RN Chart reviewed: patient transferred to [facility], requiring BiPAP. ECHO pending. Will follow patients hospital course and see when medically appropriate. Please page [phone] with any questions. * Event Display: Hemodynamic Procedure Report Authored Date: * Celio Da Silva: PERFORM, SIGN, VERIFY Event Display: Cardiac Rehab Note Authored Date: Patient: DUNCAN PETE Age: 73 years Sex: Female : 1950 Associated Diagnoses: None Author: Celio Da Silva Diagnosis Cardiac Rehab Diagnosis: Pt currently NPO for Cardiac Cath, will F/U Post procedure.. * Event Display: Hemodynamic Procedure Report Authored Date: History and physical note * Janiya Silverman MD: PERFORM Event Display: History and Physical Hospital Authored Date: Patient: ??DUNCAN PETE ? Age:??73 Years?Sex:??Female?:??1950?? 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 Reportedly patient was in her usual state of health until 1 week ago??she was seen in cardiologyclinic 1 week ago??and she was doing okay??however over the last 3 days patient started to have chest discomfort which has been progressively getting worse??she was trying to take home dose of??sublingual nitro??which did not help her a whole lot??and since yesterday she was having significant trouble breathing and she feels like??congested??and even with minimal ambulation to the bathroom she feels winded??and worsening chest discomfort.?She describes the chest discomfort as retrosternal??no radiation but has palpitations lightheadedness??and sometimes??feel??diaphoresis??sometimes associated with nausea,??increases with walking and decreases with rest,??as mentioned associated with shortness of breath.?Denies any??orthopnea or paroxysmal nocturnal dyspnea.?With these complaintspatient presented to the emergency department and in the emergency department patient was found to be having acute hypoxic respiratory failure??suspected to be secondary to??acute exacerbation of chronic systolic CHF;??possible non-ST elevation ND;??sepsis??secondary to community-acquired bacterialpneumonia??so patient was hospitalized for further evaluation and management Review of Systems Consituitional: No fever, chills or rigors HEENT: No headache, no blurred vision, no sorethroat Cardiac: As described in the history of present illness Respiratory: As described in history of present illness Gastro intestinal: No diarrhea or constipation,no nausea or abdominal pain Genito urinary: No Urinary frequency, urgency or dysuria Musculoskeletal: No pain any where Neurological: No headache, blurred vision, tingling or numbness or any weakness Extremities:??Bilateral lower extremity edema Skin: No??itching, rash, lump and bumps, hair and/or nail change, de/pigmentation Endocrine : No??excessive thirst, sweating, dizziness, palpitations, weight change Hematological / Lymphatic: No??bruising, cyanosis, enlargement of lymph nodes Psychiatric:??No stress, insomnia, p depression, anxiety, hallucinations, memory loss Objective Vital Signs?? Temperature: 97.2 DegF (07/30/24 08:00:00) Temperature Route: Axillary (07/30/24 08:00:00) Pulse Rate: 81 bpm (07/30/24 11:03:00) Heart Rate Monitored: 75 bpm (07/30/24 11:00:41) Respiratory Rate: 21 br/min (07/30/24 11:00:41) Systolic Blood Pressure: 133 mm Hg (07/30/24 11:03:00) Diastolic Blood Pressure:??92 mm Hg??High (07/30/24 11:03:00) Blood pressure sites: Arm, right (07/30/24 11:00:00) Mean Arterial Pressure: 82 mm Hg (07/30/24 07:37:00) Pulse Pressure: 69 mm Hg (07/30/24 10:00:00) Oxygen Saturation: 98 % (07/30/24 11:00:41) Liters per Minute: 5 L/min (07/30/24 10:00:00) Mode of Delivery (Oxygen): Room air (07/30/24 11:00:00) FiO2: 40 % (07/30/24 08:01:00) Early Warning Score: 7 (07/30/24 11:37:47) ? Physical Exam General: AAO X 3,??appears to be in respiratory distress on BiPAP HEENT: Normocephalic, Atraumatic?? Neck: soft, supple,??on BiPAP could not assess??jugular venous distention Lungs: Diffuse bilateral crackles??diminished air entry bilaterally Heart:??Tachycardic Abdomen: Soft, non tender, normal Bowel sounds CUTTER HELPER: . No cranial nerve deficits appreciated Musculoskeletal: No joint swellings or effusions noted Extremities: Pulse 2+, 1+ edema noted. 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 Acute hypoxemic respiratory failure (J96.01):?? -- Patient was found to be having acute hypoxic respiratory failure --??Requiring BiPAP??to maintain her??saturations -- Patient has been on BiPAP for the last 6 hours -- Will try to wean off BiPAP??and give oxygen supplementation -- Acute hypoxic respiratory failure suspected to be??secondary to acute exacerbation of chronic systolic CHF??which in turn??could be due to??non-ST elevation ND as below;??hypoxia could also be secondary to??sepsis secondary to suspected bacterial pneumonia ?? Acute systolic CHF (congestive heart failure) (I50.21):?? --??Last echocardiogram??showed EF of??25-30??in october??2023;??repeat echo in December 2023 was suboptimal --??Acute exacerbation of chronic systolic CHF -- Continue metoprolol;??started Lasix??40 mg IV??twice daily -- Strict ins and outs??will repeat BUN/creatinine and electrolytes tomorrow;??may need to de-escalate Lasix tomorrow??based on renal function -- Patient not on OSITO inhibitor or ARB (probably due to intolerance)?? --??Need to optimize??goal-directed medical therapy??once??NSTEMI was managed ?? NSTEMI (non-ST elevated myocardial infarction) (I21.4):?? CAD (coronary artery disease) (I25.10):??--?? 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 Sepsis (A41.9):?? Bacterial pneumonia (J15.9):??--?? --??Patient does have severe sepsis??which is present at the time of admission --??Qualifies for sepsis with leukocytosis??tachycardia??and tachypnea??with possible bacterial pneumonia -- Blood cultures are pending;??continue ceftriaxone??empirically??to cover both gram-positive and gram-negative bacterial etiology -- Will de-escalate??to cefixime??if cultures continue to be negative in 48 hours ?? Type 2 diabetes mellitus (E11.9):?? --??Patient has insulin pump --??At this point??patient is n.p.o.??so requested her not to use her insulin pump -- Will use sliding scale insulin??and based on 24-hour needs??we will add basal insulin -- Per protocol requested BIDS consult ?? VTE Prophylaxis:??On heparin drip ?VTE Prophylaxis Assessment:??Excluded from VTE prophylaxis measure ?? Discharge Planning:? Code Status:??Full ?Order Code Status:??Code Status Ordered ? Histories Allergies Allergies ?(Active and Proposed Allergies Only) ibuprofen? (Severity: Unknown severity, Onset: Unknown) ? Past Medical History/Problem List Active Problems(9) Anxiety CAD (coronary artery disease) Diabetes mellitus Diabetic neuropathy Follow-up examination after gynecological surgery Heart attack High cholesterol Hypothyroidism Stress incontinence ? Past Surgical History Tubal ligation removal of bilateral nipple removal Cholecystectomy lap ? Social History Alcohol Details:??Use: Never. Employment/School Details:??Status: Disabled. Exercise Details:??Regular exercise: No. Home/Environment Details:??Lives with: Alone. Nutrition/Health Details:??Diet: Regular. Sexual Details:??Sexually involved in last 6 months: No. Substance Abuse Details:??Use: Never. Tobacco Details:??Former smoker, Tobacco user in household: No. ??Other: quit smoking 2012. ? Family History Mother: Diabetes mellitus Father: Cardiovascular disease Sister: Diabetes mellitus Brother: Diabetes mellitus; Kidney disease ? Medications Home Medications alirocumab (Praluent Pen 150 mg/mL subcutaneous solution)?INJECT 150 MG SUBCUTANEOUSLY EVERY 14 DAYS Amlodipine (amLODIPine 5 mg oral tablet)?TAKE ONE TABLET BY MOUTH TWICE A DAY. THIS IS AN INCREASED DOSE FOR ANGINA. Atorvastatin (atorvastatin 40 mg oral tablet)?1?tab(s)?40?Milligram?By Mouth?Daily BusPIRone (busPIRone 15 mg oral tablet)?1?tab(s)?15?Milligram?By Mouth?2 times a day dapagliflozin (Farxiga 5 mg oral tablet)?1?tab(s)?5?Milligram?By Mouth?Daily Insulin Aspart (Fiasp 100 units/mL injectable solution)?INJECT 100 UNITS SUBCUTANEOUSLY DIALY. Levothyroxine (levothyroxine 125 mcg (0.125 mg) oral tablet)?1?tab(s)?125?Microgram?By Mouth?Daily Melatonin (Melatonin 1 mg oral tablet)?1?tab(s)?1?Milligram?By Mouth?Daily at bedtime?as needed?for insomnia Metoprolol (Metoprolol Succinate ER 200 mg oral tablet, extended release)?1?tab(s)?200?Milligram?By Mouth?Daily Miscellaneous Rx (FREESTYLE RON 2 SENSOR ??MISC)?USE DIRECTED. CHANGE EVERY 14 DAYS Miscellaneous Rx (OMNIPOD DASH PODS (GEN 4) ??MISC)?USE DIRECTED. CHANGE EVERY 48 HOURS ranolazine (ranolazine 500 mg oral tablet, extended release)?1?tab(s)?500?Milligram?By Mouth?2 times a day Sertraline (sertraline 100 mg oral tablet)?2?tab(s)?200?Milligram?By Mouth?Daily Ticagrelor (Brilinta (ticagrelor) 90 mg oral tablet)?TAKE 1 TABLET BY MOUTH TWO TIMES A DAY tirzepatide (Mounjaro 2.5 mg/0.5 mL subcutaneous solution)?2.5?Milligram?Subcutaneous Injection?Every week?rotate injection sites Trazodone (traZODone 50 mg oral tablet)?50?Milligram?1?tablet?By Mouth?Daily at bedtime?as needed?Insomnia Valsartan (valsartan 40 mg oral tablet)?TAKE 1/2 TABLET ??20 MG) BY MOUTH EVERY DAY. ? Results Recent Labs BLOOD COUNT & DIFF WBC 16.4 k/mm3 (High)?? 07/30/2024 05:34 RBC 4.15 m/mm3 (Low)?? 07/30/2024 05:34 Hgb 12.8 Gm/dL ()?? 07/30/2024 05:34 Hct 40.3 % ()?? 07/30/2024 05:34 MCV 97.1 femtoliters ()?? 07/30/2024 05:34 MCH 30.8 pg ()?? 07/30/2024 05:34 MCHC 31.8 Gm/dL (Low)?? 07/30/2024 05:34 Platelet Count 187 k/mm3 ()?? 07/30/2024 05:34 RDW-SD 45.3 femtoliters ()?? 07/30/2024 05:34 MPV 11.1 femtoliters ()?? 07/30/2024 05:34 Nucleated RBC (Automated) 0.0 #/100 WBC'S ()?? 07/30/2024 05:34 Abs. NRBC 0.0 k/mm3 ()?? 07/30/2024 05:34 Abs. Neut 15.5 k/mm3 (High)?? 07/30/2024 03:32 Abs. Lymph 2.7 k/mm3 ()?? 07/30/2024 03:32 Abs. Baxter 1.2 k/mm3 (High)?? 07/30/2024 03:32 Abs. Eo 0.1 k/mm3 ()?? 07/30/2024 03:32 Abs. Baso 0.1 k/mm3 ()?? 07/30/2024 03:32 Neut % 79.0 % (High)?? 07/30/2024 03:32 Lymph % 13.9 % (Low)?? 07/30/2024 03:32 Baxter % 6.0 % ()?? 07/30/2024 03:32 Eos % 0.3 % ()?? 07/30/2024 03:32 Baso % 0.3 % ()?? 07/30/2024 03:32 Imm Gran 0.5 % ()?? 07/30/2024 03:32 Abs. Imm Gran 0.1 k/mm3 ()?? 07/30/2024 03:32 ?? CARDIAC Nt-Probnp 60034 pg/mL (High)?? 07/30/2024 03:32 High Sensitivity Troponin (HSTnT) 556 ng/L (Critical)?? 07/30/2024 05:34 ?? CHEM GENERAL Sodium 137 mmol/L ()?? 07/30/2024 03:32 Potassium 3.9 mmol/L ()?? 07/30/2024 03:32 Chloride 104 mmol/L ()?? 07/30/2024 03:32 Bicarbonate Level 15 mmol/L (Low)?? 07/30/2024 03:32 Anion Gap 18 (High)?? 07/30/2024 03:32 Glucose Level 254 mg/dL (High)?? 07/30/2024 03:32 Glucose, POC 220 mg/dL (High)?? 07/30/2024 08:00 BUN 18 mg/dL ()?? 07/30/2024 03:32 Creatinine-Blood 1.12 mg/dL (High)?? 07/30/2024 03:32 Estimated GFR Creatinine 52 ML/MIN/1.73 M2 ()?? 07/30/2024 03:32 Calcium 9.6 mg/dL ()?? 07/30/2024 03:32 Lactate 1.5 mmol/L ()?? 07/30/2024 05:34 ?? COAG INR 1.0 ()?? 07/30/2024 04:44 Protime (PT) 10.6 seconds ()?? 07/30/2024 04:44 APTT 24.5 seconds ()?? 07/30/2024 04:44 D-Dimer 1.21 mg/L FEU (High)?? 07/30/2024 04:44 ?? URINE OTHER Est Creatinine Clearance 36.25 mL/min ()?? 07/30/2024 09:46 ?? VIROLOGY Influenza A PCR NEGATIVE ()?? 07/30/2024 03:35 Influenza B PCR NEGATIVE ()?? 07/30/2024 03:35 RSV PCR NEGATIVE ()?? 07/30/2024 03:35 COVID-19 PCR Specimen Source NASAL ()?? 07/30/2024 03:35 COVID-19 PCR Result NEGATIVE ()?? 07/30/2024 03:35 ? Cardiology Labs Nt-Probnp:??10430 pg/mL??High (07/30/24 03:32:00) High Sensitivity Troponin (HSTnT):??556 ng/L??Critical (07/30/24 05:34:00) High Sensitivity Troponin (HSTnT):??525 ng/L??Critical (07/30/24 03:32:00) ? EKG study * Event Display: ECG 12-Lead Authored Date: Please click on pdf link to open report * Event Display: ECG 12-Lead Authored Date: Ventricular Rate: 68 BPM Atrial Rate: 68 BPM P-R Interval: 154 ms QRS Duration: 82 ms Q-T Interval: 444 ms QTC Calculation(Bazett): 472 ms P Kingston: 57 degrees R Kingston: 63 degrees T Kingston: 52 degrees Normal sinus rhythm Nonspecific T wave abnormality Abnormal ECG When compared with ECG of 01-Aug-2024 19:43, No significant change Confirmed by Kevin Granado ([id number]) on 08/02/2024 6:06:41 PM [place]: Kevin Granado * Event Display: ECG 12-Lead Authored Date: [id number] Please click on pdf link to open report * Event Display: ECG 12-Lead Authored Date: [id number] Ventricular Rate: 70 BPM Atrial Rate: 70 BPM P-R Interval: 146 ms QRS Duration: 86 ms Q-T Interval: 378 ms QTC Calculation(Bazett): 408 ms P Kingston: 48 degrees R Kingston: 67 degrees T Kingston: 37 degrees Normal sinus rhythm Possible Left atrial enlargement Nonspecific T wave abnormality Abnormal ECG When compared with ECG of 30-Jul-2024 04:43, Nonspecific T wave abnormality, worse in Lateral leads QT has shortened Confirmed by Kevin Granado ([id number]) on 08/04/2024 6:49:55 AM [place]: Kevin Granado * Event Display: ECG 12-Lead Authored Date: [id number] Please click on pdf link to open report * Event Display: ECG 12-Lead Authored Date: Ventricular Rate: 62 BPM Atrial Rate: 62 BPM P-R Interval: 148 ms QRS Duration: 84 ms Q-T Interval: 332 ms QTC Calculation(Bazett): 336 ms P Kingston: 47 degrees R Kingston: 61 degrees T Kingston: 116 degrees Normal sinus rhythm Nonspecific ST and T wave abnormality Abnormal ECG When compared with ECG of 30-Jul-2024 04:43, Nonspecific T wave abnormality, worse in Anterolateral leads QT has shortened Confirmed by Kevin Granado ([id number]) on 08/04/2024 7:26:30 AM [place]: Kevin Granado Heart * Event Display: Echocardiogram - Complete Authored Date: Transthoracic Echocardiography Report (TTE) Patient Demographics Patient Name DUNCAN PETE Date of Study 08/04/2024 Corporate Gender Female Facility Race .[id number] Ethnicity or Date of 1950 Height: 62.2 inches Age 73 year(s) Weight: 156.53 pounds Accession Number [id number] BSA: 1.73 m2 Room Number [id number] BMI: 28.44 kg/m2 Referring Not on Staff Referring Interpreting Aquilino Carpenter MD Physician MD Physician Amisha Aguila DO 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 Clinical History Coronary artery disease. Hypertension. Hyperlipidemia. Hx Tobacco use. Diabetes Mellitus. Hypothyroid NSTEMI Sepsis Hx mastectomy Study Data Type of Study TTE procedure:Echo Complete-(Doppler, Colorflow) with Contrast. Procedure Information:Definity was administered by Insurance Claims Specialist . Study Date08/04/2024 Start Time: 10:22 AM Study Location: [facility] Adult Echo Study Status: Bedside Patient Status: Pending Discharge Technical Quality: Technically difficult due to body habitus. Blood Pressure:111/57 mmHg EKG: Normal sinus rhythm HR: 72 bpm Contrast Medium: Definity. Amount - 2 ml Allergies - Ibuprofen. 2D Measurements LV Diastolic Dimension: 5.2 cm LV Systolic Dimension: 4 cm LV Septum Diastolic: 1.1 cm LV PW Diastolic: 1.1 cm AO Root Dimension: 2.9 cm LA Dimension: 3.2 cm LA ESV (BP):46.3 ml LVOT Stroke Volume: 37.68 ml LA ESV Index: 27 ml/m2 Stroke Volume Index21.78 ml/m2 LVOT: 2 cm Cardiac Index:1.57 l/min/m2 Ascending Aorta:2.8 cm Doppler Measurements AV Peak Velocity: 144 cm/s MV Peak E-Wave: 101 cm/s AV Peak Gradient: 8.29 mmHg MV Peak A-Wave: 99.9 cm/s AV Mean Gradient: 5 mmHg MV E/A Ratio: 1.01 AV VTI:31.7 cm MV P1/2t: 49 msec LVOT Peak Velocity: 61 cm/s LVOT VTI12 cm MV Deceleration Time: 166 msec AV Area (Continuity):1.19 cm2 MV Area (PHT): 4.49 cm2 PV Peak Velocity: 77 cm/s PV Peak Gradient: 2.37 mmHg E' Septal Velocity: 2.68 cm/s E' Lateral Velocity: 3.85 cm/s E/Med E':[id number] E/Lat E':26.38791 Cardiac Anatomy Left Ventricle/Interventricular Septum The left ventricular size is normal. The left ventricular wall thickness is mildly increased. The LV systolic function is severely reduced. There is severe global hypokinesis with regional variation. The left ventricular ejection fraction is 20-25%. There is diastolic dysfunction with indeterminate left atrial pressure. Left Atrium/Interatrial Septum The left atrium is normal in size. Aortic Valve The aortic valve is trileaflet. The aortic valve appears mildly thickened. There is trace aortic regurgitation. There is no significant aortic stenosis. Mitral Valve The mitral valve appears mildly thickened and calcified. There is trace to mild mitral regurgitation. Aorta The ascending aorta and aortic root are normal in size. Right Ventricle The right ventricle is normal in size and function. Right Atrium The right atrium is normal in size. Pulmonic Valve The pulmonic valve is poorly visualized. Tricuspid Valve The tricuspid valve leaflet opening is normal. There is trace tricuspid valve regurgitation. Pumonary Artery An accurate pulmonary artery pressure could not be obtained. Venous Structures The inferior vena cava size is normal with normal inspiratory collapse. The central venous pressure estimation is 3 mmHg. Pericardium/Extracardiac There is a small circumferential pericardial effusion. There is no evidence of cardiac tamponade. Summary The left ventricular size is normal. The left ventricular wall thickness is mildly increased. The LV systolic function is severely reduced. There is severe global hypokinesis with regional variation. The left ventricular ejection fraction is 20-25%. There is diastolic dysfunction with indeterminate left atrial pressure. The right ventricle is normal in size and function. An accurate pulmonary artery pressure could not be obtained. There is a small circumferential pericardial effusion. There is no evidence of cardiac tamponade. Comparison Comparison is made to the study of January 10, 2024. Left ventricular systolic function is probably worse since previous study. Signature * Event Display: Echocardiogram - Complete Authored Date: Cardiology * Event Display: Cardiac Rhythm Strips Authored Date: * Event Display: Cardiac Rhythm Strips Authored Date: * Event Display: Cardiac Rhythm Strips Authored Date: * Event Display: Cardiac Rhythm Strips Authored Date: Hospital Progress note * Ayesha Pacheco RN: PERFORM, SIGN, VERIFY Event Display: Progress Note Hospital Authored Date: Patient: DUNCAN PETE Age: 73 years Sex: Female : 1950 Associated Diagnoses: None Author: Ayesha Pacheco RN Findings Narrative/Incidental Pt alert and oriented x4. VSS, SR on tele. patient escort needed and used at bedside. Pt denies cp or sob. Pending ECHO this morning but completed at bedside. Please see biophysical for completeassessment. Call marquez within reach, bed alarm on. All needs have been met at this time. Pt educatedon discharge with pit recorder. Please see biophysical for complete assessment. Call marquez within reach, bed alarm on. All needs have been met at this time. . Discharge Information Case Management Discharge Plan : Case Management Discharge Plan Data 08/04/2024 15:12 EST Discharge Level of Care at Discharge Home/Senior Living/Foster Care Pulmonary Rehab Discharge : Pulmonary Rehab Discharge Status 08/02/2024 4:05 EST CPAP/BiPAP Mask Type Full CPAP/BiPAP Mask Size Small 08/02/2024 0:30 EST CPAP/BiPAP Mask Type Full CPAP/BiPAP Mask Size Small 07/30/2024 8:01 EST CPAP/BiPAP Mask Type Full CPAP/BiPAP Mask Size Medium 07/30/2024 3:39 EST CPAP/BiPAP Mask Type Full CPAP/BiPAP Mask Size Medium Rehabilitation Discharge : Rehab Discharge Index 08/01/2024 14:29 EST Comments on treatment indicated 71 F p/w SOB. Found to have acute hypoxic respiratory failure 2/2 acute exacerbation of chronic systolic CHF; possible non-ST elevation ND; sepsis secondary to community-acquired bacterial pneumonia. PT to progress fxnal mobility. Rec home c services Full chart review completed Yes Hospital course Hospital course Plan of care PT Gait training, Transfer training, Therapeutic exercise, Functional Activities, Balance training * Paolo Brannon: PERFORM Event Display: Progress Note Hospital Authored Date: Patient: ??DUNCAN PETE ? Age:??73 Years?Sex:??Female?:??1950?? Subjective Home DM Regimen: Mounjaro 2.5 weekly Farxiga Has OmniPod??Dash??with Fiasp insulin 12 AM 0.5 2 AM??0.8 9 AM 0.84 at??total??dose 18.6 units She takes 3 units with snack??and 5 units with breakfast lunch and dinner Ron CGM ?? Inpatient DM Regimen: Lantus 25 units in AM lispro fixed: 7 units, 3 times daily with??meals. Hold if NPO. lispro scale: 2 units:150 + 2 units:50, 3 times daily before meals. Continue if NPO. Diet: Card, 60 gm CHO ?? BG Review: over the last 24 hours, blood sugars ranged between 80??to 149 mg/dL. Received 7 units of Lispro, 25 units of Lantus, corresponding to weight-based dosing of 0.44 units/kg. Fasting blood sugar 149 mg/dL. ?? Interim History: Harleen Bernal patient escort ID# [id number]. Patient visiting with family/friend. Does not have on insulin pump today. Does have at home. ?? Review of Systems Denies N/V. Objective Vitals & Measurements T:??98.0?F?? TMIN:??97.3?F?? TMAX:??98.8?F?? HR:??64??(Peripheral)?? RR:??22?? BP:??107/65?? SpO2:??93%?? Physical Exam Constitutional: alert, NAD, seated in bedside chair HEENT: NC/AT, anicteric sclera Neck: supple Respiratory:??able to speak in full sentences, no audible wheezing, no use of accessory muscles Assessment/Plan Type 2 diabetes mellitus (E11.9):??73 y.o. female with medical history of Type 2 diabetes (dx??>30 years ago) admitted 07/30 with non-STEMI and CHF. BIDS consulted to assist with glycemic management. ?? A1C 6.6% DM Outpatient Management: Dr. Santizo at [facility] ?? Blood sugars are within goal, had multiple blood sugars less than 100 mg/dL. Recommend to reduce basal insulin. Patient has received already today. On review, patient was to??begin??insulin pump??prior??to discharge, however,??she did not begin??today. ?? Patient may discharge home today. ?? Plan: - Begin Lantus 20 units daily (begin 1/7 AM) - Continue??lispro fixed: 7 units, 3 times daily with??meals. Hold if NPO. - Continue??lispro scale: 2 units:150 + 2 units:50, 3 times daily before meals. Continue if NPO. ?? BIDS will continue to monitor glycemic trends. ?? Discharge Planning:??discharge on final inpatient insulin regimen. I did discuss with patient that??at home, she may restart the insulin pump 20-22 hours after last basal insulin dose. She may restart pump on 08/05??~7:30 AM without SQ insulin. Patient should follow-up with outpatient DM provider for??outpatient management. ?? Medications Inpatient Acetaminophen Tablet, 650 mg, By Mouth, Every 4 hours, PRN Aspirin Tablet, 81 mg, By Mouth, Daily atorvastatin 40 mg oral tablet, 40 mg, By Mouth, Daily busPIRone 10 mg oral tablet, 15 mg, By Mouth, 2 times a day Ceftriaxone Inj, 1 Gm, IVPB, Every 24 hours Dapagliflozin Tablet, 5 mg, By Mouth, Daily Dextrose 50% Inj Syringe (25Gm), 12.5 Gm, IV Push Slowly, Every 20 minutes, PRN Dextrose 50% Inj Syringe (25Gm), 25 Gm, IV Push Slowly, Every 15 minutes, PRN Dextrose 50% Inj Syringe (25Gm), 12.5 Gm, IV Push Slowly, Every 20 minutes, PRN Dextrose 50% Inj Syringe (25Gm), 25 Gm, IV Push Slowly, Every 15 minutes, PRN Docusate Sodium Capsule, 100 mg= 1 capsule, By Mouth, 2 times a day, PRN Enoxaparin Inj, 40 mg= 0.4 mL, Subcutaneous Injection, Daily Glucagon Inj, 1 mg, Intramuscular, Once, PRN Glucagon Inj, 1 mg, Intramuscular, Once, PRN Glucose Gel, 15 Gm, By Mouth, Every 20 minutes, PRN Glucose Gel, 30 Gm, By Mouth, Every 20 minutes, PRN Glucose Gel, 15 Gm, By Mouth, Every 20 minutes, PRN Glucose Gel, 30 Gm, By Mouth, Every 20 minutes, PRN Insulin LISPRO Inj, 7 units= 0.07 mL, Subcutaneous Injection, 3 times a day before meals Insulin LISPRO Sliding Scale, 2-10 units, Subcutaneous Injection, 3 times a day before meals Lantus Inj, 20 units= 0.2 mL, Subcutaneous Injection, Daily in AM levothyroxine 125 mcg (0.125 mg) oral tablet, 125 mcg, By Mouth, Daily Melatonin Tablet, 3 mg, By Mouth, Daily at bedtime, PRN Metoprolol Succinate ER 100 mg oral tablet, extended release, 200 mg, By Mouth, Daily MiraLax Powder, 17 Gm= 1 pack/packet, By Mouth, Daily, PRN NaCL 0.9% Flush, 3 mL, IV Push, Every 8 hours NaCL 0.9% Flush, 3 mL, IV Push, Every 8 hours, PRN NaCL 0.9% Flush, 3 mL, IV Push, Every 8 hours NaCL 0.9% Flush, 3 mL, IV Push, Every 8 hours, PRN Robitussin DM Liquid, 10 mL, By Mouth, Every 4 hours, PRN Senna Tablet, 8.6 mg= 1 tablet, By Mouth, 2 times a day, PRN sertraline 50 mg oral tablet, 200 mg, By Mouth, Daily Simethicone Tablet, 80 mg, Chew, 3 times a day, PRN spironolactone 25 mg oral tablet, 25 mg, By Mouth, Daily Ticagrelor Tablet, 90 mg= 1 tablet, By Mouth, 2 times a day torsemide 20 mg oral tablet, 20 mg= 1 tablet, By Mouth, 2 times a day traZODone 50 mg oral tablet, 50 mg, By Mouth, Daily at bedtime, PRN Home aspirin 81 mg oral delayed release tablet, 81 mg, By Mouth, Daily atorvastatin 40 mg oral tablet, 40 mg= 1 tablet, By Mouth, Daily Brilinta (ticagrelor) 90 mg oral tablet, 90 mg= 1 tablet, By Mouth, 2 times a day busPIRone 15 mg oral tablet, 15 mg= 1 tablet, By Mouth, 2 times a day Farxiga 5 mg oral tablet, 5 mg= 1 tablet, By Mouth, Daily Fiasp 100 units/mL injectable solution FREESTY LIBR 2 SENSOR KIT FREESTYLE RON 2 SENSOR MISC levothyroxine 125 mcg (0.125 mg) oral tablet, 125 mcg= 1 tablet, By Mouth, Daily Melatonin 1 mg oral tablet, 1 mg= 1 tablet, By Mouth, Daily at bedtime, PRN Metoprolol Succinate ER 200 mg oral tablet, extended release, 200 mg= 1 tablet, By Mouth, Daily Mounjaro 2.5 mg/0.5 mL subcutaneous solution, 2.5 mg, Subcutaneous Injection, Every week OMNIPOD DASH 5 PACK MIS OMNIPOD DASH MIS PODS OMNIPOD DASH PODS (GEN 4) MISC Praluent Pen 150 mg/mL subcutaneous solution ranolazine 500 mg oral tablet, extended release, 500 mg= 1 tablet, By Mouth, 2 times a day sertraline 100 mg oral tablet, 200 mg= 2 tablet, By Mouth, Daily spironolactone 25 mg oral tablet, 25 mg, By Mouth, Daily torsemide 20 mg oral tablet, 20 mg= 1 tablet, By Mouth, Daily traZODone 50 mg oral tablet, 50 mg= 1 tablet, By Mouth, Daily at bedtime, PRN valsartan 40 mg oral tablet * Cielo Foster: PERFORM Event Display: Progress Note Hospital Authored Date: Patient: ??DUNCAN PETE ? Age:??73 Years?Sex:??Female?:??1950?? Indication for Consult Severe shortness of breath chest pressure History of Present Illness/Interval History Patient seen?? feeling well?? no complaints?? Tele: NSR 60s?? Physical Exam Vitals & Measurements T:??98.0?F?? HR:??64??(Peripheral)?? RR:??22?? BP:??107/65?? SpO2:??93%?? HT:??158??cm?? WT:??71.3??kg?? BMI:??29.44?? Weight lb/oz: 157 lb 3 oz General: Well appearing, NAD HEENT: anicteric sclera, ??JVP <10 cm, no HJR Cardio: RRR. Normal S1 and S2. No murmurs or rubs appreciated. Resp: CTA bilaterally, no wheezing, rhonchi, or crackles. Abd: Abdomen soft and nontender to palpation. +BS Ext: No peripheral edema. Warm and well perfused.?? Neuro: Alert and oriented. No focal weakness appreciated. Moving all extremities Psych: Mood and affect appropriate Assessment/Plan Acute hypoxemic respiratory failure Acute systolic CHF (congestive heart failure) Bacterial pneumonia CAD (coronary artery disease) (Provisional) CHF exacerbation (Provisional) NSTEMI (non-ST elevated myocardial infarction) (Provisional) Sepsis Shortness of breath (Provisional) Type 2 diabetes mellitus ? 73-year-old Niuean-speaking female that is post multiple interventions in the past including RCA stent and multiple interventions to the LAD most recently in 10/2023 as well as a history of heart failure reduced EF hypertension hyperlipidemia type 2 diabetes presented with chest pain.?? Found tohave elevated troponins 526, [address]-T wave changes.?? She was treated with IV Lasix for acute heart failure exacerbation and was started on IV antibiotics for community-acquired pneumonia.?? She underwent cardiac catheterization on 07/31/2023 found to have critical 90% in-stent restenosis in the midsegment of the mid LAD stent placed in October. PCI was done subsequently on 08/01/2023 with LAZARO inside the previous mid LAD stent. ?? Course complicated by CHF - she is euvolemic on today's exam.?? On CT angio 07/30 with moderate pericardial affusion - just obtaining to ECHO to assess Effusion.?? If stable, can watch closely as outpatient.? 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 -Continue ASA/Statin/dapa/BB/Thor/brilinta -FU ECHO -Recommend Lasix 20mg Po daily?? -Consider restarting valsartan 20 mg po daily (can schedule PM) -Fu already made? will dw??Dr. stone? Problem List/Past Medical History Ongoing Anxiety CAD (coronary artery disease) Diabetes mellitus Diabetic neuropathy Follow-up examination after gynecological surgery Heart attack High cholesterol Hypothyroidism Stress incontinence Procedure/Surgical History Tubal ligation removal of bilateral nipple removal Cholecystectomy [facility] Medications Medications (37) Active SCHEDULED: (17) Aspirin 81 mg EC Tablet (Aspirin Tablet) ??81 mg, By Mouth, Daily Atorvastatin 40 mg Tablet (atorvastatin 40 mg oral tablet) ??40 mg, By Mouth, Daily BusPIRone 10 mg Tablet (busPIRone 10 mg oral tablet) ??15 mg, By Mouth, 2 times a day Ceftriaxone 1 Gm Inj (Ceftriaxone Inj) ??1 Gm, IVPB, Every 24 hours Dapagliflozin 5 mg Tablet (Dapagliflozin Tablet) ??5 mg, By Mouth, Daily Enoxaparin 40 mg Inj (Enoxaparin Inj) ??40 mg 0.4 mL, Subcutaneous Injection, Daily Insulin Glargine 100 units/mL Inj (Lantus Inj) ??20 units 0.2 mL, Subcutaneous Injection, Daily in AM Insulin Lispro 100 units/mL Inj (Insulin LISPRO Sliding Scale) ??2-10 units, Subcutaneous Injection, 3 times a day before meals Insulin Lispro 100 units/mL Inj (Insulin LISPRO Inj) ??7 units 0.07 mL, Subcutaneous Injection, 3 times a day before meals Levothyroxine 125 mcg Tablet (levothyroxine 125 mcg (0.125 mg) oral tablet) ??125 mcg, By Mouth, Daily Metoprolol 100 mg XL Tablet (Metoprolol Succinate ER 100 mg oral tablet, extended release) ??200 mg, By Mouth, Daily NaCl 0.9% Flush 3ml (NaCL 0.9% Flush) ??3 mL, IV Push, Every 8 hours NaCl 0.9% Flush 3ml (NaCL 0.9% Flush) ??3 mL, IV Push, Every 8 hours Sertraline 50 mg Tablet (sertraline 50 mg oral tablet) ??200 mg, By Mouth, Daily Spironolactone 25 mg Tablet (spironolactone 25 mg oral tablet) ??25 mg, By Mouth, Daily Ticagrelor 90 mg Tablet (Ticagrelor Tablet) ??90 mg 1 tablet, By Mouth, 2 times a day Torsemide 20 mg tablet (torsemide 20 mg oral tablet) ??20 mg 1 tablet, By Mouth, 2 times a day CONTINUOUS: (0) PRN: (20) Acetaminophen 325 mg Tablet (Acetaminophen Tablet) ??650 mg, By Mouth, Every 4 hours Dextromethorphan-Guaifenesin 20 mg-200 mg/10 mL Liqu UD (Robitussin DM Liquid) ??10 mL, By Mouth, Every 4 hours Dextrose Inj Syringe (Dextrose 50% Inj Syringe (25Gm)) ??12.5 Gm, IV Push Slowly, Every 20 minutes Dextrose Inj Syringe (Dextrose 50% Inj Syringe (25Gm)) ??25 Gm, IV Push Slowly, Every 15 minutes Dextrose Inj Syringe (Dextrose 50% Inj Syringe (25Gm)) ??12.5 Gm, IV Push Slowly, Every 20 minutes Dextrose Inj Syringe (Dextrose 50% Inj Syringe (25Gm)) ??25 Gm, IV Push Slowly, Every 15 minutes Docusate Sodium 100 mg Capsule (Docusate Sodium Capsule) ??100 mg 1 capsule, By Mouth, 2 times a day Glucagon 1 mg Inj (Glucagon Inj) ??1 mg, Intramuscular, Once Glucagon 1 mg Inj (Glucagon Inj) ??1 mg, Intramuscular, Once Glucose 40% Gel (15 Gm) (Glucose Gel) ??15 Gm, By Mouth, Every 20 minutes Glucose 40% Gel (15 Gm) (Glucose Gel) ??30 Gm, By Mouth, Every 20 minutes Glucose 40% Gel (15 Gm) (Glucose Gel) ??15 Gm, By Mouth, Every 20 minutes Glucose 40% Gel (15 Gm) (Glucose Gel) ??30 Gm, By Mouth, Every 20 minutes Melatonin 3 mg Tablet (Melatonin Tablet) ??3 mg, By Mouth, Daily at bedtime NaCl 0.9% Flush 3ml (NaCL 0.9% Flush) ??3 mL, IV Push, Every 8 hours NaCl 0.9% Flush 3ml (NaCL 0.9% Flush) ??3 mL, IV Push, Every 8 hours Polyethylene Glycol 17 Gm Powder (MiraLax Powder) ??17 Gm 1 pack/packet, By Mouth, Daily Senna Tablet ??8.6 mg 1 tablet, By Mouth, 2 times a day Simethicone 80 mg Chewable Tablet (Simethicone Tablet) ??80 mg, Chew, 3 times a day Trazodone 50 mg Tablet (traZODone 50 mg oral tablet) ??50 mg, By Mouth, Daily at bedtime Follow-Up Appointments Added Follow Up ?Time Frame ?Comments [facility] Georgina Fish MD Lab Results Cardiology Labs WBC: 7.8 k/mm3 (08/03/24) RBC:??3.56 m/mm3??Low (08/03/24) Hgb:??11.1 Gm/dL??Low (08/03/24) Hct:??33.5 %??Low (08/03/24) MCV: 94.1 femtoliters (08/03/24) MCH: 31.2 pg (08/03/24) MCHC: 33.1 Gm/dL (08/03/24) Platelet Count: 198 k/mm3 (08/03/24) RDW-SD: 43.7 femtoliters (08/03/24) Nucleated RBC (Automated): 0 #/100 WBC'S (08/03/24) Abs. Neut: 5.5 k/mm3 (07/31/24) Abs. Lymph: 1.2 k/mm3 (07/31/24) Abs. Baxter: 0.5 k/mm3 (07/31/24) Abs. Eo: 0.1 k/mm3 (07/31/24) Abs. Baso: 0 k/mm3 (07/31/24) Neut %: 75.2 % (07/31/24) Baxter %: 7.4 % (07/31/24) Eos %: 0.8 % (07/31/24) Baso %: 0.4 % (07/31/24) Imm Gran: 0.4 % (07/31/24) Abs. Imm Gran: 0 k/mm3 (07/31/24) INR: 1 (07/30/24) Protime (PT): 10.6 seconds (07/30/24) APTT: 24.5 seconds (08/01/24) Sodium: 142 mmol/L (08/03/24) Potassium: 3.6 mmol/L (08/04/24) Chloride: 106 mmol/L (08/03/24) Bicarbonate Level:??21 mmol/L??Low (08/03/24) Glucose Level: 80 mg/dL (08/03/24) Hemoglobin A1C (Monitoring):??6.6 %??High (07/30/24) BUN:??33 mg/dL??High (08/03/24) Creatinine-Blood:??1.29 mg/dL??High (08/03/24) Calcium: 9 mg/dL (08/03/24) Protein, Total: 7.4 Gm/dL (11/19/23) Albumin: 4.2 Gm/dL (11/19/23) Alkaline Phosphatase:??146 units/L??High (11/19/23) AST (SGOT): 22 units/L (11/19/23) ALT (SGPT): 16 units/L (11/19/23) Bilirubin, Total: 0.4 mg/dL (11/19/23) Nt-Probnp:??86144 pg/mL??High (07/30/24) Cholesterol: 124 mg/dL (11/20/23) Triglycerides:??193 mg/dL??High (11/20/23) HDL Cholesterol: 47 mg/dL (11/20/23) LDL Cholesterol: 38 mg/dL (11/20/23) Non HDL Cholesterol: 77 mg/dL (11/20/23) TSH:??0.01 uIU/mL??Low (11/19/23) Free T4:??2.11 ng/dL??High (11/19/23) Diagnostic Impression ECG ECG 12-Lead ?? 07:28:15 Ventricular Rate: 68 BPM Atrial Rate: 68 BPM P-R Interval: 154 ms QRS Duration: 82 ms Q-T Interval: 444 ms QTC Calculation(Bazett): 472 ms P Kingston: 57 degrees R Kingston: 63 degrees T Kingston: 52 degrees Normal sinus rhythm Nonspecific T wave abnormality Abnormal ECG When compared with ECG of 01-Aug-2024 19:43, No significant change Confirmed by Kevin Granado ([id number]) on 08/02/2024 6:06:41 PM ?? [place]: Kevin Granado ?? Signed By: Kevin Granado MD ?? ECG 12-Lead ?? 07:28:15 Please click on pdf link to open report ?? Signed By: Kevin Granado MD Echo Echocardiogram - Complete ?? 11:42:56 Summary The left ventricle is dilated. The left ventricular wall thickness is mildly increased. Apical images are foreshortened and there is suboptimal endocardial definition despite use of echocontrast in some views. The LV systolic function is moderately reduced. EF and wall motion cannot be adequately assessed. The mid to distal anterior, wall is hypokinetic . The basal to mid inferoseptal, inferior wall is akinetic . Grade II, moderate diastolic dysfunction with pseudonormal LV filling pattern and increased LA pressure. The aortic valve is trileaflet. The aortic valve appears mildly thickened. There is mild aortic regurgitation. There is no significant aortic stenosis. The right ventricular size and function appears grossly normal. There is a small circumferential pericardial effusion. There is an epicardial fat pad present. ?? Comparison Comparison is made to the study of November 22, 2023. Degree of MR appears less, technical differences limit comparison of LV function. ?? Signature ?? Signed By: Grace Segura MD Cardiac Cath Procedure Cardiac Cath Procedure ?? 13:41:15 Conclusions ?? 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 Complications: None Specimens: None EBL: 10 mL ?? Interventional Recommendations_ASA 81 mg daily lifelong_ticagrelor 90 mg BID for 1 year post-PCI (through 08/01/25)_maximal medical therapy for CAD per guidelines_radial compression band for 2 hours_hydration: normal saline for 4 hours at 3 mL/kg/hr ?? Kevin Granado MD, MS, FACC, FSCAI, FSVM, RPVI Director, Cardiac Catheterization [employer], Cardiovascular Clinical Research [facility] ?? [email or web address]: [address] [place] [address] ?? Signatures ?? Signed By: Vannesa SILVEIRA, Kevin Jimenez Consult note * Mani SILVEIRA, [facility]: PERFORM, MODIFY Event Display: Consultation Note Authored Date: Patient: ??DUNCAN PETE ? Age:??73 Years?Sex:??Female?:??1950?? Indication for Consult Severe shortness of breath chest pressure [facility] medical practices: Cardiology consult note Requesting provider: Janiya Silverman MD Consulting physician: Ricki Vargas MD Primary imaging clerk:??Pinky Dueñas MD Reason for consult:??NSTEMI History of Present Illness/Interval History 73-year-old?? Niuean-speaking lady with history of coronary artery disease s/p LAZARO to multiple vessels, type 2 diabetes mellitus on insulin, hypertension, dyslipidemia, obesity, admitted to the PCU. ?? CAD history: She had LAZARO to RCA on 10/03/2010, had recurrent chest pain and brought down to the lab the following day and had stent thrombosis.?? Subsequently another LAZARO placed in PDA.?? On 03/26/2012,she had LAZARO placed to LAD, had 99% OM 2 occlusion along with right posterior AV branch 90%.?? On 01/03 she had severe in-stent restenosis of LAD requiring balloon angioplasty, septal branch was occluded.?? Stress test on July 20, 2016 revealed large fixed inferior wall defect with preserved LV function similar to July 2013 stress test.?? She was transferred from [place] 10/15/2016 with chest pain, EKG with no changes and negative cardiac biomarkers for unstable angina, underwent cath on 10/17/2016 which showed distal RCA occluded with hopa-ye-lisye collaterals, moderate disease of LADwhich appeared to be improved.?? She was treated medically.?? She presented to [facility] on 05/28/2017 with increasing angina, she ran out of medication, due to insurance was unable to refill for 2 weeks.?? On the same day cardiac cath revealed unchanged anatomy, treated medically.?? She was hospitalized in 2019 for, had a cath on 11/17/2023, underwent PCI to proximal to mid LAD, echo showing EF 25to 30% at that time.?? As per cardiology office note reviewed.?? Most recent visit 07/24/2024???angina resolved, feels much better, has not required nitroglycerin. ?? She is now presenting with chest pain x 3 days, progressively getting worse, despite taking sublingual nitro, associated with difficulty breathing, felt congested even with minimal ambulation and felt winded with worsening chest discomfort, retrosternal without radiation, associated with palpitations, lightheadedness, diaphoresis, nausea, reduces with rest, worsens with exertion. ?? Upon presentation, afebrile, heart rate 82, blood pressure 138/64 mmHg, saturating 92% on 4 L nasalcannula, eventually placed on CPAP/BiPAP, now weaned down to room air.?? Labs revealed leukocytosis, neutrophil predominant, BMP with hyperglycemia, creatinine 1.12.?? NT proBNP 12 813 uptrending, troponin 525???556.?? Chest x-ray revealed bilateral opacities greater on right.?? EKG revealed normalsinus rhythm, heart rate 96, nonspecific ST-T wave changes.?? Patient has been admitted to the medical floors for NSTEMI on heparin drip, acute exacerbation of heart failure, started on Lasix 40 IV twice daily, antibiotics for concern of pneumonia. ?? Prior cardiac workup: 1.?? Transthoracic echocardiogram 01/10/2024: LV dilated, wall thickness mildly increased, systolic function moderately reduced, EF and wall motion could not be assessed, mid to distal anterior wall is hypokinetic, basal to mid inferoseptal, inferior wall akinetic, grade 2 diastolic dysfunction.?? Mild AR, no significant .?? Small circumferential effusion. 2.?? Cardiac cath 11/17/2023: 70% stenosis of mid LAD, stents noted in LAD, RCA.?? Underwent PCI to proximal to mid LAD. ?? Home cardiac medications: Praluent every 2 weeks, amlodipine 5 mg twice daily, atorvastatin 40 mg daily, Farxiga 5 mg daily, metoprolol succinate 200 mg daily, ranolazine 5 mg twice daily, valsartan 20 mg daily, ticagrelor 90 mg twice daily Current active cardiac medications: Aspirin 81 mg daily, atorvastatin 40 mg daily, dapagliflozin 5 mg daily, Lasix 40 IV twice daily, metoprolol succinate 200 mg daily, ticagrelor 90 mg twice daily, heparin drip ?? Subjectively,??patient seen at bedside with daughter, who helped with??translation??as required stood by patient.?? She does confirm the above history??that she has a chest pain??which feels like pressure associated with left arm numbness, headache, nausea, 1 episode of vomiting last night, abdominal discomfort. ??She has been compliant with medications. ??As per daughter, she is not compliantwith diet,??mostly sedentary. Review of Systems ROS negative except stated above Physical Exam Vitals & Measurements T:??98.4?F?? HR:??87??(Monitored)?? RR:??24?? BP:??125/51?? SpO2:??93%?? HT:??158??cm?? WT:??73.5??kg?? BMI:??29.44?? Weight lb/oz: 162 lb 1 oz Constitutional: Alert, in no distress. Mental Status: Oriented to person, place and time. Head: Normocephalic.?? EOMI, mucous membranes moist. Neck: Supple, Full range of motion.?? JVD noted. Respiratory: Bilateral crackles appreciable. Cardiovascular: S1 S2 regular. No murmurs, rubs or gallops. Gastrointestinal: Abdomen soft, non-tender, non-distended. Normal bowel sounds. Neurologic: Cranial nerves II-XII grossly intact. No focal neurological deficits. Extremities:??1-2+ pitting pedal edema in bilateral lower extremities.?? Intake and Output Today's Intake Total?549?? Today's Output Total?600?? Today's Urine Voided?600?? Today's Balance?-51?? Clinical Range's Intake Total?549?? Clinical Range's Output Total?600?? Clinical Range's Total Urine Voided?600?? Clinical Range's Balance ?-51?? Assessment/Plan 73-year-old Niuean-speaking lady, coronary artery disease s/p multiple interventions (LAZARO to RCA 10/03/2010 for chest pain, complicated by in-stent thrombus of RCA stent the following day, repeat LAZARO placed. ??PCI to mid LAD 03/26/2012 for chest pain and positive nuclear test. ??Severe in-stent restenosis of mid LAD???POBA of mid LAD, balloon inflation of diagonal, concern for small dissection on 01/03/2013. ??Borderline hemodynamically significant lesion of LAD by FFR on 10/17/2016, done for unstable angina, no intervention at that time. ??Another cath 06/08/2023 for stable angina revealed significant lesion of LAD, total occlusion of RCA, OM 2, medically managed at that time. ??Latest cath from 11/21/2023 done for refractory angina, underwent IVUS guided PCI to proximal to mid LAD with LAZARO), type 2 diabetes mellitus on insulin, hypertension, dyslipidemia, obesity, admitted to PCU for progressively worsening exertional chest pain, troponins elevated 525???556, EKG with nonspecific ST-T wave changes, started on heparin drip for NSTEMI.?? She has also been started on Lasix 40 IV twice daily for acute exacerbation of heart failure??and started on antibiotics for concern of pneumonia.?? Agree with continuing heparin at this time, will add on for cardiac cath tomorrow for ischemic evaluation.?? Also agree with Lasix 40 IV twice daily at this time, recommend adding on spironolactone 25 mg daily.?? Recommend obtaining a transthoracic echocardiogram. ?? #NSTEMI #Acute heart failure exacerbation #Community-acquired pneumonia #Coronary artery disease s/p multiple??PCI #Diabetes mellitus, hypertension, dyslipidemia, obesity ?? Recommendations: ?Cardiac cath tomorrow, n.p.o. past midnight ?Continue Lasix??for diuresis ?Monitor I's/O,??daily weight, cardiac diet ??? Monitor electrolytes, replete as appropriate ??? Start??spironolactone 25 mg daily ??? Continue current cardiac medications including aspirin, ticagrelor, atorvastatin, dapagliflozin, metoprolol ?Obtain transthoracic echocardiogram ??? Rest of the management per primary team ? The above has been discussed with Dr. Vargas ?? 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 Allergies ibuprofen Home Medications alirocumab: INJECT 150 MG SUBCUTANEOUSLY EVERY 14 DAYS Amlodipine: TAKE ONE TABLET BY MOUTH TWICE A DAY. THIS IS AN INCREASED DOSE FOR ANGINA. Atorvastatin: 40 mg = 1 tablet, By Mouth, Daily BusPIRone: 15 mg = 1 tablet, By Mouth, 2 times a day dapagliflozin: 5 mg = 1 tablet, By Mouth, Daily Insulin Aspart: INJECT 100 UNITS SUBCUTANEOUSLY DIALY. Levothyroxine: 125 mcg = 1 tablet, By Mouth, Daily Melatonin: 1 mg = 1 tablet, By Mouth, Daily at bedtime, PRN (for insomnia) Metoprolol: 200 mg = 1 tablet, By Mouth, Daily Miscellaneous Rx (FREESTYLE RON 2 SENSOR ??MISC): USE DIRECTED. CHANGE EVERY 14 DAYS Miscellaneous Rx (FREESTY LIBR 2 SENSOR KIT) Miscellaneous Rx (OMNIPOD DASH PODS (GEN 4) ??MISC): USE DIRECTED. CHANGE EVERY 48 HOURS Miscellaneous Rx (OMNIPOD DASH MIS PODS) Miscellaneous Rx (OMNIPOD DASH 5 PACK MIS) ranolazine: 500 mg = 1 tablet, By Mouth, 2 times a day Sertraline: 200 mg = 2 tablet, By Mouth, Daily Ticagrelor: TAKE 1 TABLET BY MOUTH TWO TIMES A DAY tirzepatide: 2.5 mg, Subcutaneous Injection, Every week, rotate injection sites Trazodone: 50 mg = 1 tablet, By Mouth, Daily at bedtime, PRN (Insomnia) Valsartan: TAKE 1/2 TABLET ??20 MG) BY MOUTH EVERY DAY. Hospital Medications Medications (37) Active SCHEDULED: (14) Aspirin 81 mg EC Tablet (Aspirin Tablet) ??81 mg, By Mouth, Daily Atorvastatin 40 mg Tablet (atorvastatin 40 mg oral tablet) ??40 mg, By Mouth, Daily BusPIRone 10 mg Tablet (busPIRone 10 mg oral tablet) ??15 mg, By Mouth, 2 times a day Ceftriaxone 1 Gm Inj (Ceftriaxone Inj) ??1 Gm, IVPB, Every 24 hours Dapagliflozin 5 mg Tablet (Dapagliflozin Tablet) ??5 mg, By Mouth, Daily Fluzone Trivalent High Dose (>65yr) Inj 0.5 mL (Influenza, Trivalent High Dose Vaccine (Fluzone High Dose)) ??0.5 mL, Intramuscular, Once Furosemide Inj (Lasix ??Inj) ??40 mg 4 mL, IV Push Slowly, 2 times a day Insulin Glargine 100 units/mL Inj (Lantus Inj) ??25 units 0.25 mL, Subcutaneous Injection, Daily Jes Insulin Lispro 100 units/mL Inj (Insulin LISPRO Sliding Scale) ??7-17 units, Subcutaneous Injection, 3 times a day before meals Levothyroxine 125 mcg Tablet (levothyroxine 125 mcg (0.125 mg) oral tablet) ??125 mcg, By Mouth, Daily Metoprolol 100 mg XL Tablet (Metoprolol Succinate ER 100 mg oral tablet, extended release) ??200 mg, By Mouth, Daily NaCl 0.9% Flush 3ml (NaCL 0.9% Flush) ??3 mL, IV Push, Every 8 hours Sertraline 50 mg Tablet (sertraline 50 mg oral tablet) ??200 mg, By Mouth, Daily Ticagrelor 90 mg Tablet (Ticagrelor Tablet) ??90 mg 1 tablet, By Mouth, 2 times a day CONTINUOUS: (1) Heparin 25,000 units / 250 mL D5W premix 25,000 units [11 units/kg/hr] + D5%W Premixed IV 250 mL (Heparin 25,000 units in 250 mL Premix 25,000 units [11 units/kg/hr] + D5%W Premixed IV 250 mL) ??250 mL, IV Infusion, 8.9 mL/hr PRN: (22) Acetaminophen 325 mg Tablet (Acetaminophen Tablet) ??650 mg, By Mouth, Every 4 hours Dextromethorphan-Guaifenesin 20 mg-200 mg/10 mL Liqu UD (Robitussin DM Liquid) ??10 mL, By Mouth, Every 4 hours Dextrose Inj Syringe (Dextrose 50% Inj Syringe (25Gm)) ??12.5 Gm, IV Push Slowly, Every 20 minutes Dextrose Inj Syringe (Dextrose 50% Inj Syringe (25Gm)) ??25 Gm, IV Push Slowly, Every 15 minutes Dextrose Inj Syringe (Dextrose 50% Inj Syringe (25Gm)) ??12.5 Gm, IV Push Slowly, Every 20 minutes Dextrose Inj Syringe (Dextrose 50% Inj Syringe (25Gm)) ??25 Gm, IV Push Slowly, Every 15 minutes Docusate Sodium 100 mg Capsule (Docusate Sodium Capsule) ??100 mg 1 capsule, By Mouth, 2 times a day Glucagon 1 mg Inj (Glucagon Inj) ??1 mg, Intramuscular, Once Glucagon 1 mg Inj (Glucagon Inj) ??1 mg, Intramuscular, Once Glucose 40% Gel (15 Gm) (Glucose Gel) ??15 Gm, By Mouth, Every 20 minutes Glucose 40% Gel (15 Gm) (Glucose Gel) ??30 Gm, By Mouth, Every 20 minutes Glucose 40% Gel (15 Gm) (Glucose Gel) ??15 Gm, By Mouth, Every 20 minutes Glucose 40% Gel (15 Gm) (Glucose Gel) ??30 Gm, By Mouth, Every 20 minutes Heparin 5000 units/mL Inj (1 mL) (Heparin Inj) ??5,000 units 1 mL, IV Push, Every 6 hours Heparin 5000 units/mL Inj (1 mL) (Heparin Inj) ??2,500 units 0.5 mL, IV Push, Every 6 hours Melatonin 3 mg Tablet (Melatonin Tablet) ??3 mg, By Mouth, Daily at bedtime NaCl 0.9% Flush 3ml (NaCL 0.9% Flush) ??3 mL, IV Push, Every 8 hours Nitroglycerin 0.4 mg Sublingual Tablet (Nitroglycerin 0.4mg Sublingual Tablet) ??0.4 mg, Sublingual, Every 5 minutes Polyethylene Glycol 17 Gm Powder (MiraLax Powder) ??17 Gm 1 pack/packet, By Mouth, Daily Senna Tablet ??8.6 mg 1 tablet, By Mouth, 2 times a day Simethicone 80 mg Chewable Tablet (Simethicone Tablet) ??80 mg, Chew, 3 times a day Trazodone 50 mg Tablet (traZODone 50 mg oral tablet) ??50 mg, By Mouth, Daily at bedtime Lab Results Cardiology Labs WBC:??16.4 k/mm3??High (07/30/24) RBC:??4.15 m/mm3??Low (07/30/24) Hgb: 12.8 Gm/dL (07/30/24) Hct: 40.3 % (07/30/24) MCV: 97.1 femtoliters (07/30/24) MCH: 30.8 pg (07/30/24) MCHC:??31.8 Gm/dL??Low (07/30/24) Platelet Count: 187 k/mm3 (07/30/24) RDW-SD: 45.3 femtoliters (07/30/24) Nucleated RBC (Automated): 0 #/100 WBC'S (07/30/24) Abs. Neut:??15.5 k/mm3??High (07/30/24) Abs. Lymph: 2.7 k/mm3 (07/30/24) Abs. Baxter:??1.2 k/mm3??High (07/30/24) Abs. Eo: 0.1 k/mm3 (07/30/24) Abs. Baso: 0.1 k/mm3 (07/30/24) Neut %:??79 %??High (07/30/24) Baxter %: 6 % (07/30/24) Eos %: 0.3 % (07/30/24) Baso %: 0.3 % (07/30/24) Imm Gran: 0.5 % (07/30/24) Abs. Imm Gran: 0.1 k/mm3 (07/30/24) INR: 1 (07/30/24) Protime (PT): 10.6 seconds (07/30/24) APTT: 24.5 seconds (07/30/24) Sodium: 137 mmol/L (07/30/24) Potassium: 3.9 mmol/L (07/30/24) Chloride: 104 mmol/L (07/30/24) Bicarbonate Level:??15 mmol/L??Low (07/30/24) Glucose Level:??254 mg/dL??High (07/30/24) Hemoglobin A1C (Monitoring):??6.3 %??High (11/20/23) BUN: 18 mg/dL (07/30/24) Creatinine-Blood:??1.12 mg/dL??High (07/30/24) Calcium: 9.6 mg/dL (07/30/24) Protein, Total: 7.4 Gm/dL (11/19/23) Albumin: 4.2 Gm/dL (11/19/23) Alkaline Phosphatase:??146 units/L??High (11/19/23) AST (SGOT): 22 units/L (11/19/23) ALT (SGPT): 16 units/L (11/19/23) Bilirubin, Total: 0.4 mg/dL (11/19/23) Nt-Probnp:??60183 pg/mL??High (07/30/24) Cholesterol: 124 mg/dL (11/20/23) Triglycerides:??193 mg/dL??High (11/20/23) HDL Cholesterol: 47 mg/dL (11/20/23) LDL Cholesterol: 38 mg/dL (11/20/23) Non HDL Cholesterol: 77 mg/dL (11/20/23) TSH:??0.01 uIU/mL??Low (11/19/23) Free T4:??2.11 ng/dL??High (11/19/23) Diagnostic Impression ECG ECG 12-Lead ?? 04:43:19 Please click on pdf link to open report ?? Signed By: Marcelo Garibay DO ?? ECG 12-Lead ?? 04:43:19 Ventricular Rate: 89 BPM Atrial Rate: 89 BPM P-R Interval: 154 ms QRS Duration: 86 ms Q-T Interval: 380 ms QTC Calculation(Bazett): 462 ms P Kingston: 59 degrees R Kingston: 81 degrees T Kingston: -29 degrees Normal sinus rhythm Possible Left atrial enlargement Possible Anterior infarct , age undetermined Abnormal ECG When compared with ECG of 30-Jul-2024 03:19, MANUAL COMPARISON REQUIRED DATA IS UNCONFIRMED Confirmed by MARCELO GARIBAY MD ([id number]) on 07/30/2024 9:22:11 AM ?? [place]: MARCELO GARIBAY MD ?? Signed By: Marcelo Garibay DO Echo Echocardiogram - Complete ?? 11:42:56 Summary The left ventricle is dilated. The left ventricular wall thickness is mildly increased. Apical images are foreshortened and there is suboptimal endocardial definition despite use of echocontrast in some views. The LV systolic function is moderately reduced. EF and wall motion cannot be adequately assessed. The mid to distal anterior, wall is hypokinetic . The basal to mid inferoseptal, inferior wall is akinetic . Grade II, moderate diastolic dysfunction with pseudonormal LV filling pattern and increased LA pressure. The aortic valve is trileaflet. The aortic valve appears mildly thickened. There is mild aortic regurgitation. There is no significant aortic stenosis. The right ventricular size and function appears grossly normal. There is a small circumferential pericardial effusion. There is an epicardial fat pad present. ?? Comparison Comparison is made to the study of November 22, 2023. Degree of MR appears less, technical differences limit comparison of LV function. ?? Signature ?? Signed By: Grace Segura MD A Cardiac Cath Procedure Cardiac Cath Procedure ?? 14:15:00 Conclusions ?? Interventional Summary Successful IVUS guided PCI of the proximal to mid LAD with drug-eluting stents Right radial artery hemostatic with compressive device ?? Interventional Recommendations 1. Continue low-dose of aspirin indefinitely 2. Continue dual antiplatelet therapy for at least 12 months following PCI 3. Continue GDMT for established coronary artery disease ?? ACC Diagnostic Recommendations: PCI without planned CABG. ?? Complications:None. ?? Signatures ?? Signed By: Bayron Munoz MD Problem List/Past Medical History Ongoing Anxiety CAD (coronary artery disease) Diabetes mellitus Diabetic neuropathy Follow-up examination after gynecological surgery Heart attack High cholesterol Hypothyroidism Stress incontinence Procedure/Surgical History Tubal ligation removal of bilateral nipple removal Cholecystectomy lap Social History Alcohol Use: Never. Employment/School Status: Disabled. Exercise Regular exercise: No. Home/Environment Lives with: Alone. Nutrition/Health Diet: Regular. Sexual Sexually involved in last 6 months: No. Substance Abuse Use: Never. Tobacco Former smoker, Tobacco user in household: No. Other: quit smoking 2012. Family History Mother: Diabetes mellitus Father: Cardiovascular disease Sister: Diabetes mellitus Brother: Diabetes mellitus; Kidney disease * Sam SILVEIRA, Ricki Brandon: PERFORM Event Display: Consultation Note Authored Date: Attending Attestation:??I have seen and evaluated this patient on the date of service. ??I have discussed the case and its management with the fellow and agree with the findings and plan as documented in the fellow???s note.?? * Abhinav SILVEIRA, Rowena: PERFORM Event Display: Consultation Note Authored Date: Patient: ??DUNCAN PETE ? Age:??73 Years?Sex:??Female?:??1950?? Chief Complaint Severe shortness of breath chest pressure History of Present Illness 73 yo F, with h/o T2DM, CAD. CHF, hypothyroidism present for chest pain and SOB. BIDS consulted forDM management ? General DM hx ?? -Type??2??DM per [facility] -Diagnosed more than 30 years ago -Follow up with Dr. Santizo endocrine. ?? Adult Endo - Diabetes Labs?? Hemoglobin A1C (Monitoring):??6.3 %??High (11/20/23) ? -home medication/insulin ? Mounjaro 2.5mg weekly ? faxiga 5mg daily ? Fiasp??insulin ? Omnipod (seems like Dash) with Ron sensor, unclear setting as pt did not bring the PDM. ? -Steroid, D5 fluid, D5 containing fluid: heparin has some D5 ?? -current diet: 60g ?? -oral intake: ok ?? -Hypoglycemia risks: CKD ?? Review of Systems 12 point review of systems completed and negative other than what is noted above. Physical Exam Vitals & Measurements T:??98.4?F?? TMIN:??97.2?F?? TMAX:??98.4?F?? HR:??73??(Monitored)?? RR:??23?? BP:??114/54?? SpO2:??95%?? WT:??73.5??kg?? HEENT: NCAT, trachea midline Eyes: Sclera nonicteric, nonindurated RESP: nonlabored breathing?? Skin: No notable rashes Neuro: Grossly normal motor function Psych: alert and oriented x4 Constitutional: Well appearing?? Assessment/Plan Assessment:??73 yo F, with h/o T2DM, CAD. CHF, hypothyroidism present for chest pain and SOB. [facility]IDS consulted for DM management ?? -pt did not bring PDM so unable to continue the pump. unclear setting so difficult to estimate transition regimen, seems like there were note from 10 years ago wrote pt was on lantus??65 and lispro??16 units -for now give lantus??25 units and remove pump in 2 hours, the plan was discussed with pt's RN in person -start lispro 7:100 + 2 :50 -further adjustment based on sugar response -[facility] will continue follow up ?? Discharge Planning:? Problem List/Past Medical History Ongoing Anxiety CAD (coronary artery disease) Diabetes mellitus Diabetic neuropathy Follow-up examination after gynecological surgery Heart attack High cholesterol Hypothyroidism Stress incontinence Procedure/Surgical History ???Cholecystectomy lap???removal of bilateral nipple removal???Tubal ligation Medications Inpatient Acetaminophen Tablet, 650 mg, By Mouth, Every 4 hours, PRN Aspirin Tablet, 81 mg, By Mouth, Daily atorvastatin 40 mg oral tablet, 40 mg, By Mouth, Daily busPIRone 10 mg oral tablet, 15 mg, By Mouth, 2 times a day Ceftriaxone Inj, 1 Gm, IVPB, Every 24 hours Dapagliflozin Tablet, 5 mg, By Mouth, Daily Dextrose 50% Inj Syringe (25Gm), 12.5 Gm, IV Push Slowly, Every 20 minutes, PRN Dextrose 50% Inj Syringe (25Gm), 25 Gm, IV Push Slowly, Every 15 minutes, PRN Dextrose 50% Inj Syringe (25Gm), 12.5 Gm, IV Push Slowly, Every 20 minutes, PRN Dextrose 50% Inj Syringe (25Gm), 25 Gm, IV Push Slowly, Every 15 minutes, PRN Docusate Sodium Capsule, 100 mg= 1 capsule, By Mouth, 2 times a day, PRN Glucagon Inj, 1 mg, Intramuscular, Once, PRN Glucagon Inj, 1 mg, Intramuscular, Once, PRN Glucose Gel, 15 Gm, By Mouth, Every 20 minutes, PRN Glucose Gel, 30 Gm, By Mouth, Every 20 minutes, PRN Glucose Gel, 15 Gm, By Mouth, Every 20 minutes, PRN Glucose Gel, 30 Gm, By Mouth, Every 20 minutes, PRN Heparin 25,000 units in 250 mL Premix 25,000 units [11 units/kg/hr] + D5%W Premixed IV 250 mL Heparin Inj, 5000 units= 1 mL, 60 units/kg, IV Push, Every 6 hours, PRN Heparin Inj, 2500 units= 0.5 mL, 30 units/kg, IV Push, Every 6 hours, PRN Influenza, Trivalent High Dose Vaccine (Fluzone High Dose), 0.5 mL, Intramuscular, Once Insulin LISPRO Sliding Scale, 7-17 units, Subcutaneous Injection, 3 times a day before meals Lantus Inj, 25 units= 0.25 mL, Subcutaneous Injection, Daily in AM Lasix Inj, 40 mg= 4 mL, IV Push Slowly, 2 times a day levothyroxine 125 mcg (0.125 mg) oral tablet, 125 mcg, By Mouth, Daily Melatonin Tablet, 3 mg, By Mouth, Daily at bedtime, PRN Metoprolol Succinate ER 100 mg oral tablet, extended release, 200 mg, By Mouth, Daily MiraLax Powder, 17 Gm= 1 pack/packet, By Mouth, Daily, PRN NaCL 0.9% Flush, 3 mL, IV Push, Every 8 hours NaCL 0.9% Flush, 3 mL, IV Push, Every 8 hours, PRN Nitroglycerin 0.4mg Sublingual Tablet, 0.4 mg, Sublingual, Every 5 minutes, PRN Robitussin DM Liquid, 10 mL, By Mouth, Every 4 hours, PRN Senna Tablet, 8.6 mg= 1 tablet, By Mouth, 2 times a day, PRN sertraline 50 mg oral tablet, 200 mg, By Mouth, Daily Simethicone Tablet, 80 mg, Chew, 3 times a day, PRN Ticagrelor Tablet, 90 mg= 1 tablet, By Mouth, 2 times a day traZODone 50 mg oral tablet, 50 mg, By Mouth, Daily at bedtime, PRN Home amLODIPine 5 mg oral tablet atorvastatin 40 mg oral tablet, 40 mg= 1 tablet, By Mouth, Daily Brilinta (ticagrelor) 90 mg oral tablet busPIRone 15 mg oral tablet, 15 mg= 1 tablet, By Mouth, 2 times a day Farxiga 5 mg oral tablet, 5 mg= 1 tablet, By Mouth, Daily Fiasp 100 units/mL injectable solution FREESTY LIBR 2 SENSOR KIT FREESTYLE RON 2 SENSOR MISC levothyroxine 125 mcg (0.125 mg) oral tablet, 125 mcg= 1 tablet, By Mouth, Daily Melatonin 1 mg oral tablet, 1 mg= 1 tablet, By Mouth, Daily at bedtime, PRN Metoprolol Succinate ER 200 mg oral tablet, extended release, 200 mg= 1 tablet, By Mouth, Daily Mounjaro 2.5 mg/0.5 mL subcutaneous solution, 2.5 mg, Subcutaneous Injection, Every week OMNIPOD DASH 5 PACK MIS OMNIPOD DASH MIS PODS OMNIPOD DASH PODS (GEN 4) MISC Praluent Pen 150 mg/mL subcutaneous solution ranolazine 500 mg oral tablet, extended release, 500 mg= 1 tablet, By Mouth, 2 times a day sertraline 100 mg oral tablet, 200 mg= 2 tablet, By Mouth, Daily traZODone 50 mg oral tablet, 50 mg= 1 tablet, By Mouth, Daily at bedtime, PRN valsartan 40 mg oral tablet Allergies ibuprofen Social History Alcohol Use: Never. Employment/School Status: Disabled. Exercise Regular exercise: No. Home/Environment Lives with: Alone. Nutrition/Health Diet: Regular. Sexual Sexually involved in last 6 months: No. Substance Abuse Use: Never. Tobacco Former smoker, Tobacco user in household: No. Other: quit smoking 2012. Family History Cardiovascular disease: Father. Diabetes mellitus: Mother, Sister and Brother. Kidney disease: Brother. Immunizations Vaccine Date Status tetanus-diphtheria toxoids (Td) 04/23/2024 Recorded influenza virus vaccine, inactivated 05/17/2023 Recorded influenza virus vaccine, inactivated 06/28/2022 Recorded [id number] 12y+ bivalent booster vax 06/20/2022 Recorded zoster vaccine, inactivated 01/24/2022 Recorded influenza virus vaccine, inactivated 06/14/2021 Recorded SARS-CoV-2 (COVID-19) mRNA BNT-162b2 vac 06/08/2021 Recorded SARS-CoV-2 (COVID-19) Ad26 vaccine 10/20/2020 Recorded influenza virus vaccine, inactivated 04/04/2020 Recorded influenza virus vaccine, inactivated 05/05/2019 Recorded pneumococcal 13-valent vaccine 08/06/2018 Recorded influenza virus vaccine, inactivated 05/01/2018 Recorded influenza virus vaccine, inactivated 02/27/2018 Recorded pneumococcal 13-valent vaccine 09/17/2017 Recorded hepatitis B adult vaccine 05/08/2017 Recorded influenza virus vaccine, inactivated 04/23/2017 Recorded hepatitis B adult vaccine 12/22/2016 Recorded hepatitis B adult vaccine 11/20/2016 Recorded pneumococcal 23-valent vaccine 08/16/2015 Recorded pneumococcal 23-valent vaccine 01/05/2013 Given Patient Care team information Care Team Personnel Name: Beth Carter RN Position: [facility] SN RN Member Role: Primary Care Nurse Name: Monica Sigala RN Position: S RN Member Role: Primary Care Nurse Name: Abiola Alexandre RN Position: S RN Member Role: Primary Care Nurse Name: Jomar Pleitez RN Position: S RN Member Role: Primary Care Nurse Name: Yuliana Flynn RN Position: S RN Member Role: Primary Care Nurse Name: Jon Castañeda RN Position: S RN Member Role: Primary Care Nurse Name: Jackie Wood RN Position: S RN Member Role: Primary Care Nurse Name: Ila Dalal RN Position: [facility] SN RN Member Role: Primary Care Nurse Name: Endy Lange RN Position: [facility] RN Member Role: Primary Care Nurse Name: Mona Heard RN Position: S RN Member Role: Primary Care Nurse Name: Tesha Henriquez RN Position: [facility] ED RN W/OE and Tasks Member Role: Primary Care Nurse Name: Georgina Fish MD Position: Reference Physician Member Role: PCP Address: [address] [place] [address] Telecom: Name: Chiquis Porter RN Position: [facility] OB RN Member Role: Primary Care Nurse Care Team Related Persons Name: MAIKEL KOEHLER Name: JOANIE KOEHLER Name: AIYANA KOEHLER Insurance Providers Guarantor name: [facility] Information #: 1 Payer: NA Member Number: [id number] Policy Number: NA Group Number: [facility] Health Plan Information #: 2 Payer: NA Member Number: [id number] Policy Number: NA Group Number: NA
== END 2024-08-14 10:39 | disposition home or self-care (01) ==
PROVIDERS: PCP Internal Medicine
DX: E11.65 Type 2 diabetes mellitus with hyperglycemia (principal); I21.4 Non-ST elevation (NSTEMI) myocardial infarction; E66.9 Obesity, unspecified; Z68.27 Body mass index [BMI] 27.0-27.9, adult; I10 Essential (primary) hypertension; E78.5 Hyperlipidemia, unspecified

== ENCOUNTER → 2024-08-14 09:24 | Outpatient (BNVA) | payer OTHER, SELFPAY | PROVIDERS: PCP Internal Medicine | DX: E11.65 Type 2 diabetes mellitus with hyperglycemia (principal); E66.9 Obesity, unspecified; I10 Essential (primary) hypertension; I21.4 Non-ST elevation (NSTEMI) myocardial infarction; E78.5 Hyperlipidemia, unspecified | CPT/HCPCS: 99212 ==

== ENCOUNTER 2024-09-01 08:36 | Outpatient (AMB) | payer OTHER, SELFPAY ==
--- NOTE | 2024-09-01 08:53 | A.OFFPC_ITS ---
Vital Signs 09/01/24 08:57 Height 5 ft 2 in Weight 149 lb BMI 27.2 BP 112/60 Blood Pressure Location Lt brachial Position Sitting Pulse 52 Pulse Source Pulse Oximeter Pulse Oximetry (%) 96 Oxygen Delivery Method Room Air Intake Visit Reasons: dm Intake Note: Patient here for a follow up DM Cloud Software Engineer Required: Yes Cloud Software Engineer Language: Wolof Accompanied by: Self / Same As Patient Allergies ibuprofen [From MOTRIN] Allergy (Mild, Verified 09/01/24 09:20) STOMACH UPSET, gastritis tirzepatide [From Mounjaro] Adverse Reaction (Intermediate, Verified 09/01/24 09:20) upset stomach Medication List - Last Reconciled 09/01/24 by Enedina Galloway PA-C alirocumab (Praluent Pen) 150 mg subcut Q2W aspirin 81 mg PO DAILY atorvastatin 40 mg PO DAILY 90 days BD Insulin Syringe Ultra-Fine (insulin syringe-needle U-100) 4 times a day NS blood-glucose meter (FreeStyle Lite Meter kit) As directed 4x/day bupropion HCl SR 100 mg PO QAM buspirone 15 mg PO BID dapagliflozin propanediol (Farxiga) 5 mg PO DAILY Fiasp U-100 Insulin 100 unit/mL (insulin aspart (niacinamide)) 100 units subcut DAILY NS flash glucose sensor (FreeStyle Ron 2 Sensor kit) USE DIRECTED; CHANGE EVERY 14 DAYS. FreeStyle Lite Strips (blood sugar diagnostic) USE 1 STRIP DIRECTED FOUR TIMES A DAY FOR DIABETES NS insulin pump cart,cont inf,BT (Omnipod Dash Pods (Gen 4) subcutaneous cartridge) As directed change every 48 hrs lancets (FreeStyle Lancets) 28 gauge topical QID 90 days levothyroxine 125 mcg PO DAILY melatonin 1 mg PO BEDTIME metoprolol succinate ER 200 mg PO DAILY ranolazine ER mg PO [Rollator Walker As directed] sertraline 100 mg PO DAILY spironolactone 25 mg PO DAILY ticagrelor (Brilinta) 90 mg PO BID torsemide 20 mg PO DAILY trazodone 50 mg PO BEDTIME PRN 30 days triamcinolone acetonide 0.1% 1 appl topical DAILY valsartan 20 mg PO DAILY Tobacco use date assessed: 08/14/24 Fall risk assessment: 2 + Falls in past year Last assessed Fall Risk: 09/01/24 Dental Screening Dental Screen Date: 09/01/24 Did you have a dental visit in the last 12 months?: No Did you have a dental problem in the last 6 months where you did not have access to dental care?: No Was dental information given to patient?: Patient has dentist OLU hager HPI Details 73-year-old female with past medical his tory of uncontrolled diabetes mellitus, hypothyroidism, hypercholesterolemia, hypertension, obstructive sleep apnea, GERD, coronary artery disease, lumbar degenerative disc disease last seen 07/2024 coming in for follow up. Patient presents today with her daughter Sierra who is on the telephone and provides translation for the duration of this visit. Formal automotive parts interpreter was declined today. Patient tells us she has been having low back pain that has been ongoing for several years and has never had a lumbar spine x-ray for evaluation. She was diagnosed with arthritis states her back pain has been flaring up more recently and would like evaluation. She has an appointment with her labor employment associate 09/05/2024 after her recent suspected heart attack. Since decreasing the metoprolol her blood pressure at home has been within normal limits on the lower side. Her dizziness has been improved since decreasing the metoprolol as well. At her last visit she was given a steroid cream for some dermatitis on her right arm she sits since using the steroid cream her skin has been worse. [facility] Medical History Personal history of nicotine dependence History of myocardial infarction Bilateral hand numbness Left ovarian cyst Type 2 diabetes mellitus with diabetic polyneuropathy Abnormal liver function test Tear of meniscus of left knee Lumbar degenerative disc disease Knee osteoarthritis GERD (gastroesophageal reflux disease) Ovarian cyst Carpal tunnel syndrome Obstructive sleep apnea Coronary artery disease Anemia Obesity (BMI 30-39.9) Hypertension Dyslipidemia Hypothyroidism Diabetic nephropathy associated with type 2 diabetes mellitus [facility] (current) use of insulin Diabetes type 2, uncontrolled Surgical History History of carpal tunnel surgery of left wrist H/O bilateral oophorectomy History of esophagogastroduodenoscopy (EGD) Hx of colonoscopy Hx of right coronary artery stent placement History of surgical removal of nipple Hx of tubal ligation Hx of cholecystectomy Family History Father Diabetes mellitus Mother Diabetes mellitus Maternal Uncle Colon cancer Gastric cancer Daughter Diabetes mellitus Social History Household Members: None Housing: Apartment Alcohol intake: never Comment: counts correct Patient Tobacco Use Status: Former Tobacco user Tobacco use type: Cigarette Years Smoked: (onset 11yo, 1/2ppd x 55yrs,27pyh quit 2017) e-Cigarette/Vaping Use: Never Used Second Hand Smoke Exposure: Yes service: No Current occupational status: disabled Current occupational exposures/hazards: No Cognitive needs: Yes (walker, cane) Hearing needs: No Vision needs: Yes Questionnaire PHQ-9 Over the last 2 weeks, how often have you been bothered by any of the following problems? 1. Little interest or pleasure in doing things: nearly every day 2. Feeling down, depressed, or hopeless: more than half the days 3. Trouble falling or staying asleep, or sleeping too much: nearly every day 4. Feeling tired or having little energy: not at all 5. Poor appetite or overeating: nearly every day 6. Feeling bad about yourself - or that you are a failure or have let yourself or your family down: several days 7. Trouble concentrating on things, such as reading the newspaper or watching television: not at all 8. Moving or speaking so slowly that other people could have noticed. Or the opposite - being so fidgety or restless that you have been moving around a lot more than usual: not at all 9. Thoughts that you would be better off or of hurting yourself in some way: not at all Total score: 12 Depression Screening Interpretation: Positive Depression Screening Follow-up: Existing condition and In treatment Depression Screening Done: Yes Source: Developed by Drs. David Arroyo, Latha Luz, Buzz Cain and colleagues, with an educational gertrude from [employer]. Thrive Questionnaire Date Thrive assessed: 09/01/24 I am a: Patient What is your living situation today?: I have a steady place to live Within the past 12 months, did the food you bought not last and you didn't have the money to get more?: Never true Within the past 12 months, did you worry whether your food would run out before you got money to buy more?: Never true Do you have trouble paying for medicines?: No Do you have trouble getting transportation to medical appointments?: No Do you have trouble paying your heating and electricity bill?: No Do you have trouble taking care of your child, family member or friend?: No Do you have trouble with day-to-day activities such as bathing, preparing meals, shopping, managing finances, etc.?: No Are you currently unemployed and looking for a job?: No Are you interested in more education?: No Please select the resources that you would like help with: None Currently or been in a relationship where the following occur: No concerns reported THRIVE Score: 0 AUDIT C Alcohol Use Questionnaire (AUDIT-C) 1. How often do you have a drink containing alcohol?: Never Total Score: 0 JASS-7 AMB Questionnaire JASS-7 Date JASS - 7 assessed: 09/01/24 Feeling nervous, anxious, or on edge: 1 = Several days Not being able to stop or control worryin = Not at all Worrying too much about different things: 0 = Not at all Trouble relaxin = More than half the days Being so restless that it is hard to sit still: 1 = Several days Becoming easily annoyed or irritable: 0 = Not at all Feeling afraid as if something awful might happen: 3 = Nearly every day Total JASS-7 score (0-4 normal; 5-9 mild; 10-14 moderate; 15-21 severe): 7 Source: Developed by Drs. David Arroyo, Latha Luz, Buzz Cain and colleagues, with an educational gertrude from [employer]. JASS-7 Assessment Billing JASS-7 Assessment Tool: JASS-7 Assessment 89402 Review of Systems Const Denies body aches, Denies chills, Denies fever(s), Denies headache(s) and Denies poor appetite Eyes Reports no additional complaints ENT Denies dizziness and Denies headache(s) Card Denies chest pain, Denies edema, Denies irregular heart rhythm, Denies lightheadedness and Denies dyspnea Resp Denies cough and Denies dyspnea GI Denies abdominal pain, Denies constipation, Denies diarrhea, Denies nausea and Denies vomiting Reports no additional complaints Musc Reports no additional complaints and Denies abnormal gait Skin/Breast Reports system reviewed and no additional complaints, except as documented Neuro Denies abnormal gait, Denies dizziness and Denies headache(s) Psych Reports no additional complaints Physical exam (Primary Care) Vital Signs: Last Vital Signs Pulse 52 09/01/24 08:57 BP 112/60 09/01/24 08:57 Pulse Ox 96 09/01/24 08:57 Oxygen Delivery Method Room Air 09/01/24 08:57 BMI result Body Mass Index 27.2 Tobacco/Smoking Status: Tobacco use Status Tobacco use date assessed 08/14/24 09/01/24 08:57 Patient Tobacco Use Status Former Tobacco user 09/01/24 08:57 Tobacco use type Cigarette 09/01/24 08:57 e-Cigarette/Vaping Use Never Used 09/01/24 08:57 PHQ-9: PHQ-9 Score PHQ-9: Total score 12 09/01/24 09:10 Depression Screening Interpretation: Positive Depression Screening Follow-up: Existing condition and In treatment Thrive Assessment: Date of Thrive Assessment Date Thrive assessed 09/01/24 09/01/24 08:57 Currently or been in a relationship where the following occur: No concerns reported Const General: cooperative, healthy appearing, comfortable and no acute distress Orientation/consciousness: patient oriented x3 HENMT Head: Yes normocephalic Ears: hearing grossly normal bilaterally General nose exam: Normal external nose present Eyes General: appearance normal, both eyes and all related structures Conjunctivae: conjunctivae normal Neck Neck: Yes full ROM and Yes no lymphadenopathy Resp Effort & Inspection: normal respiratory effort Auscultation: clear to auscultation bilaterally, no crackles, no rales, no rhonchi and no wheezes Cardio Rate: regular rate Rhythm: regular rhythm Back/Spine/Pelvis Other: Tenderness to palpation of lumbar spine Skin Other: Dry, flaky, patchy rash on right upper extremity Neuro General: patient oriented x3 Gait exam (Neuro): Normal gait present Extrem General: Yes normal to inspection, Yes full ROM and No edema Psych Affect: normal affect Attitude: cooperative Insight: Good insight present (Psych) Judgement: Good judgement present (Psych) Results AMB Hemoglobin A1c AMB Hemoglobin A1c 6.5 % Last Edit by REJI Pereira on 09/01/24 09:0 5 Results Reviewed Results Reviewed: Laboratory Last Values Hgb A1c (Clinic) 6.5 % (4.0-6.0) H 09/01/24 09:04 Coding Level of Care Code Est Pt Level 3 (06442) Diagnoses NSTEMI (non-ST elevated myocardial infarction) I21.4 Type 2 diabetes mellitus with hyperglycemia E11.65 Coronary artery disease I25.10 Gastroesophageal reflux disease without esophagitis K21.9 Esophagitis presence: without esophagitis Obesity (BMI 30-39.9) E66.9 Essential hypertension I10 Hypertension type: essential hypertension Dyslipidemia E78.5 Diabetic nephropathy associated with type 2 diabetes mellitus E11.21 Low back pain M54.50 Dermatitis L30.9 Additional Codes JASS-7 Assessment Billing - JASS-7 Assessment Tool: JASS-7 Assessment 30024 ([id number]) Assessment & Plan Assessment & Plan (1) NSTEMI (non-ST elevated myocardial infarction): Comment: 07/2024 Code(s): I21.4 - Non-ST elevation (NSTEMI) myocardial infarction Category: Medical Plan: Patient thought to possibly have NSTEMI while admitted at [facility]. They recommended following up with Cardiology and possible catheterization outpatient. Seeing Cardiology 09/05/2024. (2) Type 2 diabetes mellitus with hyperglycemia: Comment: Gina 04/2024 Code(s): E11.65 - Type 2 diabetes mellitus with hyperglycemia Category: Medical Plan: Decrease the amount of carbohydrates such as pasta, bread, rice, and potatoes and limit the amount of sweets. Although fruits are generally healthy they should be eaten in moderation as they are still high in sugar. Hemoglobin A1c goal of less than 7%. A1c at goal today 6.5%. Advised to continue on current medication regimen and continue to follow with endocrinology. (3) Coronary artery disease: Comment: [place] September 2010 with stent placement restenoses November 2012 [facility] January 2017 catheterization done occluded distal RCA new catheterization May 2017 the same, catheterization September 2017 Code(s): I25.10 - Atherosclerotic heart disease of [place] coronary artery without angina pectoris Category: Medical Plan: Advised good control of blood pressure, cholesterol and diabetes. (4) GERD (gastroesophageal reflux disease): Code(s): K21.9 - Gastro-esophageal reflux disease without esophagitis Category: Medical Qualifiers: Esophagitis presence: without esophagitis Qualified Code(s): K21.9 - Gastro-esophageal reflux disease without esophagitis Plan: Avoid trigger foods such as citrus, tomato products, soda, caffeine, spicy foods and other foods that may be irritating to your stomach. Avoid laying flat 3-4 hours after eating and elevate the head of the bed 30 degrees to prevent acid from moving into the esophagus. (5) Obesity (BMI 30-39.9): Code(s): E66.9 - Obesity, unspecified Category: Medical Plan: Healthy diet and regular exercise is encouraged. (6) Hypertension: Code(s): I10 - Essential (primary) hypertension Category: Medical Qualifiers: Hypertension type: essential hypertension Qualified Code(s): I10 - Essential (primary) hypertension Plan: Continue on current blood pressure medication. Avoid salt intake and encourage healthy diet and regular exercise. Metoprolol was decreased at last visit for hypotension. Blood pressures at home and in the office are improved and patient not complaining of dizziness (7) Dyslipidemia: Code(s): E78.5 - Hyperlipidemia, unspecified Category: Medical Plan: Avoid foods that are high in cholesterol such as red meat, fried foods, eggs and baked goods. Triglyceride goal of less than 150 and LDL goal of less than 70. Continue on Atorvastatin 40mg. Ordered for repeat cholesterol labs (8) Diabetic nephropathy associated with type 2 diabetes mellitus: Code(s): E11.21 - Type 2 diabetes mellitus with diabetic nephropathy Category: Medical Plan: Advised good control of blood sugars and continue to monitor kidney function. (9) Low back pain: Code(s): M54.50 - Low back pain, unspecified Category: Medical Plan: Patient complaining of chronic intermittent low back pain that has been worse more recently in the colder months. She would like a back x-ray for further evaluation which was ordered today. Can consider referral to pain management and or physical therapy. (10) Dermatitis: Code(s): L30.9 - Dermatitis, unspecified Category: Medical Plan: Patient had eczematous rash on right arm at last visit and was given a triamcinolone cream. Since using the cream her skin has been more dry and worsening itchiness. Advised to discontinue steroid cream and use topical emollients such as Aquaphor or Eucerin. Plan This note was constructed using voice recognition software. While every effort has been made to ensure accuracy and editor department, still areas may have been included sometimes these areas may affect the content or meeting of the given symptoms. Total time spent caring for the patient today was 30 minutes. This includes time spent before the visit reviewing the chart, time spent during the visit, and time spent after the visit and documentation. Orders: Orders Microalbumin, Random (w Creat) Today E11.65 - Type 2 diabetes mellitus with hyperglycemia Comprehensive Met. Panel 3 Months E11.65 - Type 2 diabetes mellitus with hyperglycemia AMB Hemoglobin A1c Today E11.65 - Type 2 diabetes mellitus with hyperglycemia XR lumbar spine 2-3V Today M54.50 - Low back pain, unspecified Hemoglobin A1c 3 Months E11.65 - Type 2 diabetes mellitus with hyperglycemia Lipid Panel 3 Months E11.65 - Type 2 diabetes mellitus with hyperglycemia, E78.00 - Pure hypercholesterolemia, unspecified Thyroid Stimulating Hormone Today E11.65 - Type 2 diabetes mellitus with hyperglycemia Complete Blood Count Auto Diff 3 Months E11.65 - Type 2 diabetes mellitus with hyperglycemia Creatinine Urine Today E11.65 - Type 2 diabetes mellitus with hyperglycemia Vitamin B12 and Folate Today E11.65 - Type 2 diabetes mellitus with hyperglycemia Vitamin D 25-OH Total Today E11.65 - Type 2 diabetes mellitus with hyperglycemia Free T4 (Free Thyroxine) Today E11.65 - Type 2 diabetes mellitus with hyperglycemia
[2024-09-01 08:57] VITALS: BP 112/60; PULSE 52; O2SAT 96; BMI 27.2
== END 2024-09-01 09:36 | disposition home or self-care (01) ==
LOC: HO.HMCH 08:36
PROVIDERS: PCP Internal Medicine
DX: E11.65 Type 2 diabetes mellitus with hyperglycemia (principal); E11.21 Type 2 diabetes mellitus with diabetic nephropathy; Z86.73 Personal history of transient ischemic attack (TIA), and cerebral infarction without residual deficits; I25.10 Atherosclerotic heart disease of native coronary artery without angina pectoris; K21.9 Gastro-esophageal reflux disease without esophagitis; E66.9 Obesity, unspecified; I10 Essential (primary) hypertension; E78.5 Hyperlipidemia, unspecified; M54.50 Low back pain, unspecified; L30.9 Dermatitis, unspecified

== ENCOUNTER → 2024-09-01 08:36 | Outpatient (BNVA) | payer OTHER, SELFPAY | PROVIDERS: PCP Internal Medicine | DX: I21.4 Non-ST elevation (NSTEMI) myocardial infarction (principal); E11.65 Type 2 diabetes mellitus with hyperglycemia; I25.10 Atherosclerotic heart disease of native coronary artery without angina pectoris; K21.9 Gastro-esophageal reflux disease without esophagitis; E66.9 Obesity, unspecified; I10 Essential (primary) hypertension; E78.5 Hyperlipidemia, unspecified; E11.21 Type 2 diabetes mellitus with diabetic nephropathy; M54.50 Low back pain, unspecified; L30.9 Dermatitis, unspecified | CPT/HCPCS: 83036; 96127; 99212 ==

== ENCOUNTER 2024-09-19 08:44 | Outpatient (AMB) | payer OTHER, SELFPAY ==
--- NOTE | 2024-09-19 08:45 | MHC.OFFVIS ---
Vital Signs 09/19/24 08:46 Height 5 ft 2 in Weight 149 lb 7.574 oz BMI 27.3 BP 90/42 L Blood Pressure Location Lt brachial Position Sitting Pulse 62 Pulse Source Pulse Oximeter Intake Visit Reasons: T2DM Intake Note: Patient present today for Type 2 Diabetes Mellitus Last Diabetic eye exam: 09/2023 Last Podiatry Visit: Doesn't have one Random Glucose: 141 mg/dl HgA1C: 6.5% 09/01/24 Fiberglass Boat Builder Required: Yes Fiberglass Boat Builder Language: Enterprise Mobility Architect Services: Fiberglass Boat Builder Present Fiberglass Boat Builder Name: Guanaco [id number] Information Interpreted: non-clinical & clinical Accompanied by: Self / Same As Patient Allergies ibuprofen [From MOTRIN] Allergy (Mild, Verified 09/19/24 08:51) STOMACH UPSET, gastritis tirzepatide [From Mounjaro] Adverse Reaction (Intermediate, Verified 09/19/24 08:51) upset stomach Medication List - Last Reconciled 09/19/24 by Monica Phelan MD alirocumab (Praluent Pen) 150 mg subcut Q2W aspirin 81 mg PO DAILY atorvastatin 40 mg PO DAILY 90 days BD Insulin Syringe Ultra-Fine (insulin syringe-needle U-100) 4 times a day NS blood-glucose meter (FreeStyle Lite Meter kit) As directed 4x/day blood-glucose sensor (FreeStyle Ron 2 Plus Sensor device) As directed every 14 days bupropion HCl SR 100 mg PO QAM buspirone 15 mg PO BID dapagliflozin propanediol (Farxiga) 5 mg PO DAILY Fiasp U-100 Insulin 100 unit/mL (insulin aspart (niacinamide)) 100 units subcut DAILY NS flash glucose sensor (FreeStyle Ron 2 Sensor kit) USE DIRECTED; CHANGE EVERY 14 DAYS. FreeStyle Lite Strips (blood sugar diagnostic) USE 1 STRIP DIRECTED FOUR TIMES A DAY FOR DIABETES NS glucagon 3 mg/actuation 3 mg intranasal ONCE insulin pump cart,auto,BT,G6/L (Omnipod 5 (G6/Ron 2 Plus) subcutaneous cartridge) As directed to change every 48 hours insulin pump cart,cont inf,BT (Omnipod Dash Pods (Gen 4) subcutaneous cartridge) As directed change every 48 hrs lancets (FreeStyle Lancets) 28 gauge topical QID 90 days levothyroxine 125 mcg PO DAILY melatonin 1 mg PO BEDTIME metoprolol succinate ER 200 mg PO DAILY ranolazine ER mg PO [Abramator Walker As directed] sertraline 100 mg PO DAILY spironolactone 25 mg PO DAILY ticagrelor (Brilinta) 90 mg PO BID tirzepatide (Mounjaro) mg subcut QWEEK torsemide 20 mg PO DAILY trazodone 50 mg PO BEDTIME PRN 30 days triamcinolone acetonide 0.1% 1 appl topical DAILY valsartan 20 mg PO DAILY HPI Comments Details: Patient is a 73-year-old female with IDDM on omnipod DASH pump who presents for diabetes management. Patient normally brings her daughter to all her appointments, however daughter could not come to appointment today. Patient is a very poor historian and has no idea what medication she is on. At this time I could not confirm even what medication she was on today. Past medical history includes : Diabetes type 2, hypertension, hyperlipidemia, hypothyroidism, Micro and macrovascular complications: Nephropathy, neuropathy, coronary artery disease Prior medications: Trulicity 4.5 mg weekly was on this up until last visit in March 2024, unclear when Trulicity was discontinued, I see a prescription for Mounjaro, patient did not confirm to me what she is taking. Diabetes medications: Mounjaro 2.5 mg weekly? ? See on the list, patient says she takes a weekly injection, unclear when Trulicity was switched over to Mounjaro, farxiga 5 mg QD ? Apparently she was not adherent to it last visit in March 2024, unclear if she is taking it now but it is on her list Patient has Omnipod--dash with Fiasp insulin in it, and she is wearing a Lumiatayle Ron 2?? She did not bring either her PDM or her Ron practical ministries professor, we tried downloaded her Orn report, there was no data available on the portal, unclear why her Ron is not connected. Her Omnipod data is also back from March 2024. Last Diabetic eye exam: 09/2023 Last Podiatry Visit: Doesn't have one Random Glucose: 141 mg/dl HgA1C: 6.5% 09/01/24 Symptoms: + numbness, tingling and cramping in legs and fingers Hypoglycemia: overnight frequently, sweaty Hyperglycemia: None DSME - nutrition: Last seen linoleum tile layer in January 2024 PHYSICAL EXAM: GENERAL: Alert and oriented x 3. NAD EYES: EOMI. Anicteric. HENT: Moist mucous membranes. No scleral icterus. No cervical lymphadenopathy. LUNGS: Clear to auscultation bilaterally. CARDIOVASCULAR: Regular rate and rhythm. No murmur. No JVD. ABDOMEN: Soft, non-tender +bs EXTREMITIES: No edema. Non-tender. SKIN: No rashes or lesions. Warm. NEUROLOGIC: No focal neurological deficits. CN II-XII grossly intact PSYCHIATRIC: Cooperative. Appropriate mood and affect Foot exam: Deferred today Laboratory Tests 12/25/23 12/25/23 04/03/24 10:33 10:42 11:59 Hgb A1c (Clinic) 7.5 H AST 16 ALT 16 Albumin 4.1 Triglycerides 155 H Cholesterol 89 LDL Cholesterol, Calc 16 HDL Cholesterol 42 Urine Creatinine 94.79 Urine Microalbumin 29.0 Microalb/Creat Ratio 30.5 H 09/01/24 09:04 Hgb A1c (Clinic) 6.5 H AST ALT Albumin Triglycerides Cholesterol LDL Cholesterol, Calc HDL Cholesterol Urine Creatinine Urine Microalbumin Microalb/Creat Ratio [facility] Medical History Personal history of nicotine dependence History of myocardial infarction Bilateral hand numbness Left ovarian cyst Type 2 diabetes mellitus with diabetic polyneuropathy Abnormal liver function test Tear of meniscus of left knee Lumbar degenerative disc disease Knee osteoarthritis GERD (gastroesophageal reflux disease) Ovarian cyst Carpal tunnel syndrome Obstructive sleep apnea Coronary artery disease Anemia Obesity (BMI 30-39.9) Hypertension Dyslipidemia Hypothyroidism Diabetic nephropathy associated with type 2 diabetes mellitus 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 Diabetes type 2, uncontrolled Surgical History History of carpal tunnel surgery of left wrist H/O bilateral oophorectomy History of esophagogastroduodenoscopy (EGD) Hx of colonoscopy Hx of right coronary artery stent placement History of surgical removal of nipple Hx of tubal ligation Hx of cholecystectomy Family History Father Diabetes mellitus Mother Diabetes mellitus Maternal Uncle Colon cancer Gastric cancer Daughter Diabetes mellitus Social History Household Members: None Housing: Apartment Alcohol intake: never Comment: counts correct Patient Tobacco Use Status: Former Tobacco user Tobacco use type: Cigarette Years Smoked: (onset 11yo, 1/2ppd x 55yrs,27pyh quit 2017) e-Cigarette/Vaping Use: Never Used Second Hand Smoke Exposure: Yes service: No Current occupational status: disabled Current occupational exposures/hazards: No Cognitive needs: Yes (walker, cane) Hearing needs: No Vision needs: Yes Physical Exam Vital Signs: Last Vital Signs Pulse 62 09/19/24 08:46 BP 90/42 L 09/19/24 08:46 BMI result Body Mass Index 27.3 Assessment & Plan Assessment & Plan (1) Type 2 diabetes mellitus with diabetic polyneuropathy: Code(s): E11.42 - Type 2 diabetes mellitus with diabetic polyneuropathy Category: Medical Qualifiers: Diabetes mellitus skilled nursing insulin use: with skilled nursing use Qualified Code(s): E11.42 - Type 2 diabetes mellitus with diabetic polyneuropathy; Z79.4 - snf (current) use of insulin Plan: 73-year-old female with a history of type 2 diabetes mellitus with complications of CAD, neuropathy, nephropathy with a history of hypertension hyperlipidemia who is coming in today for follow up. Patient did not bring her daughter today who usually comes needs her for every visit and patient has very poor understanding of what medications she is on. She could not confirm to me with GLP 1 agonist she is on an whether she is taking her Farxiga or not. Per last visit she used to be on Trulicity 4.5 mg weekly in March 2024 and at this time her list has Mounjaro 2.5 mg weekly on it. Unclear which 1 she is on. I have asked her to bring her daughter in all her medications to next visit. She also forgot her Ron practical ministries professor and Omnipod PDM and B were not able to download any of her data, devices not connected. She is on the older Omnipod that does not talk to the pump, at this time I would like to upgrade her to Omnipod 5 with Ron 2+. I have sent prescriptions for this. I am having her set up an appointment with the educator as soon as possible for this upgrade to be done. Given a had no data today, I could not make any changes to her insulin. A1c is at 6.5% which is less than goal A1c of 7%, from August 2024, however she could be having hypoglycemic episodes which she was having up until last visit. Plan: -continue current pump settings, could not make changes today -continue Mounjaro 2.5 mg weekly -continue Farxiga 5 mg daily -bring daughter and all medications to next visit -upgrade to Omnipod 5 with freestyle Ron 2+, prescription sent to pharmacy and patient to set up appointment with our educator for upgrading this -labs with lipid panel, urine microalbumin, CMP to be done prior to next visit Note: On insulin pump could not send patient backup Lantus, I have no idea what her dose is, could not get any data. Sent glucagon nasal spray. Patient has backup glucometer supplies. (2) snf (current) use of insulin: Code(s): Z79.4 - 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 Category: Medical Plan: see above (3) Insulin pump in place: Code(s): Z96.41 - Presence of insulin pump (external) (internal) Category: Medical Plan: See above Plan I spent 45 minutes in reviewing the record, seeing the patient and documenting in the medical record. Orders: Orders Lipid Panel Today E11.65 - Type 2 diabetes mellitus with hyperglycemia Comprehensive Met. Panel Today E11.65 - Type 2 diabetes mellitus with hyperglycemia Microalbumin, Random (w Creat) Today E11.65 - Type 2 diabetes mellitus with hyperglycemia Platelet Count Today E11.65 - Type 2 diabetes mellitus with hyperglycemia Medications: New glucagon 3 mg/actuation 3 mg intranasal ONCE 1 ea 1RF insulin pump cart,auto,BT,G6/L (Omnipod 5 (G6/Ron 2 Plus) subcutaneous cartridge) As directed to change every 48 hours 10 ea 4RF blood-glucose sensor (FreeStyle Ron 2 Plus Sensor device) As directed every 14 days 2 ea 6RF Patient Instructions: See Vikki from diabetes education to set up pump upgrade Make sure you bring new pump pods and freestylelibrefrom pharmacy to that appointment See me back in 4 weeks Do fasting blood work and urine test prior to that appointment Bring daughter to next visit and bring all your medication bottles , very difficult visit today as could not get any information about medications Rule of 15 Treatment for Hypoglycemia (Low blood sugar) If your blood glucose is low (70 and below)*, follow the steps below to treat: Eat or drink something from the list below equal to 15 grams of carbohydrate (carb). Rest for 15 minutes Re-check your blood glucose. If it is still low, (below 70), repeat step 1 above. ? If your next meal is more than an hour away, you will need to eat one carbohydrate choice as a snack to keep your blood glucose from going low again. ?If you can't figure out why you have low blood glucose, call your healthcare provider, as your medicine may need to be adjusted. ?Always carry something with you to treat an insulin reaction. Use food from the list below. ? Foods equal to One Carbohydrate Choice (15 grams of carbohydrate): 3 Glucose ?tablets or 4 Dextrose tablets 4 ounces of fruit juice 5-6 ounces (about 1/2 can) of regular soda such as Coke or Pepsi ? 7-8 gummy or regular Life Savers ? 1 Tbsp. of sugar or jelly NOTE: If your blood sugar is less than 50, double the portion above for a total of 30 gm. ?Carbohydrate. ? Follow meal plan of 45-60 g of consistent carbohydrates at 3 meals each day and 15 g of carbohydrate at 1-2 snacks each day. 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
[2024-09-19 08:46] VITALS: BP 90/42; PULSE 62; BMI 27.3
[2024-09-19 08:58] LABS: Glucose, Whole Blood 141 mg/dL (60-115)
--- OUTSIDE RECORDS SUMMARY | 2024-09-19 09:02 | XMS_ITS | Patient Health Record ---
Author Organization [facility] Address [address] [place] [address] Care Team Providers Care Emblem Maker Name Role Phone Georgina Fish MD Primary Care Provider David Velasco [phone] ALLERGIES Allergen (clinical drug ingredient) Drug/Non Drug [...] Omeprazole 20 MG TAKE 1 CAPSULE BY [facility] DAILY. Oral for 90 Active IMMUNIZATIONS [...] Problem Colon cancer screening (Z12.11) Active confirmed 696195201 Problem Preprocedural examination (Z01.818) Active confirmed [id number] PLAN OF TREATMENT Future Test Test Name Order Date COLONOSCOPY 08/17/2022 Insurance Providers Payer Name Payer Address Payer Phone Subscriber Number Group Number Insured Name Patient Relationship to Insured Coverage Start Date Coverage End Date [facility] [address] [place] [address] [id number] DUNCAN PETE Self - patient is the insured MEDICAL (GENERAL) HISTORY Medical History History ICD Code Hypertension GERD Hypothyroidism sleep apnea-uses a CPAP hypercholesterolemia coronary artery disease with reported CT X 2 and 2 stents iin approx 2017--Candle Making Supervisor is Dr. Maria at [facility] IDDM with Insulin pump Neg. screening colonoscopy in 2006 other than hyperplastic polyps Denies CVA,Lung disease,renal disease Surgical History Surgery Date(Month/Year) breast bilaterallly for infections cholecystectomy tubal ligation carpal tunnel on the right
--- OUTSIDE RECORDS SUMMARY | 2024-09-19 09:02 | XMS_ITS | Continuity of Care Document ---
Author Organization [facility] Address [address] [place] [address]- Care Team Providers Care Property Inspector Name Role Phone Po Georgina SILVEIRA Primary Care Physician Encounter 08/07/24 - 09/15/24 [facility] [address] [place] [id number] Discharge Disposition: GOALS MET Encounter Type: Disch [facility] Allergies, Adverse Reactions, Alerts Substance Criticality Severity Reaction Reaction Severity Status ibuprofen Active Immunizations Given and Recorded Vaccine Date Status Refusal Reason influenza virus vaccine, inactivated 07/31/24 Give n influenza virus vaccine, inactivated 05/17/23 [place] rded influenza virus vaccine, inactivated 06/28/22 [place]ded influenza virus vaccine, inactivated 06/14/21 [place]ded influenza virus vaccine, inactivated 04/04/20 [place]ded influenza virus vaccine, inactivated 05/05/19 [place] rded influenza virus vaccine, inactivated 05/01/18 [place] rded influenza virus vaccine, inactivated 02/27/18 [place] rded influenza virus vaccine, inactivated 04/23/17 [place] rded tetanus-diphtheria toxoids (Td) 04/23/24 Recorded [id number] 12y+ bivalent booster vax 06/20/22 Recorded zoster vaccine, inactivated 01/24/22 Recorded SARS-CoV-2 (COVID-19) mRNA BNT-162b2 vac 06/08/21 Recorded SARS-CoV-2 (COVID-19) Ad26 vaccine 10/20/20 Record ed pneumococcal 13-valent vaccine 1/8/19 Recorded pneumococcal 13-valent vaccine 09/17/17 Recorded hepatitis [...] 07/30/24 Status: Ordered Repeat number: 1 FREESTYLE JASEN 2 SENSOR MISC FREESTYLE JASEN 2 SENSOR MISC, USE DIRECTED. CHANGE EVERY [...] tablet Repeat number: 1 Metoprolol Succinate ER 200 [...] Date: 07/30/24 Status: Ordered Repeat number: 1 Potassium Chloride (Eqv-K-Tab) 10 mEq oral tablet, extended release 1 tablet = 10 mEq, By Mouth, 2 times a day, take 1 tablet twice per a day for 3 days, # 6 tablet, 0Refills, Maintenance, 09/08/24 8:37:00 AM EST, [facility], Partial fill upon patient request if the prescription is for a schedule II opioid drug., 158, cm, 09/05/24 10:16:00 EST, Height, 73.5, kg, 07/30/24 7:37:00 EST, Dry Weight Start Date: 09/08/24 Status: Ordered Quantity: 6.0 Unit: tablet Repeat number: 1 Praluent Pen 150 mg/mL [...] tablet, Refills 0, Tot. Refills 0, Maintenance, 08/28/24 9:21:00 AM EST, Route to Pharmacy Electronically, [facility], Partial fill upon patient request if the prescription is for a schedule II opioid drug., 158, cm, 08/03/24 16:44:00 EST, Height, 73.5, kg, 07/30/24 7:37:00 EST, Dry Weight Start Date: 08/28/24 Status: Ordered Quantity: 30.0 Unit: tablet Repeat number: 1 torsemide 20 mg oral tablet 1 tablet = 20 mg, By Mouth, Daily, # 30 tablet, 0 Refills, Maintenance, 08/28/24 9:22:00 AM EST, Tablet, [facility], Partial fill upon patient request if the prescription is for a schedule II opioid drug., 158, cm, 08/03/24 16:44:00 EST, Height, 73.5, kg, 07/30/24 7:37:00 EST, Dry Weight Start Date: 08/28/24 Status: Ordered Quantity: 30.0 Unit: tablet Repeat [...] Team Personnel Name: Beth Carter RN Position: [facility] SN RN Member Role: Primary Care Nurse Name: Monica Sigala RN Position: S RN Member Role: Primary Care Nurse Name: Abiola Alexandre RN Position: S RN Member Role: Primary Care Nurse Name: Jomar Pleitez RN Position: [facility] RN Member Role: Primary Care Nurse Name: Yuliana Flynn RN Position: [facility] RN Member Role: Primary Care Nurse Name: Jon Castañeda RN Position: [facility] RN Member Role: Primary Care Nurse Name: Jackie Wood RN Position: S RN Member Role: Primary Care Nurse Name: Ila Dalal RN Position: [facility] SN RN Member Role: Primary Care Nurse Name: Endy Lange RN Position: [facility] RN Member Role: Primary Care Nurse Name: Mona Heard RN Position: [facility] RN Member Role: Primary Care Nurse Name: Tesha Henriquez RN Position: [facility] ED RN W/OE and Tasks Member Role: Primary Care Nurse Name: Georgina Fish MD Position: Reference Physician Member Role: PCP Address: [address] [place] [address] Telecom: Name: Chiquis Porter RN Position: [facility] OB RN Member Role: Primary Care Nurse Care Team Related Persons Name: MAIKEL KOEHLER Name: JOANIE KOEHLER Name: AIYANA KOEHLER Insurance Providers Guarantor name: [facility] Information #: 1 Payer: NA Member Number: NA Policy Number: NA Group Number: NA
--- OUTSIDE RECORDS SUMMARY | 2024-09-19 09:02 | XMS_ITS | Continuity of Care Document ---
Author Organization [facility] Address [address] [place] [address]- Care Team Providers Care Machinery Erector Name Role Phone Po Georgina SILVEIRA Primary Care Physician Encounter [facility] Date(s): 08/04/24 - 09/03/[address] [address] Attending Physician: Not on Staff, Attending MD Admitting Physician: Not on Staff, Admitting MD Referring Physician: Not on Staff, Referring MD Encounter Type: Pre-Outpt Allergies, Adverse Reactions, Alerts Substance Criticality Severity [...] Ventura rded tetanus-diphtheria toxoids (Td) 04/23/24 Recorded [id number] 12y+ bivalent booster vax 06/20/22 Recorded zoster [...] Team Personnel Name: Beth Carter RN Position: [facility] RN Member Role: Primary Care Nurse Name: Monica Sigala RN Position: S RN Member Role: Primary Care Nurse Name: Abiola Alexandre RN Position: [facility] RN Member Role: Primary Care Nurse Name: Jomar Pleitez RN Position: [facility] RN Member Role: Primary Care Nurse Name: Yuliana lFynn RN Position: [facility] RN Member Role: Primary Care Nurse Name: Jon Castañeda RN Position: [facility] RN Member Role: Primary Care Nurse Name: Jackie Wood RN Position: [facility] RN Member Role: Primary Care Nurse Name: Ila Dalal RN Position: [facility] SN RN Member Role: Primary Care Nurse Name: Endy Lange RN Position: [facility] RN Member Role: Primary Care Nurse Name: Mona Heard RN Position: [facility] RN Member Role: Primary Care Nurse Name: Tesha Henriquez RN Position: [facility] ED RN W/OE and Tasks Member Role: Primary Care Nurse Name: Georgina Fish MD Position: Reference Physician Member Role: PCP Address: [address] [place] [address] Telecom: Name: Chiquis Porter RN Position: [facility] OB RN Member Role: Primary Care Nurse Care Team Related Persons Name: MAIKEL KOEHLER Name: JOANIE KOEHLER Name: AIYANA KOEHLER Insurance Providers Guarantor name: [facility] Plan Information #: 1 Payer: NA Member Number: NA Policy Number: NA Group Number: NA
== END 2024-09-19 09:34 | disposition home or self-care (01) ==
PROVIDERS: PCP Internal Medicine; Visit Provider Student in an Organized Health Care Education/Training Program
DX: E11.42 Type 2 diabetes mellitus with diabetic polyneuropathy (principal); Z79.4 Long term (current) use of insulin; Z96.41 Presence of insulin pump (external) (internal)
CPT/HCPCS: 99214; G2211

== ENCOUNTER → 2024-09-19 08:44 | Outpatient (BNVA) | payer OTHER, SELFPAY | PROVIDERS: PCP Internal Medicine; Visit Provider Student in an Organized Health Care Education/Training Program | DX: E11.42 Type 2 diabetes mellitus with diabetic polyneuropathy (principal); Z79.4 Long term (current) use of insulin; Z96.41 Presence of insulin pump (external) (internal) | CPT/HCPCS: 82947; 99212 ==

== ENCOUNTER 2024-09-24 10:02 | Outpatient (REF) | payer OTHER, SELFPAY ==
--- NOTE | ~2024-09-24 | XR_ITS ---
CLINICAL HISTORY: M54.50 - Low back pain, unspecified 3 views lumbar spine Comparison: None. Findings: Normal alignment. No acute fractures or dislocation. There is disc space narrowing lower lumbar spine L4-L5 and L5-S1. There is subchondral sclerosis and osteophyte formation. There is mild bony sclerosis of the facets. There is mild lower lumbar spine dextroscoliosis. There are surgical clips within right upper quadrant from prior cholecystectomy. Mild degenerative changes of the SI joints. IMPRESSION: Multilevel spondylosis most significant at L4-L5 and L5-S1. Mild degenerative changes of the SI joints. Prior cholecystectomy. This document has been electronically signed by: David Abdalla MD on 09/25/2024 09:03:41
--- OUTSIDE RECORDS SUMMARY | 2024-09-24 12:04 | XMS_ITS | Patient Health Record ---
Author Organization [facility] Address [address] [place] [address] Care Team Providers Care Prepress Supervisor Name Role Phone Georgina Fish MD Primary Care Provider David Velasco [phone] ALLERGIES Allergen (clinical drug ingredient) Drug/Non Drug [...] Omeprazole 20 MG TAKE 1 CAPSULE BY [facility] DAILY. Oral for 90 Active [...] Problem Colon cancer screening (Z12.11) Active confirmed [id number] Problem Preprocedural examination (Z01.818) Active confirmed [id number] PLAN OF TREATMENT Future Test Test Name Order Date COLONOSCOPY 08/17/2022 Insurance Providers Payer Name Payer Address Payer Phone Subscriber Number Group Number Insured Name Patient Relationship to Insured Coverage Start Date Coverage End Date [facility] [address] [place] [address] [id number] DUNCAN PETE Self - patient is the insured MEDICAL (GENERAL) HISTORY Medical History History ICD Code Hypertension GERD Hypothyroidism sleep apnea-uses a CPAP hypercholesterolemia coronary artery disease with reported [place] X 2 and 2 stents iin approx 2017--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 Maria at [facility] IDDM with Insulin pump Neg. screening colonoscopy in 2006 other than hyperplastic polyps Denies CVA,Lung disease,renal disease Surgical History Surgery Date(Month/Year) breast bilaterallly for infections cholecystectomy tubal ligation carpal tunnel on the right
== END 2024-09-24 10:03 | disposition home or self-care (01) ==
LOC: HO.XRAY 10:02
PROVIDERS: PCP Internal Medicine
DX: M54.50 Low back pain, unspecified (principal)
CPT/HCPCS: 72100

== ENCOUNTER → 2024-09-24 10:09 | Outpatient (BNV) | payer OTHER, SELFPAY | PROVIDERS: PCP Internal Medicine; Visit Provider Radiology Diagnostic Radiology | DX: M47.817 Spondylosis without myelopathy or radiculopathy, lumbosacral region (principal) | CPT/HCPCS: 72100 ==

== ENCOUNTER 2024-10-02 08:07 | Outpatient (AMB) | payer OTHER, SELFPAY ==
--- OUTSIDE RECORDS SUMMARY | 2024-10-02 08:21 | XMS_ITS | Continuity of Care Document ---
Author Organization [facility] Address [address] [place] [id number]- Care Team Providers Care Insurance Solicitor Name Role Phone Po Georgina SILVEIRA Primary Care Physician Encounter [facility] Date(s): 08/28/24 - 09/27/24 [facility] [address] [place] [id number]- Encounter Type: Triage Allergies, Adverse Reactions, Alerts [...] [place] rded tetanus-diphtheria toxoids (Td) 04/23/24 Recorded [id number] 12y+ bivalent booster vax 06/20/22 Recorded zoster [...] Team Personnel Name: Beth Carter RN Position: [facility] SN RN Member Role: Primary Care Nurse Name: Monica Sigala RN Position: S RN Member Role: Primary Care Nurse Name: Abiola Alexandre RN Position: [facility] RN Member Role: Primary Care Nurse Name: Jomar Pleitez RN Position: [facility] RN Member Role: Primary Care Nurse Name: Yuliana Flynn RN Position: [facility] RN Member Role: Primary Care Nurse Name: Jon Castañeda RN Position: [facility] RN Member Role: Primary Care Nurse Name: Jackie Wood RN Position: [facility] RN Member Role: Primary Care Nurse Name: Ila Dalal RN Position: [facility] SN RN Member Role: Primary Care Nurse Name: Endy Lange RN Position: [facility] RN Member Role: Primary Care Nurse Name: Mona Heard RN Position: [facility] RN Member Role: Primary Care Nurse Name: Tesha Henriquez RN Position: [facility] ED RN W/OE and Tasks Member Role: Primary Care Nurse Name: Georgina Fish MD Position: Reference Physician Member Role: PCP Address: [address] [place] [address] Telecom: Name: Chiquis Porter RN Position: [facility] OB RN Member Role: Primary Care Nurse Care Team Related Persons Name: MAIKEL KOEHLER Name: JOANIE KOEHLER Name: AIYANA KOEHLER Insurance Providers Guarantor name: [facility] Information #: 1 Payer: NA Member Number: NA Policy Number: NA Group Number: NA
--- OUTSIDE RECORDS SUMMARY | 2024-10-02 08:21 | XMS_ITS | Patient Health Record ---
Author Organization [facility] Address [address] [place] [address] Care Team Providers Care Director Safety Name Role Phone Georgina Fish MD Primary Care Provider David Velasco [phone] Allergies Allergen (clinical drug ingredient) Drug/Non Drug Allergy documented on EMR Reaction Allergy Type Onset Date Status ibuprofen Ibuprofen Unknown Drug Allergy Active Reason For Referral No Information Medications Medication SIG (Take, Route, Frequency, Duration) Notes [...] Omeprazole 20 MG TAKE 1 CAPSULE BY [facility] DAILY. Oral for 90 Active Immunizations Vaccine Route Administration Date Status Comme nts Influenza Unknown 03/30/2022 Administered Social History Tobacco Use: Social History Observation Description Date Details (start date - stop date) Former Smoker NA - NA Tobacco Use/Smoking Question Answer Notes Patient is a former smoker How long has it been since you last smoked? > 10 years Alcohol Screen Question Answer Notes Did you have a drink containing alcohol in the p ast year? No Points 0 Interpretation Negative Section Notes: Nonsmoker; no sig. alcohol Problems Problem Type SNOMED Code ICD Code Onset Dates Problem Status W/U Status Risk Notes Problem [id number] Colon cancer screening (Z12.11) Active confirmed Problem [id number] Preprocedural examination (Z01.818) Active confirmed Plan Of Treatment Future Test Test Name Order Date COLONOSCOPY 08/17/2022 Insurance Providers Payer Name Payer Address Payer Phone Subscriber Number Group Number Insured Name Patient Relationship to Insured Coverage Start Date Coverage End Date [facility] [address] [place] [address] [id number] DUNCAN PETE Self - patient is the insured Medical (General) History Medical History History ICD Code Hypertension GERD Hypothyroidism sleep apnea-uses a CPAP hypercholesterolemia coronary artery disease with reported [place] X 2 and 2 stents iin approx 2017--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 screening colonoscopy in 2006 other than hyperplastic polyps Denies CVA,Lung disease,renal disease Surgical History Surgery Date(Month/Year) breast bilaterallly for infections cholecystectomy tubal ligation carpal tunnel on the right
--- NOTE | 2024-10-02 08:48 | A.OFFVIS_ITS ---
Intake Intake Visit Reasons: T2DM/Set up CGM Glass Curvature Gauger Required: Yes Glass Curvature Gauger Language: Roll Icer Machine Name: Neda [facility] Accompanied by: Significant Other Allergies ibuprofen [From MOTRIN] Allergy (Mild, Verified 09/19/24 08:51) STOMACH UPSET, gastritis tirzepatide [From Mounjaro] Adverse Reaction (Intermediate, Verified 09/19/24 08:51) upset stomach HPI Comprehensive Diabetes Asmnt Most Recent Diabetes Results: Microalb/Creat Ratio 30.5 ug/mg cr (<30) H 12/25/23 Cholesterol 89 mg/dL (<200) 12/25/23 HDL Cholesterol 42 mg/dL (>40) 12/25/23 Triglycerides 155 mg/dL (<150) H 12/25/23 Creatinine 1.05 mg/dL (0.5-1.4) 07/24/23 Blood Urea Nitrogen 22 mg/dL (9-16) H 07/24/23 Sodium 144 mmol/L (135-145) 07/24/23 Potassium 3.7 mmol/L (3.3-5.1) 07/24/23 Chloride 112 mmol/L (96-108) H 07/24/23 Carbon Dioxide 22 mmol/L (22-29) 07/24/23 Calcium 9.3 mg/dL (8.4-10.2) 07/24/23 AST 16 U/L (5-31) 12/25/23 ALT 16 U/L (0-31) 12/25/23 Total Protein 7.5 g/dL (6.5-8.0) 12/25/23 Albumin 4.1 g/dL (3.5-5.0) 12/25/23 [facility] Medical History Personal history of nicotine dependence History of myocardial infarction Bilateral hand numbness Left ovarian cyst Type 2 diabetes mellitus with diabetic polyneuropathy Abnormal liver function test Tear of meniscus of left knee Lumbar degenerative disc disease Knee osteoarthritis GERD (gastroesophageal reflux disease) Ovarian cyst Carpal tunnel syndrome Obstructive sleep apnea Coronary artery disease Anemia Obesity (BMI 30-39.9) Hypertension Dyslipidemia Hypothyroidism Diabetic nephropathy associated with type 2 diabetes mellitus 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 Diabetes type 2, uncontrolled Surgical History History of carpal tunnel surgery of left wrist H/O bilateral oophorectomy History of esophagogastroduodenoscopy (EGD) Hx of colonoscopy Hx of right coronary artery stent placement History of surgical removal of nipple Hx of tubal ligation Hx of cholecystectomy Family History Father Diabetes mellitus Mother Diabetes mellitus Maternal Uncle Colon cancer Gastric cancer Daughter Diabetes mellitus Social History Household Members: None Housing: Apartment Alcohol intake: never Comment: counts correct Patient Tobacco Use Status: Former Tobacco user Tobacco use type: Cigarette Years Smoked: (onset 11yo, 1/2ppd x 55yrs,27pyh quit 2016) e-Cigarette/Vaping Use: Never Used Second Hand Smoke Exposure: Yes service: No Current occupational status: disabled Current occupational exposures/hazards: No Cognitive needs: Yes (walker, cane) Hearing needs: No Vision needs: Yes Assessment & Plan Assessment & Plan (1) Type 2 diabetes mellitus with hyperglycemia: Comment: Gina 04/2024 Code(s): E11.65 - Type 2 diabetes mellitus with hyperglycemia Plan: Patient at visit for Baqsimi treatment Patient is currently off Omnipod dash, has been injecting Fiasp 10 units before meals. Patient's spouse so she has been off pump for approximately a month. You are unable to download patient's sensor at today's visit, did recommend to patient she reduce Fiasp to 5 units before meals this is what is programmed into her pre sets on her Omnipod Baqsimi is a nasal spray that contains the hormone glucagon. Glucagon is the hormone that increases blood sugar by working on the liver to release glucose into the blood. Baqsimi should only be given if you are unable to treat hypoglycemia by taking oral intervention Giving the dose Baqsimi * Hold Device between fingers and thumb. Do not push Plunger yet. * Insert Tip gently in one nostril until finger(s) touch the outside of the nose. * Push Plunger firmly all the way in * Once dose has been administered, call EMS or provider * If after 15 minutes patient is still unable to treat hypoglycemia orally give 2nd dose if available The most common side effects of BAQSIMI include: ? nausea ? vomiting ? headache ? runny nose ? discomfort in your nose ? stuffy nose ? redness in your eyes ? itchy nose, throat, and eyes ? watery eyes If patient is having frequent low blood sugars or has hypoglycemic event that requires assistance they should report it to their provider Instructed patient to bring sensor, Omnipod dash pod and recycling worker to visit on 10/07/24 Message sent patient's provider regarding patient coming off insulin pump, and not having prescription for basal insulin Patient Instructions: INSTRUCCIONES PARA EL CUIDADO EN CASA DE LOS PROBLEMAS DE DIABETES Instrucciones para la hipoglucemia Cuando aparezcan los primeros signos de reacci?n a la insulina, david inmediatamente jugo de naranja o cola, o chupe un terr?n de az?car, annabella solo si la persona est? consciente. La persona con diabetes debe seguir tomando insulina cuando est? enferma, a menos que no pueda comer.? Controle regularmente el nivel de az?car en lio o en orina para detectar az?car y acetona sagar la enfermedad. Thien ejercicio regularmente. Preste especial atenci?n a los pies.? Evite vallecillo, llagas, ampollas, zapatos que no calcen deidra o andar descalzo.? Trate de inmediato las lesiones en los pies. [place] los medicamentos seg?n las indicaciones del m?dico. David m?s agua o bebidas sin cafe?na y sin az?car para evitar la hidrataci?n. Coding Level of Care Code Est Pt Level 1 (81111) Diagnoses Type 2 diabetes mellitus with hyperglycemia E11.65
== END 2024-10-02 08:51 | disposition home or self-care (01) ==
PROVIDERS: PCP Internal Medicine; Visit Provider Registered Nurse Diabetes Educator
DX: E11.65 Type 2 diabetes mellitus with hyperglycemia (principal)

== ENCOUNTER → 2024-10-02 08:07 | Outpatient (BNVA) | payer OTHER, SELFPAY | PROVIDERS: PCP Internal Medicine; Visit Provider Registered Nurse Diabetes Educator | DX: E11.65 Type 2 diabetes mellitus with hyperglycemia (principal) | CPT/HCPCS: 99211 ==

== ENCOUNTER 2024-10-07 13:54 | Outpatient (AMB) | payer OTHER, SELFPAY ==
--- NOTE | 2024-10-07 14:27 | MHC.AMDMED ---
Intake Intake Visit Reasons: Pump review Self Pay Collector Required: Yes Self Pay Collector Language: Quality Assurance/R&D Lab Technician Name: Neda [facility] Accompanied by: Self / Same As Patient Allergies ibuprofen [From MOTRIN] Allergy (Mild, Verified 09/19/24 08:51) STOMACH UPSET, gastritis tirzepatide [From Mounjaro] Adverse Reaction (Intermediate, Verified 09/19/24 08:51) upset stomach HPI Comprehensive Diabetes Asmnt Most Recent Diabetes Results: Microalb/Creat Ratio 30.5 ug/mg cr (<30) H 12/25/23 Cholesterol 89 mg/dL (<200) 12/25/23 HDL Cholesterol 42 mg/dL (>40) 12/25/23 Triglycerides 155 mg/dL (<150) H 12/25/23 Creatinine 1.05 mg/dL (0.5-1.4) 07/24/23 Blood Urea Nitrogen 22 mg/dL (9-16) H 07/24/23 Sodium 144 mmol/L (135-145) 07/24/23 Potassium 3.7 mmol/L (3.3-5.1) 07/24/23 Chloride 112 mmol/L (96-108) H 07/24/23 Carbon Dioxide 22 mmol/L (22-29) 07/24/23 Calcium 9.3 mg/dL (8.4-10.2) 07/24/23 AST 16 U/L (5-31) 12/25/23 ALT 16 U/L (0-31) 12/25/23 Total Protein 7.5 g/dL (6.5-8.0) 12/25/23 Albumin 4.1 g/dL (3.5-5.0) 12/25/23 [facility] Medical History Personal history of nicotine dependence History of myocardial infarction Bilateral hand numbness Left ovarian cyst Type 2 diabetes mellitus with diabetic polyneuropathy Abnormal liver function test Tear of meniscus of left knee Lumbar degenerative disc disease Knee osteoarthritis GERD (gastroesophageal reflux disease) Ovarian cyst Carpal tunnel syndrome Obstructive sleep apnea Coronary artery disease Anemia Obesity (BMI 30-39.9) Hypertension Dyslipidemia Hypothyroidism Diabetic nephropathy associated with type 2 diabetes mellitus [facility] (current) use of insulin Diabetes type 2, uncontrolled Surgical History History of carpal tunnel surgery of left wrist H/O bilateral oophorectomy History of esophagogastroduodenoscopy (EGD) Hx of colonoscopy Hx of right coronary artery stent placement History of surgical removal of nipple Hx of tubal ligation Hx of cholecystectomy Family History Father Diabetes mellitus Mother Diabetes mellitus Maternal Uncle Colon cancer Gastric cancer Daughter Diabetes mellitus Social History Household Members: None Housing: Apartment Alcohol intake: never Comment: counts correct Patient Tobacco Use Status: Former Tobacco user Tobacco use type: Cigarette Years Smoked: (onset 11yo, 1/2ppd x 55yrs,27pyh quit 2016) e-Cigarette/Vaping Use: Never Used Second Hand Smoke Exposure: Yes service: No Current occupational status: disabled Current occupational exposures/hazards: No Cognitive needs: Yes (walker cane) Hearing needs: No Vision needs: Yes Assessment & Plan Assessment & Plan (1) Type 2 diabetes mellitus with hyperglycemia: Comment: Gina 04/2024 Code(s): E11.65 - Type 2 diabetes mellitus with hyperglycemia Plan: Patient presents for pump training for Omnipod dash with blood glucose meter Patient visit to restart Omnipod dash insulin pump with Ron 2 sensor Patient has order for Omnipod 5 we will integrate with Ron 2+ sensor, so patient can continue to use sensor that she is accustom too The following topics were reviewed today: - When to change set or Pod - how to treat hypoglycemia - Sensor setting (if applicable) ?High Alert: 240 mg/dl Alert: 80 mg/dL Date and time incorrect in Ron 2 reader we were unable to download device and review glucose numbers Patient's average glucose the past 7 days mg/dL Patient above target Patient at target Patient below target Patient last A1c on 09/01/2024 6.5% Reviewed with patient how to treat hypoglycemia with rule of 15s Setting verified by CDCES Basal rate(s) (units/hour) : ?12 AM to 2? 0.8 units / hr 2 AM to 9 AM 1.25 unit /hr 9 AM to 12 AM 1.5 units /hr Bolus setting Fixed Meal Doses Breakfast: 5 units Lunch: 5 units Supper: 5 units Snacks: 3 units Correction Factor / Sensitivity Factor None Active Insulin Time:? 4 hrs Patient Instructions: Comun?quese con el educador en diabetes si tiene un nivel bajo de glucosa en lio. Realice un seguimiento con el educador en diabetes en 1 semana. Coding Level of Care Code Est Pt Level 1 (67535) Diagnoses Type 2 diabetes mellitus with hyperglycemia E11.65
--- OUTSIDE RECORDS SUMMARY | 2024-10-07 16:57 | XMS_ITS | Patient Health Record ---
Author Organization [facility] Address [address] [place] [address] Care Team Providers Care Buck Presser Name Role Phone Georgina Fish MD Primary Care Provider David Velasco [phone] Allergies Allergen (clinical drug ingredient) Drug/Non Drug [...] Omeprazole 20 MG TAKE [address] [facility] DAILY. Oral for 90 Active Immunizations Vaccine [...] Problem Status W/U Status Risk Notes Problem [id number] Colon cancer screening (Z12.11) Active confirmed Problem [id number] Preprocedural examination (Z01.818) Active confirmed Plan Of Treatment Future Test Test Name Order Date COLONOSCOPY 08/17/2022 Insurance Providers Payer Name Payer Address Payer Phone Subscriber Number Group Number Insured Name Patient Relationship to Insured Coverage Start Date Coverage End Date [facility] [address] [place] [address] [id number] DUNCAN PETE Self - patient is the insured Medical (General) History Medical History History ICD Code Hypertension GERD Hypothyroidism sleep apnea-uses a CPAP hypercholesterolemia coronary artery disease with reported [place] X 2 and 2 stents iin approx 2017--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 screening colonoscopy in 2006 other than hyperplastic polyps Denies CVA,Lung disease,renal disease Surgical History Surgery Date(Month/Year) breast bilaterallly for infections cholecystectomy tubal ligation carpal tunnel on the right
== END 2024-10-07 14:28 | disposition home or self-care (01) ==
LOC: HO.ENCR 13:55
PROVIDERS: PCP Internal Medicine; Visit Provider Registered Nurse Diabetes Educator
DX: E11.65 Type 2 diabetes mellitus with hyperglycemia (principal)

== ENCOUNTER → 2024-10-07 13:54 | Outpatient (BNVA) | payer OTHER, SELFPAY | PROVIDERS: PCP Internal Medicine; Visit Provider Registered Nurse Diabetes Educator | DX: Z46.81 Encounter for fitting and adjustment of insulin pump (principal); E11.65 Type 2 diabetes mellitus with hyperglycemia; Z79.4 Long term (current) use of insulin | CPT/HCPCS: 99211 ==

== ENCOUNTER 2024-10-14 12:16 | Outpatient (AMB) | payer OTHER, SELFPAY ==
--- NOTE | 2024-10-14 12:52 | A.OFFVIS_ITS ---
Intake Intake Visit Reasons: DM Damage Assessor Required: Yes Damage Assessor Language: Accounting Manager Controller Name: Harjinder [facility] Accompanied by: Self / Same As Patient Allergies ibuprofen [From MOTRIN] Allergy (Mild, Verified 09/19/24 08:51) STOMACH UPSET, gastritis tirzepatide [From Mounjaro] Adverse Reaction (Intermediate, Verified 09/19/24 08:51) upset stomach HPI Comprehensive Diabetes Asmnt Most Recent Diabetes Results: No Data to Display [facility] Medical History Personal history of nicotine dependence History of myocardial infarction Bilateral hand numbness Left ovarian cyst Type 2 diabetes mellitus with diabetic polyneuropathy Abnormal liver function test Tear of meniscus of left knee Lumbar degenerative disc disease Knee osteoarthritis GERD (gastroesophageal reflux disease) Ovarian cyst Carpal tunnel syndrome Obstructive sleep apnea Coronary artery disease Anemia Obesity (BMI 30-39.9) Hypertension Dyslipidemia Hypothyroidism Diabetic nephropathy associated with type 2 diabetes mellitus [facility] (current) use of insulin Diabetes type 2, uncontrolled Surgical History History of carpal tunnel surgery of left wrist H/O bilateral oophorectomy History of esophagogastroduodenoscopy (EGD) Hx of colonoscopy Hx of right coronary artery stent placement History of surgical removal of nipple Hx of tubal ligation Hx of cholecystectomy Family History Father Diabetes mellitus Mother Diabetes mellitus Maternal Uncle Colon cancer Gastric cancer Daughter Diabetes mellitus Social History Household Members: None Housing: Apartment Alcohol intake: never Comment: counts correct Patient Tobacco Use Status: Former Tobacco user Tobacco use type: Cigarette Years Smoked: (onset 11yo, 1/2ppd x 55yrs,27pyh quit 2016) e-Cigarette/Vaping Use: Never Used Second Hand Smoke Exposure: Yes service: No Current occupational status: disabled Current occupational exposures/hazards: No Cognitive needs: Yes (walker, cane) Hearing needs: No Vision needs: Yes Assessment & Plan Assessment & Plan (1) Type 2 diabetes mellitus with hyperglycemia: Comment: Gina 04/2024 Code(s): E11.65 - Type 2 diabetes mellitus with hyperglycemia Plan: Patient presents for pump training for Omnipod dash with blood glucose meter Patient has order for Omnipod 5 we will integrate with Ron 2+ sensor, so patient can continue to use sensor that she is accustom too The following topics were reviewed today: - When to change set or Pod - how to treat hypoglycemia - Sensor setting (if applicable) ?High Alert: 240 mg/dl Alert: 80 mg/dL Since restarting Omnipod dash patient has having significant episodes of hypoglycemia Patient's average glucose the past 7 days 91 mg/dL Patient above target 2% Patient at target 70% Patient below target 28% Patient last A1c on 09/01/2024 6.5% Reviewed with patient how to treat hypoglycemia with rule of 15s, Pt reports treating hypos with orange juice Called patient's pharmacy to check on prescription for Omnipod 5 insulin pump, they report that her PA has been approved and they will order Omnipod 5 supplies Setting verified by CDCES, see changes to insulin pump below Basal rate(s) (units/hour) : ?12 AM to 2? 0.5 units / hr New ?12 AM to 2AM 0.25 units/hr 2 AM to 9 AM 0.8 unit /hr New 2 AM to 9 AM 0.4 unit /hr 9 AM to 12 AM 0.8 units /hr New 9 AM to 12 AM 0.4 units /hr Bolus setting Fixed Meal Doses Breakfast: 5 units New Breakfast: 4 units Lunch: 5 units New Lunch: 4 units Supper: 5 units New Supper: 4 units Snacks: 3 units Correction Factor / Sensitivity Factor None Active Insulin Time:? 4 hrs Patient Instructions: Seguimiento con un educador en diabetes en 6 d?as. Si la hipoglucemia persiste, contacte con un educador en diabetes lo antes posible. Coding Level of Care Code Est Pt Level 1 (06825) Diagnoses Type 2 diabetes mellitus with hyperglycemia E11.65
--- OUTSIDE RECORDS SUMMARY | 2024-10-14 14:35 | XMS_ITS | Patient Health Record ---
Author Organization [facility] Address [address] [place] [address] Care Team Providers Care Tube Coater Name Role Phone Georgina Fish MD Primary Care Provider David Velasco [phone] Allergies Allergen (clinical drug ingredient) Drug/Non Drug [...] Omeprazole 20 MG TAKE 1 CAPSULE BY [facility] DAILY. Oral for 90 Active Immunizations [...] Problem Status W/U Status Risk Notes Problem [id number] Colon cancer screening (Z12.11) Active confirmed Problem [id number] Preprocedural examination (Z01.818) Active confirmed Plan Of Treatment Future Test Test Name Order Date COLONOSCOPY 08/17/2022 Insurance Providers Payer Name Payer Address Payer Phone Subscriber Number Group Number Insured Name Patient Relationship to Insured Coverage Start Date Coverage End Date [facility] [address] [place] [address] [id number] DUNCAN PETE Self - patient is the insured Medical (General) History Medical History History ICD Code Hypertension GERD Hypothyroidism sleep apnea-uses a CPAP hypercholesterolemia coronary artery disease with reported [place] X 2 and 2 stents iin approx 2017--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 screening colonoscopy in 2006 other than hyperplastic polyps Denies CVA,Lung disease,renal disease Surgical History Surgery Date(Month/Year) breast bilaterallly for infections cholecystectomy tubal ligation carpal tunnel on the right
== END 2024-10-14 13:03 | disposition home or self-care (01) ==
LOC: HO.ENCR 12:17
PROVIDERS: PCP Internal Medicine; Visit Provider Registered Nurse Diabetes Educator
DX: E11.65 Type 2 diabetes mellitus with hyperglycemia (principal)

== ENCOUNTER → 2024-10-14 12:16 | Outpatient (BNVA) | payer OTHER, SELFPAY | PROVIDERS: PCP Internal Medicine; Visit Provider Registered Nurse Diabetes Educator | DX: E11.65 Type 2 diabetes mellitus with hyperglycemia (principal); Z79.4 Long term (current) use of insulin | CPT/HCPCS: 99211 ==

== ENCOUNTER 2024-10-20 11:49 | Outpatient (AMB) | payer OTHER, SELFPAY ==
--- NOTE | 2024-10-20 12:08 | A.OFFVIS_ITS ---
Intake Intake Visit Reasons: DM Auditor Medical Claims Required: Yes Auditor Medical Claims Language: Advice Line Rn Name: Viral Accompanied by: Self / Same As Patient Allergies ibuprofen [From MOTRIN] Allergy (Mild, Verified 09/19/24 08:51) STOMACH UPSET, gastritis tirzepatide [From Mounjaro] Adverse Reaction (Intermediate, Verified 09/19/24 08:51) upset stomach HPI Comprehensive Diabetes Asmnt Most Recent Diabetes Results: No Data to Display [facility] Medical History Personal history of nicotine dependence History of myocardial infarction Bilateral hand numbness Left ovarian cyst Type 2 diabetes mellitus with diabetic polyneuropathy Abnormal liver function test Tear of meniscus of left knee Lumbar degenerative disc disease Knee osteoarthritis GERD (gastroesophageal reflux disease) Ovarian cyst Carpal tunnel syndrome Obstructive sleep apnea Coronary artery disease Anemia Obesity (BMI 30-39.9) Hypertension Dyslipidemia Hypothyroidism Diabetic nephropathy associated with type 2 diabetes mellitus senior care (current) use of insulin Diabetes type 2, uncontrolled Surgical History History of carpal tunnel surgery of left wrist H/O bilateral oophorectomy History of esophagogastroduodenoscopy (EGD) Hx of colonoscopy Hx of right coronary artery stent placement History of surgical removal of nipple Hx of tubal ligation Hx of cholecystectomy Family History Father Diabetes mellitus Mother Diabetes mellitus Maternal Uncle Colon cancer Gastric cancer Daughter Diabetes mellitus Social History Household Members: None Housing: Apartment Alcohol intake: never Comment: counts correct Patient Tobacco Use Status: Former Tobacco user Tobacco use type: Cigarette Years Smoked: (onset 11yo, 1/2ppd x 55yrs,27pyh quit 2016) e-Cigarette/Vaping Use: Never Used Second Hand Smoke Exposure: Yes service: No Current occupational status: disabled Current occupational exposures/hazards: No Cognitive needs: Yes (walker, cane) Hearing needs: No Vision needs: Yes Assessment & Plan Assessment & Plan (1) Type 2 diabetes mellitus with hyperglycemia: Comment: Gina 04/2024 Code(s): E11.65 - Type 2 diabetes mellitus with hyperglycemia Plan: Patient presents for pump training for Omnipod dash with blood glucose meter Patient has order for Omnipod 5 we will integrate with Ron 2+ sensor, so patient can continue to use sensor that she is accustom too The following topics were reviewed today: - how to treat hypoglycemia - Sensor setting (if applicable) High Alert: 240 mg/dl Alert: 80 mg/dL Patient is Omnipod settings changed on 10/14/24 due to hypoglycemic events Patient's average glucose the past 7 days 105 mg/dL Hypoglycemic events in the last 7 days equal 3 compared to the previous 7 days which equaled 10 Patient last A1c on 09/01/2024 6.5% Patient's insulin demand has significantly reduced since weight loss of approximately 25 lb between 03/2024 to 08/2024 conservation educator will send message to entry level sales representative regarding the continuation of insulin pump therapy due to risk of hypoglycemia and CVD Setting verified by CDCES, see changes to insulin pump below Basal rate(s) (units/hour) : ?12 AM to 2? 0.25 units / hr 2 AM to 9 AM 0.4 unit /hr New 2 AM to 9 AM 0.25 unit /hr 9 AM to 12 AM 0.4 units /hr Bolus setting Fixed Meal Doses Breakfast: 4 units New Breakfast: 3 units Lunch: 4 units New Lunch: 3 units Supper: 4 units New Supper: 3 units Snacks: 3 units Correction Factor / Sensitivity Factor None Active Insulin Time:? 4 hrs Patient Instructions: Patient will follow-up with childbirth educator in 1 week Coding Level of Care Code Est Pt Level 1 (17469) Diagnoses Type 2 diabetes mellitus with hyperglycemia E11.65
== END 2024-10-20 12:08 | disposition home or self-care (01) ==
LOC: HO.ENCR 11:50
PROVIDERS: PCP Internal Medicine; Visit Provider Registered Nurse Diabetes Educator
DX: E11.65 Type 2 diabetes mellitus with hyperglycemia (principal)

== ENCOUNTER → 2024-10-20 11:49 | Outpatient (BNVA) | payer OTHER, SELFPAY | PROVIDERS: PCP Internal Medicine; Visit Provider Registered Nurse Diabetes Educator | DX: E11.65 Type 2 diabetes mellitus with hyperglycemia (principal) | CPT/HCPCS: 99211 ==

== ENCOUNTER 2024-10-28 09:35 | Outpatient (AMB) | payer OTHER, SELFPAY ==
--- NOTE | 2024-10-28 09:49 | A.OFFVIS_ITS ---
Intake Intake Visit Reasons: Pump Allergies ibuprofen [From MOTRIN] Allergy (Mild, Verified 09/19/24 08:51) STOMACH UPSET, gastritis tirzepatide [From Mounjaro] Adverse Reaction (Intermediate, Verified 09/19/24 08:51) upset stomach HPI Comprehensive Diabetes Asmnt Most Recent Diabetes Results: No Data to Display [facility] Medical History Personal history of nicotine dependence History of myocardial infarction Bilateral hand numbness Left ovarian cyst Type 2 diabetes mellitus with diabetic polyneuropathy Abnormal liver function test Tear of meniscus of left knee Lumbar degenerative disc disease Knee osteoarthritis GERD (gastroesophageal reflux disease) Ovarian cyst Carpal tunnel syndrome Obstructive sleep apnea Coronary artery disease Anemia Obesity (BMI 30-39.9) Hypertension Dyslipidemia Hypothyroidism Diabetic nephropathy associated with type 2 diabetes mellitus 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 Diabetes type 2, uncontrolled Surgical History History of carpal tunnel surgery of left wrist H/O bilateral oophorectomy History of esophagogastroduodenoscopy (EGD) Hx of colonoscopy Hx of right coronary artery stent placement History of surgical removal of nipple Hx of tubal ligation Hx of cholecystectomy Family History Father Diabetes mellitus Mother Diabetes mellitus Maternal Uncle Colon cancer Gastric cancer Daughter Diabetes mellitus Social History Household Members: None Housing: Apartment Alcohol intake: never Comment: counts correct Patient Tobacco Use Status: Former Tobacco user Tobacco use type: Cigarette Years Smoked: (onset 11yo, 1/2ppd x 55yrs,27pyh quit 2017) e-Cigarette/Vaping Use: Never Used Second Hand Smoke Exposure: Yes service: No Current occupational status: disabled Current occupational exposures/hazards: No Cognitive needs: Yes (diann garcias) Hearing needs: No Vision needs: Yes Assessment & Plan Assessment & Plan (1) Type 2 diabetes mellitus with hyperglycemia: Comment: Gina 04/2024 Code(s): E11.65 - Type 2 diabetes mellitus with hyperglycemia Plan: Personal Continuous Glucose Monitor: Patients CGM information reviewed, Pt uses [employer] 2+ with reader Sensor data: Hypoglycemia: ? 1% Hyperglycemia:? 16% Time in Range:? 93% Average glucose for the last 2 weeks?145 mg/dL Spoke with patient today about transitioning from Omnipod DASH to Lantus 10 units daily, patient's insulin demand has decreased since recent weight loss, putting her at high risk for hypoglycemia. Reviewed with patient how to inject insulin with insulin pen, instructed patient to take insulin at the same time every day. Follow-up with elementary educator in 2 weeks, patient also has follow-up appointment with Dr. Phelan on 11/07/2024 Patient able to insert sensor independently at home without issue.? Portions of this note were created using voice recognition software, please excuse any words or phrases that may have been misinterpreted. Patient Instructions: Deje de usar las c?psulas y comience a usar la pluma de insulina stacy vez al d?a seg?n lo prescrito. Thien un seguimiento con stacy enfermera de educaci?n sobre diabetes en 2 semanas. Coding Level of Care Code Est Pt Level 1 (59938) Diagnoses Type 2 diabetes mellitus with hyperglycemia E11.65
--- OUTSIDE RECORDS SUMMARY | 2024-10-28 10:51 | XMS_ITS | Patient Health Record ---
Author Organization [facility] Address [address] [place] [address] Care Team Providers Care Physician Practice Coordinator Name Role Phone Georgina Fish MD Primary Care Provider David Velasco [phone] Allergies Allergen (clinical drug ingredient) Drug/Non Drug [...] Omeprazole 20 MG TAKE 1 CAPSULE BY [facility] DAILY. Oral for 90 Active Immunizations [...] Problem Status W/U Status Risk Notes Problem 260313002 Colon cancer screening (Z12.11) Active confirmed Problem [id number] Preprocedural examination (Z01.818) Active confirmed Plan Of Treatment Future Test Test Name Order Date COLONOSCOPY 08/17/2022 Insurance Providers Payer Name Payer Address Payer Phone Subscriber Number Group Number Insured Name Patient Relationship to Insured Coverage Start Date Coverage End Date [facility] [address] [place] [address] [id number] DUNCAN PETE Self - patient is the insured Medical (General) History Medical History History ICD Code Hypertension GERD Hypothyroidism sleep apnea-uses a CPAP hypercholesterolemia coronary artery disease with reported CT X 2 and 2 stents iin approx 2017--Accounts Administrator is Dr. Maria at [facility] IDDM with Insulin pump Neg. screening colonoscopy in 2006 other than hyperplastic polyps Denies CVA,Lung disease,renal disease Surgical History Surgery Date(Month/Year) breast bilaterallly for infections cholecystectomy tubal ligation carpal tunnel on the right
== END 2024-10-28 09:53 | disposition home or self-care (01) ==
LOC: HO.ENCR 09:35
PROVIDERS: PCP Internal Medicine; Visit Provider Registered Nurse Diabetes Educator
DX: E11.65 Type 2 diabetes mellitus with hyperglycemia (principal)

== ENCOUNTER → 2024-10-28 09:35 | Outpatient (BNVA) | payer OTHER, SELFPAY | PROVIDERS: PCP Internal Medicine; Visit Provider Registered Nurse Diabetes Educator | DX: E11.65 Type 2 diabetes mellitus with hyperglycemia (principal); Z79.4 Long term (current) use of insulin | CPT/HCPCS: 99211 ==

== ENCOUNTER 2024-11-10 15:41 | Outpatient (AMB) | payer OTHER, SELFPAY ==
[2024-11-10 15:57] VITALS: BP 100/50; PULSE 64; TEMP 36.7; BMI 25.5
--- NOTE | 2024-11-10 15:57 | MHC.PC.OV ---
Vital Signs 11/10/24 15:57 Height 5 ft 2 in Weight 139 lb 6 oz BMI 25.5 BP 100/50 L Blood Pressure Location Lt brachial Position Sitting Pulse 64 Pulse Source Palpation Temp 98.0 F Temp Source Temporal Artery Scan Oxygen Delivery Method Room Air Intake Visit Reasons: dizziness Subsurface Augmentee Elint Operator Required: Yes Subsurface Augmentee Elint Operator Language: Sound Mixer Name: Pt refused/daughter interpret. Allergies ibuprofen [From MOTRIN] Allergy (Mild, Verified 11/10/24 16:08) STOMACH UPSET, gastritis tirzepatide [From Mounjaro] Adverse Reaction (Intermediate, Verified 11/10/24 16:08) upset stomach Tobacco use date assessed: 08/14/24 Dental Screening Dental Screen Date: 09/01/24 HPI dizziness HPI Details The patient is a 73-year-old female presenting with dizziness and a fall experienced last , attributed to dizziness potentially linked to her blood pressure medication, Metoprolol, which was increased post-hospitalization in July for congestive heart failure. She sustained a bruise on her left elbow and a scrape on her right knee as a result of the fall. Her blood pressure is regularly monitored at home, showing consistently low readings, and blood sugar levels have been corroboratively within the normal to slightly elevated range during dizzy spells, mitigating concerns for hypoglycemia. Additional symptoms include positional dizziness and occasional dizziness while seated. Her intake of fluids is controlled due to congestive heart failure limitations. Tinnitus in the left ear potentially influencing balance has been noted, and ear examination revealed build-up, possibly affecting auditory function. The patient's dosage of Metoprolol remained high, prompting consideration for dosage reassessment and coordination with cardiology follow-up. The patient is only taking half of the 200mg dosage and her blood pressure remains low. [facility] Medical History Personal history of nicotine dependence History of myocardial infarction Bilateral hand numbness Left ovarian cyst Type 2 diabetes mellitus with diabetic polyneuropathy Abnormal liver function test Tear of meniscus of left knee Lumbar degenerative disc disease Knee osteoarthritis GERD (gastroesophageal reflux disease) Ovarian cyst Carpal tunnel syndrome Obstructive sleep apnea Coronary artery disease Anemia Obesity (BMI 30-39.9) Hypertension Dyslipidemia Hypothyroidism Diabetic nephropathy associated with type 2 diabetes mellitus 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 Diabetes type 2, uncontrolled Surgical History History of carpal tunnel surgery of left wrist H/O bilateral oophorectomy History of esophagogastroduodenoscopy (EGD) Hx of colonoscopy Hx of right coronary artery stent placement History of surgical removal of nipple Hx of tubal ligation Hx of cholecystectomy Family History Father Diabetes mellitus Mother Diabetes mellitus Maternal Uncle Colon cancer Gastric cancer Daughter Diabetes mellitus Social History Household Members: None Housing: Apartment Alcohol intake: never Comment: counts correct Patient Tobacco Use Status: Former Tobacco user Tobacco use type: Cigarette Years Smoked: (onset 11yo, 1/2ppd x 55yrs,27pyh quit 2016) e-Cigarette/Vaping Use: Never Used Second Hand Smoke Exposure: Yes service: No Current occupational status: disabled Current occupational exposures/hazards: No Cognitive needs: Yes (walker, cane) Hearing needs: No Vision needs: Yes Questionnaire Thrive Questionnaire Date Thrive assessed: 08/14/24 JASS-7 AMB Questionnaire JASS-7 Date JASS - 7 assessed: 09/01/24 Source: Developed by Drs. David Arroyo, Latha Luz, Buzz Cain and colleagues, with an educational gertrude from [employer]. Review of Systems Const Denies headache(s) Eyes Denies loss of vision ENT Denies vertigo, Reports dizziness, Denies headache(s), Reports tinnitus (left ear), Denies sinus pressure and Denies sore throat Card Denies chest pain, Denies leg edema and Denies lightheadedness Resp Denies cough, Denies hemoptysis and Denies wheezing GI Denies abdominal pain, Denies melena, Denies constipation, Denies diarrhea and Denies vomiting Denies urinary frequency, Denies dysuria and Denies urinary urgency Musc Reports arthralgias (lift elbow (mild)), Denies joint swelling, Denies numbness and Denies tingling Neuro Denies Abnormal speech present, Denies vertigo, Reports dizziness, Denies headache(s), Denies loss of vision, Denies numbness, Denies tingling and Reports other (recent fall) Jeremias/Lymph Denies easy bleeding and Denies easy bruising Aller/Immun Denies wheezing Physical exam (Primary Care) Vital Signs: Last Vital Signs Temp 98.0 F 11/10/24 15:57 Pulse 64 11/10/24 15:57 BP 100/50 L 11/10/24 15:57 Oxygen Delivery Method Room Air 11/10/24 15:57 BMI result Body Mass Index 25.5 Tobacco/Smoking Status: Tobacco use Status Tobacco use date assessed 08/14/24 11/10/24 15:57 Patient Tobacco Use Status Former Tobacco user 11/10/24 15:57 Tobacco use type Cigarette 11/10/24 15:57 e-Cigarette/Vaping Use Never Used 11/10/24 15:57 Thrive Assessment: Date of Thrive Assessment Date Thrive assessed 08/14/24 11/10/24 15:57 Const General: healthy appearing, no acute distress, alert and awake Nutritional Appearance: well nourished Orientation/consciousness: oriented to person, oriented to place and oriented to time HENMT Ears: Abnormal EAC present cerumen impaction bilateral General nose exam: Normal nasal mucous membranes and turbinates present Eyes Conjunctivae: conjunctivae normal Sclerae: sclerae normal Pupils: Equal, round and reactive pupils present Neck Neck: Yes no lymphadenopathy and Yes no JVD Thyroid: Thyroid normal Carotids: no bruits Resp Effort & Inspection: normal respiratory effort and not tachypneic Auscultation: no crackles, no rales, no rhonchi and no wheezes Cardio Rate: regular rate Rhythm: regular rhythm Heart sounds: no murmurs and normal S1 and S2 GI Palpation (GI): Soft to palpation, nontender, no hepatomegaly and no splenomegaly Auscultation: normal bowel sounds Skin General skin exam: dry skin Neuro General: oriented to person, oriented to place and oriented to time Cranial nerves: Yes Equal, round and reactive pupils present Speech: No Abnormal speech present Gait exam (Neuro): Normal gait present Motor exam (neuro): no tremor noted Romberg Test: Positive Extrem Right upper extremity: full ROM Left upper extremity: full ROM and elbow/forearm Details: normal ROM and abrasion (mild tenderness); no swelling Right lower extremity: full ROM; no edema Left lower extremity: full ROM; no edema Psych Mental Status: mental status grossly normal Speech and movement: Normal speech and movement present Affect: normal affect Attitude: cooperative Thought process: Normal thought process present Coding Level of Care Code Est Pt Level 4 (44771) Diagnoses Dizziness R42 Impacted cerumen of both ears H61.23 Abrasion of left elbow, initial encounter S50.312A Encounter type: initial encounter Time Spent (min) 39 Assessment & Plan Assessment & Plan (1) Dizziness: Code(s): R42 - Dizziness and giddiness Category: Medical (2) Impacted cerumen of both ears: Code(s): H61.23 - Impacted cerumen, bilateral Category: Medical (3) Abrasion of left elbow: Code(s): S50.312A - Abrasion of left elbow, initial encounter Category: Medical Qualifiers: Encounter type: initial encounter Qualified Code(s): S50.312A - Abrasion of left elbow, initial encounter Plan Addressed recurrent dizziness and fall potentially influenced by Metoprolol, considering continuous low blood pressure levels. Adjusted Metoprolol dosage to 50 mg. Arranged further non-fasting labs to avoid hypoglycemic episodes. Continue monitoring blood sugar whenever dizziness occurs. Initiated ear wax treatment using Debrox drops, with subsequent cleaning scheduled. Emphasized maintaining balance with fluid intake in regard to congestive heart failure. Advised necessary follow-up with vest presser No prominent signs of heart failure exacerbation were noted in the exam. Continue monitoring left elbow abrasion, contact office if area becomes swollen, painful or discolored Orders: Orders Comprehensive Met. Panel Today E11.65 - Type 2 diabetes mellitus with hyperglycemia, I21.4 - Non-ST elevation (NSTEMI) myocardial infarction, K21.9 - Gastro-esophageal reflux disease without esophagitis, R42 - Dizziness and giddiness Hemoglobin A1c Today E11.42 - Type 2 diabetes mellitus with diabetic polyneuropathy, Z79.4 - 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 Complete Blood Count Auto Diff Today E11.65 - Type 2 diabetes mellitus with hyperglycemia, I21.4 - Non-ST elevation (NSTEMI) myocardial infarction, K21.9 - Gastro-esophageal reflux disease without esophagitis, R42 - Dizziness and giddiness TSH reflex Free T4 Today E11.65 - Type 2 diabetes mellitus with hyperglycemia, I21.4 - Non-ST elevation (NSTEMI) myocardial infarction, K21.9 - Gastro-esophageal reflux disease without esophagitis, R42 - Dizziness and giddiness UA CC w/rflx Micro + Cult Today E11.65 - Type 2 diabetes mellitus with hyperglycemia, I21.4 - Non-ST elevation (NSTEMI) myocardial infarction, K21.9 - Gastro-esophageal reflux disease without esophagitis, R42 - Dizziness and giddiness Medications: New metoprolol succinate ER 50 mg PO DAILY 30 tabs 2RF carbamide peroxide 6.5% (Debrox) 5 drps otic (ears) Q12H 4 days 15 mL 0RF H61.23 - Impacted cerumen, bilateral On Hold metoprolol succinate ER Hold Comment: Doctor's Order 200 mg PO DAILY 90 caps 2RF
--- OUTSIDE RECORDS SUMMARY | 2024-11-10 18:05 | XMS_ITS | Patient Health Record ---
Author Organization [facility] Address [address] [place] [address] Care Team Providers Care Hollow Tile Partition Erector Name Role Phone Georgina Fish MD Primary Care Provider David Velasco [phone] Allergies Allergen (clinical drug ingredient) Drug/Non Drug [...] [facility] Oral for 90 Active Immunizations [...] Problem Status W/U Status Risk Notes Problem [id number] Colon cancer screening (Z12.11) Active confirmed Problem [id number] Preprocedural examination (Z01.818) Active confirmed Plan Of Treatment Future Test Test Name Order Date COLONOSCOPY 08/17/2022 Insurance Providers Payer Name Payer Address Payer Phone Subscriber Number Group Number Insured Name Patient Relationship to Insured Coverage Start Date Coverage End Date [facility] [address] [place] [address] [id number] DUNCAN PETE Self - patient is the insured Medical (General) History Medical History History ICD Code Hypertension GERD Hypothyroidism sleep apnea-uses a CPAP hypercholesterolemia coronary artery disease with reported PR X 2 and 2 stents iin approx 2017--Email Producer is Dr. Maria at [facility] IDDM with Insulin pump Neg. screening colonoscopy in 2006 other than hyperplastic polyps Denies CVA,Lung disease,renal disease Surgical History Surgery Date(Month/Year) breast bilaterallly for infections cholecystectomy tubal ligation carpal tunnel on the right
--- OUTSIDE RECORDS SUMMARY | 2024-11-10 18:05 | XMS_ITS | Continuity of Care Document ---
Author Organization [facility] Address [address] [place] [address] Care Team Providers Care Football Coach Name Role Phone Po Georgina SILVEIRA Primary Care Physician [place] [facility] [place] - 11/08/24 [facility] [address] [place] [address] Encounter Type: Triage Allergies, Adverse Reactions, Alerts [...] [place] rded tetanus-diphtheria toxoids (Td) 04/23/24 Recorded [id number] 12y+ bivalent booster vax 06/20/22 Recorded zoster [...] 2 times a day, # 60 tablet, 5 Refills, Maintenance, 10/09/24 2:50:00 PM EDT, Tablet, [facility], Partial fill upon patient request if the prescription is for a schedule II opioid drug., 158, cm, 09/05/24 10:16:00 EST, Height, 73.5, kg, 07/30/24 7:37:00 EST, Dry Weight Start Date: 10/09/24 Status: Ordered Quantity: 60.0 Unit: tablet Repeat number: 6 busPIRone 15 mg oral tablet 1 tablet [...] tablet, Refills 0, Tot. Refills 0, Maintenance, 10/27/24 12:33:00 PM EDT, Route to Pharmacy Electronically, [facility], Partial fill upon patient request if the prescription is for a schedule II opioid drug., 158, cm, 09/05/24 10:16:00 EST, Height, 73.5,kg, 07/30/24 7:37:00 EST, Dry Weight Start Date: 10/27/24 Status: Ordered Quantity: 30.0 Unit: tablet Repeat number: 1 torsemide 20 mg oral tablet 1 tablet = 20 mg, By Mouth, Daily, # 30 tablet, 0 Refills, Maintenance, 10/27/24 12:33:00 PM EDT, Tablet, [facility], Partial fill upon patient request if the prescription is for a schedule II opioid drug., 158, cm, 09/05/24 10:16:00 EST, Height, 73.5, kg, 07/30/24 7:37:00 EST, Dry Weight Start Date: 10/27/24 Status: Ordered Quantity: 30.0 Unit: tablet Repeat [...] Team Personnel Name: Beth Carter RN Position: [facility] SN RN Member Role: Primary Care Nurse Name: Monica Sigala RN Position: [facility] RN Member Role: Primary Care Nurse Name: Abiola Alexandre RN Position: [facility] RN Member Role: Primary Care Nurse Name: Jomar Pleitez RN Position: [facility] RN Member Role: Primary Care Nurse Name: Yuliana Flynn RN Position: [facility] RN Member Role: Primary Care Nurse Name: Jon Castañeda RN Position: [facility] RN Member Role: Primary Care Nurse Name: Jackie Wood RN Position: [facility] RN Member Role: Primary Care Nurse Name: Ila Dalal RN Position: [facility] SN RN Member Role: Primary Care Nurse Name: Endy Lange RN Position: [facility] RN Member Role: Primary Care Nurse Name: Mona Heard RN Position: [facility] RN Member Role: Primary Care Nurse Name: Tesha Henriquez RN Position: [facility] ED RN W/OE and Tasks Member Role: Primary Care Nurse Name: Georgina Fish MD Position: Reference Physician Member Role: PCP Address: [address] [place] [address] Telecom: Name: Chiquis Porter RN Position: [facility] OB RN Member Role: Primary Care Nurse Care Team Related Persons Name: MAIKEL KOEHLER Name: JOANIE KOEHLER Name: AIYANA KOEHLER Insurance Providers Guarantor name: [facility] Information #: 1 Payer: NA Member Number: NA Policy Number: NA Group Number: NA
== END 2024-11-10 16:42 | disposition home or self-care (01) ==
LOC: HO.HMCH 15:41
PROVIDERS: PCP Internal Medicine
DX: R42 Dizziness and giddiness (principal); H61.23 Impacted cerumen, bilateral; S50.312A Abrasion of left elbow, initial encounter

== ENCOUNTER → 2024-11-10 15:41 | Outpatient (BNVA) | payer OTHER, SELFPAY | PROVIDERS: PCP Internal Medicine | DX: R42 Dizziness and giddiness (principal); E11.65 Type 2 diabetes mellitus with hyperglycemia; H61.23 Impacted cerumen, bilateral; I21.4 Non-ST elevation (NSTEMI) myocardial infarction; K21.9 Gastro-esophageal reflux disease without esophagitis; S50.312A Abrasion of left elbow, initial encounter; X58.XXXA Exposure to other specified factors, initial encounter; Y93.9 Activity, unspecified; Y92.9 Unspecified place or not applicable; Y99.9 Unspecified external cause status | CPT/HCPCS: 99212 ==

== ENCOUNTER 2024-11-18 09:17 | Outpatient (AMB) | payer OTHER, SELFPAY ==
--- NOTE | 2024-11-18 09:24 | MHC.PC.OV ---
Vital Signs 11/18/24 09:26 Height 5 ft 2 in Weight 137 lb 4 oz BMI 25.1 BP 110/68 Blood Pressure Location Lt brachial Position Sitting Pulse 78 Pulse Source Pulse Oximeter Temp 97.1 F Temp Source Temporal Artery Scan Pulse Oximetry (%) 98 Oxygen Delivery Method Room Air Intake Visit Reasons: ear cleaning with Enedina Intake Note: Patient is here to follow up on Ear cleaning. 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 service prefer daughter to translate) Doffer: Present Accompanied by: Daughter Allergies ibuprofen [From MOTRIN] Allergy (Mild, Verified 11/18/24 09:25) STOMACH UPSET, gastritis tirzepatide [From Mounjaro] Adverse Reaction (Intermediate, Verified 11/18/24 09:25) upset stomach Medication List - Last Reconciled 11/18/24 by Enedina Galloway PA-C alirocumab (Praluent Pen) 150 mg subcut Q2W aspirin 81 mg PO DAILY atorvastatin 40 mg PO DAILY 90 days BD Insulin Syringe Ultra-Fine (insulin syringe-needle U-100) 4 times a day NS blood-glucose meter (FreeStyle Lite Meter kit) As directed 4x/day blood-glucose sensor (FreeStyle Ron 2 Plus Sensor device) As directed every 15 days Type 2 diabetes mellitus with diabetic polyneuropathy, with long-term current use of insulin E11.42; Z79.4 Diabetes mellitus longterm insulin use: with buttermaker helper use Insulin pump in place Z96.41 blood-glucose sensor (FreeStyle Ron 2 Plus Sensor device) As directed every 14 days bupropion HCl SR 100 mg PO QAM buspirone 15 mg PO BID carbamide peroxide 6.5% (Debrox) 5 drps otic (ears) Q12H 4 days Farxiga (dapagliflozin propanediol) 5 mg PO DAILY NS Fiasp U-100 Insulin 100 unit/mL (insulin aspart (niacinamide)) 100 units subcut DAILY NS flash glucose sensor (FreeStyle Ron 2 Sensor kit) USE DIRECTED; CHANGE EVERY 14 DAYS. FreeStyle Lite Strips (blood sugar diagnostic) USE 1 STRIP DIRECTED FOUR TIMES A DAY FOR DIABETES NS glucagon 3 mg/actuation 3 mg intranasal ONCE insulin glargine (Lantus Solostar U-100 Insulin) 10 units (0.1 mL) subcut DAILY insulin pump cart,auto,BT,G6/L (Omnipod 5 (G6/Ron 2 Plus) subcutaneous cartridge) As directed to change every 48 hours insulin pump cart,cont inf,BT (Omnipod Dash Pods (Gen 4) subcutaneous cartridge) As directed change every 48 hrs lancets (FreeStyle Lancets) 28 gauge topical QID 90 days levothyroxine 125 mcg PO DAILY melatonin 1 mg PO BEDTIME metoprolol succinate ER 200 mg PO DAILY metoprolol succinate ER 50 mg PO DAILY pen needle, diabetic (1st Tier Unifine Pentips) As directed to inject insulin lantus daily ranolazine ER mg PO [Rollator Walker As directed] sertraline 100 mg PO DAILY spironolactone 25 mg PO DAILY ticagrelor (Brilinta) 90 mg PO BID tirzepatide (Mounjaro) mg subcut QWEEK torsemide 20 mg PO DAILY trazodone 50 mg PO BEDTIME PRN 30 days triamcinolone acetonide 0.1% 1 appl topical DAILY valsartan 20 mg PO DAILY Tobacco use date assessed: 11/18/24 Fall risk assessment: 1 Fall in past year (11/17/24) Last assessed Fall Risk: 11/18/24 Dental Screening Dental Screen Date: 09/01/24 HPI ear cleaning with Enedina RAINES Details 73-year-old female with past medical history of uncontrolled diabetes mellitus, hypothyroidism, hypercholesterolemia, hypertension, obstructive sleep apnea, GERD, coronary artery disease last seen 10/2024 by nurse practitioner coming in for ear cleaning. Patient tells us today she has been having dizziness and has been working on cutting back her metoprolol from 200 mg as she was having hypotension. She believes to be still on valsartan 40 mg and metoprolol 50 mg. 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 Diabetes type 2, uncontrolled Surgical History History of carpal tunnel surgery of left wrist H/O bilateral oophorectomy History of esophagogastroduodenoscopy (EGD) Hx of colonoscopy Hx of right coronary artery stent placement History of surgical removal of nipple Hx of tubal ligation Hx of cholecystectomy Family History Father Diabetes mellitus Mother Diabetes mellitus Maternal Uncle Colon cancer Gastric cancer Daughter Diabetes mellitus Social History Household Members: None Housing: Apartment Alcohol intake: never Comment: counts correct Patient Tobacco Use Status: Former Tobacco user Tobacco use type: Cigarette Years Smoked: (onset 11yo, 1/2ppd x 55yrs,27pyh quit 2016) e-Cigarette/Vaping Use: Never Used Second Hand Smoke Exposure: Yes service: No Current occupational status: disabled Current occupational exposures/hazards: No Cognitive needs: Yes (walker, cane) Hearing needs: No Vision needs: Yes Questionnaire Thrive Questionnaire Date Thrive assessed: 08/14/24 JASS-7 AMB Questionnaire JASS-7 Date JASS - 7 assessed: 09/01/24 Source: Developed by Drs. David Arroyo, Latha Luz, Buzz Cain and colleagues, with an educational gertrude from [employer]. Review of Systems Const Denies fatigue, Denies fever(s) and Denies headache(s) ENT Reports dizziness and Denies headache(s) Card Denies chest pain, Denies syncope, Denies leg edema, Denies lightheadedness and Denies dyspnea Resp Denies dyspnea GI Reports no additional complaints Neuro Reports dizziness, Denies syncope and Denies headache(s) Endo Denies fatigue Physical exam (Primary Care) Vital Signs: Last Vital Signs Temp 97.1 F 11/18/24 09:26 Pulse 78 11/18/24 09:26 BP 110/68 11/18/24 09:26 Pulse Ox 98 11/18/24 09:26 Oxygen Delivery Method Room Air 11/18/24 09:26 BMI result Body Mass Index 25.1 Tobacco/Smoking Status: Tobacco use Status Tobacco use date assessed 11/18/24 11/18/24 09:35 Patient Tobacco Use Status Former Tobacco user 11/18/24 09:25 Tobacco use type Cigarette 11/18/24 09:25 e-Cigarette/Vaping Use Never Used 11/18/24 09:25 Thrive Assessment: Date of Thrive Assessment Date Thrive assessed 08/14/24 11/18/24 09:25 Const General: cooperative, healthy appearing, comfortable and no acute distress Orientation/consciousness: patient oriented x3 HENMT Head: Yes normocephalic Ears: hearing grossly normal bilaterally and Abnormal EAC present excessive cerumen bilateral General nose exam: Normal external nose present Eyes General: appearance normal, both eyes and all related structures Conjunctivae: conjunctivae normal Neck Neck: Yes full ROM and Yes no lymphadenopathy Resp Effort & Inspection: normal respiratory effort Cardio Rate: regular rate Skin General skin exam: no rashes or lesions noted Neuro General: patient oriented x3 Gait exam (Neuro): Normal gait present Extrem General: Yes normal to inspection, Yes full ROM and No edema Psych Affect: normal affect Attitude: cooperative Insight: Good insight present (Psych) Judgement: Good judgement present (Psych) Office Procedures Cerumen Removal From which ear canal was the cerumen removed: bilateral Removal: otoscope w/curette and cerumen loop/spoon Notes: patient tolerated procedure well, no complications and ear canal clear 74151-Llb Wax Removal by Spoon/Curette Coding Level of Care Code Est Pt Level 3 (51425) Diagnoses Impacted cerumen of both ears H61.23 Dizziness R42 CPT Codes Office Procedure - CPT: 56196-Pdh Wax Removal by Spoon/Curette ([id number]) Assessment & Plan Assessment & Plan (1) Impacted cerumen of both ears: Code(s): H61.23 - Impacted cerumen, bilateral Category: Medical Plan: Cerumen was successfully removed using lighted curette. Patient tolerated the procedure well and TMs were visualized as intact with well aerated middle ear spaces. Ear canal was completely cleared. Follow up as needed for this concern. Advised against the use of Q-tips. (2) Dizziness: Code(s): R42 - Dizziness and giddiness Category: Medical Plan: Patient was recently reduced on her metoprolol from 100 mg to 50 mg. She does still experience intermittent dizziness and lightheadedness believed to be related to the blood pressure. Blood pressure mildly low today patient asymptomatic at this time. Discussed with Dr. Fish recommend decreasing valsartan from 40 mg to 20 mg and if patient is on 20 mg to discontinue this medication altogether. Plan This note was constructed using voice recognition software. While every effort has been made to ensure accuracy and mortgage loan reviewer, still areas may have been included sometimes these areas may affect the content or meeting of the given symptoms. Total time spent caring for the patient today was 20 minutes. This includes time spent before the visit reviewing the chart, time spent during the visit, and time spent after the visit and documentation.
[2024-11-18 09:26] VITALS: BP 110/68; PULSE 78; TEMP 36.2; O2SAT 98; BMI 25.1
--- OUTSIDE RECORDS SUMMARY | 2024-11-18 10:02 | XMS_ITS | Patient Health Record ---
Author Organization [facility] Address [address] [place] [address] Care Team Providers Care Shipping Room Helper Name Role Phone Georgina Fish MD Primary Care Provider David Velasco [phone] Allergies Allergen (clinical drug ingredient) Drug/Non Drug [...] Omeprazole 20 MG TAKE [address] [facility] DAILY. Oral for 90 Active [...] Problem Status W/U Status Risk Notes Problem [id number] Colon cancer screening (Z12.11) Active confirmed Problem [id number] Preprocedural examination (Z01.818) Active confirmed Plan Of Treatment Future Test Test Name Order Date COLONOSCOPY 08/17/2022 Insurance Providers Payer Name Payer Address Payer Phone Subscriber Number Group Number Insured Name Patient Relationship to Insured Coverage Start Date Coverage End Date [facility] [address] [place] [address] [id number] DUNCAN PETE Self - patient is the insured Medical (General) History Medical History History ICD Code Hypertension GERD Hypothyroidism sleep apnea-uses a CPAP hypercholesterolemia coronary artery disease with reported [place] X 2 and 2 stents iin approx 2017--Edger Tailer is Dr. Maria at [facility] IDDM with Insulin pump Neg. screening colonoscopy in 2006 other than hyperplastic polyps Denies CVA,Lung disease,renal disease Surgical History Surgery Date(Month/Year) breast bilaterallly for infections cholecystectomy tubal ligation carpal tunnel on the right
== END 2024-11-18 09:55 | disposition home or self-care (01) ==
LOC: HO.HMCH 09:18
PROVIDERS: PCP Internal Medicine
DX: R42 Dizziness and giddiness (principal); H61.23 Impacted cerumen, bilateral

== ENCOUNTER → 2024-11-18 09:17 | Outpatient (BNVA) | payer OTHER, SELFPAY | PROVIDERS: PCP Internal Medicine | DX: H61.23 Impacted cerumen, bilateral (principal); R42 Dizziness and giddiness; E11.9 Type 2 diabetes mellitus without complications; E03.9 Hypothyroidism, unspecified; E78.00 Pure hypercholesterolemia, unspecified; I10 Essential (primary) hypertension; G47.33 Obstructive sleep apnea (adult) (pediatric); K21.9 Gastro-esophageal reflux disease without esophagitis; I25.10 Atherosclerotic heart disease of native coronary artery without angina pectoris | CPT/HCPCS: 69210; 99212 ==

== ENCOUNTER 2024-12-04 11:51 | Outpatient (AMB) | payer OTHER, SELFPAY ==
--- NOTE | 2024-12-04 11:56 | MHC.AMDMED ---
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 Name: [facility] Accompanied by: Self / Same As Patient Allergies ibuprofen [From MOTRIN] Allergy (Mild, Verified 11/18/24 09:25) STOMACH UPSET, gastritis tirzepatide [From Mounjaro] Adverse Reaction (Intermediate, Verified 11/18/24 09:25) upset stomach HPI Comprehensive Diabetes Asmnt Most Recent Diabetes Results: No Data to Display [facility] Medical History Personal history of nicotine dependence History of myocardial infarction Bilateral hand numbness Left ovarian cyst Type 2 diabetes mellitus with diabetic polyneuropathy Abnormal liver function test Tear of meniscus of left knee Lumbar degenerative disc disease Knee osteoarthritis GERD (gastroesophageal reflux disease) Ovarian cyst Carpal tunnel syndrome Obstructive sleep apnea Coronary artery disease Anemia Obesity (BMI 30-39.9) Hypertension Dyslipidemia Hypothyroidism Diabetic nephropathy associated with type 2 diabetes mellitus 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 Diabetes type 2, uncontrolled Surgical History History of carpal tunnel surgery of left wrist H/O bilateral oophorectomy History of esophagogastroduodenoscopy (EGD) Hx of colonoscopy Hx of right coronary artery stent placement History of surgical removal of nipple Hx of tubal ligation Hx of cholecystectomy Family History Father Diabetes mellitus Mother Diabetes mellitus Maternal Uncle Colon cancer Gastric cancer Daughter Diabetes mellitus Social History Household Members: None Housing: Apartment Alcohol intake: never Comment: counts correct Patient Tobacco Use Status: Former Tobacco user Tobacco use type: Cigarette Years Smoked: (onset 11yo, 1/2ppd x 55yrs,27pyh quit 2016) e-Cigarette/Vaping Use: Never Used Second Hand Smoke Exposure: Yes service: No Current occupational status: disabled Current occupational exposures/hazards: No Cognitive needs: Yes (walker, cane) Hearing needs: No Vision needs: Yes Assessment & Plan Assessment & Plan (1) Type 2 diabetes mellitus with hyperglycemia: Comment: Gina 04/2024 Code(s): E11.65 - Type 2 diabetes mellitus with hyperglycemia Plan: Personal Continuous Glucose Monitor: Patients CGM information reviewed, Patient reported at today's visit that she has not started Lantus 10 units daily She has stopped Omnipod DASH, but was injecting Humalog 10 units before meals. After review of patient's CGM data patient is having high percentage of hypoglycemia Instructed patient at this visit to stop Humalog completely. Patient did bring Lantus pens to today's visit Reviewed topic below: Insulin/Incretin?Mimetic Education visit Patient Education: Patient was instructed and provided with demonstration of the following: Insulin action and Incretin Mimetics medication storage how to set up medication pen/or syringe and vial Handwashing insulin injection site rotation Site rotation recognizing hypertrophy Testing blood glucose Removing and disposing needle from insulin pen Safe disposal of sharps Target blood sugar Signs/ symptoms/treatment of hypoglycemia/hyperglycemia expiration of open insulin pen Patient verbalized understanding of education provided and was able to demonstrate proper use of inject into injection pillow Reviewed rule of 15s to treat glucose under 70 mg/dL Patient will start Lantus 10 units daily All questions were answered and patient was advised to contact the office with any questions or concerns. Patient given written instructions in [place] on how to use insulin pen Patient able to insert sensor with assistance at home without issue.? Portions of this note were created using voice recognition software, please excuse any words or phrases that may have been misinterpreted. Patient Instructions: Follow-up in 2 weeks with assistant health educator Coding Level of Care Code Est Pt Level 1 (27002) Diagnoses Type 2 diabetes mellitus with hyperglycemia E11.65
--- OUTSIDE RECORDS SUMMARY | 2024-12-04 13:23 | XMS_ITS | Patient Health Record ---
Author Organization [facility] Address [address] [place] [address] Care Team Providers Care Director Of Accreditation Name Role Phone Georgina Fish MD Primary Care Provider David Velasco [phone] Allergies Allergen (clinical drug ingredient) Drug/Non Drug [...] Omeprazole 20 MG TAKE 1 CAPSULE BY [facility] DAILY. Oral for 90 Active Immunizations [...] Problem Status W/U Status Risk Notes Problem [id number] Colon cancer screening (Z12.11) Active confirmed Problem [id number] Preprocedural examination (Z01.818) Active confirmed Plan Of Treatment Future Test Test Name Order Date COLONOSCOPY 08/17/2022 Insurance Providers Payer Name Payer Address Payer Phone Subscriber Number Group Number Insured Name Patient Relationship to Insured Coverage Start Date Coverage End Date [facility] [address] [place] [address] [id number] DUNCAN PETE Self - patient is the insured Medical (General) History Medical History History ICD Code Hypertension GERD Hypothyroidism sleep apnea-uses a CPAP hypercholesterolemia coronary artery disease with reported [place] X 2 and 2 stents iin approx 2017--Supervisor Webbing is Dr. Maria at [facility] IDDM with Insulin pump Neg. screening colonoscopy in 2006 other than hyperplastic polyps Denies CVA,Lung disease,renal disease Surgical History Surgery Date(Month/Year) breast bilaterallly for infections cholecystectomy tubal ligation carpal tunnel on the right
== END 2024-12-04 12:35 | disposition home or self-care (01) ==
LOC: HO.ENCR 11:51
PROVIDERS: PCP Internal Medicine; Visit Provider Registered Nurse Diabetes Educator
DX: E11.65 Type 2 diabetes mellitus with hyperglycemia (principal)

== ENCOUNTER → 2024-12-04 11:51 | Outpatient (BNVA) | payer OTHER, SELFPAY | PROVIDERS: PCP Internal Medicine; Visit Provider Registered Nurse Diabetes Educator | DX: E11.65 Type 2 diabetes mellitus with hyperglycemia (principal) | CPT/HCPCS: 99211 ==

== ENCOUNTER 2024-12-18 12:12 | Outpatient (AMB) | payer OTHER, SELFPAY ==
--- OUTSIDE RECORDS SUMMARY | 2024-12-18 12:28 | XMS_ITS | Patient Health Record ---
Author Organization [facility] Address [address] [place] [address] Care Team Providers Care Broomcorn Sorter Name Role Phone Georgina Fish MD Primary Care Provider David Velasco [phone] Allergies Allergen (clinical drug ingredient) Drug/Non Drug [...] Omeprazole 20 MG TAKE 1 CAPSULE BY [facility] DAILY. Oral for 90 Active Immunizations Vaccine [...] Problem Status W/U Status Risk Notes Problem [id number] Colon cancer screening (Z12.11) Active confirmed Problem [id number] Preprocedural examination (Z01.818) Active confirmed Plan Of Treatment Future Test Test Name Order Date COLONOSCOPY 08/17/2022 Insurance Providers Payer Name Payer Address Payer Phone Subscriber Number Group Number Insured Name Patient Relationship to Insured Coverage Start Date Coverage End Date [facility] [address] [place] [address] [id number] DUNCAN PETE Self - patient is the insured Medical (General) History Medical History History ICD Code Hypertension GERD Hypothyroidism sleep apnea-uses a CPAP hypercholesterolemia coronary artery disease with reported [place] X 2 and 2 stents iin approx 2017--Ur Coordinator is Dr. Maria at [facility] IDDM with Insulin pump Neg. screening colonoscopy in 2006 other than hyperplastic polyps Denies CVA,Lung disease,renal disease Surgical History Surgery Date(Month/Year) breast bilaterallly for infections cholecystectomy tubal ligation carpal tunnel on the right
[2024-12-18 12:39] VITALS: BP 92/50; BMI 24.7
--- NOTE | 2024-12-18 12:39 | A.OFFVIS_ITS ---
Vital Signs 3 12/18/24 12:39 Height 5 ft 2 in Weight 134 lb 14.766 oz BMI 24.7 BP 92/50 L Blood Pressure Location Lt brachial Position Sitting Intake Visit Reasons: T2DM Intake Note: Patient present today for Type 2 Diabetes Mellitus Last Diabetic eye exam: Has upcoming appt in December Last Podiatry Visit: Doesn't have one Random Glucose: 185 mg/dl HgA1C: 6.6% Auto Salvage Worker Required: Yes Auto Salvage Worker Language: Incident Response Specialist Services: Auto Salvage Worker Present Auto Salvage Worker Name: Chris [id number] Information Interpreted: non-clinical & clinical Accompanied by: Self / Same As Patient Allergies ibuprofen [From MOTRIN] Allergy (Mild, Verified 12/18/24 12:46) STOMACH UPSET, gastritis tirzepatide [From Mounjaro] Adverse Reaction (Intermediate, Verified 12/18/24 12:46) upset stomach Medication List - Last Reconciled 12/18/24 by Monica Phelan MD alirocumab (Praluent Pen) 150 mg subcut Q2W aspirin 81 mg PO DAILY atorvastatin 40 mg PO DAILY 90 days BD Insulin Syringe Ultra-Fine (insulin syringe-needle U-100) 4 times a day NS blood-glucose meter (FreeStyle Lite Meter kit) As directed 4x/day blood-glucose sensor (FreeStyle Ron 2 Plus Sensor device) As directed every 15 days Type 2 diabetes mellitus with diabetic polyneuropathy, with long-term current use of insulin E11.42; Z79.4 Diabetes mellitus penitentiary insulin use: with ocean transportation intermediary use Insulin pump in place Z96.41 blood-glucose sensor (FreeStyle Ron 2 Plus Sensor device) As directed every 14 days bupropion HCl SR 100 mg PO QAM buspirone 15 mg PO BID carbamide peroxide 6.5% (Debrox) 5 drps otic (ears) Q12H 4 days Farxiga (dapagliflozin propanediol) 5 mg PO DAILY NS flash glucose sensor (FreeStyle Ron 2 Sensor kit) USE DIRECTED; CHANGE EVERY 14 DAYS. FreeStyle Lite Strips (blood sugar diagnostic) USE 1 STRIP DIRECTED FOUR TIMES A DAY FOR DIABETES NS glucagon 3 mg/actuation 3 mg intranasal ONCE insulin glargine (Lantus Solostar U-100 Insulin) 10 units (0.1 mL) subcut DAILY insulin pump cart,auto,BT,G6/L (Omnipod 5 (G6/Ron 2 Plus) subcutaneous cartridge) As directed to change every 48 hours insulin pump cart,cont inf,BT (Omnipod Dash Pods (Gen 4) subcutaneous cartridge) As directed change every 48 hrs lancets (FreeStyle Lancets) 28 gauge topical QID 90 days levothyroxine 125 mcg PO DAILY melatonin 1 mg PO BEDTIME metoprolol succinate ER 200 mg PO DAILY metoprolol succinate ER 50 mg PO DAILY pen needle, diabetic (1st Tier Unifine Pentips) As directed to inject insulin lantus daily ranolazine ER mg PO [Rollator Walker As directed] sertraline 100 mg PO DAILY spironolactone 25 mg PO DAILY ticagrelor (Brilinta) 90 mg PO BID tirzepatide (Mounjaro) mg subcut QWEEK torsemide 20 mg PO DAILY trazodone 50 mg PO BEDTIME PRN 30 days triamcinolone acetonide 0.1% 1 appl topical DAILY valsartan 20 mg PO DAILY HPI Comments Details: Patient is a 73-year-old female with IDDM on omnipod DASH pump who presents for diabetes management. Patient normally brings her daughter to all her appointments, however daughter could not come to appointment today. Patient is a very poor historian and has no idea what medication she is on. At this time I could not confirm even what medication she was on today. Past medical history includes : Diabetes type 2, hypertension, hyperlipidemia, hypothyroidism, Micro and macrovascular complications: Nephropathy, neuropathy, coronary artery disease Prior medications: Trulicity 4.5 mg weekly was on this up until last visit in March 2024, unclear when Trulicity was discontinued, she is now on Mounjaro She was on Omnipod DASH with Fiasp insulin in it up until earlier this year in 2024 and we note as she was barely using any insulin, and we discontinued the pump. Now she is just on basal insulin. Diabetes medications: Lantus 10 units in AM Mounjaro 2.5 mg weekly farxiga 5 mg QD Freestyle Ron 2 downloaded from December 05 to December 18 Time CGM L 68% Average glucose 138 mg/dL G OK 6.6% Glucose variability 24.6% Within target range 87% High 11% Very high 100% Low 2% Very low 0% Interpretation: Has low fasting blood sugars, continues to have postprandial hyperglycemia. Last Diabetic eye exam: 09/2023, has a appointment coming up in December Last Podiatry Visit: Doesn't have one Random Glucose: 185 mg/dl HgA1C: 6.5% 09/01/24 HB A1c POC 12/18/24: 6.6% DSME - nutrition: Last seen multimedia instructional designer in January 2024 PHYSICAL EXAM: GENERAL: Alert and oriented x 3. NAD EYES: EOMI. Anicteric. HENT: Moist mucous membranes. No scleral icterus. No cervical lymphadenopathy. LUNGS: Clear to auscultation bilaterally. CARDIOVASCULAR: Regular rate and rhythm. No murmur. No JVD. ABDOMEN: Soft, non-tender +bs EXTREMITIES: No edema. Non-tender. SKIN: No rashes or lesions. Warm. NEUROLOGIC: No focal neurological deficits. CN II-XII grossly intact PSYCHIATRIC: Cooperative. Appropriate mood and affect Foot exam: Deferred today Laboratory Tests 12/25/23 12/25/23 04/03/24 10:33 10:42 11:59 Hgb A1c (Clinic) 7.5 H AST 16 ALT 16 Albumin 4.1 Triglycerides 155 H Cholesterol 89 LDL Cholesterol, Calc 16 HDL Cholesterol 42 Urine Creatinine 94.79 Urine Microalbumin 29.0 Microalb/Creat Ratio 30.5 H 09/01/24 09:04 Hgb A1c (Clinic) 6.5 H AST ALT Albumin Triglycerides Cholesterol LDL Cholesterol, Calc HDL Cholesterol Urine Creatinine Urine Microalbumin Microalb/Creat Ratio 2 [facility] Medical History Personal history of nicotine dependence History of myocardial infarction Bilateral hand numbness Left ovarian cyst Type 2 diabetes mellitus with diabetic polyneuropathy Abnormal liver function test Tear of meniscus of left knee Lumbar degenerative disc disease Knee osteoarthritis GERD (gastroesophageal reflux disease) Ovarian cyst Carpal tunnel syndrome Obstructive sleep apnea Coronary artery disease Anemia Obesity (BMI 30-39.9) Hypertension Dyslipidemia Hypothyroidism Diabetic nephropathy associated with type 2 diabetes mellitus 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 Diabetes type 2, uncontrolled Surgical History History of carpal tunnel surgery of left wrist H/O bilateral oophorectomy History of esophagogastroduodenoscopy (EGD) Hx of colonoscopy Hx of right coronary artery stent placement History of surgical removal of nipple Hx of tubal ligation Hx of cholecystectomy Family History Father Diabetes mellitus Mother Diabetes mellitus Maternal Uncle Colon cancer Gastric cancer Daughter Diabetes mellitus Social History Household Members: None Housing: Apartment Alcohol intake: never Comment: counts correct Patient Tobacco Use Status: Former Tobacco user Tobacco use type: Cigarette Years Smoked: (onset 11yo, 1/2ppd x 55yrs,27pyh quit 2016) e-Cigarette/Vaping Use: Never Used Second Hand Smoke Exposure: Yes service: No Current occupational status: disabled Current occupational exposures/hazards: No Cognitive needs: Yes (walker, cane) Hearing needs: No Vision needs: Yes Physical Exam Vital Signs: Last Vital Signs BP 92/50 L 12/18/24 12:39 BMI result Body Mass Index 24.7 Office Procedures Glucose Monitoring Details Details: See [facility] [address] - Glucose monitoring, continuous-physician I&R Procedure code (CPT) selection complete Results AMB Hemoglobin A1c 2 AMB Hemoglobin A1c 6.6 % Last Edit by REJI Goldberg on 12/18/24 13:06 Results Reviewed Results Reviewed: Laboratory Last Values Glucose (Clinic) 185 mg/dL (60-115) H 12/18/24 12:50 Hgb A1c (Clinic) 6.6 % (4.0-6.0) H 12/18/24 12:54 Assessment & Plan Assessment & Plan (1) Type 2 diabetes mellitus with diabetic polyneuropathy: Code(s): E11.42 - Type 2 diabetes mellitus with diabetic polyneuropathy Category: Medical Qualifiers: Diabetes mellitus ocean transportation intermediary insulin use: with ocean transportation intermediary use Qualified Code(s): E11.42 - Type 2 diabetes mellitus with diabetic polyneuropathy; Z79.4 - 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 Plan: 73-year-old female with a history of type 2 diabetes mellitus with complications of CAD, neuropathy, nephropathy with a history of hypertension hyperlipidemia who is coming in today for follow up. P patient used to be on Omnipod DASH with Fiasp insulin in it up until early 2024 and we noted that she is not having a very high insulin requirement after her recent weight loss, being started on Mounjaro and Farxiga, hence she was switched to just basal insulin with Lantus 10 units daily. Her A1c today 12/18/2024 6.6%. CGM data downloaded over the past 2 weeks which shows that she does have some postprandial hyperglycemia but she does have low fasting blood sugars as well. At this point I will reduce her Lantus and go up on her Mounjaro. Plan: -reduce Lantus to 8 units daily -increase Mounjaro to 5 mg weekly -continue Farxiga 5 mg daily -currently using Ron 2, needs upgrade to Ron 3+, prescription sent to pharmacy, she has an upcoming appointment on 12/25/2024 with multimedia instructional designer, I have asked her to picker machine operator her supplies prior to that appointment if possible. -labs with lipid panel, urine microalbumin, CMP, CBC to be done prior to next visit, these were ordered last visit but patient did not get these. Patient has backup glucometer supplies. (2) halfway (current) use of insulin: Code(s): Z79.4 - 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 Category: Medical Plan: see above Plan I spent 30 minutes in reviewing the record, seeing the patient and documenting in the medical record. Orders: Orders 2 AMB Hemoglobin A1c Today E11.42 - Type 2 diabetes mellitus with diabetic polyneuropathy, Z13.9 - Encounter for screening, unspecified, Z79.4 - 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 Comprehensive Met. Panel Today E11.42 - Type 2 diabetes mellitus with diabetic polyneuropathy, E11.65 - Type 2 diabetes mellitus with hyperglycemia, E78.5 - Hyperlipidemia, unspecified, Z79.4 - 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 Lipid Panel Today E11.42 - Type 2 diabetes mellitus with diabetic polyneuropathy, E11.65 - Type 2 diabetes mellitus with hyperglycemia, E78.5 - Hyperlipidemia, unspecified, Z79.4 - 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 Microalbumin, Random (w Creat) Today E11.42 - Type 2 diabetes mellitus with diabetic polyneuropathy, E11.65 - Type 2 diabetes mellitus with hyperglycemia, E78.5 - Hyperlipidemia, unspecified, Z79.4 - 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 Complete Blood Count no Diff Today E11.42 - Type 2 diabetes mellitus with diabetic polyneuropathy, E11.65 - Type 2 diabetes mellitus with hyperglycemia, E78.5 - Hyperlipidemia, unspecified, Z79.4 - halfway (current) use of insulin AMB Glucose Monitoring Today E11.42 - Type 2 diabetes mellitus with diabetic polyneuropathy, Z79.4 - 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 Medications: New 2 tirzepatide (Mounjaro) 5 mg (0.5 mL) subcut QWEEK 2 mL 5RF blood-glucose sensor (FreeStyle Ron 3 Plus Sensor device) As directed every 14 days 1 ea 0RF E11.21 - Type 2 diabetes mellitus with diabetic nephropathy, E11.42 - Type 2 diabetes mellitus with diabetic polyneuropathy, Z79.4 - 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 blood-glucose,pet sitting,cont (FreeStyle Ron 3 Ragan) As directed every 14 days 1 ea 0RF E11.21 - Type 2 diabetes mellitus with diabetic nephropathy, E11.42 - Type 2 diabetes mellitus with diabetic polyneuropathy, Z79.4 - 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 Changed 2 From insulin glargine (Lantus Solostar U-100 Insulin) 10 units (0.1 mL) subcut DAILY 6 mL 4RF To insulin glargine (Lantus Solostar U-100 Insulin) 8 units (0.08 mL) subcut DAILY 6 mL 4RF Refilled 2 Farxiga (dapagliflozin propanediol) DAW1 no substitution allowed 5 mg PO DAILY 30 tabs 7RF NS Discontinued 2 insulin pump cart,cont inf,BT (Omnipod Dash Pods (Gen 4) subcutaneous cartridge) Discontinued Reason: Doctor's Order As directed change every 48 hrs 10 ea 5RF insulin pump cart,auto,BT,G6/L (Omnipod 5 (G6/Ron 2 Plus) subcutaneous cartridge) Discontinued Reason: Doctor's Order As directed to change every 48 hours 15 ea 4RF blood-glucose sensor (FreeStyle Ron 2 Plus Sensor device) Discontinued Reason: Doctor's Order As directed every 14 days 2 ea 6RF Patient Instructions: Decrease lantus to 8 units daily Continue Farxiga 5 mg daily Increase Mounjaro to 5 mg weekly injection Do blood work fasting and urine test See Vikki for follow up and upgrade to ron 3 plus sensor, please bring new sensor and reader to that appointment Disminuya la dosis de Lantus a 8 unidades diarias. Contin?e con Farxiga 5 mg al d?a. Aumente la dosis de Mounjaro a 5 mg semanales. Realice an?lisis de lio en ayunas y an?lisis de orina. Consulte con Vikki para seguimiento y actualice el sensor a Ron 3 Plus. Por favor, traiga el sensor y el lector nuevos a naa kita. Coding Level of Care Code Est Pt Level 4 (72278) Diagnoses Type 2 diabetes mellitus with diabetic polyneuropathy, with long-term current use of insulin E11.42; Z79.4 Diabetes mellitus penitentiary insulin use: with penitentiary use 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 Z79.4 CPT Codes Details - CPT: 08641 - Glucose monitoring, continuous-physician I&R ([id number]) Time Spent (min) 30
[2024-12-18 12:54] LABS: Glucose, Whole Blood 185 mg/dL (60-115)
== END 2024-12-18 13:26 | disposition home or self-care (01) ==
LOC: HO.ENCR 12:12
PROVIDERS: PCP Internal Medicine; Visit Provider Student in an Organized Health Care Education/Training Program
DX: Z13.9 Encounter for screening, unspecified (principal); E11.42 Type 2 diabetes mellitus with diabetic polyneuropathy; Z79.4 Long term (current) use of insulin
CPT/HCPCS: 95251; 99214

== ENCOUNTER → 2024-12-18 12:12 | Outpatient (BNVA) | payer OTHER, SELFPAY | PROVIDERS: PCP Internal Medicine; Visit Provider Student in an Organized Health Care Education/Training Program | DX: E11.42 Type 2 diabetes mellitus with diabetic polyneuropathy (principal); E11.65 Type 2 diabetes mellitus with hyperglycemia; E11.21 Type 2 diabetes mellitus with diabetic nephropathy; E78.5 Hyperlipidemia, unspecified; E03.9 Hypothyroidism, unspecified; Z79.4 Long term (current) use of insulin; Z96.41 Presence of insulin pump (external) (internal) | CPT/HCPCS: 82947; 83036; 99212 ==

== ENCOUNTER 2024-12-19 10:04 | Outpatient (REF) | payer OTHER, SELFPAY ==
--- OUTSIDE RECORDS SUMMARY | 2024-12-19 10:19 | XMS_ITS | Patient Health Record ---
Author Organization [facility] Address [address] [place] [address] Care Team Providers Care Lead Consultant Name Role Phone Georgina Fish MD Primary Care Provider David Velasco [phone] Allergies Allergen (clinical drug ingredient) Drug/Non Drug [...] Omeprazole 20 MG TAKE 1 CAPSULE BY [facility] DAILY. Oral for 90 Active Immunizations Vaccine [...] Problem Status W/U Status Risk Notes Problem [id number] Colon cancer screening (Z12.11) Active confirmed Problem [id number] Preprocedural examination (Z01.818) Active confirmed Plan Of Treatment Future Test Test Name Order Date COLONOSCOPY 08/17/2022 Insurance Providers Payer Name Payer Address Payer Phone Subscriber Number Group Number Insured Name Patient Relationship to Insured Coverage Start Date Coverage End Date [facility] [address] [place] [address] [id number] DUNCAN PETE Self - patient is the insured Medical (General) History Medical History History ICD Code Hypertension GERD Hypothyroidism sleep apnea-uses a CPAP hypercholesterolemia coronary artery disease with reported MS X 2 and 2 stents iin approx 2017--Engine Room Operator is Dr. Maria at [facility] IDDM with Insulin pump Neg. screening colonoscopy in 2006 other than hyperplastic polyps Denies CVA,Lung disease,renal disease Surgical History Surgery Date(Month/Year) breast bilaterallly for infections cholecystectomy tubal ligation carpal tunnel on the right
[2024-12-19 11:12] LABS: Hematocrit 27.9 % (37.0-47.0); Hemoglobin 9.6 g/dl (12.0-16.0); Mean Corpuscular HGB Conc 34.4 g/dl (31.0-35.0); Mean Corpuscular Hemoglobin 31.9 pg (27.0-33.0); Mean Corpuscular Volume 92.7 fL (80.0-98.0); Mean Platelet Volume 11.2 fL (9.4-12.3); Platelet Count 158 X10*3/uL (160-400); Red Blood Count 3.01 X10*6/uL (4.20-5.50); Red Cell Distribution Width 12.2 % (11.0-16.0); White Blood Count 6.2 X10*3/uL (4.8-10.8)
[2024-12-19 12:45] LABS: Creatinine Urine 113.11 mg/dL; Microalbum/Creatinine Ratio Ur 40.6 ug/mg cr (<30)
[2024-12-19 12:49] LABS: Alanine Aminotransferase 22 U/L (0-31); Albumin Level 4.1 g/dL (3.5-5.0); Alkaline Phosphatase 118 U/L (39-117); Anion Gap 11 (12-20); Aspartate Amino Transferase 31 U/L (5-31); Bilirubin Total 0.4 mg/dL (0.0-1.0); Blood Urea Nitrogen 22 mg/dL (9-16); Calcium 8.9 mg/dL (8.4-10.2); Carbon Dioxide 26 mmol/L (22-29); Chloride 112 mmol/L (96-108); Cholesterol 88 mg/dL (<200); Estimated Glomerular Filt Rate 40; Glucose Random 197 mg/dL (60-115); HDL Cholesterol 35 mg/dL (>40); LDL Cholesterol Calculated 24 mg/dL (<100); Potassium 2.9 mmol/L (3.3-5.1); Sodium 146 mmol/L (135-145); Total Protein 6.9 g/dL (6.5-8.0); Triglycerides 145 mg/dL (<150)
== END 2024-12-19 10:05 | disposition home or self-care (01) ==
LOC: HO.LAB 10:04
PROVIDERS: Student in an Organized Health Care Education/Training Program; PCP Internal Medicine; Visit Provider Internal Medicine
DX: E11.65 Type 2 diabetes mellitus with hyperglycemia (principal); E11.42 Type 2 diabetes mellitus with diabetic polyneuropathy; Z79.4 Long term (current) use of insulin; E78.5 Hyperlipidemia, unspecified
CPT/HCPCS: 36415; 80053; 80061; 82043; 82570; 85027

== ENCOUNTER 2024-12-29 08:44 | Outpatient (REF) | payer OTHER, SELFPAY ==
[2024-12-29 09:02] LABS: MANUAL DIFF FLAG NO
--- OUTSIDE RECORDS SUMMARY | 2024-12-29 09:08 | XMS_ITS | Patient Health Record ---
Author Organization [facility] Address [address] [place] [address] Care Team Providers Care Front End Manager Name Role Phone Georgina Fish MD Primary Care Provider David Velasco [phone] Allergies Allergen (clinical drug ingredient) Drug/Non Drug [...] Omeprazole 20 MG TAKE 1 CAPSULE BY [facility] DAILY. Oral for 90 Active Immunizations Vaccine [...] Problem Status W/U Status Risk Notes Problem [id number] Colon cancer screening (Z12.11) Active confirmed Problem [id number] Preprocedural examination (Z01.818) Active confirmed Plan Of Treatment Future Test Test Name Order Date COLONOSCOPY 08/17/2022 Insurance Providers Payer Name Payer Address Payer Phone Subscriber Number Group Number Insured Name Patient Relationship to Insured Coverage Start Date Coverage End Date [facility] [address] [place] [address] [id number] DUNCAN PETE Self - patient is the insured Medical (General) History Medical History History ICD Code Hypertension GERD Hypothyroidism sleep apnea-uses a CPAP hypercholesterolemia coronary artery disease with reported SD X 2 and 2 stents iin approx 2017--Pilot Plant Research Technician is Dr. Maria at [facility] IDDM with Insulin pump Neg. screening colonoscopy in 2006 other than hyperplastic polyps Denies CVA,Lung disease,renal disease Surgical History Surgery Date(Month/Year) breast bilaterallly for infections cholecystectomy tubal ligation carpal tunnel on the right
[2024-12-29 09:11] LABS: Basophils Percent Auto 0.5 % (0-2); Eosinophils Absolute Auto 0.1 X10*3/uL (0.0-0.4); Eosinophils Percent Auto 1.8 % (0-4); Hematocrit 29.9 % (37.0-47.0); Imm Gran Abs Auto 0.02 X10*3/uL (0.00-0.03); Imm Gran Pct Auto 0.3 % (0.0-0.4); Lymphocytes Percent Auto 17.1 % (20-40); Mean Corpuscular HGB Conc 33.4 g/dl (31.0-35.0); Mean Corpuscular Hemoglobin 32.2 pg (27.0-33.0); Mean Corpuscular Volume 96.1 fL (80.0-98.0); Mean Platelet Volume 10.4 fL (9.4-12.3); Monocytes Absolute Auto 0.5 X10*3/uL (0.1-1.2); Monocytes Percent Auto 7.9 % (2-11); Neutrophils Absolute Auto 4.4 x10*3/uL (2.0-8.3); Neutrophils Percent Auto 72.4 % (45-73); Platelet Count 188 X10*3/uL (160-400); Red Blood Count 3.11 X10*6/uL (4.20-5.50); Red Cell Distribution Width 12.9 % (11.0-16.0); White Blood Count 6.1 X10*3/uL (4.8-10.8)
[2024-12-29 09:19] LABS: Estimated Average Glucose 140 mg/dL; Hemoglobin A1C 125.1808 umol/L; Hemoglobin A1c % 6.5 % (<6.0)
[2024-12-29 09:54] LABS: Alanine Aminotransferase 21 U/L (0-31); Alkaline Phosphatase 118 U/L (39-117); Anion Gap 12 (12-20); Aspartate Amino Transferase 26 U/L (5-31); Bilirubin Total 0.3 mg/dL (0.0-1.0); Blood Urea Nitrogen 25 mg/dL (9-16); Calcium 9.1 mg/dL (8.4-10.2); Carbon Dioxide 22 mmol/L (22-29); Chloride 114 mmol/L (96-108); Cholesterol 82 mg/dL (<200); Estimated Glomerular Filt Rate 34; Glucose Random 163 mg/dL (60-115); HDL Cholesterol 33 mg/dL (>40); LDL Cholesterol Calculated 14 mg/dL (<100); Sodium 143 mmol/L (135-145); Total Protein 6.8 g/dL (6.5-8.0); Triglycerides 175 mg/dL (<150)
[2024-12-29 10:00] LABS: TSH reflex Free T4 0.01 uIU/mL (0.32-4.0)
[2024-12-29 10:01] LABS: Free T4 (Free Thyroxine) 1.19 ng/dL (0.71-1.85); Thyroid Stimulating Hormone 0.01 uIU/mL (0.32-4.0); Vitamin D 25-OH Total 14.5 ng/mL (>30)
[2024-12-29 10:07] LABS: Appearance Urine Clear; Color Urine Yellow; Glucose Urine UA >=1000 mg/dL (Negative); Leukocyte Esterase Urine Negative (Negative); Nitrite Urine Negative (Negative); PH 5.5 (5.0-9.0); UMIC TRIGGER UACC YES; Urine Blood Negative (Negative); Urine Ketones Negative (Negative); Urine Protein Negative (Neg-Trace)
[2024-12-29 10:12] LABS: Bacteria Urine None Seen (None Seen); Hyaline Casts Urine 0-2 /LPF (0-2); RBC Urine 0-2 /HPF (0-2); Squamous Epithelial Cell Urine 0-2 /HPF (0-2); WBC Urine 0-5 /HPF (0-5)
[2024-12-29 10:19] LABS: Folate 9.3 ng/mL (> or = 4.0); Vitamin B12 365 pg/mL (200-900)
[2024-12-29 10:51] LABS: Creatinine Urine 85.45 mg/dL; Microalbum/Creatinine Ratio Ur 8.1 ug/mg cr (<30)
== END 2024-12-29 08:45 | disposition home or self-care (01) ==
LOC: HO.LAB 08:44
PROVIDERS: PCP Internal Medicine
DX: E78.00 Pure hypercholesterolemia, unspecified (principal); E11.65 Type 2 diabetes mellitus with hyperglycemia; I21.4 Non-ST elevation (NSTEMI) myocardial infarction; K21.9 Gastro-esophageal reflux disease without esophagitis; R42 Dizziness and giddiness; E11.42 Type 2 diabetes mellitus with diabetic polyneuropathy; Z79.4 Long term (current) use of insulin
CPT/HCPCS: 36415; 80053; 80061; 81001; 81003; 82043; 82306; 82570; 82607; 82746; 83036; 84439; 84443; 85025

== ENCOUNTER 2025-01-08 12:23 | Outpatient (AMB) | payer OTHER, SELFPAY ==
--- NOTE | 2025-01-08 13:15 | A.OFFVIS_ITS ---
Intake Intake Visit Reasons: Set up Ron 3 Commercial Fishing Vessel Operator Required: Yes Commercial Fishing Vessel Operator Language: Cryptozoologist Name: Shanell [facility] Accompanied by: Self / Same As Patient Allergies ibuprofen [From MOTRIN] Allergy (Mild, Verified 12/18/24 12:46) STOMACH UPSET, gastritis tirzepatide [From Mounjaro] Adverse Reaction (Intermediate, Verified 12/18/24 12:46) upset stomach HPI Comprehensive Diabetes Asmnt Most Recent Diabetes Results: Microalb/Creat Ratio 8.1 ug/mg cr (<30) 12/29/24 Cholesterol 82 mg/dL (<200) 12/29/24 HDL Cholesterol 33 mg/dL (>40) L 12/29/24 Triglycerides 175 mg/dL (<150) H 12/29/24 Creatinine 1.50 mg/dL (0.5-1.4) H 12/29/24 Blood Urea Nitrogen 25 mg/dL (9-16) H 12/29/24 Sodium 143 mmol/L (135-145) 12/29/24 Potassium 5.0 mmol/L (3.3-5.1) 12/29/24 Chloride 114 mmol/L (96-108) H 12/29/24 Carbon Dioxide 22 mmol/L (22-29) 12/29/24 Calcium 9.1 mg/dL (8.4-10.2) 12/29/24 AST 26 U/L (5-31) 12/29/24 ALT 21 U/L (0-31) 12/29/24 Total Protein 6.8 g/dL (6.5-8.0) 12/29/24 Albumin 4.0 g/dL (3.5-5.0) 12/29/24 [facility] Medical History Personal history of nicotine dependence History of myocardial infarction Bilateral hand numbness Left ovarian cyst Type 2 diabetes mellitus with diabetic polyneuropathy Abnormal liver function test Tear of meniscus of left knee Lumbar degenerative disc disease Knee osteoarthritis GERD (gastroesophageal reflux disease) Ovarian cyst Carpal tunnel syndrome Obstructive sleep apnea Coronary artery disease Anemia Obesity (BMI 30-39.9) Hypertension Dyslipidemia Hypothyroidism Diabetic nephropathy associated with type 2 diabetes mellitus 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 Diabetes type 2, uncontrolled Surgical History History of carpal tunnel surgery of left wrist H/O bilateral oophorectomy History of esophagogastroduodenoscopy (EGD) Hx of colonoscopy Hx of right coronary artery stent placement History of surgical removal of nipple Hx of tubal ligation Hx of cholecystectomy Family History Father Diabetes mellitus Mother Diabetes mellitus Maternal Uncle Colon cancer Gastric cancer Daughter Diabetes mellitus Social History Household Members: None Housing: Apartment Alcohol intake: never Comment: counts correct Patient Tobacco Use Status: Former Tobacco user Tobacco use type: Cigarette Years Smoked: (onset 11yo, 1/2ppd x 55yrs,27pyh quit 2016) e-Cigarette/Vaping Use: Never Used Second Hand Smoke Exposure: Yes service: No Current occupational status: disabled Current occupational exposures/hazards: No Cognitive needs: Yes (diann garcias) Hearing needs: No Vision needs: Yes Assessment & Plan Assessment & Plan (1) Type 2 diabetes mellitus with hyperglycemia: Comment: Gina 04/2024 Code(s): E11.65 - Type 2 diabetes mellitus with hyperglycemia Plan: Patient at visit to set up an insert Ron 3+ sensor with reader Instructed patient sensors water proof you can shower, or swim do not submerge sensor in water for over 30 minutes Is sensor falls off cannot put back in you need to replace sensor, customer service number given to patient for sensor replacement Sensor placed on the back of right arm Patient left visit with sensor in warmup Reviewed how to interpret trend arrows Discussed lag time between finger stick and sensor data.? Instructed patient the importance of having blood glucometer for backup testing if needed Reviewed delay of CGM from fingersticks Reminded Pt that if symptoms do not match sensor still needs to check fingersticks. Patient reports it as her daughter that changes glucose sensor, instructed p atient if her daughter has questions how to change or start Ron 3+ sensor to contact asthma educator. Patient will follow-up with asthma educator in 15 days Patient did not bring old sensor meter with her to today's visit Patient reports she is now taking Lantus 8 units daily Portions of this note were created using voice recognition software, please excuse any words or phrases that may have been misinterpreted. Patient Instructions: Instrucciones para el paciente: CGM proporciona informaci?n sobre el control de la glucosa en lio a lo noe del d?a, incluidas la hiperglucemia y la hipoglucemia. Contin?e controlando la glucosa en lio seg?n las instrucciones. Siga las pautas de nutrici?n proporcionadas. Informe cualquier molestia de inmediato al proveedor de atenci?n m?dica. Mantente deidra hidratado. Puede ba?arse, ducharse, nadar y hacer ejercicio mientras usa el sensor de glucosa. No sumerja el sensor de glucosa en agua sagar m?s de 30 minutos. Retire el sensor para stacy resonancia magn?sulma o stacy tomograf?a computarizada. Evite la m?quina de denis X en los aeropuertos: retire el sensor o solicite la varita Coding Level of Care Code Est Pt Level 1 (71540) Diagnoses Type 2 diabetes mellitus with hyperglycemia E11.65
--- OUTSIDE RECORDS SUMMARY | 2025-01-08 14:21 | XMS_ITS | Patient Health Record ---
Author Organization [facility] Address [address] [place] [address] Care Team Providers Care Beta Tester Name Role Phone Georgina Fish MD Primary Care Provider David Velasco [phone] Allergies Allergen (clinical drug ingredient) Drug/Non Drug [...] Omeprazole 20 MG TAKE 1 CAPSULE BY [facility] DAILY. Oral for 90 Active Immunizations [...] Problem Status W/U Status Risk Notes Problem [id number] Colon cancer screening (Z12.11) Active confirmed Problem [id number] Preprocedural examination (Z01.818) Active confirmed Plan Of Treatment Future Test Test Name Order Date COLONOSCOPY 08/17/2022 Insurance Providers Payer Name Payer Address Payer Phone Subscriber Number Group Number Insured Name Patient Relationship to Insured Coverage Start Date Coverage End Date [facility] [address] [place] [address] [id number] DUNCAN PETE Self - patient is the insured Medical (General) History Medical History History ICD Code Hypertension GERD Hypothyroidism sleep apnea-uses a CPAP hypercholesterolemia coronary artery disease with reported [place] X 2 and 2 stents iin approx 2017--Program Clinician is Dr. Maria at [facility] IDDM with Insulin pump Neg. screening colonoscopy in 2006 other than hyperplastic polyps Denies CVA,Lung disease,renal disease Surgical History Surgery Date(Month/Year) breast bilaterallly for infections cholecystectomy tubal ligation carpal tunnel on the right
== END 2025-01-08 13:36 | disposition home or self-care (01) ==
LOC: HO.ENCR 12:23
PROVIDERS: PCP Internal Medicine; Visit Provider Registered Nurse Diabetes Educator
DX: E11.65 Type 2 diabetes mellitus with hyperglycemia (principal)

== ENCOUNTER → 2025-01-08 12:23 | Outpatient (BNVA) | payer OTHER, SELFPAY | PROVIDERS: PCP Internal Medicine; Visit Provider Registered Nurse Diabetes Educator | DX: E11.65 Type 2 diabetes mellitus with hyperglycemia (principal) | CPT/HCPCS: 99211 ==

== ENCOUNTER 2025-01-29 08:47 | Outpatient (REF) | payer OTHER, SELFPAY ==
--- OUTSIDE RECORDS SUMMARY | 2025-01-29 08:54 | XMS_ITS | Patient Health Record ---
Author Organization [facility] Address [address] [place] [address] Care Team Providers Care Inserting Press Operator Name Role Phone Georgina Fish MD Primary Care Provider David Velasco [phone] Allergies Allergen (clinical drug ingredient) Drug/Non Drug [...] Problem Status W/U Status Risk Notes Problem [id number] Colon cancer screening (Z12.11) Active confirmed Problem [id number] Preprocedural examination (Z01.818) Active confirmed Plan Of Treatment Future Test Test Name Order Date COLONOSCOPY 08/17/2022 Insurance Providers Payer Name Payer Address Payer Phone Subscriber Number Group Number Insured Name Patient Relationship to Insured Coverage Start Date Coverage End Date [facility] [address] [place] [address] [id number] DUNCAN PETE Self - patient is the insured Medical (General) History Medical History History ICD Code Hypertension GERD Hypothyroidism sleep apnea-uses a CPAP hypercholesterolemia coronary artery disease with reported [place] X 2 and 2 stents iin approx 2017--Manager Corporate is Dr. Maria at [facility] IDDM with Insulin pump Neg. screening colonoscopy in 2006 other than hyperplastic polyps Denies CVA,Lung disease,renal disease Surgical History Surgery Date(Month/Year) breast bilaterallly for infections cholecystectomy tubal ligation carpal tunnel on the right
[2025-01-29 10:28] LABS: Free T4 (Free Thyroxine) 1.23 ng/dL (0.71-1.85)
== END 2025-01-29 08:48 | disposition home or self-care (01) ==
LOC: HO.LAB 08:47
PROVIDERS: PCP Internal Medicine; Visit Provider Internal Medicine
DX: Z00.00 Encounter for general adult medical examination without abnormal findings (principal); E03.8 Other specified hypothyroidism; E06.3 Autoimmune thyroiditis
CPT/HCPCS: 36415; 84439; 84443

== ENCOUNTER 2025-02-05 12:47 | Outpatient (AMB) | payer OTHER, SELFPAY ==
--- NOTE | 2025-02-05 12:49 | MHC.OFFVIS ---
Vital Signs 02/05/25 12:50 Height 5 ft 2 in Weight 130 lb 15.273 oz BMI 23.9 BP 100/38 L Blood Pressure Location Lt brachial Position Sitting Intake Visit Reasons: T2DM Intake Note: Patient present today for Type 2 Diabetes Mellitus Last Diabetic eye exam: 12/2024 Last Podiatry Visit: Doesn't have one Random Glucose: 149 mg/dl HgA1C: 6.5% 12/29/24 Operations Inspector Required: Yes Operations Inspector Language: [employer] Department Head Services: Operations Inspector Present Operations Inspector Name: Xiao Information Interpreted: non-clinical & clinical Accompanied by: Self / Same As Patient Allergies ibuprofen (From MOTRIN) Allergy (Mild, Verified 02/05/25 12:55) STOMACH UPSET, gastritis tirzepatide (From Mounjaro) Adverse Reaction (Intermediate, Verified 02/05/25 12:55) upset stomach Medication List - Last Reconciled 02/05/25 by Monica Phelan MD alirocumab (Praluent Pen) 150 mg subcut Q2W aspirin 81 mg PO DAILY atorvastatin 40 mg PO DAILY 90 days BD Insulin Syringe Ultra-Fine (insulin syringe-needle U-100) 4 times a day NS blood-glucose meter (FreeStyle Lite Meter kit) As directed 4x/day blood-glucose sensor (FreeStyle Ron 3 Plus Sensor device) As directed every 15 days blood-glucose,exchange operator,cont (FreeStyle Ron 3 Morris) As directed every 15 days bupropion HCl SR 100 mg PO QAM buspirone 15 mg PO BID carbamide peroxide 6.5% (Debrox) 5 drps otic (ears) Q12H 4 days Farxiga (dapagliflozin propanediol) 5 mg PO DAILY NS flash glucose sensor (FreeStyle Ron 2 Sensor kit) USE DIRECTED; CHANGE EVERY 14 DAYS. FreeStyle Lite Strips (blood sugar diagnostic) USE 1 STRIP DIRECTED FOUR TIMES A DAY FOR DIABETES NS glucagon 3 mg/actuation 3 mg intranasal ONCE insulin glargine (Lantus Solostar U-100 Insulin) 8 units (0.08 mL) subcut DAILY lancets (FreeStyle Lancets) 28 gauge topical QID 90 days levothyroxine (Synthroid) 100 mcg PO DAILY melatonin 1 mg PO BEDTIME metoprolol succinate ER 200 mg PO DAILY Held on 11/10/24. Instructions: Doctor's Order metoprolol succinate ER 50 mg PO DAILY pen needle, diabetic (1st Tier Unifine Pentips) As directed to inject insulin lantus daily potassium chloride ER (Klor-Con M) 20 mEq PO BID ranolazine ER mg PO [Rollator Walker As directed] sertraline 100 mg PO DAILY spironolactone 25 mg PO DAILY ticagrelor (Brilinta) 90 mg PO BID tirzepatide (Mounjaro) 5 mg (0.5 mL) subcut QWEEK torsemide 20 mg PO DAILY trazodone 50 mg PO BEDTIME PRN 30 days triamcinolone acetonide 0.1% 1 appl topical DAILY valsartan 20 mg PO DAILY HPI Comments Details: Patient is a 73-year-old female with IDDM on omnipod DASH pump who presents for diabetes management. Patient normally brings her daughter to all her appointments, however daughter could not come to appointment today. Patient is a very poor historian and has no idea what medication she is on. At this time I could not confirm even what medication she was on today. Past medical history includes : Diabetes type 2, hypertension, hyperlipidemia, hypothyroidism, Micro and macrovascular complications: Nephropathy, neuropathy, coronary artery disease Prior medications: Trulicity 4.5 mg weekly was on this up until last visit in March 2024, unclear when Trulicity was discontinued, she is now on Mounjaro She was on Omnipod DASH with Fiasp insulin in it up until earlier this year in 2024 and we note as she was barely using any insulin, and we discontinued the pump. Now she is just on basal insulin. Diabetes medications: Lantus 8 units in AM Mounjaro 5 mg weekly every Sunday farxiga 5 mg QD Freestyle Ron 3+ data downloaded from January 23 T February 05 Time CGM active 59% Average glucose 133 mg/dL G IN 6.5% Glucose variability 28.2% Within target range 84% High 11% Very high 1% Low 4% Interpretation: Fasting hypoglycemia noted. On 2 days. Still has postprandial hyperglycemia mostly after lunch. Last Diabetic eye exam: 01/21, Last Podiatry Visit: Doesn't have one Random Glucose: 185 mg/dl HgA1C: 6.5% 09/01/24 HB A1c POC 12/18/24: 6.6% HgA1C: 6.5% 12/29/24 Random Glucose: 149 mg/dl DSME - nutrition: Last seen staff development educator in January 2024 PHYSICAL EXAM: GENERAL: Alert and oriented x 3. NAD EYES: EOMI. Anicteric. HENT: Moist mucous membranes. No scleral icterus. No cervical lymphadenopathy. LUNGS: Clear to auscultation bilaterally. CARDIOVASCULAR: Regular rate and rhythm. No murmur. No JVD. ABDOMEN: Soft, non-tender +bs EXTREMITIES: No edema. Non-tender. SKIN: No rashes or lesions. Warm. NEUROLOGIC: No focal neurological deficits. CN II-XII grossly intact PSYCHIATRIC: Cooperative. Appropriate mood and affect Foot exam: 02/05/2025: Warm and well-perfused, intact pulses, intact sensation to monofilament Laboratory Tests 12/29/24 01/29/25 09:01 09:04 WBC 6.1 Hgb 10.0 L Hct 29.9 L Plt Count 188 Sodium 143 Potassium 5.0 D Creatinine 1.50 H Estimated GFR 34 Hemoglobin A1c % 6.5 H AST 26 ALT 21 Triglycerides 175 H Cholesterol 82 LDL Cholesterol, Calc 14 HDL Cholesterol 33 L TSH 0.01 L 0.02 L Free T4 1.19 1.23 Laboratory Tests 12/25/23 12/25/23 04/03/24 10:33 10:42 11:59 Hgb A1c (Clinic) 7.5 H AST 16 ALT 16 Albumin 4.1 Triglycerides 155 H Cholesterol 89 LDL Cholesterol, Calc 16 HDL Cholesterol 42 Urine Creatinine 94.79 Urine Microalbumin 29.0 Microalb/Creat Ratio 30.5 H 09/01/24 09:04 Hgb A1c (Clinic) 6.5 H AST ALT Albumin Triglycerides Cholesterol LDL Cholesterol, Calc HDL Cholesterol Urine Creatinine Urine Microalbumin Microalb/Creat Ratio [facility] Medical History Personal history of nicotine dependence History of myocardial infarction Bilateral hand numbness Left ovarian cyst Type 2 diabetes mellitus with diabetic polyneuropathy Abnormal liver function test Tear of meniscus of left knee Lumbar degenerative disc disease Knee osteoarthritis GERD (gastroesophageal reflux disease) Ovarian cyst Carpal tunnel syndrome Obstructive sleep apnea Coronary artery disease Anemia Obesity (BMI 30-39.9) Hypertension Dyslipidemia Hypothyroidism Diabetic nephropathy associated with type 2 diabetes mellitus nursing home (current) use of insulin Diabetes type 2, uncontrolled Surgical History History of carpal tunnel surgery of left wrist H/O bilateral oophorectomy History of esophagogastroduodenoscopy (EGD) Hx of colonoscopy Hx of right coronary artery stent placement History of surgical removal of nipple Hx of tubal ligation Hx of cholecystectomy Family History Father Diabetes mellitus Mother Diabetes mellitus Maternal Uncle Colon cancer Gastric cancer Daughter Diabetes mellitus Social History Household Members: None Housing: Apartment Alcohol intake: never Comment: counts correct Patient Tobacco Use Status: Former Tobacco user Tobacco use type: Cigarette Years Smoked: (onset 11yo, 1/2ppd x 55yrs,27pyh quit 2016) e-Cigarette/Vaping Use: Never Used Second Hand Smoke Exposure: Yes service: No Current occupational status: disabled Current occupational exposures/hazards: No Cognitive needs: Yes (walker, cane) Hearing needs: No Vision needs: Yes Physical Exam Vital Signs: Last Vital Signs BP 100/38 L 02/05/25 12:50 BMI result Body Mass Index 23.9 Office Procedures Glucose Monitoring Details Details: See [facility] [address] - Glucose monitoring, continuous-physician I&R Procedure code (CPT) selection complete Assessment & Plan Assessment & Plan (1) Type 2 diabetes mellitus with diabetic polyneuropathy: Code(s): E11.42 - Type 2 diabetes mellitus with diabetic polyneuropathy Category: Medical Qualifiers: Diabetes mellitus buttermaker helper insulin use: with buttermaker helper use Qualified Code(s): E11.42 - Type 2 diabetes mellitus with diabetic polyneuropathy; Z79.4 - nursing home (current) use of insulin Plan: 73-year-old female with a history of type 2 diabetes mellitus with complications of CAD, neuropathy, nephropathy with a history of hypertension hyperlipidemia who is coming in today for follow up. P patient used to be on Omnipod DASH with Fiasp insulin in it up until early 2024 and we noted that she is not having a very high insulin requirement after her recent weight loss, being started on Mounjaro and Farxiga, hence she was switched to just basal insulin . Her A1c December 2024 is at 6.5%.. CGM data downloaded that she does have some postprandial hyperglycemia mostly after lunch, but she does have low fasting blood sugars as well. At this point I will reduce her Lantus and go up on her Mounjaro. Plan: -reduce Lantus to 4 units daily -increase Mounjaro to 7.5 mg weekly -continue Farxiga 5 mg daily -currently using Ron Ron 3+, Patient has backup glucometer supplies. 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 Plan: -continue current regimen Plan I spent 30 minutes in reviewing the record, seeing the patient and documenting in the medical record. 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 exterminator (current) use of insulin Medications: New tirzepatide (Mounjaro) 7.5 mg (0.5 mL) subcut QWEEK 2 mL 6RF Changed From insulin glargine (Lantus Solostar U-100 Insulin) 8 units (0.08 mL) subcut DAILY 6 mL 4RF To insulin glargine (Lantus Solostar U-100 Insulin) 4 units (0.04 mL) subcut DAILY 6 mL 4RF Refilled blood-glucose sensor (FreeStyle Ron 3 Plus Sensor device) As directed every 15 days 6 ea 3RF E11.21 - Type 2 diabetes mellitus with diabetic nephropathy, E11.42 - Type 2 diabetes mellitus with diabetic polyneuropathy, Z79.4 - nursing home (current) use of insulin Discontinued flash glucose sensor (FreeStyle Ron 2 Sensor kit) Discontinued Reason: Doctor's Order USE DIRECTED; CHANGE EVERY 14 DAYS. 6 ea 3RF tirzepatide (Mounjaro) Discontinued Reason: Doctor's Order 5 mg (0.5 mL) subcut QWEEK 2 mL 5RF Patient Instructions: increase Mounjaro to 7.5 mg weekly injection Decrease insulin Lantus to 4 units daily Continue to wear sensor Rule of 15 Treatment for Hypoglycemia (Low blood sugar) If your blood glucose is low (70 and below)*, follow the steps below to treat: Eat or drink something from the list below equal to 15 grams of carbohydrate (carb). Rest for 15 minutes Re-check your blood glucose. If it is still low, (below 70), repeat step 1 above. ? If your next meal is more than an hour away, you will need to eat one carbohydrate choice as a snack to keep your blood glucose from going low again. ?If you can't figure out why you have low blood glucose, call your healthcare provider, as your medicine may need to be adjusted. ?Always carry something with you to treat an insulin reaction. Use food from the list below. ? Foods equal to One Carbohydrate Choice (15 grams of carbohydrate): 3 Glucose ?tablets or 4 Dextrose tablets 4 ounces of fruit juice 5-6 ounces (about 1/2 can) of regular soda such as Coke or Pepsi ? 7-8 gummy or regular Life Savers ? 1 Tbsp. of sugar or jelly NOTE: If your blood sugar is less than 50, double the portion above for a total of 30 gm. ?Carbohydrate. ? Follow meal plan of 45-60 g of consistent carbohydrates at 3 meals each day and 15 g of carbohydrate at 1-2 snacks each day. Aumente la dosis de Mounjaro a 7.5 mg por inyecci?n semanal. Reduzca la insulina Lantus a 4 unidades diarias. Contin?e usando el sensor. Tratamiento de la Melissa del 15 para la Hipoglucemia (nivel bajo de az?car en lio). Si wells nivel de glucosa en lio es bajo (70 o menos)*, siga los pasos a continuaci?n para tratarlo: Coma o david algo de la lista a continuaci?n equivalente a 15 gramos de carbohidratos. Descanse 15 minutos. Vuelva a medir wells nivel de glucosa en lio. Si sigue bajo (menos de 70), repita el paso 1 anterior. Si wells pr?xima comida es dentro de m?s de stacy hora, deber? consumir un carbohidrato hanh refrigerio para evitar que wells nivel de glucosa en lio baje de nuevo. Si no puede determinar la causa de wells nivel bajo de glucosa en lio, llame a wells profesional de la jose, ya que podr?a ser necesario ajustar wells medicamento. Lleve siempre consigo algo para tratar stacy reacci?n a la insulina. Use alimentos de la lista a continuaci?n. Alimentos equivalentes a stacy opci?n de carbohidratos (15 gramos): 3 tabletas de glucosa o 4 tabletas de dextrosa 113 g de jugo de fruta 140 g (aproximadamente 1/2 beka) de refresco regular hanh Coca-Cola o Pepsi 7-8 gomitas o Life Savers regulares 1 cucharada de az?car o jalea NOTA: Si wells nivel de az?car en lio es inferior a 50, duplique la porci?n anterior para un total de 30 g de carbohidratos. Siga un plan de alimentaci?n de 45 a 60 g de carbohidratos consistentes en 3 comidas al d?a y 15 g de carbohidratos en 1 o 2 refrigerios al d?a. Coding Level of Care Code Est Pt Level 4 (28302) Diagnoses Type 2 diabetes mellitus with diabetic polyneuropathy, with long-term current use of insulin E11.42; Z79.4 Diabetes mellitus buttermaker helper insulin use: with buttermaker helper use nursing home (current) use of insulin Z79.4 Dyslipidemia E78.5 CPT Codes Details - CPT: 29744 - Glucose monitoring, continuous-physician I&R ([id number]) Time Spent (min) 30
[2025-02-05 12:50] VITALS: BP 100/38; BMI 23.9
--- OUTSIDE RECORDS SUMMARY | 2025-02-05 12:50 | XMS_ITS | Patient Health Record ---
Author Organization [facility] Address [address] [place] [address] Care Team Providers Care Demurrage Man Name Role Phone Georgina Fish MD Primary Care Provider David Velasco [phone] Allergies Allergen (clinical drug ingredient) Drug/Non Drug [...] Omeprazole 20 MG TAKE 1 CAPSULE BY [facility] DAILY. Oral for 90 Active Immunizations [...] Problem Status W/U Status Risk Notes Problem [id number] Colon cancer screening (Z12.11) Active confirmed Problem [id number] Preprocedural examination (Z01.818) Active confirmed Plan Of Treatment Future Test Test Name Order Date COLONOSCOPY 08/17/2022 Insurance Providers Payer Name Payer Address Payer Phone Subscriber Number Group Number Insured Name Patient Relationship to Insured Coverage Start Date Coverage End Date [facility] [address] [place] [address] [id number] DUNCAN PETE Self - patient is the insured Medical (General) History Medical History History ICD Code Hypertension GERD Hypothyroidism sleep apnea-uses a CPAP hypercholesterolemia coronary artery disease with reported [place] X 2 and 2 stents iin approx 2017--Grooving Lathe Tender is Dr. Maria at [facility] IDDM with Insulin pump Neg. screening colonoscopy in 2006 other than hyperplastic polyps Denies CVA,Lung disease,renal disease Surgical History Surgery Date(Month/Year) breast bilaterallly for infections cholecystectomy tubal ligation carpal tunnel on the right
[2025-02-05 13:00] LABS: Glucose, Whole Blood 149 mg/dL (60-115)
== END 2025-02-05 13:20 | disposition home or self-care (01) ==
LOC: HO.ENCR 12:48
PROVIDERS: PCP Internal Medicine; Visit Provider Student in an Organized Health Care Education/Training Program
DX: E11.42 Type 2 diabetes mellitus with diabetic polyneuropathy (principal); Z79.4 Long term (current) use of insulin; E78.5 Hyperlipidemia, unspecified
CPT/HCPCS: 95251; 99214

== ENCOUNTER → 2025-02-05 12:47 | Outpatient (BNVA) | payer OTHER, SELFPAY | PROVIDERS: PCP Internal Medicine; Visit Provider Student in an Organized Health Care Education/Training Program | DX: E11.42 Type 2 diabetes mellitus with diabetic polyneuropathy (principal); Z79.4 Long term (current) use of insulin | CPT/HCPCS: 82947; 99212 ==

== ENCOUNTER 2025-02-12 09:57 | Outpatient (REF) | payer OTHER, SELFPAY ==
--- OUTSIDE RECORDS SUMMARY | 2025-02-12 10:22 | XMS_ITS | Patient Health Record ---
Author Organization [facility] Address [address] [place] [address] Care Team Providers Care Provider Education Specialist Name Role Phone Georgina Fish MD Primary Care Provider David Velasco [phone] Allergies Allergen (clinical drug ingredient) Drug/Non Drug [...] Omeprazole 20 MG TAKE 1 CAPSULE BY [facility] DAILY. Oral for 90 Active [...] Problem Status W/U Status Risk Notes Problem [id number] Colon cancer screening (Z12.11) Active confirmed Problem [id number] Preprocedural examination (Z01.818) Active confirmed Plan Of Treatment Future Test Test Name Order Date COLONOSCOPY 08/17/2022 Insurance Providers Payer Name Payer Address Payer Phone Subscriber Number Group Number Insured Name Patient Relationship to Insured Coverage Start Date Coverage End Date [facility] [address] [place] [address] [id number] DUNCAN PETE Self - patient is the insured Medical (General) History Medical History History ICD Code Hypertension GERD Hypothyroidism sleep apnea-uses a CPAP hypercholesterolemia coronary artery disease with reported [place] X 2 and 2 stents iin approx 2017--Receptionist/Telephone Operator is Dr. Maria at [facility] IDDM with Insulin pump Neg. screening colonoscopy in 2006 other than hyperplastic polyps Denies CVA,Lung disease,renal disease Surgical History Surgery Date(Month/Year) breast bilaterallly for infections cholecystectomy tubal ligation carpal tunnel on the right
[2025-02-12 11:51] LABS: Free T4 (Free Thyroxine) 1.06 ng/dL (0.71-1.85)
== END 2025-02-12 09:58 | disposition home or self-care (01) ==
LOC: HO.LAB 09:57
PROVIDERS: Visit Provider Internal Medicine
DX: E03.8 Other specified hypothyroidism (principal); E06.3 Autoimmune thyroiditis
CPT/HCPCS: 36415; 84439; 84443

== ENCOUNTER 2025-03-03 12:13 | Outpatient (AMB) | payer OTHER, SELFPAY ==
--- OUTSIDE RECORDS SUMMARY | 2025-02-25 23:59 | XMS_ITS | Continuity of Care Document ---
Author Organization [facility] Address [address] [place] [address] Care Team Providers Care Pigment And Lacquer Mixer Name Role Phone Po Georgina SILVEIRA Primary Care Physician Encounter [facility] Date(s): 01/26/25 - 02/25/25 [facility] [address] [place] [id number] Encounter Type: Triage Allergies, Adverse Reactions, [...] [place] rded tetanus-diphtheria toxoids (Td) 04/23/24 Recorded [id number] 12y+ bivalent booster vax 06/20/22 Recorded zoster [...] number: 1 spironolactone 25 mg oral tablet o.5 tab, By Mouth, Daily, # 15 tablet, Refills 5, Tot. Refills 5, Maintenance, 01/26/25 1:25:00 PM EDT, Do Not Route, Partial fill upon patient request if the prescription is for a schedule II opioid drug. Start Date: 01/26/25 Status: Ordered Quantity: 15.0 Unit: tablet Repeat number: 6 torsemide 20 mg oral tablet 1 tablet = 20 mg, By Mouth, Daily, # 30 tablet, 5 Refills, Maintenance, 11/25/24 1:52:00 PM EDT, Tablet, [facility], Partial fill upon patient request if the prescription is for a schedule II opioid drug., 158, cm, 09/05/24 10:16:00 EST, Height, 73.5, kg, 07/30/24 7:37:00 EST, Dry Weight Start Date: 11/25/24 Status: Ordered Quantity: 30.0 Unit: tablet Repeat number: 6 traZODone 50 mg oral tablet 50 mg, [...] Team Personnel Name: Beth Carter RN Position: [facility] SN RN Member Role: Primary Care Nurse Name: Monica Sigala RN Position: [facility] RN Member Role: Primary Care Nurse Name: Abiola Alexandre RN Position: [facility] RN Member Role: Primary Care Nurse Name: Jomar Pleitez RN Position: [facility] RN Member Role: Primary Care Nurse Name: Yuliana Flynn RN Position: [facility] RN Member Role: Primary Care Nurse Name: Jon Castañeda RN Position: [facility] RN Member Role: Primary Care Nurse Name: Jackie Wood RN Position: [facility] RN Member Role: Primary Care Nurse Name: Ila Dalal RN Position: [facility] SN RN Member Role: Primary Care Nurse Name: Mona Heard RN Position: S RN Member Role: Primary Care Nurse Name: Tesha Henriquez RN Position: [facility] ED RN W/OE and Tasks Member Role: Primary Care Nurse Name: Georgina Fish MD Position: Reference Physician Member Role: PCP Address: [address] [place] [id number] Telecom: Name: Chiquis Porter RN Position: [facility] OB RN Member Role: Primary Care Nurse Care Team Related Persons Name: MAIKEL KOEHLER Name: JOANIE KOEHLER Name: AIYANA KOEHLER Insurance Providers Guarantor name: DUNCAN PETE [employer] Plan Information #: 1 [facility] Payer Identifier: NA Member Number: [id number] Group Number: [id number] Subscriber Identifier: [id number] Relationship to Subscriber: self Coverage Type: Medicare Managed Care (Includes Medicare Advantage Plans) Coverage Verification Date: TYREL Telecom: NA Address:
--- NOTE | 2025-03-03 12:33 | MHC.AMDMED ---
Intake Intake Visit Reasons: 30 min Clerical Order Filler Required: Yes Clerical Order Filler Language: Sales Representative Education Courses Name: [facility] [place] Accompanied by: Self / Same As Patient Allergies ibuprofen (From MOTRIN) Allergy (Mild, Verified 02/05/25 12:55) STOMACH UPSET, gastritis tirzepatide (From Mounjaro) Adverse Reaction (Intermediate, Verified 02/05/25 12:55) upset stomach HPI Comprehensive Diabetes Asmnt Most Recent Diabetes Results: Microalb/Creat Ratio, (<30) 8.1 ug/mg cr 12/29/24 Cholesterol, (<200) 82 mg/dL 12/29/24 HDL Cholesterol, (>40) 33 mg/dL L 12/29/24 Triglycerides, (<150) 175 mg/dL H 12/29/24 Creatinine, (0.5-1.4) 1.50 mg/dL H 12/29/24 BUN, (9-16) 25 mg/dL H 12/29/24 Sodium, (135-145) 143 mmol/L 12/29/24 Potassium, (3.3-5.1) 5.0 mmol/L Δ 12/29/24 Chloride, (96-108) 114 mmol/L H 12/29/24 Carbon Dioxide, (22-29) 22 mmol/L 12/29/24 Calcium, (8.4-10.2) 9.1 mg/dL 12/29/24 AST, (5-31) 26 U/L 12/29/24 ALT, (0-31) 21 U/L 12/29/24 Total Protein, (6.5-8.0) 6.8 g/dL 12/29/24 Albumin, (3.5-5.0) 4.0 g/dL 12/29/24 [facility] Medical History Personal history of nicotine dependence History of myocardial infarction Bilateral hand numbness Left ovarian cyst Type 2 diabetes mellitus with diabetic polyneuropathy Abnormal liver function test Tear of meniscus of left knee Lumbar degenerative disc disease Knee osteoarthritis GERD (gastroesophageal reflux disease) Ovarian cyst Carpal tunnel syndrome Obstructive sleep apnea Coronary artery disease Anemia Obesity (BMI 30-39.9) Hypertension Dyslipidemia Hypothyroidism Diabetic nephropathy associated with type 2 diabetes mellitus half-way (current) use of insulin Diabetes type 2, uncontrolled Surgical History History of carpal tunnel surgery of left wrist H/O bilateral oophorectomy History of esophagogastroduodenoscopy (EGD) Hx of colonoscopy Hx of right coronary artery stent placement History of surgical removal of nipple Hx of tubal ligation Hx of cholecystectomy Family History Father Diabetes mellitus Mother Diabetes mellitus Maternal Uncle Colon cancer Gastric cancer Daughter Diabetes mellitus Social History Household Members: None Housing: Apartment Alcohol intake: never Comment: counts correct Patient Tobacco Use Status: Former Tobacco user Tobacco use type: Cigarette Years Smoked: (onset 11yo, 1/2ppd x 55yrs,27pyh quit 2016) e-Cigarette/Vaping Use: Never Used Second Hand Smoke Exposure: Yes service: No Current occupational status: disabled Current occupational exposures/hazards: No Cognitive needs: Yes (diann garcias) Hearing needs: No Vision needs: Yes Assessment & Plan Assessment & Plan (1) Type 2 diabetes mellitus with hyperglycemia: Comment: Gina 04/2024 Code(s): E11.65 - Type 2 diabetes mellitus with hyperglycemia Plan: Personal Continuous Glucose Monitor: Patients CGM information reviewed, Pt uses Screen Fix Gibson 3+ with reader Since Lantus was reduced at last visit with Dr. Phelan from 8 units to 4 units patient's hypoglycemia has resolved Last visit her on child was increased to 7.5 mg weekly Lantus 4 units daily ?In December of 2023 patient's weight was 173 lb, current weight 130 lb. Discussed with patient if she continues to lose weight she may begin to experience episodes of hypoglycemia I will send a message to Dr. Phelan to see if the Lantus 4 units daily can be discontinued Patient has upcoming appointment with Dr. Phelan on 03/19/2025 Patient able to insert sensor with assistance at home without issue.? Portions of this note were created using voice recognition software, please excuse any words or phrases that may have been misinterpreted. Patient Instructions: Seguimiento con la enfermera de educaci?n sobre diabetes seg?n sea necesario Coding Level of Care Code Est Pt Level 1 (90332) Diagnoses Type 2 diabetes mellitus with hyperglycemia E11.65
--- OUTSIDE RECORDS SUMMARY | 2025-03-03 12:55 | XMS_ITS | Patient Health Record ---
Author Organization [facility] Address [address] [place] [address] Care Team Providers Care Head Lineman Name Role Phone Georgina Fish MD Primary Care Provider David Velasco [phone] Allergies Allergen (clinical drug ingredient) Drug/Non Drug [...] Omeprazole 20 MG TAKE 1 CAPSULE BY [facility] DAILY. Oral for 90 Active [...] Problem Status W/U Status Risk Notes Problem [id number] Colon cancer screening (Z12.11) Active confirmed Problem [id number] Preprocedural examination (Z01.818) Active confirmed Plan Of Treatment Future Test Test Name Order Date COLONOSCOPY 08/17/2022 Insurance Providers Payer Name Payer Address Payer Phone Subscriber Number Group Number Insured Name Patient Relationship to Insured Coverage Start Date Coverage End Date [facility] [address] [place] [address] [id number] DUNCAN PETE Self - patient is the insured Medical (General) History Medical History History ICD Code Hypertension GERD Hypothyroidism sleep apnea-uses a CPAP hypercholesterolemia coronary artery disease with reported AL X 2 and 2 stents iin approx 2017--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 Maria at [facility] IDDM with Insulin pump Neg. screening colonoscopy in 2006 other than hyperplastic polyps Denies CVA,Lung disease,renal disease Surgical History Surgery Date(Month/Year) breast bilaterallly for infections cholecystectomy tubal ligation carpal tunnel on the right
== END 2025-03-03 12:33 | disposition home or self-care (01) ==
LOC: HO.ENCR 12:13
PROVIDERS: PCP Internal Medicine; Visit Provider Registered Nurse Diabetes Educator
DX: E11.65 Type 2 diabetes mellitus with hyperglycemia (principal)

== ENCOUNTER → 2025-03-03 12:13 | Outpatient (BNVA) | payer OTHER, SELFPAY | PROVIDERS: PCP Internal Medicine; Visit Provider Registered Nurse Diabetes Educator | DX: E11.65 Type 2 diabetes mellitus with hyperglycemia (principal) | CPT/HCPCS: 99211 ==

== ENCOUNTER 2025-03-19 12:20 | Outpatient (AMB) | payer OTHER, SELFPAY ==
[2025-03-19 12:24] VITALS: BP 102/48; BMI 22.5
--- NOTE | 2025-03-19 12:24 | MHC.OFFVIS ---
Vital Signs 03/19/25 12:24 Height 5 ft 2 in Weight 123 lb 3.814 oz BMI 22.5 BP 102/48 L Blood Pressure Location Lt brachial Position Sitting Intake Visit Reasons: T2DM Intake Note: Patient present today for Type 2 Diabetes Mellitus Last Diabetic eye exam: 11/2024 Last Podiatry Visit: Doesn't have one Random Glucose: 135 mg/dl HgA1C: 6.5% 12/29/24 Ophthalmology Surgical Technician Required: Yes Ophthalmology Surgical Technician Language: Instrumentation Supervisor Services: Ophthalmology Surgical Technician Present Ophthalmology Surgical Technician Name: Dane [id number] Information Interpreted: non-clinical & clinical Accompanied by: Self / Same As Patient Allergies ibuprofen (From MOTRIN) Allergy (Mild, Verified 03/19/25 12:30) STOMACH UPSET, gastritis tirzepatide (From Mounjaro) Adverse Reaction (Intermediate, Verified 03/19/25 12:30) upset stomach Medication List - Last Reconciled 03/19/25 by Monica Phelan MD alirocumab (Praluent Pen) 150 mg subcut Q2W aspirin 81 mg PO DAILY atorvastatin 40 mg PO DAILY 90 days BD Insulin Syringe Ultra-Fine (insulin syringe-needle U-100) 4 times a day NS blood-glucose meter (FreeStyle Lite Meter kit) As directed 4x/day blood-glucose sensor (FreeStyle Ron 3 Plus Sensor device) As directed every 15 days blood-glucose,export 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,cont (FreeStyle Ron 3 [place]) As directed every 15 days bupropion HCl SR 100 mg PO QAM buspirone 15 mg PO BID carbamide peroxide 6.5% (Debrox) 5 drps otic (ears) Q12H 4 days Farxiga (dapagliflozin propanediol) 5 mg PO DAILY NS FreeStyle Lite Strips (blood sugar diagnostic) USE 1 STRIP DIRECTED FOUR TIMES A DAY FOR DIABETES NS glucagon 3 mg/actuation 3 mg intranasal ONCE insulin glargine (Lantus Solostar U-100 Insulin) 4 units (0.04 mL) subcut DAILY lancets (FreeStyle Lancets) 28 gauge topical QID 90 days levothyroxine (Synthroid) 88 mcg PO DAILY melatonin 1 mg PO BEDTIME metoprolol succinate ER 200 mg PO DAILY Held on 11/10/24. Instructions: Doctor's Order metoprolol succinate ER 50 mg PO DAILY pen needle, diabetic (1st Tier Unifine Pentips) As directed to inject insulin lantus daily potassium chloride ER (Klor-Con M) 20 mEq PO BID ranolazine ER mg PO [Rosenda Voss As directed] sertraline 100 mg PO DAILY spironolactone 25 mg PO DAILY ticagrelor (Brilinta) 90 mg PO BID tirzepatide (Mounjaro) 7.5 mg (0.5 mL) subcut QWEEK torsemide 20 mg PO DAILY trazodone 50 mg PO BEDTIME PRN 30 days triamcinolone acetonide 0.1% 1 appl topical DAILY valsartan 20 mg PO DAILY HPI Comments Details: Patient is a 73-year-old female with type 2 diabetes mellitus who presents for diabetes management. Last seen 02/05/2025, recently daughter has stopped coming with her 2 visits which is sometimes lead to confusion as patient usually does not know what medication she is on. Past medical history includes : Diabetes type 2, hypertension, hyperlipidemia, hypothyroidism, Micro and macrovascular complications: Nephropathy, neuropathy, coronary artery disease Prior medications: Trulicity 4.5 mg weekly was on this up until last visit in March 2024, unclear when Trulicity was discontinued, she is now on Mounjaro She was on Omnipod DASH with Fiasp insulin in it up until earlier this year in 2024 and we note as she was barely using any insulin, and we discontinued the pump. Now she is just on basal insulin. Diabetes medications: Lantus 4 units in AM Mounjaro 7.5 mg weekly every Sunday farxiga 5 mg QD Please tell Ron 3+ downloaded from March 05 to 03/18/2025 Time CGM active 98% Average glucose 108 mg/dL G TX 5.9% Glucose variability 28.4% Within target range 90% High 2% Very high 0% Low 8% Very low 0% Interpretation: Significant hypoglycemia overnight over the last 4-5 days Last Diabetic eye exam: 01/21, Last Podiatry Visit: Doesn't have one Random Glucose: 185 mg/dl HgA1C: 6.5% 09/01/24 HB A1c POC 12/18/24: 6.6% HgA1C: 6.5% 12/29/24 DSME - : Last seen community health educator in 03/23 PHYSICAL EXAM: GENERAL: Alert and oriented x 3. NAD EYES: EOMI. Anicteric. HENT: Moist mucous membranes. No scleral icterus. No cervical lymphadenopathy. LUNGS: Clear to auscultation bilaterally. CARDIOVASCULAR: Regular rate and rhythm. No murmur. No JVD. ABDOMEN: Soft, non-tender +bs EXTREMITIES: No edema. Non-tender. SKIN: No rashes or lesions. Warm. NEUROLOGIC: No focal neurological deficits. CN II-XII grossly intact PSYCHIATRIC: Cooperative. Appropriate mood and affect Foot exam: 02/05/2025: Warm and well-perfused, intact pulses, intact sensation to monofilament Laboratory Tests 12/29/24 01/29/25 09:01 09:04 WBC 6.1 Hgb 10.0 L Hct 29.9 L Plt Count 188 Sodium 143 Potassium 5.0 D Creatinine 1.50 H Estimated GFR 34 Hemoglobin A1c % 6.5 H AST 26 ALT 21 Triglycerides 175 H Cholesterol 82 LDL Cholesterol, Calc 14 HDL Cholesterol 33 L TSH 0.01 L 0.02 L Free T4 1.19 1.23 Laboratory Tests 12/25/23 12/25/23 04/03/24 10:33 10:42 11:59 Hgb A1c (Clinic) 7.5 H AST 16 ALT 16 Albumin 4.1 Triglycerides 155 H Cholesterol 89 LDL Cholesterol, Calc 16 HDL Cholesterol 42 Urine Creatinine 94.79 Urine Microalbumin 29.0 Microalb/Creat Ratio 30.5 H 09/01/24 09:04 Hgb A1c (Clinic) 6.5 H AST ALT Albumin Triglycerides Cholesterol LDL Cholesterol, Calc HDL Cholesterol Urine Creatinine Urine Microalbumin Microalb/Creat Ratio [facility] Medical History Personal history of nicotine dependence History of myocardial infarction Bilateral hand numbness Left ovarian cyst Type 2 diabetes mellitus with diabetic polyneuropathy Abnormal liver function test Tear of meniscus of left knee Lumbar degenerative disc disease Knee osteoarthritis GERD (gastroesophageal reflux disease) Ovarian cyst Carpal tunnel syndrome Obstructive sleep apnea Coronary artery disease Anemia Obesity (BMI 30-39.9) Hypertension Dyslipidemia Hypothyroidism Diabetic nephropathy associated with type 2 diabetes mellitus intermediate frame tender (current) use of insulin Diabetes type 2, uncontrolled Surgical History History of carpal tunnel surgery of left wrist H/O bilateral oophorectomy History of esophagogastroduodenoscopy (EGD) Hx of colonoscopy Hx of right coronary artery stent placement History of surgical removal of nipple Hx of tubal ligation Hx of cholecystectomy Family History Father Diabetes mellitus Mother Diabetes mellitus Maternal Uncle Colon cancer Gastric cancer Daughter Diabetes mellitus Social History Household Members: None Housing: Apartment Alcohol intake: never Comment: counts correct Patient Tobacco Use Status: Former Tobacco user Tobacco use type: Cigarette Years Smoked: (onset 11yo, 1/2ppd x 55yrs,27pyh quit 2016) e-Cigarette/Vaping Use: Never Used Second Hand Smoke Exposure: Yes service: No Current occupational status: disabled Current occupational exposures/hazards: No Cognitive needs: Yes (walker, cane) Hearing needs: No Vision needs: Yes Office Procedures Glucose Monitoring Details Details: See [facility] [address] - Glucose monitoring, continuous-physician I&R Procedure code (CPT) selection complete Assessment & Plan Assessment & Plan (1) Type 2 diabetes mellitus with diabetic polyneuropathy: Code(s): E11.42 - Type 2 diabetes mellitus with diabetic polyneuropathy Category: Medical Qualifiers: Diabetes mellitus half-way insulin use: with half-way use Qualified Code(s): E11.42 - Type 2 diabetes mellitus with diabetic polyneuropathy; Z79.4 - [facility] (current) use of insulin Plan: 73-year-old female with a history of type 2 diabetes mellitus with complications of CAD, neuropathy, nephropathy with a history of hypertension hyperlipidemia who is coming in today for follow up. P patient used to be on Omnipod DASH with Fiasp insulin in it up until early 2024 and we noted that she is not having a very high insulin requirement after her recent weight loss, being started on Mounjaro and Farxiga, hence she was switched to just basal insulin . Her A1c December 2024 is at 6.5%.. CGM data downloaded she is having quite a bit of hypoglycemia overnight. Otherwise during the day she is in good glycemic control. She continues to lose weight with Mounjaro. Plan: -discontinue Lantus -continue Mounjaro to 7.5 mg weekly -continue Farxiga 5 mg daily -currently using Pixelated Ron 3+, Patient has backup glucometer supplies. (2) Dyslipidemia: Code(s): E78.5 - Hyperlipidemia, unspecified Category: Medical Plan: LDL from December 2024 within goal at 33 which is less than 50 mg/dL. Plan: -continue current regimen Plan I spent 30 minutes in reviewing the record, seeing the patient and documenting in the medical record. Orders: Orders AMB Glucose Monitoring Today E11.42 - Type 2 diabetes mellitus with diabetic polyneuropathy, Z79.4 - [facility] (current) use of insulin Medications: Discontinued insulin glargine (Lantus Solostar U-100 Insulin) Discontinued Reason: Doctor's Order 4 units (0.04 mL) subcut DAILY 6 mL 4RF Patient Instructions: No more insulin Continue Mounjaro 7.5 mg weekly injection Continue Farxiga daily Follow up in 8 weeks Coding Level of Care Code Est Pt Level 4 (26576) Diagnoses Type 2 diabetes mellitus with diabetic polyneuropathy, with long-term current use of insulin E11.42; Z79.4 Diabetes mellitus half-way insulin use: with 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
[2025-03-19 12:37] LABS: Glucose, Whole Blood 135 mg/dL (60-115)
== END 2025-03-19 12:44 | disposition home or self-care (01) ==
LOC: HO.ENCR 12:21
PROVIDERS: PCP Internal Medicine; Visit Provider Student in an Organized Health Care Education/Training Program
DX: E11.42 Type 2 diabetes mellitus with diabetic polyneuropathy (principal); Z79.4 Long term (current) use of insulin; E78.5 Hyperlipidemia, unspecified
CPT/HCPCS: 95251; 99214

== ENCOUNTER → 2025-03-19 12:20 | Outpatient (BNVA) | payer OTHER, SELFPAY | PROVIDERS: PCP Internal Medicine; Visit Provider Student in an Organized Health Care Education/Training Program | DX: E11.42 Type 2 diabetes mellitus with diabetic polyneuropathy (principal); Z79.4 Long term (current) use of insulin | CPT/HCPCS: 82947; 99212 ==

== ENCOUNTER 2025-04-29 10:01 | Outpatient (AMB) | payer OTHER, SELFPAY ==
[2025-04-29 10:06] VITALS: BP 120/46; PULSE 60; RESP 18; TEMP 36.2; BMI 22.4
--- NOTE | 2025-04-29 10:06 | A.OFFPC_ITS ---
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 Accompanied by: Self / Same As Patient Allergies ibuprofen (From MOTRIN) Allergy (Mild, Verified 04/29/25 10:07) STOMACH UPSET, gastritis Medication List - Last Reconciled 04/29/25 by Georgina Fish MD alirocumab (Praluent Pen) 150 mg subcut Q2W aspirin 81 mg PO DAILY atorvastatin 40 mg PO DAILY 90 days BD Insulin Syringe Ultra-Fine (insulin syringe-needle U-100) 4 times a day NS blood-glucose meter (FreeStyle Lite Meter kit) As directed 4x/day blood-glucose sensor (FreeStyle Ron 3 Plus Sensor device) As directed every 15 days blood-glucose,social media intern,cont (FreeStyle Ron 3 [place]) As directed every 15 days bupropion HCl SR 100 mg PO QAM buspirone 15 mg PO BID Farxiga (dapagliflozin propanediol) 5 mg PO DAILY NS FreeStyle Lite Strips (blood sugar diagnostic) USE 1 STRIP DIRECTED FOUR TIMES A DAY FOR DIABETES NS lancets (FreeStyle Lancets) 28 gauge topical QID 90 days levothyroxine (Synthroid) 88 mcg PO DAILY melatonin 1 mg PO BEDTIME metoprolol succinate ER 50 mg PO DAILY pen needle, diabetic (1st Tier Unifine Pentips) As directed to inject insulin lantus daily [Rollator Walker As directed] sertraline 100 mg PO DAILY spironolactone 12.5 mg PO DAILY ticagrelor (Brilinta) 90 mg PO BID tirzepatide (Mounjaro) 5 mg (0.5 mL) subcut QWEEK trazodone 50 mg PO BEDTIME PRN 30 days valsartan 40 mg PO DAILY Tobacco use date assessed: 04/29/25 Fall risk assessment: No Falls in past year Last assessed Fall Risk: 04/29/25 Dental Screening Dental Screen Date: 04/29/25 Did you have a dental visit in the last 12 months?: Yes Did you have a dental problem in the last 6 months where you did not have access to dental care?: No Was dental information given to patient?: Patient has dentist [facility] Medical History Personal history of nicotine dependence History of myocardial infarction Bilateral hand numbness Left ovarian cyst Type 2 diabetes mellitus with diabetic polyneuropathy Abnormal liver function test Tear of meniscus of left knee Lumbar degenerative disc disease Knee osteoarthritis GERD (gastroesophageal reflux disease) Ovarian cyst Carpal tunnel syndrome Obstructive sleep apnea Coronary artery disease Anemia Obesity (BMI 30-39.9) Hypertension Dyslipidemia Hypothyroidism Diabetic nephropathy associated with type 2 diabetes mellitus snf (current) use of insulin Diabetes type 2, uncontrolled Surgical History History of carpal tunnel surgery of left wrist H/O bilateral oophorectomy History of esophagogastroduodenoscopy (EGD) Hx of colonoscopy Hx of right coronary artery stent placement History of surgical removal of nipple Hx of tubal ligation Hx of cholecystectomy Family History Father Diabetes mellitus Mother Diabetes mellitus Maternal Uncle Colon cancer Gastric cancer Daughter Diabetes mellitus Social History Household Members: None Housing: Apartment Alcohol intake: never Comment: counts correct Patient Tobacco Use Status: Former Tobacco user Tobacco use type: Cigarette Years Smoked: (onset 11yo, 1/2ppd x 55yrs,27pyh quit 2016) e-Cigarette/Vaping Use: Never Used Second Hand Smoke Exposure: Yes service: No Current occupational status: disabled Current occupational exposures/hazards: No Cognitive needs: Yes (walker, cane) Hearing needs: No Vision needs: Yes Questionnaire PHQ-9 Over the last 2 weeks, how often have you been bothered by any of the following problems? 1. Little interest or pleasure in doing things: not at all 2. Feeling down, depressed, or hopeless: several days 3. Trouble falling or staying asleep, or sleeping too much: several days 4. Feeling tired or having little energy: several days 5. Poor appetite or overeating: several days 6. Feeling bad about yourself - or that you are a failure or have let yourself or your family down: not at all 7. Trouble concentrating on things, such as reading the newspaper or watching television: not at all 8. Moving or speaking so slowly that other people could have noticed. Or the opposite - being so fidgety or restless that you have been moving around a lot more than usual: not at all 9. Thoughts that you would be better off or of hurting yourself in some way: not at all Total score: 4 Source: Developed by Drs. David Arroyo, Latha Luz, Buzz Cain and colleagues, with an educational gertrude from [employer] [place]. Thrive Questionnaire Date Thrive assessed: 08/14/24 I am a: Patient What is your living situation today?: I have a steady place to live Within the past 12 months, did the food you bought not last and you didn't have the money to get more?: Never true Within the past 12 months, did you worry whether your food would run out before you got money to buy more?: Never true Do you have trouble paying for medicines?: No Do you have trouble getting transportation to medical appointments?: No Do you have trouble paying your heating and electricity bill?: No Do you have trouble taking care of your child, family member or friend?: No Do you have trouble with day-to-day activities such as bathing, preparing meals, shopping, managing finances, etc.?: Yes Are you currently unemployed and looking for a job?: I choose not to answer this question Are you interested in more education?: No Please select the resources that you would like help with: None Currently or been in a relationship where the following occur: No concerns reported THRIVE Score: 0 AUDIT C Alcohol Use Questionnaire (AUDIT-C) 1. How often do you have a drink containing alcohol?: Never Total Score: 0 JASS-7 AMB Questionnaire JASS-7 Date JASS - 7 assessed: 09/01/24 Feeling nervous, anxious, or on edge: 1 = Several days Not being able to stop or control worryin = Not at all Worrying too much about different things: 1 = Several days Trouble relaxin = Several days Being so restless that it is hard to sit still: 0 = Not at all Becoming easily annoyed or irritable: 0 = Not at all Feeling afraid as if something awful might happen: 0 = Not at all Total JASS-7 score (0-4 normal; 5-9 mild; 10-14 moderate; 15-21 severe): 3 Source: Developed by Drs. David Arroyo, Latha Luz, Buzz Cain and colleagues, with an educational gertrude from [employer] [place]. Review of Systems Const Denies poor appetite and Denies weakness Eyes Denies no additional complaints ENT Reports Normal hearing present, Denies dizziness, Denies nasal congestion, Denies tinnitus and Denies sore throat Card Denies chest pain, Denies syncope, Denies rapid heart rate and Denies dyspnea Resp Denies cough and Denies dyspnea GI Denies change in stool character, Reports constipation, Denies diarrhea, Denies nausea and Denies vomiting Denies urinary frequency, Denies difficulty voiding and Denies dysuria Neuro Reports Normal hearing present, Denies confusion, Denies dizziness, Denies syncope and Denies weakness Psych Denies confusion Physical exam (Primary Care) Vital Signs: Last Vital Signs Temp 97.1 F 04/29/25 10:06 Pulse 60 04/29/25 10:06 Resp 18 04/29/25 10:06 BP 120/46 L 04/29/25 10:06 Oxygen Delivery Method Room Air 04/29/25 10:06 BMI result Body Mass Index 22.4 Tobacco/Smoking Status: Tobacco use Status Tobacco use date assessed 04/29/25 04/29/25 10:25 Patient Tobacco Use Status Former Tobacco user 04/29/25 10:25 Tobacco use type Cigarette 04/29/25 10:25 e-Cigarette/Vaping Use Never Used 04/29/25 10:25 PHQ-9: PHQ-9 Score PHQ-9: Total score 4 04/29/25 10:38 Thrive Assessment: Date of Thrive Assessment Date Thrive assessed 08/14/24 04/29/25 10:25 Currently or been in a relationship where the following occur: No concerns reported Const Other: pedal pulse weak pin prick LE - cannot feel , declined rectal General: alert and awake; No confusion Orientation/consciousness: No confusion HENMT Head: Yes normocephalic Ears: external ears normal and TM's normal bilaterally Face and sinus: Yes normal facial exam Mouth: moist mucous membranes Throat: Yes tonsils normal Eyes Conjunctivae: conjunctivae normal Pupils: Equal, round and reactive pupils present and Pupil accommodation reflex normal Direct Ophthalmoscopy: normal light reflex Neck Neck: No lymphadenopathy Thyroid: Thyroid normal Chest Chest palpation & inspection: normal inspection of the chest Resp Effort & Inspection: normal respiratory effort and no audible wheezes Auscultation: clear to auscultation bilaterally, no crackles, no wheezes and lung sounds not diminished Cardio Rate: regular rate Rhythm: regular rhythm Peripheral pulses: radial pulses present and dorsalis pedis present GI Palpation (GI): no masses Auscultation: normal bowel sounds and normoactive bowel sounds Rectal Exam - Female: deferred Skin General skin exam: no rashes or lesions noted Rashes: no rashes Neuro General: deep tendon reflexes 2+ bilaterally and No confusion Cranial nerves: Yes Equal, round and reactive pupils present, Yes Midline tongue present, Yes Normal hearing present and Yes Ability to bilaterally elevate shoulders present Cognition (Neuro): normal cognition Gait exam (Neuro): Normal gait present Motor exam (neuro): 5/5 motor strength present throughout Deep tendon reflexes (DTR's): Right brachioradialis reflex intensity grade: 2+, Left brachioradialis reflex intensity grade: 2+, Right patellar reflex intensity grade: 2+ and Left patellar reflex intensity grade: 2+ Extrem General: No edema Coding Level of Care Code Est Pt Prev Care >65y(41793) Diagnoses Annual physical exam Z00.00 Coronary artery disease I25.10 Essential hypertension I10 Hypertension type: essential hypertension Dyslipidemia E78.5 Type 2 diabetes mellitus with hyperglycemia E11.65 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 (2) Coronary artery disease: Comment: [place] September 2010 with stent placement restenoses November 2012 [facility] January 2017 catheterization done occluded distal RCA new catheterization May 2017 the same, catheterization September 2017 Code(s): I25.10 - Atherosclerotic heart disease of [place] coronary artery without angina pectoris Category: Medical Plan: Control the cholesterol, weight, blood pressure, diabetes continue with aspirin and with the recent July stent placement on Brilinta 90 mg twice a day for 1 year (3) Hypertension: Code(s): I10 - Essential (primary) hypertension Category: Medical Qualifiers: Hypertension type: essential hypertension Qualified Code(s): I10 - Essential (primary) hypertension Plan: Continue with blood pressure medication. Decrease salt intake and exercise patient is on metoprolol 50 mg once a day spironolactone 25 mg once a day valsartan 20 mg once a day (4) Dyslipidemia: Code(s): E78.5 - Hyperlipidemia, unspecified Category: Medical Plan: Avoid fried foods, chicken skin, eggs, butter margarine, pastries and meat. Be it pork or beef they have a lot of cholesterol LDL at goal on Praluent atorvastatin 40 mg once a day (5) Type 2 diabetes mellitus with hyperglycemia: Comment: Gina 04/2024 Code(s): E11.65 - Type 2 diabetes mellitus with hyperglycemia Category: Medical Plan: Decrease the amount of carbohydrate intake, pasta, bread, rice and potatoes are all sugar and that is aside from all the sweet stuff, remember that fruits are good but they are Sweet also. Hemoglobin A1c goal of less than 6.5 patient is using Farxiga 5 mg once a day seeing endocrinology started on Mounjaro once a week (6) Hypothyroidism: Code(s): E03.9 - Hypothyroidism, unspecified Category: Medical Qualifiers: Hypothyroidism type: due to Mario's thyroiditis Qualified Code(s): E03.8 - Other specified hypothyroidism; E06.3 - Autoimmune thyroiditis Plan: Patient needs blood work for the thyroid (7) Obesity (BMI 30-39.9): Code(s): E66.9 - Obesity, unspecified Category: Medical Plan: Diet and exercise (8) GERD (gastroesophageal reflux disease): Code(s): K21.9 - Gastro-esophageal reflux disease without esophagitis Category: Medical Qualifiers: Esophagitis presence: without esophagitis Qualified Code(s): K21.9 - Gastro-esophageal reflux disease without esophagitis Plan: Avoid the foods that causes that usually spicy foods, tomato products, juices, coffee, soda and foods that your sensitive to. After eating do not lie down, allow 3-4 hours before in lie down. And keep the head of bed above 30 degrees to avoid the acid from going up. (9) Personal history of nicotine dependence: Comment: (former smoker - onset 11yo, 1/2ppd x 55yrs,27pyh quit 2017) Code(s): Z87.891 - Personal history of nicotine dependence Category: Medical Plan: Discussed about lung cancer screening program (10) Dysphagia: Code(s): R13.10 - Dysphagia, unspecified Category: Medical (11) Claudication: Code(s): I73.9 - Peripheral vascular disease, unspecified Category: Medical Plan History of Present Illness The patient is a 74-year-old female presenting for an annual physical examination. The patient has a history of diabetes mellitus with nephropathy, managed with an insulin pump and medications including Mounjaro and Farxiga. Her hemoglobin A1c was 6.5% in December 2024, indicating good glycemic control. She follows up with endocrinology and uses a continuous glucose monitor. The patient has hypothyroidism, with recent blood work showing a TSH level of 0.03, indicating over-replacement. She is currently on 88 mcg of thyroid medication, and a follow-up test is planned to adjust the dosage if necessary. The patient has hypertension, managed with metoprolol, spironolactone, and valsartan. Her blood pressure management plan includes regular monitoring and medication adherence. The patient has hypercholesterolemia, with LDL cholesterol at goal on Praluent and atorvastatin. She is advised to continue her current medication regimen. The patient has coronary artery disease, with a history of PCI in July 2024 for a 90% stenosis in the mid LAD. She is on Brilinta and aspirin as part of her antiplatelet therapy. The patient has a history of heart failure with reduced ejection fraction, treated with Lasix and torsemide. She reports no recent episodes of dyspnea or chest pain. The patient has lumbar degenerative disc disease and carpal tunnel syndrome, with previous surgical intervention for the latter. She experiences chronic back pain, which worsens with movement and improves with rest. The patient has a history of obstructive sleep apnea and gastroesophageal reflux disease, managed with lifestyle modifications and medications. She reports occasional heartburn, which is exacerbated by certain medications. The patient has anemia, with recent lab results showing hemoglobin levels of 10 g/dL and hematocrit of 29%. She also has vitamin D deficiency, for which supplementation is recommended. The patient has neuropathy, with decreased sensation in her feet, consistent with her diabetes diagnosis. She is advised to have regular foot examinations to prevent complications. Health Maintenance - Annual physical examination conducted - Bone density screening up to date and normal - Colonoscopy declined, mammogram due - Lung cancer screening discussed - Shingles vaccine: One dose received, second dose pending - Tetanus and pneumonia vaccines up to date - Flu and COVID vaccines recommended Social History - Smoking: History of smoking, quit in 2017 - Alcohol: Denies alcohol use - Exercise: Limited physical activity, advised to increase exercise Review of Systems - General: Denies fever, chills, or weight loss - Cardiovascular: Denies chest pain or palpitations - Respiratory: Denies dyspnea, reports occasional heartburn - Gastrointestinal: Reports difficulty swallowing, occasional diarrhea - Neurological: Reports numbness and tingling in feet Physical Exam General: Cooperative, healthy appearing, comfortable, no acute distress and well developed Orientation: Patient oriented x3 Limitations: No limitations Head: Normal to inspection Ears: Hearing grossly normal bilaterally Nose: Normal external nose present Face and sinus: Normal facial exam Eyes: Appearance normal, both eyes and all related structures Neck: Normal visual inspection and Yes full ROM Respiratory: Normal respiratory effort and able to speak in complete sentences. Clear to auscultation bilaterally Cardiovascular: Regular rate and rhythm. Normal S1 and S2 GI: Normal to inspection. Soft to palpation and nontender Skin: No rashes or lesions noted Neuro: Patient oriented x3 Extremities: Normal to inspection, but patient reports numbness and neuropathy in feet. Swelling noted in feet. Results - Labs: Hemoglobin 10 g/dL, Hematocrit 29%, Renal function 1.50, Hemoglobin A1c 6.5%, LDL 14, Triglycerides 175, Vitamin D low - Imaging: X-rays of lumbar spine showing multilevel spondylosis and mild degenerative changes Plan Patient was informed and verbally consented to the use of an ambient scribe for clinic note documentation during this visit. 1. Diabetes Mellitus With Nephropathy The patient is advised to continue using the insulin pump and medications including Mounjaro and Farxiga to maintain glycemic control. Regular follow-up with endocrinology and monitoring of glucose levels with a continuous glucose monitor are recommended. 2. Hypothyroidism The patient's thyroid medication dosage may need adjustment based on follow-up TSH levels. A repeat thyroid function test is planned to ensure appropriate dosing. 3. Hypertension The patient is to continue current antihypertensive medications including metoprolol, spironolactone, and valsartan. Regular blood pressure monitoring is advised to ensure effective management. 4. Hypercholesterolemia The patient is to continue current lipid-lowering therapy with Praluent and atorvastatin. LDL cholesterol levels are at goal, and ongoing monitoring is recommended. 5. Coronary Artery Disease The patient is on Brilinta and aspirin as part of her antiplatelet therapy following PCI for coronary artery disease. Regular follow-up with cardiology is advised to monitor cardiac status. 6. Heart Failure With Reduced Ejection Fraction The patient is treated with Lasix and torsemide for heart failure management. She reports no recent episodes of dyspnea or chest pain, indicating stable condition. 7. Lumbar Degenerative Disc Disease The patient experiences chronic back pain, which is managed with lifestyle modifications and pain management strategies. Regular follow-up is advised to monitor symptoms and adjust treatment as needed. 8. Carpal Tunnel Syndrome The patient has a history of surgical intervention for carpal tunnel syndrome. No current symptoms reported, indicating stable post-surgical status. 9. Anemia The patient has anemia with hemoglobin levels of 10 g/dL and hematocrit of 29%. Further evaluation and management are recommended to address the underlying cause. 10. Vitamin D Deficiency The patient is advised to take vitamin D supplements to address the deficiency. 11. Neuropathy The patient has decreased sensation in her feet, consistent with neuropathy. Regular foot examinations are recommended to prevent complications. Discussion Notes During the visit, I discussed the management of the patient's diabetes, emphasizing the importance of maintaining glycemic control with her current regimen of Mounjaro and Farxiga. We reviewed her thyroid function, noting the need for a follow-up test to adjust her medication dosage appropriately. I advised her to continue her current antihypertensive and lipid-lowering therapies, and to monitor her blood pressure and cholesterol levels regularly. We also discussed her coronary artery disease management, including the continuation of Brilinta and aspirin therapy. I recommended regular follow-ups with cardiology and endocrinology to monitor her heart and endocrine health. Patient Instructions - Continue using insulin pump and medications as prescribed. - Schedule follow-up appointments with endocrinology and cardiology. - Monitor blood pressure and cholesterol levels regularly. - Take vitamin D supplements as advised. - Have regular foot examinations to prevent complications from neuropathy. - Follow up on thyroid function test to adjust medication dosage if needed. Orders: Orders Free T4 (Free Thyroxine) Today E11.65 - Type 2 diabetes mellitus with hyperglycemia Hemoglobin A1c Today E11.65 - Type 2 diabetes mellitus with hyperglycemia Comprehensive Met. Panel Today E11.65 - Type 2 diabetes mellitus with hyperglycemia Ferritin Today E11.65 - Type 2 diabetes mellitus with hyperglycemia Reticulocyte Count Today E11.65 - Type 2 diabetes mellitus with hyperglycemia NT Pro B Type Natriuretic Pept Today E11.65 - Type 2 diabetes mellitus with hyperglycemia Creatinine Urine Today E11.65 - Type 2 diabetes mellitus with hyperglycemia Microalbumin, Random (w Creat) Today E11.65 - Type 2 diabetes mellitus with hyperglycemia FL barium swallow Today R13.10 - Dysphagia, unspecified FL upper GI series Today R13.10 - Dysphagia, unspecified Thyroid Stimulating Hormone Today E11.65 - Type 2 diabetes mellitus with hyperglycemia Complete Blood Count Auto Diff Today E11.65 - Type 2 diabetes mellitus with hyperglycemia IRON PROFILE Today E11.65 - Type 2 diabetes mellitus with hyperglycemia Vitamin B12 and Folate Today E11.65 - Type 2 diabetes mellitus with hyperglycemia Vitamin D 25-OH Total Today E11.65 - Type 2 diabetes mellitus with hyperglycemia Lipid Panel Today E11.65 - Type 2 diabetes mellitus with hyperglycemia, E78.00 - Pure hypercholesterolemia, unspecified UA CC w/rflx Micro + Cult Today E11.65 - Type 2 diabetes mellitus with hyperglycemia, R30.0 - Dysuria US arterial duplex LE BI Today I73.9 - Peripheral vascular disease, unspecified Medications: New famotidine (Pepcid) 20 mg PO BEDTIME 30 tabs 0RF
--- OUTSIDE RECORDS SUMMARY | 2025-04-29 11:13 | XMS_ITS | Patient Health Record ---
Author Organization [facility] Address [address] [place] [address] Care Team Providers Care Fiber Picker Name Role Phone Georgina Fish MD Primary Care Provider David Velasco [phone] Allergies Allergen (clinical drug ingredient) Drug/Non Drug [...] Omeprazole 20 MG TAKE 1 CAPSULE BY [facility] DAILY. Oral for 90 [...] Problem Status W/U Status Risk Notes Problem [id number] Colon cancer screening (Z12.11) Active confirmed Problem [id number] Preprocedural examination (Z01.818) Active confirmed Plan Of Treatment Future Test Test Name Order Date COLONOSCOPY 08/17/2022 Insurance Providers Payer Name Payer Address Payer Phone Subscriber Number Group Number Insured Name Patient Relationship to Insured Coverage Start Date Coverage End Date [facility] [address] [place] [phone] [id number] DUNCAN PETE Self - patient is the insured Medical (General) History Medical History History ICD Code Hypertension GERD Hypothyroidism sleep apnea-uses a CPAP hypercholesterolemia coronary artery disease with reported [place] X 2 and 2 stents iin approx 2017--[employer] is Dr. Maria at [facility] IDDM with Insulin pump Neg. screening colonoscopy in 2006 other than hyperplastic polyps Denies CVA,Lung disease,renal disease Surgical History Surgery Date(Month/Year) breast bilaterallly for infections cholecystectomy tubal ligation carpal tunnel on the right
== END 2025-04-29 11:14 | disposition home or self-care (01) ==
LOC: HO.HMCH 10:02
PROVIDERS: PCP Internal Medicine; Visit Provider Internal Medicine
DX: Z00.00 Encounter for general adult medical examination without abnormal findings (principal); E11.65 Type 2 diabetes mellitus with hyperglycemia; I25.10 Atherosclerotic heart disease of native coronary artery without angina pectoris; I10 Essential (primary) hypertension; E78.5 Hyperlipidemia, unspecified; E03.8 Other specified hypothyroidism; E06.3 Autoimmune thyroiditis; E66.9 Obesity, unspecified; K21.9 Gastro-esophageal reflux disease without esophagitis; Z87.891 Personal history of nicotine dependence; R13.10 Dysphagia, unspecified; I73.9 Peripheral vascular disease, unspecified

== ENCOUNTER → 2025-04-29 10:01 | Outpatient (BNVA) | payer OTHER, SELFPAY | PROVIDERS: PCP Internal Medicine; Visit Provider Internal Medicine | DX: Z00.00 Encounter for general adult medical examination without abnormal findings (principal); I25.10 Atherosclerotic heart disease of native coronary artery without angina pectoris; E78.5 Hyperlipidemia, unspecified; E11.65 Type 2 diabetes mellitus with hyperglycemia; E11.40 Type 2 diabetes mellitus with diabetic neuropathy, unspecified; E11.51 Type 2 diabetes mellitus with diabetic peripheral angiopathy without gangrene; E11.21 Type 2 diabetes mellitus with diabetic nephropathy; E03.8 Other specified hypothyroidism; E06.3 Autoimmune thyroiditis; K21.9 Gastro-esophageal reflux disease without esophagitis; E66.9 Obesity, unspecified; R13.10 Dysphagia, unspecified; E03.9 Hypothyroidism, unspecified; E78.00 Pure hypercholesterolemia, unspecified; I11.0 Hypertensive heart disease with heart failure; I50.9 Heart failure, unspecified; D64.9 Anemia, unspecified; E55.9 Vitamin D deficiency, unspecified; M51.360 Other intervertebral disc degeneration, lumbar region with discogenic back pain only; Z87.891 Personal history of nicotine dependence; Z79.4 Long term (current) use of insulin; Z96.41 Presence of insulin pump (external) (internal); Z79.899 Other long term (current) drug therapy | CPT/HCPCS: 96127; 99397 ==

== ENCOUNTER 2025-04-30 10:20 | Outpatient (REF) | payer OTHER, SELFPAY ==
[2025-04-30 10:40] LABS: MANUAL DIFF FLAG NO
[2025-04-30 10:52] LABS: Hematocrit 31.9 % (37.0-47.0); Hemoglobin 10.9 g/dl (12.0-16.0); Imm Gran Abs Auto 0.01 X10*3/uL (0.00-0.03); Imm Gran Pct Auto 0.2 % (0.0-0.4); Lymphocytes Absolute Auto 1.0 X10*3/uL (1.2-4.9); Mean Corpuscular HGB Conc 34.2 g/dl (31.0-35.0); Mean Corpuscular Hemoglobin 31.3 pg (27.0-33.0); Mean Corpuscular Volume 91.7 fL (80.0-98.0); NRBC Abs Auto 0.000 X10*3/uL (0.0-0.012); NRBC Pct Auto 0.0 /100WBC (0.0-0.2); Platelet Count 146 X10*3/uL (160-400); Red Blood Count 3.48 X10*6/uL (4.20-5.50); Reticulocytes Absolute 0.054 X10*6/uL (0.026-0.095); White Blood Count 5.1 X10*3/uL (4.8-10.8)
[2025-04-30 11:33] LABS: Alanine Aminotransferase 26 U/L (0-31); Albumin Level 4.3 g/dL (3.5-5.0); Alkaline Phosphatase 129 U/L (39-117); Anion Gap 8 (12-20); Aspartate Amino Transferase 27 U/L (5-31); Blood Urea Nitrogen 17 mg/dL (9-16); Calcium 9.2 mg/dL (8.4-10.2); Carbon Dioxide 23 mmol/L (22-29); Chloride 116 mmol/L (96-108); Cholesterol 87 mg/dL (<200); Estimated Glomerular Filt Rate 58; HDL Cholesterol 38 mg/dL (>40); Iron 46 mcg/dL (30-160); Percent Iron Saturation 19 % (15-50); Potassium 3.4 mmol/L (3.3-5.1); Sodium 144 mmol/L (135-145); Total Iron Binding Capacity 238 mcg/dL (228-428); Total Protein 6.8 g/dL (6.5-8.0); Triglycerides 113 mg/dL (<150); Unsaturated Iron Binding 192 ug/dL
--- OUTSIDE RECORDS SUMMARY | 2025-04-30 11:46 | XMS_ITS | Patient Health Record ---
Author Organization [facility] Address [address] [place] [address] Care Team Providers Care Mail Sorter And Delivery Name Role Phone Georgina Fish MD Primary Care Provider David Velasco [phone] Allergies Allergen (clinical drug ingredient) Drug/Non Drug [...] Omeprazole 20 MG TAKE 1 CAPSULE BY [facility] DAILY. Oral for 90 Active Immunizations Vaccine [...] Problem Status W/U Status Risk Notes Problem [id number] Colon cancer screening (Z12.11) Active confirmed Problem [id number] Preprocedural examination (Z01.818) Active confirmed Plan Of Treatment Future Test Test Name Order Date COLONOSCOPY 08/17/2022 Insurance Providers Payer Name Payer Address Payer Phone Subscriber Number Group Number Insured Name Patient Relationship to Insured Coverage Start Date Coverage End Date [facility] [address] [place] [address] [id number] DUNCAN PETE Self - patient is the insured Medical (General) History Medical History History ICD Code Hypertension GERD Hypothyroidism sleep apnea-uses a CPAP hypercholesterolemia coronary artery disease with reported MD X 2 and 2 stents iin approx 2017--Skiver Machine is Dr. Maria at [facility] IDDM with Insulin pump Neg. screening colonoscopy in 2006 other than hyperplastic polyps Denies CVA,Lung disease,renal disease Surgical History Surgery Date(Month/Year) breast bilaterallly for infections cholecystectomy tubal ligation carpal tunnel on the right
[2025-04-30 11:57] LABS: Ferritin 88 ng/mL (10-250); Free T4 (Free Thyroxine) 1.10 ng/dL (0.71-1.85); Thyroid Stimulating Hormone 0.02 uIU/mL (0.32-4.0)
[2025-04-30 12:13] LABS: Folate 10.3 ng/mL (> or = 4.0); Vitamin B12 306 pg/mL (200-900)
[2025-04-30 13:30] LABS: Appearance Urine Clear; Glucose Urine UA >=1000 mg/dL (Negative); PH 6.0 (5.0-9.0); Specific Gravity - Urine 1.020 (1.005-1.025); UMIC TRIGGER UACC YES
[2025-04-30 14:05] LABS: Microalbum/Creatinine Ratio Ur 22.6 ug/mg cr (<30)
== END 2025-04-30 10:21 | disposition home or self-care (01) ==
LOC: HO.LAB 10:20
PROVIDERS: PCP Internal Medicine; Visit Provider Internal Medicine
DX: E11.65 Type 2 diabetes mellitus with hyperglycemia (principal); E78.00 Pure hypercholesterolemia, unspecified; Z13.21 Encounter for screening for nutritional disorder
CPT/HCPCS: 36415; 80053; 80061; 81001; 81003; 82043; 82306; 82570; 82607; 82728; 82746; 83036; 83540; 83880; 84439; 84443; 85025; 85045

== ENCOUNTER 2025-05-21 10:42 | Outpatient (AMB) | payer OTHER, SELFPAY ==
--- NOTE | 2025-05-21 10:47 | A.OFFVIS_ITS ---
Vital Signs 3 05/21/25 10:48 Height 5 ft 2 in Weight 123 lb 7.342 oz BMI 22.6 BP 136/52 L Blood Pressure Location Rt brachial Position Sitting Pulse 60 Pulse Source Pulse Oximeter Intake Visit Reasons: DM w/sensor Intake Note: Patient presents today for a follow-up on Type 2 Diabetes Mellitus: Patient of DR Monica Phelan MD. Last Diabetic eye exam was on: 11/2024 Last Podiatry exam was on: Patient does not see a Boom Master Most recent HbA1c: 6.6%, 04/30/2025 Random Glucose- 137 mg/dL, Today Recordings Librarian Required: Yes Recordings Librarian Language: Tinware [employer] Press Operator Services: Recordings Librarian Offered & Declined (DR Siu Speaks Fluent Urdu) Recordings Librarian Name: Dane [id number] Information Interpreted: non-clinical & clinical Accompanied by: Self / Same As Patient Allergies ibuprofen (From MOTRIN) Allergy (Mild, Verified 05/21/25 11:05) STOMACH UPSET, gastritis Medication List - Last Reconciled 05/21/25 by Chris Hancock MD alirocumab (Praluent Pen) 150 mg subcut Q2W aspirin 81 mg PO DAILY atorvastatin 40 mg PO DAILY 90 days BD Insulin Syringe Ultra-Fine (insulin syringe-needle U-100) 4 times a day NS blood-glucose meter (FreeStyle Lite Meter kit) As directed 4x/day blood-glucose sensor (FreeStyle Ron 3 Plus Sensor device) As directed every 15 days blood-glucose,qa consultant,cont (FreeStyle Ron 3 [place]) As directed every 15 days bupropion HCl SR 100 mg PO QAM buspirone 15 mg PO BID famotidine (Pepcid) 20 mg PO BEDTIME Farxiga (dapagliflozin propanediol) 5 mg PO DAILY NS FreeStyle Lite Strips (blood sugar diagnostic) USE 1 STRIP DIRECTED FOUR TIMES A DAY FOR DIABETES NS lancets (FreeStyle Lancets) 28 gauge topical QID 90 days levothyroxine 75 mcg PO DAILY melatonin 1 mg PO BEDTIME metoprolol succinate ER 50 mg PO DAILY pen needle, diabetic (1st Tier Unifine Pentips) As directed to inject insulin lantus daily [Rollator Walker As directed] sertraline 100 mg PO DAILY spironolactone 12.5 mg PO DAILY ticagrelor (Brilinta) 90 mg PO BID tirzepatide (Mounjaro) 5 mg (0.5 mL) subcut QWEEK trazodone 50 mg PO BEDTIME PRN 30 days valsartan 40 mg PO DAILY HPI Comments Details: Patient is a 73-year-old female with type 2 diabetes mellitus who presents for diabetes management. Last seen 02/05/2025, recently daughter has stopped coming with her 2 visits which is sometimes lead to confusion as patient usually does not know what medication she is on. Past medical history includes : Diabetes type 2, hypertension, hyperlipidemia, hypothyroidism, Micro and macrovascular complications: Nephropathy, neuropathy, coronary artery disease Prior medications: Trulicity 4.5 mg weekly was on this up until last visit in March 2024, unclear when Trulicity was discontinued, she is now on Mounjaro She was on Omnipod DASH with Fiasp insulin in it up until earlier this year in 2024 and we note as she was barely using any insulin, and we discontinued the pump. Now she is just on basal insulin. Diabetes medications: Lantus 4 units in AM Mounjaro 5 mg weekly every Sunday Farxiga 5 mg QD Last Diabetic eye exam: 01/21, Last Podiatry Visit: Doesn't have one DSME - : Last seen shank turner in 03/23 Interval history 05/21/25 Mounjaro decreased to 5 mg 1-2 months ago as she was loosing to much weight. She reports feeling overall stable, although she is concerned about her balance due to her left leg instability. She has maintained a low carb diet, and also has low appetite due to Mounjaro effects. PHYSICAL EXAM: GENERAL: Alert and oriented x 3. NAD EYES: EOMI. Anicteric. HENT: Moist mucous membranes. No scleral icterus. No cervical lymphadenopathy. LUNGS: Clear to auscultation bilaterally. CARDIOVASCULAR: Regular rate and rhythm. No murmur. No JVD. ABDOMEN: Soft, non-tender +bs EXTREMITIES: No edema. Non-tender. SKIN: No rashes or lesions. Warm. NEUROLOGIC: No focal neurological deficits. CN II-XII grossly intact PSYCHIATRIC: Cooperative. Appropriate mood and affect Foot exam: 02/05/2025: Warm and well-perfused, intact pulses, intact sensation to monofilament Laboratory Tests 04/30/25 05/21/25 10:39 10:53 Glucose (Clinic) 137 H Random Glucose 172 H Hemoglobin A1c % 6.6 H Albumin 4.3 Triglycerides 113 Cholesterol 87 LDL Cholesterol, Calc 27 HDL Cholesterol 38 L 25-OH Vitamin D Total 20.1 L CGM data: Interpretation: Overall excellent control, with mild hyperglycemia around lunch time 2 PFSH Medical History Personal history of nicotine dependence History of myocardial infarction Bilateral hand numbness Left ovarian cyst Type 2 diabetes mellitus with diabetic polyneuropathy Abnormal liver function test Tear of meniscus of left knee Lumbar degenerative disc disease Knee osteoarthritis GERD (gastroesophageal reflux disease) Ovarian cyst Carpal tunnel syndrome Obstructive sleep apnea Coronary artery disease Anemia Obesity (BMI 30-39.9) Hypertension Dyslipidemia Hypothyroidism Diabetic nephropathy associated with type 2 diabetes mellitus skilled nursing (current) use of insulin Diabetes type 2, uncontrolled Surgical History History of carpal tunnel surgery of left wrist H/O bilateral oophorectomy History of esophagogastroduodenoscopy (EGD) Hx of colonoscopy Hx of right coronary artery stent placement History of surgical removal of nipple Hx of tubal ligation Hx of cholecystectomy Family History Father Diabetes mellitus Mother Diabetes mellitus Maternal Uncle Colon cancer Gastric cancer Daughter Diabetes mellitus Social History Household Members: None Housing: Apartment Alcohol intake: never Comment: counts correct Patient Tobacco Use Status: Former Tobacco user Tobacco use type: Cigarette Years Smoked: (onset 11yo, 1/2ppd x 55yrs,27pyh quit 2016) e-Cigarette/Vaping Use: Never Used Second Hand Smoke Exposure: Yes service: No Current occupational status: disabled Current occupational exposures/hazards: No Cognitive needs: Yes (walker, cane) Hearing needs: No Vision needs: Yes Physical Exam Vital Signs: Last Vital Signs Pulse 60 05/21/25 10:48 BP 136/52 L 05/21/25 10:48 BMI result Body Mass Index 22.6 Office Procedures Glucose Monitoring Details Details: See HPI 88024 - Glucose Monitoring, continuous Procedure code (CPT) selection complete Results Reviewed Results Reviewed: Laboratory Last Values Glucose (Clinic) 137 mg/dL (60-115) H 05/21/25 10:53 Assessment & Plan Assessment & Plan (1) Type 2 diabetes mellitus with diabetic polyneuropathy: Code(s): E11.42 - Type 2 diabetes mellitus with diabetic polyneuropathy Category: Medical Qualifiers: Diabetes mellitus terminologist insulin use: with long-term use Qualified Code(s): E11.42 - Type 2 diabetes mellitus with diabetic polyneuropathy; Z79.4 - terminologist (current) use of insulin Plan: 73-year-old female with a history of type 2 diabetes mellitus with complications of CAD, neuropathy, nephropathy with a history of hypertension hyperlipidemia who is coming in today for follow up. Patient used to be on Omnipod DASH with Fiasp insulin in it up until early 2024 and we noted that she is not having a very high insulin requirement after her recent weight loss, being started on Mounjaro and Farxiga, hence she was switched to just basal insulin . Her A1c is not reliable due to chronic anemia and likely increase RBC turnover, but her TIR being 94% with no low, indicating an excellent control. Plan: -discontinue Lantus -continue Mounjaro to 5 mg weekly -continue Farxiga 5 mg daily -currently using Ron Ron 3+, Patient has backup glucometer supplies. (2) Dyslipidemia: Code(s): E78.5 - Hyperlipidemia, unspecified Category: Medical Plan: LDL from April 2025 within goal at 27 which is less than 50 mg/dL. Plan: -continue current regimen Plan I spent 30 minutes in reviewing the record, seeing the patient and documenting in the medical record. Orders: Orders 2 AMB Glucose Monitoring Today E11.65 - Type 2 diabetes mellitus with hyperglycemia Coding Level of Care Code Est Pt Level 4 (21867) Diagnoses Type 2 diabetes mellitus with diabetic polyneuropathy, with long-term current use of insulin E11.42; Z79.4 Diabetes mellitus long-term insulin use: with long-term use Dyslipidemia E78.5 CPT Codes Details - CPT: 99089 - Glucose Monitoring, continuous ([id number]) Time Spent (min) 30
[2025-05-21 10:48] VITALS: BP 136/52; PULSE 60; BMI 22.6
[2025-05-21 11:04] LABS: Glucose, Whole Blood 137 mg/dL (60-115)
== END 2025-05-21 11:41 | disposition home or self-care (01) ==
LOC: HO.ENCR 10:43
PROVIDERS: PCP Internal Medicine; Visit Provider Student in an Organized Health Care Education/Training Program
DX: E11.42 Type 2 diabetes mellitus with diabetic polyneuropathy (principal); Z79.4 Long term (current) use of insulin; E78.5 Hyperlipidemia, unspecified
CPT/HCPCS: 99214

== ENCOUNTER → 2025-05-21 10:42 | Outpatient (BNVA) | payer OTHER, SELFPAY | PROVIDERS: PCP Internal Medicine; Visit Provider Student in an Organized Health Care Education/Training Program | DX: E11.42 Type 2 diabetes mellitus with diabetic polyneuropathy (principal); E78.5 Hyperlipidemia, unspecified | CPT/HCPCS: 82947; 95250; 99212 ==

== ENCOUNTER 2025-06-11 08:39 | Outpatient (REF) | payer OTHER, SELFPAY ==
[2025-06-11 09:29] LABS: Appearance Urine Clear; Glucose Urine UA >=1000 mg/dL (Negative); PH 6.0 (5.0-9.0); Specific Gravity - Urine 1.015 (1.005-1.025); UMIC TRIGGER UACC YES
[2025-06-11 09:43] LABS: UACC Culture Trigger YES
[2025-06-11 09:58] LABS: Anion Gap 12 (12-20); Blood Urea Nitrogen 18 mg/dL (9-16); Calcium 8.9 mg/dL (8.4-10.2); Carbon Dioxide 22 mmol/L (22-29); Chloride 113 mmol/L (96-108); Estimated Glomerular Filt Rate 53; Potassium 3.7 mmol/L (3.3-5.1); Sodium 143 mmol/L (135-145)
[2025-06-11 10:16] LABS: Free T4 (Free Thyroxine) 0.98 ng/dL (0.71-1.85); Thyroid Stimulating Hormone 0.23 uIU/mL (0.32-4.0)
== END 2025-06-11 08:40 | disposition home or self-care (01) ==
LOC: HO.LAB 08:39
PROVIDERS: PCP Internal Medicine; Visit Provider Internal Medicine
DX: E11.65 Type 2 diabetes mellitus with hyperglycemia (principal); E87.6 Hypokalemia; E03.8 Other specified hypothyroidism; E06.3 Autoimmune thyroiditis
CPT/HCPCS: 36415; 80048; 81001; 82570; 84439; 84443; 87086